=== PATIENT | female | born 1945 | race African-American/Black ===

== ENCOUNTER 2016-11-06 21:32 | Inpatient (IN) | payer BC, MEDICARE ==
[~2016-11-06] VITALS: Ht 167.6 cm; Wt 64.0 kg
[~2016-11-06 21:32] MED LIST: BUDE10.2 IH; DOXA4TAB2 PO; EZET10TA18 PO; LEVO75TA5 PO; PROVENTIL HFA6.7 GM IH; [UNRECOGNIZED DRUG - OTHER]
[2016-11-06] MEDS ORDERED: ASPIRIN CHEWABLE 81 MG TABLET. PO ONE (21:45)
[2016-11-06 22:37] LABS: BASO # 0.1 x10^3/uL (0.0-0.2); BASO % 1 % (0-3); EOS % 1 % (0-3); HEMATOCRIT 41.3 % (36.0-47.0); HEMOGLOBIN 13.3 g/dL (12.0-15.5); LYMPH # 1.9 x10^3/uL (1.0-4.8); LYMPH % 27 % (24-48); MEAN CORPUSCULAR HEMOGLOBIN 29 pg (25-35); MEAN CORPUSCULAR HGB CONC 32 g/dL (31-37); MEAN CORPUSCULAR VOLUME 89 fL (79-100); MONO % 6 % (0-9); NEUT % 65 % (31-73); PLATELET COUNT 197 x10^3/uL (140-400); RED BLOOD COUNT 4.62 x10^6/uL (3.50-5.40); RED CELL DISTRIBUTION WIDTH 16.7 % (11.5-14.5); WHITE BLOOD COUNT 7.2 x10^3/uL (4.0-11.0)
[2016-11-06 22:44] LABS: ANION GAP 8 (6-14); BLOOD UREA NITROGEN 11 mg/dL (7-20); CALCIUM 8.4 mg/dL (8.5-10.1); CARBON DIOXIDE 31 mmol/L (21-32); CHLORIDE 103 mmol/L (98-107); CREATININE 0.8 mg/dL (0.6-1.0); GFR 85.8; GLUCOSE 111 mg/dL (70-99); POTASSIUM 3.9 mmol/L (3.5-5.1); SODIUM 142 mmol/L (136-145)
[2016-11-06 22:50] LABS: ALBUMIN 3.4 g/dL (3.4-5.0); ALK PHOS 102 U/L (46-116); ALT (SGPT) 34 U/L (14-59); AST (SGOT) 59 U/L (15-37); DIRECT BILIRUBIN < 0.1 mg/dL (0.0-0.2); TOTAL BILIRUBIN 0.5 mg/dL (0.2-1.0); TOTAL PROTEIN 7.2 g/dL (6.4-8.2)
[2016-11-06] MEDS ORDERED: MORPHINE SULFATE 2 MG/ML DISP.SYRIN. IV PRN (23:15)
[2016-11-06] MEDS ORDERED: ONDANSETRON PF 4 MG/2 ML VIAL. IV PRN (23:15)
[2016-11-06] MEDS ORDERED: FUROSEMIDE 40 MG/4 ML VIAL. IVP ONE (23:15)
[2016-11-06] MEDS ORDERED: PIRF801T PO (23:27)
[2016-11-06] MEDS ORDERED: HYDR25TA9 PO (23:27)
--- NOTE | 2016-11-06 23:27 | PHYS DOC ---
Past Medical History Past Medical History: High Cholesterol, Hypertension, Other Additional Past Medical Histor: pulmonary fibrosis, o2 dependent Past Surgical History: No Surgical History Alcohol Use: None Drug Use: None Adult General Chief Complaint Chief Complaint: CHEST PAIN HPI HPI 71-year-old female presenting to the emergency department today with chest pain. She describes it as a burning sensation that is nonradiating moderate intermittent and without alleviating factors. She also reports increased leg swelling and worsening shortness of breath with exertion. She has a history of pulmonary fibrosis and is at baseline on 4 L nasal cannula. Review of systems is negative for fevers chills cough abdominal pain nausea vomiting or diaphoresis. All other review of systems is negative unless otherwise noted in history of present illness. ED course: 71-year-old female presenting to the emergency department today with chest pain with shortness of breath. Patient was tachycardic upon arrival and mildly tachypneic and mildly hypoxic. On examination the patient has mild crackles in the bases. 2+ edema in the legs. Patient clinically appears to be volume overloaded and suggestive of congestive heart failure. Chest x-ray obtained which shows pulmonary edema and chronic left radio opacification possibly secondary to fibrosis however underlying pneumonia cannot be excluded by this physician. Otherwise blood tests show elevated proBNP with mildly elevated troponin just above the reference range of normal. The patient received aspirin in the emergency department along with Lasix and then was admitted to our cardiovascular care unit with pulmonary and cardiology consultation. Review of Systems Review of Systems SEE ABOVE. Current Medications Current Medications Current Medications Medications (Trade) Dose Ordered Sig/Traci Start Time Stop Time Status Last Admin Dose Admin Aspirin (Children'S Aspirin) 324 mg 1X ONCE 11/06/16 21:45 11/06/16 21:46 DC 11/06/16 22:04 324 MG Furosemide (Lasix) 40 mg 1X ONCE 11/06/16 23:15 11/06/16 23:16 DC Info (Do NOT chart on this entry -- for MONITORING) 1 each PRN DAILY PRN 11/06/16 23:30 11/08/16 23:29 Iohexol (Omnipaque 300 Mg/ml) 75 ml 1X ONCE 11/06/16 23:30 11/06/16 23:31 Morphine Sulfate 2 mg PRN Q2HR PRN 11/06/16 23:15 11/07/16 23:14 Ondansetron HCl (Zofran) 4 mg PRN Q8HRS PRN 11/06/16 23:15 11/07/16 23:14 Allergies Allergies Allergies Coded Allergies Type Severity Reaction Last Updated Verified Penicillins Allergy Unknown Rash 02/19/14 Yes codeine Allergy Unknown 02/19/14 Yes Physical Exam Physical Exam SEE ABOVE Constitutional: Well developed, well nourished, no acute distress, non-toxic appearance. HENT: Normocephalic, atraumatic, bilateral external ears normal, oropharynx moist, no oral exudates, nose normal. Eyes: PERRLA, EOMI, conjunctiva normal, no discharge. [] Neck: Normal range of motion, no tenderness, supple, no stridor. [] Cardiovascular:Heart rate regular rhythm, no murmur [] Lungs & Thorax: SEE ABOVE Abdomen: Bowel sounds normal, soft, no tenderness, no masses, no pulsatile masses. [] Skin: Warm, dry, no erythema, no rash. [] Back: No tenderness, no CVA tenderness. [] Extremities: No tenderness, no cyanosis, no clubbing, ROM intact, Neurologic: Alert and oriented X 3, normal motor function, normal sensory function, no focal deficits noted. [] Psychologic: Affect normal, judgement normal, mood normal. [] Current Patient Data Vital Signs Vital Signs Date Time Temp Pulse Resp B/P (MAP) Pulse Ox O2 Delivery O2 Flow Rate FiO2 11/06/16 21:48 98.2 106 24 173/79 (110) 87 Nasal Cannula 5.0 98.2 Lab Values Laboratory Tests Test 11/06/16 22:00 White Blood Count 7.2 x10^3/uL (4.0-11.0) Red Blood Count 4.62 x10^6/uL (3.50-5.40) Hemoglobin 13.3 g/dL (12.0-15.5) Hematocrit 41.3 % (36.0-47.0) Mean Corpuscular Volume 89 fL (79-100) Mean Corpuscular Hemoglobin 29 pg (25-35) Mean Corpuscular Hemoglobin Concent 32 g/dL (31-37) Red Cell Distribution Width 16.7 % (11.5-14.5) H Platelet Count 197 x10^3/uL (140-400) Neutrophils (%) (Auto) 65 % (31-73) Lymphocytes (%) (Auto) 27 % (24-48) Monocytes (%) (Auto) 6 % (0-9) Eosinophils (%) (Auto) 1 % (0-3) Basophils (%) (Auto) 1 % (0-3) Neutrophils # (Auto) 4.7 x10^3uL (1.8-7.7) Lymphocytes # (Auto) 1.9 x10^3/uL (1.0-4.8) Monocytes # (Auto) 0.4 x10^3/uL (0.0-1.1) Eosinophils # (Auto) 0.1 x10^3/uL (0.0-0.7) Basophils # (Auto) 0.1 x10^3/uL (0.0-0.2) D-Dimer (Shelia) 2.25 ug/mlFEU (0.00-0.50) H Sodium Level 142 mmol/L (136-145) Potassium Level 3.9 mmol/L (3.5-5.1) Chloride Level 103 mmol/L (98-107) Carbon Dioxide Level 31 mmol/L (21-32) Anion Gap 8 (6-14) Blood Urea Nitrogen 11 mg/dL (7-20) Creatinine 0.8 mg/dL (0.6-1.0) Estimated GFR (Cockcroft-Gault) 85.8 Glucose Level 111 mg/dL (70-99) H Calcium Level 8.4 mg/dL (8.5-10.1) L Total Bilirubin 0.5 mg/dL (0.2-1.0) Direct Bilirubin < 0.1 mg/dL (0.0-0.2) Aspartate Amino Transferase (AST) 59 U/L (15-37) H Alanine Aminotransferase (ALT) 34 U/L (14-59) Alkaline Phosphatase 102 U/L (46-116) Troponin I Quantitative 0.072 ng/mL (0.000-0.055) US-Fhq-V-Type Natriuretic Peptide 60116 pg/mL (0-124) H Total Protein 7.2 g/dL (6.4-8.2) Albumin 3.4 g/dL (3.4-5.0) Lipase 95 U/L (73-393) Laboratory Tests 11/06/16 22:00 Laboratory Tests 11/06/16 22:00 EKG EKG [] Radiology/Procedures Radiology/Procedures [] Course & Med Decision Making Course & Med Decision Making Pertinent Labs and Imaging studies reviewed. (See chart for details) [] Dragon Disclaimer Dragon Disclaimer This electronic medical record was generated, in whole or in part, using a voice recognition dictation system. Departure Departure Impression: Primary Impression: Elevated troponin Additional Impressions: CHF (congestive heart failure) Pulmonary edema Pulmonary fibrosis Pedal edema Disposition: ADMITTED INPATIENT Admitting Physician: Joseluis Jorgensen Condition: STABLE Referrals: BOYD BRITO MD (PCP) Problem Qualifiers LASHON CISNEROS MD Nov 06, 2016 23:27
[2016-11-06] MEDS ORDERED: CONTRAST GIVEN MC PRN (23:30)
[2016-11-06] MEDS ORDERED: IOHEXOL 300 MG/ML 75 ML VIAL IV ONE (23:30)
[2016-11-07] VITALS (7 sets, daily range): BP systolic 101–144; BP diastolic 56–77
--- NOTE | 2016-11-07 00:42 | RAD ---
PQRS Compliance Statement: One or more of the following individualized dose reduction techniques were utilized for this examination: 1. Automated exposure control 2. Adjustment of the mA and/or kV according to patient size 3. Use of iterative reconstruction technique CT CHEST WITH CONTRAST, PULMONARY ANGIOGRAM History: extreme shortness of breath, elevated d-dimmer Comparison: CT chest with contrast April 27, 2014. Technique: Helical CT of the chest was performed after the administration of 75 cc Omnipaque 300 intravenous contrast according to protocol. Axial and coronal reconstructions were obtained. 3-D MIP images were constructed to better evaluate the pulmonary arteries. Findings: Pulmonary arteries are adequately opacified. There is no evidence of pulmonary embolism. Atherosclerotic aortic arch. No obvious dissection. There is anasarca. Mediastinal adenopathy is worse. Bilateral hilar adenopathy. Calcified right hilar and subcarinal lymph nodes. Moderate pericardial effusion. There is cardiomegaly. Small bilateral pleural effusions. Paraseptal emphysema. Pulmonary fibrosis has increased. There is interlobular septal thickening in the upper lobes, there may be superimposed interstitial edema. Central airways are patent. Visualized upper abdomen unremarkable. No acute compression fracture in the thoracic spine. IMPRESSION: 1. There is no CT evidence of pulmonary embolus. 2. Small bilateral pleural effusions. 3. Interval worsening of pulmonary fibrosis. 4. Upper lobe interlobular septal thickening, there may be superimposed interstitial edema. 5. Mediastinal adenopathy has increased. 6. Moderate pericardial effusion. 7. Anasarca. Electronically signed by: Socrates Barnes MD (11/07/2016 12:39 AM) [id number]
--- NOTE | 2016-11-07 01:16 | ACF ---
Admission Forms Criteria CHEST PAIN Clinical Indications for Admission to Inpatient Care (Place 'X' for any and all applicable criteria): Admission is indicated for chest pain and ANY ONE of the following(1)(2)(3)(4)(5 ): [ ]I. Angina with acute coronary syndrome (Also use Myocardial Infarction or Angina guideline) [ ]II. Hemodynamic instability [ ]III. Angina needing acute intervention as indicated by ALL of the following( 11)(12): [ ]a) Unstable angina is present as indicated by angina that is ANY ONE of the following: [ ]i) New onset [ ]ii) Nocturnal [ ]iii) Prolonged at rest [ ]iv) Progressive [ ]b) Angina warrants acute intervention as indicated by ANY ONE of the following: [ ]i) Recurrent angina (e.g, not responding as previously to treatment) [ ]ii) Angina at rest or with low-level activities despite initial medical therapy [ ]iii) New or presumably new ST-segment depression on ECG [ ]iv) Signs or symptoms of heart failure (eg, dyspnea, pulmonary edema) [ ]v) New or worsening mitral regurgitation [ ]vi) Hemodynamic instability [ ]vii) Dangerous arrhythmia (eg, sustained ventricular tachycardia) [ ]viii) History of percutaneous coronary intervention within 6 months [ ]ix) History of coronary artery bypass graft surgery [ ]x) WAYLON risk score of 2 or greater[A] [ ]xi) History of Diabetes(14) [ ]xii) High-risk cardiac ischemia findings on noninvasive testing (e.g, echocardiogram, treadmill testing, nuclear scan) [ ]xiii) Chronic renal insufficiency (ie, estimated GFR less than 60 mL/min/1.732m) [ ]xiv) Left ventricular ejection fraction less than 40% [ ]IV. Evidence of IL (eg, cardiac biomarkers positive, ST-segment elevation on ECG) also use Myocardial Infarction Criteria Form. [ ]V. Pulmonary edema [ ]. Respiratory distress [ ]VII. Chest pain indicative of serious diagnosis other than coronary artery disease (eg, aortic dissection) [X]VIII. Contraindications and/or Inappropriate clinical situations for Observational Care in patients with Chest Pain, when ANY ONE of the following is required: [ ]a) Patient with risk factor for pulmonary embolism, acute coronary syndrome and myocardial infarction (18) [ ]b) Patient with Pulmonary embolism require an average LOS of 4.3 days, therefore emergency department observation management is inappropriate 18,23 [ ]c) Painful condition/s in the elderly, have the highest rate of recidivism after emergency department observation management (10.8%) 20,21,22 [X]d) Elevated cardiac biomarker requires intensive and exhaustive care (19) [ ]IX. General contraindications and/or Inappropriate clinical situations for Observational Care in patients with Chest Pain, when ANY ONE of the following is required: [ ]a) Prediction of prolongation of LOS based on ANY ONE of the following may be considered as a contraindication for observational care 2, 3, 4, 5, 6, 7, 8, 9, 10, 11 [ ]i) Age > 65 yrs. [ ]ii) Patient arriving by ambulance [ ]iii) Patient with high acuity [ ]iv) Patient requiring vital sign monitoring [ ]v) Patient on IV medication [ ]b) Systolic blood pressures 180mmHg 3,12 [ ]c) Patient with altered mental status including delirium and other alteration of consciousness, (3) [ ]d) Patient whose discharge disposition will be to a [facility] home or rehabilitation home should not be managed in Emergency Department Observation Unit. CMS rule requires 3 days hospital stay before such placement. 3,13 [ ]e) Patient with failure to thrive due to broad array of etiologies 3,16,17 [ ]f) Inability to ambulate 3,14 Extended stay beyond goal length of stay may be needed for (1)(28): [ ]a) Specific condition diagnosed after evaluation (eg, pulmonary embolism, aortic dissection) [ ]b) Unstable angina [ ]c) Continued suspicion of acute coronary syndrome with inability to complete needed cardiac evaluation (eg, patient clinically unable to undergo stress testing) [ ]d) Myocardial infarction (Contents from ANGINA and CHEST PAIN clinical indications for admission to inpatient care have been integrated in this form) The original [employer] content created by [employer] has been revised. The portions of the content which have been revised are identified through the use of italic text or in bold, and [facility] [employer] has neither reviewed nor approved the modified material. All other unmodified content is copyright [employer]. Please see references footnoted in the original [facility] [employer] edition 2016 Admission Criteria Met?: Yes AWILDA ELAINE Nov 07, 2016 01:16
[2016-11-07] MEDS ORDERED: PIRF267C PO (01:34)
[2016-11-07 05:10] LABS: BASO # 0.1 x10^3/uL (0.0-0.2); BASO % 1 % (0-3); EOS % 1 % (0-3); HEMATOCRIT 38.7 % (36.0-47.0); HEMOGLOBIN 12.6 g/dL (12.0-15.5); LYMPH # 1.1 x10^3/uL (1.0-4.8); LYMPH % 15 % (24-48); MEAN CORPUSCULAR HEMOGLOBIN 29 pg (25-35); MEAN CORPUSCULAR HGB CONC 33 g/dL (31-37); MEAN CORPUSCULAR VOLUME 89 fL (79-100); MONO % 6 % (0-9); NEUT % 77 % (31-73); PLATELET COUNT 177 x10^3/uL (140-400); RED BLOOD COUNT 4.37 x10^6/uL (3.50-5.40); RED CELL DISTRIBUTION WIDTH 16.9 % (11.5-14.5); WHITE BLOOD COUNT 7.5 x10^3/uL (4.0-11.0)
[2016-11-07 05:25] LABS: CALCIUM 8.5 mg/dL (8.5-10.1); CREATININE 0.8 mg/dL (0.6-1.0); GFR 85.8
[2016-11-07 05:34] LABS: POTASSIUM 2.8 mmol/L (3.5-5.1)
[2016-11-07] MEDS ORDERED: POTASSIUM CHLORIDE 20 MEQ TABLET.ER. PO ONE ×2 (06:00→11:00)
--- NOTE | 2016-11-07 07:02 | EKG ---
[facility] [address] [place] [address] Test Date: 2016-11-06 Test Time: 21:46:11 Pat Name: RYLEE PONCE Department: Room: Gender: F Feeder Operator Automatic: : 1945 Requested By: LASHON CISNEROS Order Number: [id number] Reading MD: Measurements Intervals [place] Rate: 110 P: [place]: QRS: -107 QRSD: 98 T: 8 QT: 374 QTc: 512 Interpretive Statements SINUS TACHYCARDIA VENTRICULAR PREMATURE COMPLEX(ES) ABNORMAL RIGHT SUPERIOR AXIS DEVIATION S1,S2,S3 PATTERN LEFT ANTERIOR FASCICULAR BLOCK QRS(T) CONTOUR ABNORMALITY CONSISTENT WITH ANTEROSEPTAL INFARCT AGE UNDETERMINED RI6.01 Unconfirmed report No previous ECG available for comparison
--- NOTE | 2016-11-07 08:49 | RAD ---
INDICATION: chest pain COMPARISON: 06/14/2011 FINDINGS: Single view of chest obtained. Cardiac silhouette is prominent in size. Diffusely disorganized pulmonary markings with interstitial opacities bilaterally most confluent at left lung base. Degenerative changes shoulders IMPRESSION: Disorganized pulmonary markings bilaterally with some more confluent components including at the left lung base. Overall this appears increased when compared to 2011. Could be from progression of chronic lung disease with pulmonary fibrosis but given that this is increased from prior superimposed edema or interstitial infiltrate is possible
--- NOTE | 2016-11-07 09:23 | PDOC2 ---
MAI TURNER PROGRAM REVIEW DIRECTOR 11/07/16 0923: CARDIAC CONSULT DATE OF CONSULT Date of Consult DATE: 11/07/16 TIME: 09:14 REASON FOR CONSULT Reason for Consult: CHF REFERRING PHYSICIAN Referring Physician: Leti SOURCE Source: Chart review, Patient HISTORY OF PRESENT ILLNESS HISTORY OF PRESENT ILLNESS This is a pleasant 71 yo female admitted for complains of increasing SOA and chest burning. Reports that in the last few days she has been increasingly getting SOA. Her activity tolerance has decreased. She typically use 4-6 L of O2 at home for her pulmonary fibrosis but she has to increase lately just to tolerate going to the bathroom. She also started having chest burning midchest which was better after zantac but recurred again. This is nonradiating and no routine GERD meds. Denies any palpitations, nausea or vomiting. Denies any recent stress test. Her appetite has been poor. She has lost about 30 pounds in the last 8 months. also she has complained of some leg swelling but currently is much better. Denies any CAD, VTE, falls or any recent injury, fever or chills. She does reports that she has been producing more sputum yellow. Reports that her pulmonary fibrosis may have been caused by chronic exposure to plastic fumes. PAST MEDICAL HISTORY Cardiovascular: HTN, Hyperlipidemia Pulmonary: Other (Pulmonary fibrosis) CENTRAL NERVOUS SYSTEM: Other (No pertinent history) GI: GERD Heme/Onc: No pertinent hx Hepatobiliary: No pertinent hx Psych: No pertinent hx Musculoskeletal: Osteoarthritis Rheumatologic: No pertinent hx Infectious disease: No pertinent hx ENT: No pertinent hx Renal/: No pertinent hx Endocrine: Hypothyroidism Dermatology: No pertinent hx PAST SURGICAL HISTORY Past Surgical History: No pertinent history FAMILY HISTORY Family History: Heart Disease (father) SOCIAL HISTORY Smoke: No ALCOHOL: none Drugs: None Lives: with Family CURRENT MEDICATIONS CURRENT MEDICATIONS Current Medications Medications (Trade) Dose Ordered Sig/Traci Route PRN Reason Start Time Stop Time Status Last Admin Dose Admin Aspirin (Children'S Aspirin) 324 mg 1X ONCE PO 11/06/16 21:45 11/06/16 21:46 DC 11/06/16 22:04 Furosemide (Lasix) 40 mg 1X ONCE IVP 11/06/16 23:15 11/06/16 23:16 DC 11/06/16 23:32 Potassium Chloride (Klor-Con) 40 meq 1X ONCE PO 11/07/16 06:00 11/07/16 06:01 DC 11/07/16 06:06 ALLERGIES ALLERGIES: Coded Allergies: Penicillins (Verified Allergy, Intermediate, Rash, 11/07/16) swelling codeine (Verified Adverse Reaction, Mild, 11/07/16) "too sleepy" ROS Review of System 14 point ROS evaluated with pertinent positives noted per HPI PHYSICAL EXAM General: Alert, Oriented X3, Cooperative, No acute distress HEENT: Atraumatic, Mucous membr. moist/pink Lungs: Other (basilar crackles) Heart: Regular rate (SR), Normal S1, Normal S2, Other (split S2; 3/6 systolic murmur to LLS border; JVD) Abdomen: Soft, No tenderness Extremities: No cyanosis, Other (trace LE edema) Skin: No breakdown, No significant lesion Neuro: Normal speech, Sensation intact Psych/Mental Status: Mental status NL, Mood NL MUSCULOSKELETAL: Osteoarthritic changes both hands VITALS VITALS Vital Signs Date Time Temp Pulse Resp B/P (MAP) Pulse Ox O2 Delivery O2 Flow Rate FiO2 11/07/16 07:00 Nasal Cannula 6.0 11/07/16 06:49 98.4 85 18 105/59 (74) 92 98.4 LABS Lab: Laboratory Tests Test 11/06/16 22:00 11/07/16 04:00 11/07/16 04:05 White Blood Count 7.2 x10^3/uL (4.0-11.0) 7.5 x10^3/uL (4.0-11.0) Red Blood Count 4.62 x10^6/uL (3.50-5.40) 4.37 x10^6/uL (3.50-5.40) Hemoglobin 13.3 g/dL (12.0-15.5) 12.6 g/dL (12.0-15.5) Hematocrit 41.3 % (36.0-47.0) 38.7 % (36.0-47.0) Mean Corpuscular Volume 89 fL (79-100) 89 fL (79-100) Mean Corpuscular Hemoglobin 29 pg (25-35) 29 pg (25-35) Mean Corpuscular Hemoglobin Concent 32 g/dL (31-37) 33 g/dL (31-37) Red Cell Distribution Width 16.7 % (11.5-14.5) 16.9 % (11.5-14.5) Platelet Count 197 x10^3/uL (140-400) 177 x10^3/uL (140-400) Neutrophils (%) (Auto) 65 % (31-73) 77 % (31-73) Lymphocytes (%) (Auto) 27 % (24-48) 15 % (24-48) Monocytes (%) (Auto) 6 % (0-9) 6 % (0-9) Eosinophils (%) (Auto) 1 % (0-3) 1 % (0-3) Basophils (%) (Auto) 1 % (0-3) 1 % (0-3) Neutrophils # (Auto) 4.7 x10^3uL (1.8-7.7) 5.8 x10^3uL (1.8-7.7) Lymphocytes # (Auto) 1.9 x10^3/uL (1.0-4.8) 1.1 x10^3/uL (1.0-4.8) Monocytes # (Auto) 0.4 x10^3/uL (0.0-1.1) 0.5 x10^3/uL (0.0-1.1) Eosinophils # (Auto) 0.1 x10^3/uL (0.0-0.7) 0.1 x10^3/uL (0.0-0.7) Basophils # (Auto) 0.1 x10^3/uL (0.0-0.2) 0.1 x10^3/uL (0.0-0.2) D-Dimer (Shelia) 2.25 ug/mlFEU (0.00-0.50) Sodium Level 142 mmol/L (136-145) 146 mmol/L (136-145) Potassium Level 3.9 mmol/L (3.5-5.1) 2.8 mmol/L (3.5-5.1) Chloride Level 103 mmol/L (98-107) 104 mmol/L (98-107) Carbon Dioxide Level 31 mmol/L (21-32) 34 mmol/L (21-32) Anion Gap 8 (6-14) 8 (6-14) Blood Urea Nitrogen 11 mg/dL (7-20) 10 mg/dL (7-20) Creatinine 0.8 mg/dL (0.6-1.0) 0.8 mg/dL (0.6-1.0) Estimated GFR (Cockcroft-Gault) 85.8 85.8 Glucose Level 111 mg/dL (70-99) 83 mg/dL (70-99) Calcium Level 8.4 mg/dL (8.5-10.1) 8.5 mg/dL (8.5-10.1) Total Bilirubin 0.5 mg/dL (0.2-1.0) Direct Bilirubin < 0.1 mg/dL (0.0-0.2) Aspartate Amino Transf (AST/SGOT) 59 U/L (15-37) Alanine Aminotransferase (ALT/SGPT) 34 U/L (14-59) Alkaline Phosphatase 102 U/L (46-116) Troponin I Quantitative 0.072 ng/mL (0.000-0.055) 0.107 ng/mL (0.000-0.055) LX-Tdg-C-Type Natriuretic Peptide 37086 pg/mL (0-124) Total Protein 7.2 g/dL (6.4-8.2) Albumin 3.4 g/dL (3.4-5.0) Lipase 95 U/L (73-393) IMAGES IMAGES CTA Chest IMPRESSION: 1. There is no CT evidence of pulmonary embolus. 2. Small bilateral pleural effusions. 3. Interval worsening of pulmonary fibrosis. 4. Upper lobe interlobular septal thickening, there may be superimposed interstitial edema. 5. Mediastinal adenopathy has increased. 6. Moderate pericardial effusion. 7. Anasarca. DATE: 11/07/163 ECHOCARDIOGRAM ECHOCARDIOGRAM <Conclusion> The left ventricle is of a normal size. The left ventricular wall is mildly thickened with increased brightness. An early infiltrative proces can not be ruled out. The left ventricular systolic function is normal with an ejection fraction of 60 %. There is a grade 1 diastolic dysfunction. There is a trace pericardial effusion. The mitral valves are not thickened. Excursion is normal.There Josseline no mitral stenosis or regurgitation. The aortic valve is tricuspid with no aortic stenosis or regurgitation. The left atrium is of a normal size. The right ventricle is of a normal size with normal systolic function. Right atrium is normal. There is a trace tricuspid regurgitation. Estimated right ventricular systolic pressure is 35 mmHg. The pulmonic valve is normal. The inferior vena cava is o a f normal size with a decrease in collapse during ventricular systole. DATE: 05/13/14 1053 ASSESSMENT/PLAN ASSESSMENT/PLAN 1. Acute on chronic respiratory failure with underlying pulmonary fibrosis: per pulmonary 2. Acute CHF with possible diastolic dysfunction/RVH: mainly induced by pulmonary issues 3. Chest pain: mainly burning likely GERD but with her increasing SOA, will need to rule out contributing ischemia. 4. HTN: low end 5. HLP 6. Hypothyroidism 7. Moderate pericardial effusion: per CTA. Recommendations 1. TTE with bubble study, replace Mg and K. TSH, lipids. 2. Lasix x1 today. Caution with significant preload reduction. Strict I & O 3. Possible MPI tomorrow pending pulmonary status and TTE result. 4. Hold antiHTN for now. 5. ECASA and statin Problems: ONEL MIDDLETON MD 11/07/16 1601: CARDIAC CONSULT ALLERGIES ALLERGIES: Coded Allergies: Penicillins (Verified Allergy, Intermediate, Rash, 11/07/16) swelling codeine (Verified Adverse Reaction, Mild, 11/07/16) "too sleepy" ASSESSMENT/PLAN ASSESSMENT/PLAN Patient seen and examined. Agree with RECOVERY ADVOCATE's assessment and plan. Continue gentle diuresis for acute on chronic diastolic heart failure. Chest pain atypical and most probably GI etiology. Troponin level slightly elevated most will be secondary to demand ischemia. Check 2-D echo to assess LV function and rule out wall motion abnormalities. Continue treatment of pulmonary fibrosis per pulmonary team. We will consider ischemic evaluation the formal stress test once respiratory status improves. Thank you for the consultation. Problems: MAI TURNER APRN Nov 07, 2016 09:23 ONEL MIDDLETON MD Nov 07, 2016 16:01
[2016-11-07 09:35] LABS: CHOLESTEROL/HDL RATIO 3.9; MAGNESIUM 1.7 mg/dL (1.8-2.4)
--- NOTE | 2016-11-07 10:06 | EKG ---
[facility] [address] [place] [address] Test Date: 2016-11-07 Test Time: 09:50:41 Pat Name: RYLEE PONCE Department: Room: 250 1 Gender: F Food Processing Plant Manager: BENJAIMN : 1945 Requested By: MAI TURNER Order Number: [id number] Reading MD: Measurements Intervals [place] Rate: 99 P: 36 [place]: 142 QRS: -115 QRSD: 96 T: -34 QT: 364 QTc: 473 Interpretive Statements SINUS RHYTHM VENTRICULAR PREMATURE COMPLEX(ES) LEFT ATRIAL ABNORMALITY ABNORMAL RIGHT SUPERIOR AXIS DEVIATION S1,S2,S3 PATTERN LEFT ANTERIOR FASCICULAR BLOCK QRS(T) CONTOUR ABNORMALITY CONSISTENT WITH ANTEROSEPTAL INFARCT AGE UNDETERMINED T ABNORMALITY IN ANTERIOR LEADS ABNORMAL ECG RI6.01 No previous ECG available for comparison
[2016-11-07] MEDS ORDERED: MAGNESIUM SULFATE 2GM 50 ML IV ONE (11:00)
[2016-11-07] MEDS ORDERED: FUROSEMIDE 40 MG/4 ML VIAL. IVP ONE ×2 (11:15→16:15)
[2016-11-07] MEDS ORDERED: hydrALAZINE 20 MG/ML VIAL. IVP PRN (14:00)
[2016-11-07] MEDS: LEVOTHYROXINE 75 MCG TABLET PO SCH (14:00)
[2016-11-07] MEDS ORDERED: ACETAMINOPHEN 325 MG TABLET. PO PRN (14:00)
[2016-11-07] MEDS ORDERED: ONDANSETRON PF 4 MG/2 ML VIAL. IV PRN (14:00)
[2016-11-07] MEDS ORDERED: DOCUSATE SODIUM 100 MG CAPSULE. PO PRN (14:00)
[2016-11-07] MEDS ORDERED: hydroCHLOROthiazide 25 MG TABLET PO SCH (14:00)
--- NOTE | 2016-11-07 14:04 | PDOC1 ---
History and Physical Date of Admission Date of Admission 11/07/16 Identification/Chief Complaint Chief Complaint chest burning pain Problems: Source Source: Chart review, Patient History of Present Illness History of Present Illness HPI 71-year-old female presenting to the emergency department today with chest pain x1 day Pt has chronic GERD, not taking anti acid meds daily. She feels substernal burning chest pain, no radiation, no N/V, sob, cough, fever, chills. She has pulmonary fibrosis, chronically on Home o2 5-7L. CTA showed pulmanory fibrosis and moderate pericardial effusion. Past Medical History Cardiovascular: HTN, Hyperlipidemia Pulmonary: Other (Pulmonary fibrosis) CENTRAL NERVOUS SYSTEM: Other (No pertinent history) GI: GERD Heme/Onc: No pertinent hx Hepatobiliary: No pertinent hx Psych: No pertinent hx Rheumatologic: No pertinent hx Infectious disease: No pertinent hx ENT: No pertinent hx Renal/: No pertinent hx Endocrine: Hypothyroidism Dermatology: No pertinent hx Past Surgical History Past Surgical History: No pertinent history Family History Family History: Heart Disease (father) Social History Smoke: No ALCOHOL: none Drugs: None Current Problem List Problem List Problems Medical Problems: (1) CHF (congestive heart failure) Status: Acute (2) Pedal edema Status: Acute (3) Pulmonary edema Status: Acute (4) Pulmonary fibrosis Status: Acute Current Medications Current Medications Current Medications Medications (Trade) Dose Ordered Sig/Traci Start Time Stop Time Status Last Admin Dose Admin Aspirin (Children'S Aspirin) 324 mg 1X ONCE 11/06/16 21:45 11/06/16 21:46 DC 11/06/16 22:04 324 MG Aspirin (Ecotrin) 81 mg [id number] 11/08/16 08:00 Atorvastatin Calcium (Lipitor) 20 mg QHS 11/07/16 21:00 Furosemide (Lasix) 40 mg 1X ONCE 11/07/16 11:15 11/07/16 11:16 DC Info (Do NOT chart on this entry -- for MONITORING) 1 each PRN DAILY PRN 11/06/16 23:30 11/08/16 23:29 Iohexol (Omnipaque 300 Mg/ml) 75 ml 1X ONCE 11/06/16 23:30 11/06/16 23:31 DC Magnesium Sulfate/ Dextrose 50 ml @ 25 mls/hr 1X ONCE 11/07/16 11:00 11/07/16 12:59 DC 11/07/16 10:56 25 MLS/HR Morphine Sulfate 2 mg PRN Q2HR PRN 11/06/16 23:15 11/07/16 23:14 Ondansetron HCl (Zofran) 4 mg PRN Q8HRS PRN 11/06/16 23:15 11/07/16 23:14 Potassium Chloride (Klor-Con) 20 meq DAILYWBKFT 11/08/16 08:00 Allergies Allergies Allergies Coded Allergies Type Severity Reaction Last Updated Verified Penicillins Allergy Unknown Rash 02/19/14 Yes codeine Allergy Unknown 02/19/14 Yes ROS Review of System CONSTITUTIONAL: No fever or chills EYES: No recent changes SKIN: No rash or itching CARDIOVASCULAR: No chest pain, syncope, palpitations, or edema RESPIRATORY: No SOB or cough GASTROINTESTINAL: No nausea, vomiting or abdominal pain NEUROLOGICAL: No headaches or weakness ENDOCRINE: No cold or heat intolerance GENITOURINARY: No urgency or frequency of urination MUSCULOSKELETAL: No back pain or joint pain LYMPHATICS: No enlarged lymph nodes PSYCHIATRIC: No anxiety or depression Physical Exam Physical Exam GEN.: No apparent distress. Alert and oriented. HEENT: Head is normocephalic, atraumatic NECK: Supple. LUNGS: bl dry mild crackles HEART: RRR, S1, S2 present. Peripheral pulses intact ABDOMEN: Soft, nontender. Positive bowel sounds. EXTREMITIES: Without any cyanosis. NEUROLOGIC: Normal speech, normal tone PSYCHIATRIC: Normal affect, normal mood. SKIN: No ulcerations Vitals Vitals Vital Signs Date Time Temp Pulse Resp B/P (MAP) Pulse Ox O2 Delivery O2 Flow Rate FiO2 11/07/16 11:00 99.5 93 35 126/70 (88) 94 Nasal Cannula 6.0 99.5 Labs Labs Laboratory Tests Test 11/06/16 22:00 11/07/16 04:00 11/07/16 04:05 11/07/16 11:20 White Blood Count 7.2 x10^3/uL (4.0-11.0) 7.5 x10^3/uL (4.0-11.0) Red Blood Count 4.62 x10^6/uL (3.50-5.40) 4.37 x10^6/uL (3.50-5.40) Hemoglobin 13.3 g/dL (12.0-15.5) 12.6 g/dL (12.0-15.5) Hematocrit 41.3 % (36.0-47.0) 38.7 % (36.0-47.0) Mean Corpuscular Volume 89 fL (79-100) 89 fL (79-100) Mean Corpuscular Hemoglobin 29 pg (25-35) 29 pg (25-35) Mean Corpuscular Hemoglobin Concent 32 g/dL (31-37) 33 g/dL (31-37) Red Cell Distribution Width 16.7 % (11.5-14.5) 16.9 % (11.5-14.5) Platelet Count 197 x10^3/uL (140-400) 177 x10^3/uL (140-400) Neutrophils (%) (Auto) 65 % (31-73) 77 % (31-73) Lymphocytes (%) (Auto) 27 % (24-48) 15 % (24-48) Monocytes (%) (Auto) 6 % (0-9) 6 % (0-9) Eosinophils (%) (Auto) 1 % (0-3) 1 % (0-3) Basophils (%) (Auto) 1 % (0-3) 1 % (0-3) Neutrophils # (Auto) 4.7 x10^3uL (1.8-7.7) 5.8 x10^3uL (1.8-7.7) Lymphocytes # (Auto) 1.9 x10^3/uL (1.0-4.8) 1.1 x10^3/uL (1.0-4.8) Monocytes # (Auto) 0.4 x10^3/uL (0.0-1.1) 0.5 x10^3/uL (0.0-1.1) Eosinophils # (Auto) 0.1 x10^3/uL (0.0-0.7) 0.1 x10^3/uL (0.0-0.7) Basophils # (Auto) 0.1 x10^3/uL (0.0-0.2) 0.1 x10^3/uL (0.0-0.2) D-Dimer (Shelia) 2.25 ug/mlFEU (0.00-0.50) Sodium Level 142 mmol/L (136-145) 146 mmol/L (136-145) Potassium Level 3.9 mmol/L (3.5-5.1) 2.8 mmol/L (3.5-5.1) Chloride Level 103 mmol/L (98-107) 104 mmol/L (98-107) Carbon Dioxide Level 31 mmol/L (21-32) 34 mmol/L (21-32) Anion Gap 8 (6-14) 8 (6-14) Blood Urea Nitrogen 11 mg/dL (7-20) 10 mg/dL (7-20) Creatinine 0.8 mg/dL (0.6-1.0) 0.8 mg/dL (0.6-1.0) Estimated GFR (Cockcroft-Gault) 85.8 85.8 Glucose Level 111 mg/dL (70-99) 83 mg/dL (70-99) Calcium Level 8.4 mg/dL (8.5-10.1) 8.5 mg/dL (8.5-10.1) Total Bilirubin 0.5 mg/dL (0.2-1.0) Direct Bilirubin < 0.1 mg/dL (0.0-0.2) Aspartate Amino Transf (AST/SGOT) 59 U/L (15-37) Alanine Aminotransferase (ALT/SGPT) 34 U/L (14-59) Alkaline Phosphatase 102 U/L (46-116) Troponin I Quantitative 0.072 ng/mL (0.000-0.055) 0.107 ng/mL (0.000-0.055) 0.070 ng/mL (0.000-0.055) OH-Zov-R-Type Natriuretic Peptide 98004 pg/mL (0-124) Total Protein 7.2 g/dL (6.4-8.2) Albumin 3.4 g/dL (3.4-5.0) Lipase 95 U/L (73-393) Magnesium Level 1.7 mg/dL (1.8-2.4) Triglycerides Level 83 mg/dL (0-150) Cholesterol Level 183 mg/dL (0-200) LDL Cholesterol, Calculated 119 mg/dL (0-100) VLDL Cholesterol, Calculated 17 mg/dL (0-40) Non-HDL Cholesterol Calculated 136 mg/dL (0-129) HDL Cholesterol 47 mg/dL (40-60) Cholesterol/HDL Ratio 3.9 Thyroid Stimulating Hormone (TSH) 4.410 uIU/mL (0.358-3.74) Laboratory Tests Test 11/06/16 22:00 11/07/16 04:00 11/07/16 04:05 11/07/16 11:20 White Blood Count 7.2 x10^3/uL (4.0-11.0) 7.5 x10^3/uL (4.0-11.0) Red Blood Count 4.62 x10^6/uL (3.50-5.40) 4.37 x10^6/uL (3.50-5.40) Hemoglobin 13.3 g/dL (12.0-15.5) 12.6 g/dL (12.0-15.5) Hematocrit 41.3 % (36.0-47.0) 38.7 % (36.0-47.0) Mean Corpuscular Volume 89 fL (79-100) 89 fL (79-100) Mean Corpuscular Hemoglobin 29 pg (25-35) 29 pg (25-35) Mean Corpuscular Hemoglobin Concent 32 g/dL (31-37) 33 g/dL (31-37) Red Cell Distribution Width 16.7 % (11.5-14.5) 16.9 % (11.5-14.5) Platelet Count 197 x10^3/uL (140-400) 177 x10^3/uL (140-400) Neutrophils (%) (Auto) 65 % (31-73) 77 % (31-73) Lymphocytes (%) (Auto) 27 % (24-48) 15 % (24-48) Monocytes (%) (Auto) 6 % (0-9) 6 % (0-9) Eosinophils (%) (Auto) 1 % (0-3) 1 % (0-3) Basophils (%) (Auto) 1 % (0-3) 1 % (0-3) Neutrophils # (Auto) 4.7 x10^3uL (1.8-7.7) 5.8 x10^3uL (1.8-7.7) Lymphocytes # (Auto) 1.9 x10^3/uL (1.0-4.8) 1.1 x10^3/uL (1.0-4.8) Monocytes # (Auto) 0.4 x10^3/uL (0.0-1.1) 0.5 x10^3/uL (0.0-1.1) Eosinophils # (Auto) 0.1 x10^3/uL (0.0-0.7) 0.1 x10^3/uL (0.0-0.7) Basophils # (Auto) 0.1 x10^3/uL (0.0-0.2) 0.1 x10^3/uL (0.0-0.2) D-Dimer (Shelia) 2.25 ug/mlFEU (0.00-0.50) Sodium Level 142 mmol/L (136-145) 146 mmol/L (136-145) Potassium Level 3.9 mmol/L (3.5-5.1) 2.8 mmol/L (3.5-5.1) Chloride Level 103 mmol/L (98-107) 104 mmol/L (98-107) Carbon Dioxide Level 31 mmol/L (21-32) 34 mmol/L (21-32) Anion Gap 8 (6-14) 8 (6-14) Blood Urea Nitrogen 11 mg/dL (7-20) 10 mg/dL (7-20) Creatinine 0.8 mg/dL (0.6-1.0) 0.8 mg/dL (0.6-1.0) Estimated GFR (Cockcroft-Gault) 85.8 85.8 Glucose Level 111 mg/dL (70-99) 83 mg/dL (70-99) Calcium Level 8.4 mg/dL (8.5-10.1) 8.5 mg/dL (8.5-10.1) Total Bilirubin 0.5 mg/dL (0.2-1.0) Direct Bilirubin < 0.1 mg/dL (0.0-0.2) Aspartate Amino Transf (AST/SGOT) 59 U/L (15-37) Alanine Aminotransferase (ALT/SGPT) 34 U/L (14-59) Alkaline Phosphatase 102 U/L (46-116) Troponin I Quantitative 0.072 ng/mL (0.000-0.055) 0.107 ng/mL (0.000-0.055) 0.070 ng/mL (0.000-0.055) CF-Tlt-T-Type Natriuretic Peptide 63866 pg/mL (0-124) Total Protein 7.2 g/dL (6.4-8.2) Albumin 3.4 g/dL (3.4-5.0) Lipase 95 U/L (73-393) Magnesium Level 1.7 mg/dL (1.8-2.4) Triglycerides Level 83 mg/dL (0-150) Cholesterol Level 183 mg/dL (0-200) LDL Cholesterol, Calculated 119 mg/dL (0-100) VLDL Cholesterol, Calculated 17 mg/dL (0-40) Non-HDL Cholesterol Calculated 136 mg/dL (0-129) HDL Cholesterol 47 mg/dL (40-60) Cholesterol/HDL Ratio 3.9 Thyroid Stimulating Hormone (TSH) 4.410 uIU/mL (0.358-3.74) VTE Prophylaxis Ordered VTE Prophylaxis Devices: Yes VTE Pharmacological Prophylaxi: Yes Assessment/Plan Assessment/Plan chest pain, 2/2 GERD likely chronic hypoxic resp failure with pulmonary fibrosis htn hld moderate pericardial effusion hypokalemia hypomagnesemia plan: fu with card, pulm, gi consult add protonix TTE pending cont home meds got lasix, hold hctz dvt ppx JOHN REN MD Nov 07, 2016 14:04
[2016-11-07] MEDS ORDERED: ALBUTEROL SULFATE 2.5 MG/3 ML NEBU. NEB PRN (14:15)
[2016-11-07] MEDS: ENOXAPARIN 40 MG/0.4 ML SYRINGE. SQ SCH (14:46)
--- NOTE | 2016-11-07 15:00 | PDOC2 ---
GI CONSULT Reason For Consult: GERD HPI: HPI: 71 y/o female w/ pulmonary fibrosis admitted w/ burning chest pain, also increasing SOA for awhile. Tried ASA and Zantac at home w/ some relief, but burning recurred. Troponin, BNP, and D-dimer elevated elevated, CTA w/o PE as below. Cardiology has seen, plans for echocardiogram, possible stress test. Seems has a h/o GERD w/ rare symptoms (burning chest pain, "knot" in her stomach ) which occur after eating dairy. Takes Tums or Zantac PRN with improvement of symptoms. Years ago had an episode of chest pain and fingertip tingling, given Maalox and Prilosec x 1 month (or so) by her PCP w/ improvement of symptoms. Did not continue PPI because she felt better; additionally, she recalls PPIs being expensive. Decreased appetite in 03/2016 associated w/ 30-40 pound weight loss. No abd pain. No diarrhea or constipation. No dysphagia. No n/ v. No hematochezia or melena. No NSAID use. No previous EGD or colonoscopy. PMH: PMH: idiopathic pulmonary fibrosis on O2, HTN, HLD, GERD, hypothyroidism, bronchoscopy FH: Family History: Other (Crohn's) Social History: Smoke: Quit ALCOHOL: none Drugs: None ROS: GEN: Denies fevers, chills, sweats HEENT: Denies blurred vision, sore throat CV: +chest pain RESP: +shortness of air GI: Per HPI : Denies hematuria, dysuria ENDO: +weight loss NEURO: Denies confusion, dizziness MSK: Denies weakness, joint pain/swelling SKIN: Denies jaundice, pruritus Vitals: Vitals: Vital Signs Date Time Temp Pulse Resp B/P (MAP) Pulse Ox O2 Delivery O2 Flow Rate FiO2 11/07/16 11:00 99.5 93 35 126/70 (88) 94 Nasal Cannula 6.0 99.5 Labs: Labs: Laboratory Tests Test 11/06/16 22:00 11/07/16 04:00 11/07/16 04:05 11/07/16 11:20 White Blood Count 7.2 x10^3/uL (4.0-11.0) 7.5 x10^3/uL (4.0-11.0) Red Blood Count 4.62 x10^6/uL (3.50-5.40) 4.37 x10^6/uL (3.50-5.40) Hemoglobin 13.3 g/dL (12.0-15.5) 12.6 g/dL (12.0-15.5) Hematocrit 41.3 % (36.0-47.0) 38.7 % (36.0-47.0) Mean Corpuscular Volume 89 fL (79-100) 89 fL (79-100) Mean Corpuscular Hemoglobin 29 pg (25-35) 29 pg (25-35) Mean Corpuscular Hemoglobin Concent 32 g/dL (31-37) 33 g/dL (31-37) Red Cell Distribution Width 16.7 % (11.5-14.5) 16.9 % (11.5-14.5) Platelet Count 197 x10^3/uL (140-400) 177 x10^3/uL (140-400) Neutrophils (%) (Auto) 65 % (31-73) 77 % (31-73) Lymphocytes (%) (Auto) 27 % (24-48) 15 % (24-48) Monocytes (%) (Auto) 6 % (0-9) 6 % (0-9) Eosinophils (%) (Auto) 1 % (0-3) 1 % (0-3) Basophils (%) (Auto) 1 % (0-3) 1 % (0-3) Neutrophils # (Auto) 4.7 x10^3uL (1.8-7.7) 5.8 x10^3uL (1.8-7.7) Lymphocytes # (Auto) 1.9 x10^3/uL (1.0-4.8) 1.1 x10^3/uL (1.0-4.8) Monocytes # (Auto) 0.4 x10^3/uL (0.0-1.1) 0.5 x10^3/uL (0.0-1.1) Eosinophils # (Auto) 0.1 x10^3/uL (0.0-0.7) 0.1 x10^3/uL (0.0-0.7) Basophils # (Auto) 0.1 x10^3/uL (0.0-0.2) 0.1 x10^3/uL (0.0-0.2) D-Dimer (Shelia) 2.25 ug/mlFEU (0.00-0.50) Sodium Level 142 mmol/L (136-145) 146 mmol/L (136-145) Potassium Level 3.9 mmol/L (3.5-5.1) 2.8 mmol/L (3.5-5.1) Chloride Level 103 mmol/L (98-107) 104 mmol/L (98-107) Carbon Dioxide Level 31 mmol/L (21-32) 34 mmol/L (21-32) Anion Gap 8 (6-14) 8 (6-14) Blood Urea Nitrogen 11 mg/dL (7-20) 10 mg/dL (7-20) Creatinine 0.8 mg/dL (0.6-1.0) 0.8 mg/dL (0.6-1.0) Estimated GFR (Cockcroft-Gault) 85.8 85.8 Glucose Level 111 mg/dL (70-99) 83 mg/dL (70-99) Calcium Level 8.4 mg/dL (8.5-10.1) 8.5 mg/dL (8.5-10.1) Total Bilirubin 0.5 mg/dL (0.2-1.0) Direct Bilirubin < 0.1 mg/dL (0.0-0.2) Aspartate Amino Transf (AST/SGOT) 59 U/L (15-37) Alanine Aminotransferase (ALT/SGPT) 34 U/L (14-59) Alkaline Phosphatase 102 U/L (46-116) Troponin I Quantitative 0.072 ng/mL (0.000-0.055) 0.107 ng/mL (0.000-0.055) 0.070 ng/mL (0.000-0.055) LU-Yuk-X-Type Natriuretic Peptide 80660 pg/mL (0-124) Total Protein 7.2 g/dL (6.4-8.2) Albumin 3.4 g/dL (3.4-5.0) Lipase 95 U/L (73-393) Magnesium Level 1.7 mg/dL (1.8-2.4) Triglycerides Level 83 mg/dL (0-150) Cholesterol Level 183 mg/dL (0-200) LDL Cholesterol, Calculated 119 mg/dL (0-100) VLDL Cholesterol, Calculated 17 mg/dL (0-40) Non-HDL Cholesterol Calculated 136 mg/dL (0-129) HDL Cholesterol 47 mg/dL (40-60) Cholesterol/HDL Ratio 3.9 Thyroid Stimulating Hormone (TSH) 4.410 uIU/mL (0.358-3.74) Allergies: Coded Allergies: Penicillins (Verified Allergy, Intermediate, Rash, 11/07/16) swelling codeine (Verified Adverse Reaction, Mild, 11/07/16) "too sleepy" Medications: Current Medications Medications (Trade) Dose Ordered Sig/Traci Route PRN Reason Start Time Stop Time Status Last Admin Dose Admin Aspirin (Children'S Aspirin) 324 mg 1X ONCE PO 11/06/16 21:45 11/06/16 21:46 DC 11/06/16 22:04 Furosemide (Lasix) 40 mg 1X ONCE IVP 11/06/16 23:15 11/06/16 23:16 DC 11/06/16 23:32 Potassium Chloride (Klor-Con) 40 meq 1X ONCE PO 11/07/16 06:00 11/07/16 06:01 DC 11/07/16 06:06 Potassium Chloride (Klor-Con) 40 meq 1X ONCE PO 11/07/16 11:00 11/07/16 11:01 DC 11/07/16 10:55 Magnesium Sulfate/ Dextrose 50 ml @ 25 mls/hr 1X ONCE IV 11/07/16 11:00 11/07/16 12:59 DC 11/07/16 10:56 Imaging: Imaging: CXR IMPRESSION: Disorganized pulmonary markings bilaterally with some more confluent components including at the left lung base. Overall this appears increased when compared to 2012. Could be from progression of chronic lung disease with pulmonary fibrosis but given that this is increased from prior superimposed edema or interstitial infiltrate is possible. Chest CTA IMPRESSION: 1. There is no CT evidence of pulmonary embolus. 2. Small bilateral pleural effusions. 3. Interval worsening of pulmonary fibrosis. 4. Upper lobe interlobular septal thickening, there may be superimposed interstitial edema. 5. Mediastinal adenopathy has increased. 6. Moderate pericardial effusion. 7. Anasarca. PE: GEN: NAD, thin HEENT: Atraumatic, PERRL LUNGS: decreased, nasal cannula HEART: RRR +murm ABD: NABS, S/ND/NT EXTREMITY: No edema SKIN: No rashes, no jaundice NEURO/PSYCH: A & O 3 A/P: A/P: Resp failure, CHF, elevated troponin Burning chest pain H/o GERD -occasional chest burning or "stomach knot" after eating dairy -PPI improved symptoms years ago, stopped due to cost and symptom improvement -now uses Tums and H2 jason Decreased appetite, weight loss -since 03/2016, 30-40 pounds Pulmonary fibrosis CRC screen -no previous colonoscopy -- Continue workup per cardiology. Will add PPI QD w/ consideration for EGD later on. Consider outpt screening colonoscopy as well. JIGAR MUNGUIA Nov 07, 2016 15:00
--- NOTE | 2016-11-07 15:36 | PDOC2 ---
CONSULT Date of Consult Date of Consult DATE: 11/07/16 TIME: 15:25 Reason for Consult Reason for Consult: PULMONARY FIBROSIS Referring Physician Referring Physician: DR REN Identification/Chief Complaint Chief Complaint INCREASE SOA AND CHEST BURNING Problems: Source Source: Chart review, Patient History of Present Illness Reason for Visit: PT KNOWN TO ME SAW ME IN OFFICE LAST WEEK, FOLLOW UP ON PULMONARY FIBROSIS PT SLOWLY DETERIORATING, PRESENTS WITH CHEST BURNING, INCREASE SOA NO PRODUCTIVE COUGH SOME LOWER EXT EDEMA NO SYNCOPE CT OF CHEST REVIEWED NO PE PT SEE IN CONSULT BY CARDIOLOGY I SPOKE WITH DR MIDDLETON NO F/C/N/V Past Medical History Cardiovascular: HTN, Hyperlipidemia Pulmonary: Other (Pulmonary fibrosis) CENTRAL NERVOUS SYSTEM: Other (No pertinent history) GI: GERD Heme/Onc: No pertinent hx Hepatobiliary: No pertinent hx Psych: No pertinent hx Musculoskeletal: Osteoarthritis Rheumatologic: No pertinent hx Infectious disease: No pertinent hx ENT: No pertinent hx Renal/: No pertinent hx Endocrine: Hypothyroidism Dermatology: No pertinent hx Past Surgical History Past Surgical History: No pertinent history Family History Family History: Heart Disease (father) Social History Quit ALCOHOL: none Drugs: None Lives: with Family Current Problem List Problem List Problems Medical Problems: (1) CHF (congestive heart failure) Status: Acute (2) Pedal edema Status: Acute (3) Pulmonary edema Status: Acute (4) Pulmonary fibrosis Status: Acute Current Medications Current Medications Current Medications Aspirin (Children'S Aspirin) 324 mg 1X ONCE PO Last administered on 11/06/16 22:04; Start 11/06/16 at 21:45; Stop 11/06/16 at 21:46; Status DC Furosemide (Lasix) 40 mg 1X ONCE IVP Last administered on 11/06/16t 23:32; Start 11/06/16 at 23:15; Stop 11/06/16 at 23:16; Status DC Ondansetron HCl (Zofran) 4 mg PRN Q8HRS PRN IV NAUSEA/VOMITING; Start 11/06/16 at 23:15; Stop 11/07/16 at 23:14 Morphine Sulfate 2 mg PRN Q2HR PRN IV PAIN; Start 11/06/16 at 23:15; Stop 11/07 at 23:14 Iohexol (Omnipaque 300 Mg/ml) 75 ml 1X ONCE IV ; Start 11/06/16 at 23:30; Stop 11/06/16 at 23:31; Status DC Info (Do NOT chart on this entry -- for MONITORING) 1 each PRN DAILY PRN MC SEE COMMENTS; Start 11/06/16 at 23:30; Stop 11/08/16 at 23:29 Potassium Chloride (Klor-Con) 40 meq 1X ONCE PO Last administered on 06:06; Start 11/07/16 at 06:00; Stop 11/07/16 at 06:01; Status DC Potassium Chloride (Klor-Con) 40 meq 1X ONCE PO Last administered on 10:55; Start 11/07/16 at 11:00; Stop 11/07/16 at 11:01; Status DC Magnesium Sulfate/ Dextrose 50 ml @ 25 mls/hr 1X ONCE IV Last administered on 11/07/16 10:56; Start 11/07/16 at 11:00; Stop 11/07/16 at 12:59; Status DC Furosemide (Lasix) 40 mg 1X ONCE IVP ; Start 11/07/16 at 11:15; Stop 11/07/16 at 11:16; Status DC Potassium Chloride (Klor-Con) 20 meq DAILYWBKFT PO ; Start 11/08/16 at 08:00 Aspirin (Ecotrin) 81 mg DAILYWBKFT PO ; Start 11/08/16 at 08:00 Atorvastatin Calcium (Lipitor) 20 mg QHS PO ; Start 11/07/16 at 21:00 Doxazosin Mesylate (Cardura) 4 mg DAILY PO ; Start 11/07/16 at 14:00 EZETIMIBE (Zetia) 10 mg HS PO ; Start 11/07/16 at 21:00 Hydrochlorothiazide (Hydrodiuril) 25 mg DAILY PO ; Start 11/07/16 at 14:00; Stop 11/07/16 at 14:04; Status DC Levothyroxine Sodium (Synthroid) 75 mcg DAILY07 PO ; Start 11/07/16 at 14:00 Albuterol Sulfate (Ventolin Neb Soln) 2.5 mg PRN DAILY PRN NEB SOA; Start 11/07 at 14:15 Acetaminophen (Tylenol) 650 mg PRN Q6HRS PRN PO FEVER; Start 11/07/16 at 14:00 Ondansetron HCl (Zofran) 4 mg PRN Q6HRS PRN IV NAUSEA/VOMITING; Start 11/07/16 at 14:00 Hydralazine HCl (Apresoline) 10 mg PRN Q4HRS PRN IVP ELEVATED BP, SEE COMMENTS ; Start 11/07/16 at 14:00 Docusate Sodium (Colace) 100 mg PRN DAILY PRN PO CONSTIPATION; Start 11/07/16 at 14:00 Pantoprazole Sodium (Protonix) 40 mg DAILYAC PO ; Start 11/07/16 at 14:00 Enoxaparin Sodium (Lovenox 40mg Syringe) 40 mg Q24H SQ Last administered on t 14:46; Start 11/07/16 at 15:00 Active Scripts Active Reported Esbriet (Pirfenidone) 267 Mg Capsule 267 Mg PO TIDWMEALS Hydrochlorothiazide Tablet (Hydrochlorothiazide) 25 Mg Tablet 1 Tab PO DAILY Esbriet (Pirfenidone) 801 Mg Tablet 801 Mg PO Symbicort 160-4.5 Mcg Inhaler (Budesonide/Formoterol Fumarate) 10.2 Gm Hfa.aer.ad 2 Puff IH Proventil Hfa Inhaler (Albuterol Sulfate) 6.7 Gm Hfa.aer.ad 2 Puff IH PRN Levothyroxine Sodium 75 Mcg Tablet 1 Tab PO DAILY Cardura (Doxazosin Mesylate) 4 Mg Tablet 1 Tab PO DAILY Zetia (Ezetimibe) 10 Mg Tablet 10 Mg PO HS Allergies Allergies: Coded Allergies: Penicillins (Verified Allergy, Intermediate, Rash, 11/07/16) swelling codeine (Verified Adverse Reaction, Mild, 11/07/16) "too sleepy" ROS Review of System PER HPI OTHERWISE NEGATIVE Physical Exam Physical Exam NO APPARENT DISTRESS General: Alert, No acute distress HEENT: PERRLA, EOMI Lungs: Other (CRACKLES NO CHANGE FROM PREVIOUS EXAM) Heart: Regular rate, Normal S1, Normal S2 Abdomen: Normal bowel sounds, Soft, No tenderness Extremities: No cyanosis, Other (SOME EDEMA) Skin: No rashes, No breakdown, No significant lesion Neuro: Normal gait, Normal speech, Normal tone, Sensation intact Psych/Mental Status: Mental status NL Vitals VITALS Vital Signs Date Time Temp Pulse Resp B/P (MAP) Pulse Ox O2 Delivery O2 Flow Rate FiO2 11/07/16 11:00 99.5 93 35 126/70 (88) 94 Nasal Cannula 6.0 99.5 Labs Labs Laboratory Tests Test 11/06/16 22:00 11/07/16 04:00 11/07/16 04:05 11/07/16 11:20 White Blood Count 7.2 x10^3/uL (4.0-11.0) 7.5 x10^3/uL (4.0-11.0) Red Blood Count 4.62 x10^6/uL (3.50-5.40) 4.37 x10^6/uL (3.50-5.40) Hemoglobin 13.3 g/dL (12.0-15.5) 12.6 g/dL (12.0-15.5) Hematocrit 41.3 % (36.0-47.0) 38.7 % (36.0-47.0) Mean Corpuscular Volume 89 fL (79-100) 89 fL (79-100) Mean Corpuscular Hemoglobin 29 pg (25-35) 29 pg (25-35) Mean Corpuscular Hemoglobin Concent 32 g/dL (31-37) 33 g/dL (31-37) Red Cell Distribution Width 16.7 % (11.5-14.5) 16.9 % (11.5-14.5) Platelet Count 197 x10^3/uL (140-400) 177 x10^3/uL (140-400) Neutrophils (%) (Auto) 65 % (31-73) 77 % (31-73) Lymphocytes (%) (Auto) 27 % (24-48) 15 % (24-48) Monocytes (%) (Auto) 6 % (0-9) 6 % (0-9) Eosinophils (%) (Auto) 1 % (0-3) 1 % (0-3) Basophils (%) (Auto) 1 % (0-3) 1 % (0-3) Neutrophils # (Auto) 4.7 x10^3uL (1.8-7.7) 5.8 x10^3uL (1.8-7.7) Lymphocytes # (Auto) 1.9 x10^3/uL (1.0-4.8) 1.1 x10^3/uL (1.0-4.8) Monocytes # (Auto) 0.4 x10^3/uL (0.0-1.1) 0.5 x10^3/uL (0.0-1.1) Eosinophils # (Auto) 0.1 x10^3/uL (0.0-0.7) 0.1 x10^3/uL (0.0-0.7) Basophils # (Auto) 0.1 x10^3/uL (0.0-0.2) 0.1 x10^3/uL (0.0-0.2) D-Dimer (Shelia) 2.25 ug/mlFEU (0.00-0.50) Sodium Level 142 mmol/L (136-145) 146 mmol/L (136-145) Potassium Level 3.9 mmol/L (3.5-5.1) 2.8 mmol/L (3.5-5.1) Chloride Level 103 mmol/L (98-107) 104 mmol/L (98-107) Carbon Dioxide Level 31 mmol/L (21-32) 34 mmol/L (21-32) Anion Gap 8 (6-14) 8 (6-14) Blood Urea Nitrogen 11 mg/dL (7-20) 10 mg/dL (7-20) Creatinine 0.8 mg/dL (0.6-1.0) 0.8 mg/dL (0.6-1.0) Estimated GFR (Cockcroft-Gault) 85.8 85.8 Glucose Level 111 mg/dL (70-99) 83 mg/dL (70-99) Calcium Level 8.4 mg/dL (8.5-10.1) 8.5 mg/dL (8.5-10.1) Total Bilirubin 0.5 mg/dL (0.2-1.0) Direct Bilirubin < 0.1 mg/dL (0.0-0.2) Aspartate Amino Transf (AST/SGOT) 59 U/L (15-37) Alanine Aminotransferase (ALT/SGPT) 34 U/L (14-59) Alkaline Phosphatase 102 U/L (46-116) Troponin I Quantitative 0.072 ng/mL (0.000-0.055) 0.107 ng/mL (0.000-0.055) 0.070 ng/mL (0.000-0.055) RW-Osx-B-Type Natriuretic Peptide 33834 pg/mL (0-124) Total Protein 7.2 g/dL (6.4-8.2) Albumin 3.4 g/dL (3.4-5.0) Lipase 95 U/L (73-393) Magnesium Level 1.7 mg/dL (1.8-2.4) Triglycerides Level 83 mg/dL (0-150) Cholesterol Level 183 mg/dL (0-200) LDL Cholesterol, Calculated 119 mg/dL (0-100) VLDL Cholesterol, Calculated 17 mg/dL (0-40) Non-HDL Cholesterol Calculated 136 mg/dL (0-129) HDL Cholesterol 47 mg/dL (40-60) Cholesterol/HDL Ratio 3.9 Thyroid Stimulating Hormone (TSH) 4.410 uIU/mL (0.358-3.74) Laboratory Tests Test 11/06/16 22:00 11/07/16 04:00 11/07/16 04:05 11/07/16 11:20 White Blood Count 7.2 x10^3/uL (4.0-11.0) 7.5 x10^3/uL (4.0-11.0) Red Blood Count 4.62 x10^6/uL (3.50-5.40) 4.37 x10^6/uL (3.50-5.40) Hemoglobin 13.3 g/dL (12.0-15.5) 12.6 g/dL (12.0-15.5) Hematocrit 41.3 % (36.0-47.0) 38.7 % (36.0-47.0) Mean Corpuscular Volume 89 fL (79-100) 89 fL (79-100) Mean Corpuscular Hemoglobin 29 pg (25-35) 29 pg (25-35) Mean Corpuscular Hemoglobin Concent 32 g/dL (31-37) 33 g/dL (31-37) Red Cell Distribution Width 16.7 % (11.5-14.5) 16.9 % (11.5-14.5) Platelet Count 197 x10^3/uL (140-400) 177 x10^3/uL (140-400) Neutrophils (%) (Auto) 65 % (31-73) 77 % (31-73) Lymphocytes (%) (Auto) 27 % (24-48) 15 % (24-48) Monocytes (%) (Auto) 6 % (0-9) 6 % (0-9) Eosinophils (%) (Auto) 1 % (0-3) 1 % (0-3) Basophils (%) (Auto) 1 % (0-3) 1 % (0-3) Neutrophils # (Auto) 4.7 x10^3uL (1.8-7.7) 5.8 x10^3uL (1.8-7.7) Lymphocytes # (Auto) 1.9 x10^3/uL (1.0-4.8) 1.1 x10^3/uL (1.0-4.8) Monocytes # (Auto) 0.4 x10^3/uL (0.0-1.1) 0.5 x10^3/uL (0.0-1.1) Eosinophils # (Auto) 0.1 x10^3/uL (0.0-0.7) 0.1 x10^3/uL (0.0-0.7) Basophils # (Auto) 0.1 x10^3/uL (0.0-0.2) 0.1 x10^3/uL (0.0-0.2) D-Dimer (Shelia) 2.25 ug/mlFEU (0.00-0.50) Sodium Level 142 mmol/L (136-145) 146 mmol/L (136-145) Potassium Level 3.9 mmol/L (3.5-5.1) 2.8 mmol/L (3.5-5.1) Chloride Level 103 mmol/L (98-107) 104 mmol/L (98-107) Carbon Dioxide Level 31 mmol/L (21-32) 34 mmol/L (21-32) Anion Gap 8 (6-14) 8 (6-14) Blood Urea Nitrogen 11 mg/dL (7-20) 10 mg/dL (7-20) Creatinine 0.8 mg/dL (0.6-1.0) 0.8 mg/dL (0.6-1.0) Estimated GFR (Cockcroft-Gault) 85.8 85.8 Glucose Level 111 mg/dL (70-99) 83 mg/dL (70-99) Calcium Level 8.4 mg/dL (8.5-10.1) 8.5 mg/dL (8.5-10.1) Total Bilirubin 0.5 mg/dL (0.2-1.0) Direct Bilirubin < 0.1 mg/dL (0.0-0.2) Aspartate Amino Transf (AST/SGOT) 59 U/L (15-37) Alanine Aminotransferase (ALT/SGPT) 34 U/L (14-59) Alkaline Phosphatase 102 U/L (46-116) Troponin I Quantitative 0.072 ng/mL (0.000-0.055) 0.107 ng/mL (0.000-0.055) 0.070 ng/mL (0.000-0.055) XG-Fsa-X-Type Natriuretic Peptide 06143 pg/mL (0-124) Total Protein 7.2 g/dL (6.4-8.2) Albumin 3.4 g/dL (3.4-5.0) Lipase 95 U/L (73-393) Magnesium Level 1.7 mg/dL (1.8-2.4) Triglycerides Level 83 mg/dL (0-150) Cholesterol Level 183 mg/dL (0-200) LDL Cholesterol, Calculated 119 mg/dL (0-100) VLDL Cholesterol, Calculated 17 mg/dL (0-40) Non-HDL Cholesterol Calculated 136 mg/dL (0-129) HDL Cholesterol 47 mg/dL (40-60) Cholesterol/HDL Ratio 3.9 Thyroid Stimulating Hormone (TSH) 4.410 uIU/mL (0.358-3.74) Images Images IMPRESSION: 1. There is no CT evidence of pulmonary embolus. 2. Small bilateral pleural effusions. 3. Interval worsening of pulmonary fibrosis. 4. Upper lobe interlobular septal thickening, there may be superimposed interstitial edema. 5. Mediastinal adenopathy has increased. 6. Moderate pericardial effusion. 7. Anasarca. Assessment/Plan Assessment/Plan A/C RESP FAILURE PULMONARY FIBROSIS APPEARS TO BE ADVANCING ON CT CHEST AND CLINICALLY CHEST BURNING PER CARD ANASARCA SUSPECT SEC TO HYPOTHYROID HYPOTHYROID WT LOSS MILD SEC PULM HTN PERICARDIAL EFFUSION HYPOK PLAN RESTART HOME ESBRIET 02 FOLLOW CARD INPUT REPLACE K PCP TO ADDRESS THYROID REPLACEMENT JEAN HINTON MD Nov 07, 2016 15:36
[2016-11-07] MEDS: PANTOPRAZOLE 40 MG TABLET.DR. PO SCH (16:21)
[2016-11-07] MEDS: DOXAZOSIN MESYLATE 4 MG TABLET. PO SCH (16:21)
[2016-11-07] MEDS: ESBRIET PO SCH (18:09)
[2016-11-07] MEDS ORDERED: ATORVASTATIN CALCIUM 20 MG TABLET PO SCH (21:00)
[2016-11-07] MEDS ORDERED: EZETIMIBE 10 MG TABLET. PO SCH (21:00)
[2016-11-08 03:33] VITALS: BP 119/67
[2016-11-08] MEDS: PANTOPRAZOLE 40 MG TABLET.DR. PO SCH (06:34)
[2016-11-08] MEDS: LEVOTHYROXINE 75 MCG TABLET PO SCH (06:34)
[2016-11-08 07:00] VITALS: BP 106/63
[2016-11-08] MEDS ORDERED: ASPIRIN ENTERIC COATED 81 MG TABLET.DR. PO SCH (08:00)
[2016-11-08] MEDS: ESBRIET PO SCH ×3 (08:00→17:00)
[2016-11-08] MEDS ORDERED: POTASSIUM CHLORIDE 20 MEQ TABLET.ER. PO SCH (08:00)
[2016-11-08 08:31] LABS: BASO # 0.1 x10^3/uL (0.0-0.2); BASO % 1 % (0-3); EOS % 3 % (0-3); HEMATOCRIT 38.2 % (36.0-47.0); HEMOGLOBIN 12.4 g/dL (12.0-15.5); LYMPH # 1.3 x10^3/uL (1.0-4.8); LYMPH % 19 % (24-48); MEAN CORPUSCULAR HEMOGLOBIN 29 pg (25-35); MEAN CORPUSCULAR HGB CONC 33 g/dL (31-37); MEAN CORPUSCULAR VOLUME 89 fL (79-100); MONO % 6 % (0-9); NEUT % 71 % (31-73); PLATELET COUNT 172 x10^3/uL (140-400); RED BLOOD COUNT 4.32 x10^6/uL (3.50-5.40); WHITE BLOOD COUNT 6.7 x10^3/uL (4.0-11.0)
[2016-11-08 08:45] LABS: CALCIUM 8.4 mg/dL (8.5-10.1); CREATININE 0.9 mg/dL (0.6-1.0); GFR 74.9
[2016-11-08] MEDS ORDERED: REGADENOSON 0.4 MG/5 ML DISP.SYRIN. IV ONE (09:30)
--- NOTE | 2016-11-08 10:59 | PDOC ---
PULMONARY PROGRESS NOTES Vitals Vital Signs Date Time Temp Pulse Resp B/P (MAP) Pulse Ox O2 Delivery O2 Flow Rate FiO2 11/08/16 08:00 Nasal Cannula 6.0 11/08/16 07:00 98.9 85 16 106/63 (77) 95 98.9 Labs Laboratory Tests Test 11/06/16 22:00 11/07/16 04:00 11/07/16 04:05 11/07/16 11:20 White Blood Count 7.2 x10^3/uL (4.0-11.0) 7.5 x10^3/uL (4.0-11.0) Red Blood Count 4.62 x10^6/uL (3.50-5.40) 4.37 x10^6/uL (3.50-5.40) Hemoglobin 13.3 g/dL (12.0-15.5) 12.6 g/dL (12.0-15.5) Hematocrit 41.3 % (36.0-47.0) 38.7 % (36.0-47.0) Mean Corpuscular Volume 89 fL (79-100) 89 fL (79-100) Mean Corpuscular Hemoglobin 29 pg (25-35) 29 pg (25-35) Mean Corpuscular Hemoglobin Concent 32 g/dL (31-37) 33 g/dL (31-37) Red Cell Distribution Width 16.7 % (11.5-14.5) 16.9 % (11.5-14.5) Platelet Count 197 x10^3/uL (140-400) 177 x10^3/uL (140-400) Neutrophils (%) (Auto) 65 % (31-73) 77 % (31-73) Lymphocytes (%) (Auto) 27 % (24-48) 15 % (24-48) Monocytes (%) (Auto) 6 % (0-9) 6 % (0-9) Eosinophils (%) (Auto) 1 % (0-3) 1 % (0-3) Basophils (%) (Auto) 1 % (0-3) 1 % (0-3) Neutrophils # (Auto) 4.7 x10^3uL (1.8-7.7) 5.8 x10^3uL (1.8-7.7) Lymphocytes # (Auto) 1.9 x10^3/uL (1.0-4.8) 1.1 x10^3/uL (1.0-4.8) Monocytes # (Auto) 0.4 x10^3/uL (0.0-1.1) 0.5 x10^3/uL (0.0-1.1) Eosinophils # (Auto) 0.1 x10^3/uL (0.0-0.7) 0.1 x10^3/uL (0.0-0.7) Basophils # (Auto) 0.1 x10^3/uL (0.0-0.2) 0.1 x10^3/uL (0.0-0.2) D-Dimer (Shelia) 2.25 ug/mlFEU (0.00-0.50) Sodium Level 142 mmol/L (136-145) 146 mmol/L (136-145) Potassium Level 3.9 mmol/L (3.5-5.1) 2.8 mmol/L (3.5-5.1) Chloride Level 103 mmol/L (98-107) 104 mmol/L (98-107) Carbon Dioxide Level 31 mmol/L (21-32) 34 mmol/L (21-32) Anion Gap 8 (6-14) 8 (6-14) Blood Urea Nitrogen 11 mg/dL (7-20) 10 mg/dL (7-20) Creatinine 0.8 mg/dL (0.6-1.0) 0.8 mg/dL (0.6-1.0) Estimated GFR (Cockcroft-Gault) 85.8 85.8 Glucose Level 111 mg/dL (70-99) 83 mg/dL (70-99) Calcium Level 8.4 mg/dL (8.5-10.1) 8.5 mg/dL (8.5-10.1) Total Bilirubin 0.5 mg/dL (0.2-1.0) Direct Bilirubin < 0.1 mg/dL (0.0-0.2) Aspartate Amino Transf (AST/SGOT) 59 U/L (15-37) Alanine Aminotransferase (ALT/SGPT) 34 U/L (14-59) Alkaline Phosphatase 102 U/L (46-116) Troponin I Quantitative 0.072 ng/mL (0.000-0.055) 0.107 ng/mL (0.000-0.055) 0.070 ng/mL (0.000-0.055) LX-Xdw-H-Type Natriuretic Peptide 81379 pg/mL (0-124) Total Protein 7.2 g/dL (6.4-8.2) Albumin 3.4 g/dL (3.4-5.0) Lipase 95 U/L (73-393) Magnesium Level 1.7 mg/dL (1.8-2.4) Triglycerides Level 83 mg/dL (0-150) Cholesterol Level 183 mg/dL (0-200) LDL Cholesterol, Calculated 119 mg/dL (0-100) VLDL Cholesterol, Calculated 17 mg/dL (0-40) Non-HDL Cholesterol Calculated 136 mg/dL (0-129) HDL Cholesterol 47 mg/dL (40-60) Cholesterol/HDL Ratio 3.9 Thyroid Stimulating Hormone (TSH) 4.410 uIU/mL (0.358-3.74) Test 11/08/16 07:15 White Blood Count 6.7 x10^3/uL (4.0-11.0) Red Blood Count 4.32 x10^6/uL (3.50-5.40) Hemoglobin 12.4 g/dL (12.0-15.5) Hematocrit 38.2 % (36.0-47.0) Mean Corpuscular Volume 89 fL (79-100) Mean Corpuscular Hemoglobin 29 pg (25-35) Mean Corpuscular Hemoglobin Concent 33 g/dL (31-37) Red Cell Distribution Width 17.0 % (11.5-14.5) Platelet Count 172 x10^3/uL (140-400) Neutrophils (%) (Auto) 71 % (31-73) Lymphocytes (%) (Auto) 19 % (24-48) Monocytes (%) (Auto) 6 % (0-9) Eosinophils (%) (Auto) 3 % (0-3) Basophils (%) (Auto) 1 % (0-3) Neutrophils # (Auto) 4.7 x10^3uL (1.8-7.7) Lymphocytes # (Auto) 1.3 x10^3/uL (1.0-4.8) Monocytes # (Auto) 0.4 x10^3/uL (0.0-1.1) Eosinophils # (Auto) 0.2 x10^3/uL (0.0-0.7) Basophils # (Auto) 0.1 x10^3/uL (0.0-0.2) Sodium Level 144 mmol/L (136-145) Potassium Level 3.0 mmol/L (3.5-5.1) Chloride Level 104 mmol/L (98-107) Carbon Dioxide Level 32 mmol/L (21-32) Anion Gap 8 (6-14) Blood Urea Nitrogen 9 mg/dL (7-20) Creatinine 0.9 mg/dL (0.6-1.0) Estimated GFR (Cockcroft-Gault) 74.9 Glucose Level 79 mg/dL (70-99) Calcium Level 8.4 mg/dL (8.5-10.1) Magnesium Level 2.0 mg/dL (1.8-2.4) Free Thyroxine 1.18 ng/dL (0.76-1.46) Laboratory Tests Test 11/07/16 11:20 11/08/16 07:15 Troponin I Quantitative 0.070 ng/mL (0.000-0.055) White Blood Count 6.7 x10^3/uL (4.0-11.0) Red Blood Count 4.32 x10^6/uL (3.50-5.40) Hemoglobin 12.4 g/dL (12.0-15.5) Hematocrit 38.2 % (36.0-47.0) Mean Corpuscular Volume 89 fL (79-100) Mean Corpuscular Hemoglobin 29 pg (25-35) Mean Corpuscular Hemoglobin Concent 33 g/dL (31-37) Red Cell Distribution Width 17.0 % (11.5-14.5) Platelet Count 172 x10^3/uL (140-400) Neutrophils (%) (Auto) 71 % (31-73) Lymphocytes (%) (Auto) 19 % (24-48) Monocytes (%) (Auto) 6 % (0-9) Eosinophils (%) (Auto) 3 % (0-3) Basophils (%) (Auto) 1 % (0-3) Neutrophils # (Auto) 4.7 x10^3uL (1.8-7.7) Lymphocytes # (Auto) 1.3 x10^3/uL (1.0-4.8) Monocytes # (Auto) 0.4 x10^3/uL (0.0-1.1) Eosinophils # (Auto) 0.2 x10^3/uL (0.0-0.7) Basophils # (Auto) 0.1 x10^3/uL (0.0-0.2) Sodium Level 144 mmol/L (136-145) Potassium Level 3.0 mmol/L (3.5-5.1) Chloride Level 104 mmol/L (98-107) Carbon Dioxide Level 32 mmol/L (21-32) Anion Gap 8 (6-14) Blood Urea Nitrogen 9 mg/dL (7-20) Creatinine 0.9 mg/dL (0.6-1.0) Estimated GFR (Cockcroft-Gault) 74.9 Glucose Level 79 mg/dL (70-99) Calcium Level 8.4 mg/dL (8.5-10.1) Magnesium Level 2.0 mg/dL (1.8-2.4) Free Thyroxine 1.18 ng/dL (0.76-1.46) Medications Active Scripts Medications Dose Route/Sig Max Daily Dose Days Date Category Esbriet (Pirfenidone) 267 Mg Capsule 267 Mg PO TIDWMEALS 11/07/16 Reported Hydrochlorothiazide Tablet (Hydrochlorothiazide) 25 Mg Tablet 1 Tab PO DAILY 11/06/16 Reported Esbriet (Pirfenidone) 801 Mg Tablet 801 Mg PO 11/06/16 Reported Symbicort 160-4.5 Mcg Inhaler (Budesonide/Formoterol Fumarate) 10.2 Gm Hfa.aer.ad 2 Puff IH 02/19/14 Reported Proventil Hfa Inhaler (Albuterol Sulfate) 6.7 Gm Hfa.aer.ad 2 Puff IH PRN 02/19/14 Reported Levothyroxine Sodium 75 Mcg Tablet 1 Tab PO DAILY 02/19/14 Reported Cardura (Doxazosin Mesylate) 4 Mg Tablet 1 Tab PO DAILY 02/19/14 Reported Zetia (Ezetimibe) 10 Mg Tablet 10 Mg PO HS 02/19/14 Reported Impression . A/C RESP FAILURE PULMONARY FIBROSIS APPEARS TO BE ADVANCING ON CT CHEST AND CLINICALLY CHEST BURNING PER CARD ANASARCA SUSPECT SEC TO HYPOTHYROID HYPOTHYROID WT LOSS MILD SEC PULM HTN PERICARDIAL EFFUSION HYPOK Plan . HOME OK BY ME IF CARD WORK IS NEGATIVE FOLLOW UP IN DEC IN OFFICE RESTART HOME ADELEBRIET 02 JEAN HINTON MD Nov 08, 2016 10:59
[2016-11-08 11:00] VITALS: BP 115/68
[2016-11-08] MEDS ORDERED: POTASSIUM CHLORIDE 20 MEQ TABLET.ER. PO ONE (11:45)
--- NOTE | 2016-11-08 12:07 | PDOC ---
CARDIO Progress Notes Date and Time Date of Service 11/08/2016 Time of Evaluation 1150 Subjective Subjective: No Chest Pain, No shortness of breath, No Palpitations, No Dizziness Vitals Vitals Vital Signs Date Time Temp Pulse Resp B/P (MAP) Pulse Ox O2 Delivery O2 Flow Rate FiO2 11/08/16 08:00 Nasal Cannula 6.0 11/08/16 07:00 98.9 85 16 106/63 (77) 95 98.9 Weight Weight [ ] Input and Output Intake and Output Intake and Output 11/08/16 07:00 Intake Total 980 ml Output Total 1750 ml Balance -770 ml Intake Oral 980 ml Output Urine Total 1750 ml Laboratory Labs Laboratory Tests Test 11/08/16 07:15 White Blood Count 6.7 x10^3/uL (4.0-11.0) Red Blood Count 4.32 x10^6/uL (3.50-5.40) Hemoglobin 12.4 g/dL (12.0-15.5) Hematocrit 38.2 % (36.0-47.0) Mean Corpuscular Volume 89 fL (79-100) Mean Corpuscular Hemoglobin 29 pg (25-35) Mean Corpuscular Hemoglobin Concent 33 g/dL (31-37) Red Cell Distribution Width 17.0 % (11.5-14.5) Platelet Count 172 x10^3/uL (140-400) Neutrophils (%) (Auto) 71 % (31-73) Lymphocytes (%) (Auto) 19 % (24-48) Monocytes (%) (Auto) 6 % (0-9) Eosinophils (%) (Auto) 3 % (0-3) Basophils (%) (Auto) 1 % (0-3) Neutrophils # (Auto) 4.7 x10^3uL (1.8-7.7) Lymphocytes # (Auto) 1.3 x10^3/uL (1.0-4.8) Monocytes # (Auto) 0.4 x10^3/uL (0.0-1.1) Eosinophils # (Auto) 0.2 x10^3/uL (0.0-0.7) Basophils # (Auto) 0.1 x10^3/uL (0.0-0.2) Sodium Level 144 mmol/L (136-145) Potassium Level 3.0 mmol/L (3.5-5.1) Chloride Level 104 mmol/L (98-107) Carbon Dioxide Level 32 mmol/L (21-32) Anion Gap 8 (6-14) Blood Urea Nitrogen 9 mg/dL (7-20) Creatinine 0.9 mg/dL (0.6-1.0) Estimated GFR (Cockcroft-Gault) 74.9 Glucose Level 79 mg/dL (70-99) Calcium Level 8.4 mg/dL (8.5-10.1) Magnesium Level 2.0 mg/dL (1.8-2.4) Free Thyroxine 1.18 ng/dL (0.76-1.46) Physical Exam HEENT: Neck Supple W Full Motion Chest: Symmetric LUNGS: Clear to Auscultation Heart: S1S2 (SplitS2), RRR (SR no significant ectopies) Abdomen: Soft N/T Extremities: No Edema, No Calf Tenderness Neurology: alert, oriented, follow commands Assessment Assessment 1. Acute on chronic respiratory failure with underlying pulmonary fibrosis 2. Acute CHF with possible diastolic dysfunction/RVH: currently compensated 3. Atypical chest pain: troponin peaked at 0.1, likely demand mediated 4. HTN: controlled at low end 5. HLP 6. Hypothyroidism: TSH subtherapeutic 7. Pericardial effusion: small per TTE 8. Small PFO: no further imaging nor intervention warranted. Recommendations 1. Replace K. 2. Maintain po hydration and avoid significant preload reduction. 3. Ok with lower dose cardura. No HCTZ at this time. 4. ECASA and statin 5. Follow pulmonary recommendations 6. Discussed significantly with pt in regards to CHF symptoms and emphasized BP control and daily weight and to call office per parameters discussed. 7.If mpi unremarkable then F/U in office in 4 wks MAI T[employer]NER [employer] Nov 08, 2016 12:07
[2016-11-08] MEDS: DOXAZOSIN MESYLATE 4 MG TABLET. PO SCH (12:15)
[2016-11-08] MEDS ORDERED: ATOR20TA58 PO (13:38)
[2016-11-08] MEDS ORDERED: PANT40TA5 PO (13:38)
[2016-11-08] MEDS ORDERED: ASPI-612 PO (13:38)
--- NOTE | 2016-11-08 13:40 | PDOC3 ---
Discharge Summary [facility] Date of Admission: Nov 06, 2016 Discharge Date: Nov 08, 2016 Admitting Diagnosis chest pain, 2/2 GERD likely chronic hypoxic resp failure with pulmonary fibrosis htn hld moderate pericardial effusion hypokalemia hypomagnesemia elevated troponin 2/2 demanding ischemia? Problems: Final Diagnosis CONSULTS pulm gi card Brief Hospital Course 71-year-old female presenting to the emergency department today with chest pain x1 day Pt has chronic GERD, not taking anti acid meds daily. She feels substernal burning chest pain, no radiation, no N/V, sob, cough, fever, chills. She has pulmonary fibrosis, chronically on Home o2 5-7L. CTA showed pulmanory fibrosis and moderate pericardial effusion. MPI pending. pt is on her baseline o2 requirement which is 6L now. chest burning pain is better with protonix, GI consulted. dc home if MPI neg. cont protonix daily. dc time 35min GEN.: No apparent distress. Alert and oriented. HEENT: Head is normocephalic, atraumatic NECK: Supple. LUNGS: bl dry mild crackles HEART: RRR, S1, S2 present. Peripheral pulses intact ABDOMEN: Soft, nontender. Positive bowel sounds. EXTREMITIES: Without any cyanosis. NEUROLOGIC: Normal speech, normal tone PSYCHIATRIC: Normal affect, normal mood. SKIN: No ulcerations Patient History: Problems: Disposition home CONDITION AT DISCHARGE: Improved Diet cardiac Scheduled Albuterol Sulfate (Proventil Hfa Inhaler), 2 PUFF IH PRN, (Reported) Aspirin (Aspirin Ec), 81 MG PO DAILYWBKFT Atorvastatin Calcium (Atorvastatin Calcium), 20 MG PO QHS Doxazosin Mesylate (Cardura), 1 TAB PO DAILY, (Reported) Ezetimibe (Zetia), 10 MG PO HS, (Reported) Hydrochlorothiazide (Hydrochlorothiazide Tablet ), 1 TAB PO DAILY, (Reported) Levothyroxine Sodium (Levothyroxine Sodium), 1 TAB PO DAILY, (Reported) Pantoprazole Sodium (Pantoprazole Sodium), 40 MG PO DAILYAC Miscellaneous Medications Budesonide/Formoterol Fumarate (Symbicort 160-4.5 Mcg Inhaler), 2 PUFF IH, ( Reported) Pirfenidone (Esbriet), 801 MG PO, (Reported) Discontinued Medications Pirfenidone (Esbriet), 267 MG PO TIDWMEALS, (Reported) Follow Up card and pulm in 2 weeks JOHN REN MD Nov 08, 2016 13:40
--- NOTE | 2016-11-08 14:06 | PDOC ---
Subjective: Subjective: Denies chest pain. Objective: Objective: Possible DC pending stress test results. Vital Signs: Vital Signs Date Time Temp Pulse Resp B/P (MAP) Pulse Ox O2 Delivery O2 Flow Rate FiO2 11/08/16 12:15 85 106/63 11/08/16 11:00 98.5 16 94 Nasal Cannula 6.0 98.5 Labs: Laboratory Tests Test 11/08/16 07:15 White Blood Count 6.7 x10^3/uL Red Blood Count 4.32 x10^6/uL Hemoglobin 12.4 g/dL Hematocrit 38.2 % Mean Corpuscular Volume 89 fL Mean Corpuscular Hemoglobin 29 pg Mean Corpuscular Hemoglobin Concent 33 g/dL Red Cell Distribution Width 17.0 % Platelet Count 172 x10^3/uL Neutrophils (%) (Auto) 71 % Lymphocytes (%) (Auto) 19 % Monocytes (%) (Auto) 6 % Eosinophils (%) (Auto) 3 % Basophils (%) (Auto) 1 % Neutrophils # (Auto) 4.7 x10^3uL Lymphocytes # (Auto) 1.3 x10^3/uL Monocytes # (Auto) 0.4 x10^3/uL Eosinophils # (Auto) 0.2 x10^3/uL Basophils # (Auto) 0.1 x10^3/uL Sodium Level 144 mmol/L Potassium Level 3.0 mmol/L Chloride Level 104 mmol/L Carbon Dioxide Level 32 mmol/L Anion Gap 8 Blood Urea Nitrogen 9 mg/dL Creatinine 0.9 mg/dL Estimated GFR (Cockcroft-Gault) 74.9 Glucose Level 79 mg/dL Calcium Level 8.4 mg/dL Magnesium Level 2.0 mg/dL Free Thyroxine 1.18 ng/dL PE: GEN: NAD LUNGS: decreased HEART: RRR ABD: S/ND/NT NEURO/PSYCH: A & O 3 A/P: Resp failure, pulmonary fibrosis, CHF, elevated troponin Burning chest pain, GERD -restarted PPI yesterday Decreased appetite, weight loss -since 03/2016, 30-40 pounds -- DC per primary/cardiology. Left Rx for pantoprazole - also discussed use of OTC omeprazole if she prefers ( could take 2 QD). Use Tums PRN. Consider outpt EGD/colonoscopy when/if resp status more stable. JIGAR MUNGUIA Nov 08, 2016 14:06
[2016-11-08 15:00] VITALS: BP 102/59
[2016-11-08] MEDS: ENOXAPARIN 40 MG/0.4 ML SYRINGE. SQ SCH (15:00)
--- NOTE | 2016-11-08 15:02 | RAD ---
APPROVED REPORT Test Type: Pharmacological Stress Nurse/Tech: neema dinero Test Indications: short of air Cardiac History: CHF, HTN, SEE EHR Medications: SEE EHR Medical History: REMOTE SMOKING, PULMONARY FIBROSIS, SEE EHR Resting ECG: SR WITH PAC'S Resting Heart Rate: 98 bpm Resting Blood Pressure: 135/83mmHg Pretest Chest Pain: No chest pain Nurse/Tech Notes LUNG SOUNDS COARSE, RIGHT > LEFT. PT IS ON 6L NC AND STATES PULMONARY FIBROSIS, AND IS ON HOME OXYGEN 24 HRS A DAY. PT STATES ANKLES WERE SWOLLEN BUT ON ASSESSMENT NO EDEMA NOTED. Consent: The procedure was explained to the patient in lay terms. Informed consent was witnessed. Omar eout was entered into [employer]. History and Stress Test performed by [facility]. Details Pharmacologic stress testing was performed using 0.4mg per 5ml of regadenoson given intravenously ove r 7-10 seconds. Stress Symptoms SOA, HEADACHE, STOMACH ACHE POST EXERCISE Reason for Termination: Infusion complete Max HR: 109 bpm Max Blood Pressure: 143/75mmHg Chest Pain: No. Arrhythmia: No. ST Change: No. INTERPRETATION Stress EKG Conclusion: Baseline EKG showed sinus rhythm. No ischemic changes at peak stress. No arr hythmias. Imaging Protocol IMAGE PROTOCOL: Rest Tc-99m/stress Tc-99m 1 day Rest: Stress: Viability: Radiopharm.Tc99m [id number] Sestamibi Dose11.2mCi 34.6mCi Duration 15min. 10min. Img Date 11/08/2016 11/08/2016 Inj-Img Opkj86hre. 60min. Rest Admin Site:IV - Right AntecubitalAdministrator:RT Avtar (R)(N) Stress Admin Site: IV - Right AntecubitalAdministrator: ANIVAL Novak STRESS DATA End Diast. Vol.33.0mlAv. Heart Kpng539.0bpm End Syst. Vol.8.0mlCO Index BSA0.0L/min Myocardial Mass72.0gEject. Rcatakhn60.0% Stress Rates Pk. Fill Rate3.76EDV/secLVtime Pk. Fill 160.01msec Pk. Empty Rate5.07ESV/secLVtime Pk. Eject90.77msec 1/3 Pk. Fill1.51EDV/sec Stress Scores Regional WT1.00Summed WT27.00 Regional WM0.00Summed WM6.00 Study quality was good. Left Ventricular size was Normal at Rest and Stress. Lung uptake was Normal. Left Ventricular ejection fraction is 76%. The rest and stress images show normal perfusion, normal contraction and thickening. LV Perf. Quant 17 Seg. SSS0.00 17 Seg. SRS1.00 17 Seg. SDS0.00 Stress Defect Extent (% LAD)0.00Rest Defect Extent (% LAD)0.00Rev. Defect Extent (% LAD)0.00 Stress Defect Extent (% LCX) 0.00Rest Defect Extent (% LCX)0.00Rev. Defect Extent (% LCX)0.00 Stress Defect Extent (% RCA)0.00Rest Defect Extent (% RCA)0.00Rev. Defect Extent (% RCA)0.00 Stress Defect Extent (% ANNITA)0.00Rest Defect Extent (% ANNITA)0.00Rev. Defect Extent (% ANNITA)0.00 Conclusion 1. Regadenoson cardioisotope stress test did not show any evidence of ischemia or infarct. 2. Normal left ventricular systolic function with ejection fraction calculated at 76%. 3. Low risk for cardiac events.
--- NOTE | 2016-11-09 10:07 | CARD ---
APPROVED REPORT EXAM: Two-dimensional and M-mode echocardiogram with Doppler and color Doppler. Other Information Quality : GoodHR: 90bpm Rhythm : PVC's INDICATION Congestive Heart Failure Echo Enhancing Agent Indication: Rule Out Septal Defect Agent/Amount Used: Agitated Saline 10mL 2D DIMENSIONS RVDd4.5 (2.9-3.5cm)Left Atrium(2D)2.6 (1.6-4.0cm) IVSd0.8 (0.7-1.1cm)Aortic Root(2D)3.5 (2.0-3.7cm) LVDd3.9 (3.9-5.9cm)LVOT Diameter2.0 (1.8-2.4cm) PWd1.0 (0.7-1.1cm)LVDs2.5 (2.5-4.0cm) FS (%) 35.0 %SV40.9 ml LVEF(%)65.0 (>50%) Aortic Valve AoV Peak Naeem.92.1cm/sAoV VTI14.9cm AO Peak GR.3.4mmHgLVOT VTI 12.17cm AO Mean GR.2mmHg Mitral Valve MV E Feynharx94.8cm/sMV DECEL VQUU069pd MV A Rbpqqzmx54.0cm/sE/A Ratio0.8 MV A [id number] TDI Lateral E' P. V5.34cm/sMedial E' P. V4.70cm/s E/Lateral E'10.3E/Medial E'11.7 Tricuspid Valve TR P. Jznpwawg153ln/sRAP TSOVAWYA1zsCi TR Peak Gr.51mmHg Pulmonary Vein S1 Jgwomnzp93.5cm/sS2 Nimkmajr11.89cm/s D2 Cnhbrqgp57.9cm/sPVa bktlkelc44scwu LEFT VENTRICLE The left ventricle is normal size. There is normal left ventricular wall thickness. Left ventricle sy stolic function is normal. The Ejection Fraction is >55%. There is a flattened septum consistent with right ventricle volume and pressure overload. Transmitral Doppler flow pattern is abnormal. RIGHT VENTRICLE The right ventricle is severely dilated. There is normal right ventricular wall thickness. Right Vent ricular septal motion is consistent with volume and pressure overload. ATRIA The left atrium size is normal. The right atrium is mildly dilated. The interatrial septum is intact with no evidence for an atrial septal defect or patent foramen ovale as noted on 2-D or Doppler imagi ng. No clear evidence of right to left shunt by agitated saline contrast. AORTIC VALVE The aortic valve is normal in structure and function. Doppler and Color Flow revealed no significant aortic regurgitation. There is no significant aortic valvular stenosis. MITRAL VALVE The mitral valve is normal in structure and function. There is no mitral valve stenosis. Doppler and Color Flow revealed no mitral valve regurgitation noted. TRICUSPID VALVE The tricuspid valve is normal in structure. Doppler and Color Flow revealed mild tricuspid regurgitat ion. The PA pressure was estimated at 59 mmHg. There is no tricuspid valve stenosis. PULMONIC VALVE The pulmonary valve is normal in structure and function. Doppler and Color Flow revealed trace to mil d pulmonic valvular regurgitation. There is no pulmonic valvular stenosis. GREAT VESSELS The aortic root is normal in size. There is mild pulmonary artery dilatation. Normal pulmonary venous flow (Doppler). The IVC is dilated and collapses >50% with inspiration. PERICARDIAL EFFUSION There is a small pericardial effusion. Critical Notification Physician Notified Critical Value: No <Conclusion> Left ventricle systolic function is normal. The Ejection Fraction is >55%. There is a flattened septum consistent with right ventricle volume and pressure overload. The right ventricle is severely dilated. Right Ventricular septal motion is consistent with volume and pressure overload. The interatrial septum is intact with no evidence for an atrial septal defect or patent foramen ovale as noted on 2-D or Doppler imaging. No clear evidence of right to left shunt by agitated saline cont rast. Doppler and Color Flow revealed mild tricuspid regurgitation. The PA pressure was estimated at 59 mmH g. There is mild pulmonary artery dilatation. The IVC is dilated and collapses >50% with inspiration. There is a small pericardial effusion.
== END 2016-11-08 17:29 | disposition home or self-care (01) | DRG 291 ==
LOC: ER 21:32 → 2 SOUTH 23:01
PROVIDERS: ADMIT Internal Medicine; ATTEND Internal Medicine
DX: I50.33 Acute on chronic diastolic (congestive) heart failure (principal); J96.21 Acute and chronic respiratory failure with hypoxia; R64 Cachexia; I31.3 Pericardial effusion (noninflammatory); I24.8 Other forms of acute ischemic heart disease; Q21.1 Atrial septal defect; K21.9 Gastro-esophageal reflux disease without esophagitis; E83.42 Hypomagnesemia; E87.6 Hypokalemia; I11.0 Hypertensive heart disease with heart failure; E78.5 Hyperlipidemia, unspecified; Z88.5 Allergy status to narcotic agent; J84.112 Idiopathic pulmonary fibrosis; M19.90 Unspecified osteoarthritis, unspecified site; E78.00 Pure hypercholesterolemia, unspecified; E03.9 Hypothyroidism, unspecified; I27.2 Other secondary pulmonary hypertension; J44.9 Chronic obstructive pulmonary disease, unspecified; Z82.49 Family history of ischemic heart disease and other diseases of the circulatory system; Z99.81 Dependence on supplemental oxygen; Z83.79 Family history of other diseases of the digestive system; Z88.0 Allergy status to penicillin; Z79.899 Other long term (current) drug therapy; Z79.1 Long term (current) use of non-steroidal anti-inflammatories (NSAID); Z79.82 Long term (current) use of aspirin; Z68.22 Body mass index [BMI] 22.0-22.9, adult
CPT/HCPCS: 99285; C8929; 36415; 71010; 71275; 78452; 80048; 80061; 80076; 83690; 83735; 83880; 84439; 84443; 84484; 85027; 85379; 93005; 93017; 94250; 94760; 96374; 96375; 96376; A9500; J1650; J1940; J2785; J7060

== ENCOUNTER 2016-11-21 13:14 | Emergency (ER) | payer MEDICARE ==
[~2016-11-21] VITALS: Ht 167.6 cm; Wt 66.2 kg
[~2016-11-21 13:14] MED LIST changes: +ASPI-612 PO; +ATOR20TA58 PO; +HYDR25TA9 PO; +PANT40TA5 PO; +PIRF267C PO; +PIRF801T PO
[2016-11-21 15:22] LABS: BILIRUBIN,URINE SMALL (NEG); GLUCOSE,URINE NEGATIVE (NEG); NITRITE,URINE NEGATIVE (NEG); PH,URINE 5.5; PROTEIN,URINE 100 mg/dL (NEG-TRACE)
--- NOTE | 2016-11-21 15:33 | PHYS DOC ---
Past Medical History Past Medical History: High Cholesterol, Hypertension, Other Additional Past Medical Histor: pulmonary fibrosis, o2 dependent Past Surgical History: No Surgical History Alcohol Use: None Drug Use: None Adult General Chief Complaint Chief Complaint: LOWER EXTREMITY SWELLING HPI HPI Patient is a 71 year old female presenting to the emergency department for evaluation of bilateral lower extremity edema. She says this has been increasing for the past 2-3 weeks after she stopped her diuretic. She was in the hospital and she had low blood pressure the time so they stopped her diuretic and halfed her pressure medication. Patient says that she feels short of breath all the time and it is not particularly worse in anyway. On her baseline 6 L satting at 94%. She denies any pain fevers chills nausea vomiting or other systemic symptoms. Review of Systems Review of Systems Constitutional: Denies fever or chills [] Eyes: Denies change in visual acuity, redness, or eye pain [] HENT: Denies nasal congestion or sore throat [] Respiratory: Denies cough. + shortness of breath [] Cardiovascular: No additional information not addressed in HPI [] GI: Denies abdominal pain, nausea, vomiting, bloody stools or diarrhea [] : Denies dysuria or hematuria [] Musculoskeletal: Denies back pain or joint pain [] Integument: Denies rash or skin lesions [] Neurologic: Denies headache, focal weakness or sensory changes [] Allergies Allergies Allergies Coded Allergies Type Severity Reaction Last Updated Verified Penicillins Allergy Intermediate Rash 11/07/16 Yes codeine Adverse Reaction Mild 11/07/16 Yes Physical Exam Physical Exam Constitutional: Well developed, well nourished, no acute distress, non-toxic appearance. [] HENT: Normocephalic, atraumatic, bilateral external ears normal, oropharynx moist, no oral exudates, nose normal. [] Eyes: PERRLA, EOMI, conjunctiva normal, no discharge. [] Neck: Normal range of motion, no tenderness, supple, no stridor. [] Cardiovascular:Heart rate regular rhythm, no murmur [] Lungs & Thorax: Bilateral breath sounds diminished with crackles at bases. Abdomen: Bowel sounds normal, soft, no tenderness, no masses, no pulsatile masses. [] Skin: Warm, dry, no erythema, no rash. [] Back: No tenderness, no CVA tenderness. [] Extremities: No tenderness, no cyanosis, no clubbing, ROM intact, 2+ PT edema BL. [] Neurologic: Alert and oriented X 3, normal motor function, normal sensory function, no focal deficits noted. [] Current Patient Data Vital Signs Vital Signs Date Time Temp Pulse Resp B/P (MAP) Pulse Ox O2 Delivery O2 Flow Rate FiO2 11/21/16 14:45 98.1 98 24 140/80 (100) 93 Nasal Cannula 6.0 98.1 Lab Values Laboratory Tests Test 11/21/16 15:00 11/21/16 15:28 Urine Collection Type Unknown Urine Color Peace Urine Clarity Hazy Urine pH 5.5 Urine Specific [place] >=1.030 Urine Protein 100 mg/dL (NEG-TRACE) Urine Glucose (UA) Negative mg/dL (NEG) Urine Ketones (Stick) Trace mg/dL (NEG) Urine Blood Trace (NEG) Urine Nitrite Negative (NEG) Urine Bilirubin Small (NEG) Urine Urobilinogen Dipstick 1.0 mg/dL (0.2 mg/dL) Urine Leukocyte Esterase Trace (NEG) Urine RBC 0 /HPF (0-2) Urine WBC 1-4 /HPF (0-4) Urine Squamous Epithelial Cells Mod /LPF Urine Bacteria Few /HPF (0-FEW) Urine Mucus Marked /LPF White Blood Count 7.5 x10^3/uL (4.0-11.0) Red Blood Count 4.81 x10^6/uL (3.50-5.40) Hemoglobin 14.1 g/dL (12.0-15.5) Hematocrit 42.9 % (36.0-47.0) Mean Corpuscular Volume 89 fL (79-100) Mean Corpuscular Hemoglobin 29 pg (25-35) Mean Corpuscular Hemoglobin Concent 33 g/dL (31-37) Red Cell Distribution Width 16.6 % (11.5-14.5) H Platelet Count 211 x10^3/uL (140-400) Neutrophils (%) (Auto) 74 % (31-73) H Lymphocytes (%) (Auto) 20 % (24-48) L Monocytes (%) (Auto) 5 % (0-9) Eosinophils (%) (Auto) 0 % (0-3) Basophils (%) (Auto) 1 % (0-3) Neutrophils # (Auto) 5.6 x10^3uL (1.8-7.7) Lymphocytes # (Auto) 1.5 x10^3/uL (1.0-4.8) Monocytes # (Auto) 0.3 x10^3/uL (0.0-1.1) Eosinophils # (Auto) 0.0 x10^3/uL (0.0-0.7) Basophils # (Auto) 0.1 x10^3/uL (0.0-0.2) Sodium Level 144 mmol/L (136-145) Potassium Level 3.4 mmol/L (3.5-5.1) L Chloride Level 105 mmol/L (98-107) Carbon Dioxide Level 28 mmol/L (21-32) Anion Gap 11 (6-14) Blood Urea Nitrogen 11 mg/dL (7-20) Creatinine 0.9 mg/dL (0.6-1.0) Estimated GFR (Cockcroft-Gault) 74.9 BUN/Creatinine Ratio 12 (6-20) Glucose Level 90 mg/dL (70-99) Calcium Level 8.9 mg/dL (8.5-10.1) Magnesium Level 1.8 mg/dL (1.8-2.4) Total Bilirubin 0.4 mg/dL (0.2-1.0) Aspartate Amino Transferase (AST) 34 U/L (15-37) Alanine Aminotransferase (ALT) 28 U/L (14-59) Alkaline Phosphatase 102 U/L (46-116) GJ-Zpg-M-Type Natriuretic Peptide 45272 pg/mL (0-124) H Total Protein 6.8 g/dL (6.4-8.2) Albumin 3.4 g/dL (3.4-5.0) Albumin/Globulin Ratio 1.0 (1.0-1.7) Thyroid Stimulating Hormone (TSH) 8.371 uIU/mL (0.358-3.74) H Laboratory Tests 11/21/16 15:28 Laboratory Tests 11/21/16 15:28 EKG EKG [] Radiology/Procedures Radiology/Procedures Portable chest, 11/21/2016: History: Shortness of breath, foot swelling, congestive heart failure Comparison is made to a study from 11/06/2016. The heart is enlarged. There is calcific plaquing of the aorta. There are extensive bilateral interstitial opacities which are unchanged. The underlying pulmonary vascularity is poorly defined. No definite pleural fluid is seen on this AP view. The bony structures are demineralized. IMPRESSION: Extensive bilateral interstitial opacities compatible with chronic interstitial lung disease with probable ongoing or recurrent superimposed interstitial edema. The findings are unchanged since 11/06/2016. DICTATED and SIGNED BY: MOR LOUIS MD DATE: 11/21/16 1610 Course & Med Decision Making Course & Med Decision Making Patient with peripheral edema possibly from venous insufficiency however congestive heart failure is also a consideration. Her BNP was 11,000 last time she was here 2 weeks ago and now is 15,000. I told patient that she should be admitted to the hospital to get cardiac consultation. During that she has a cardiology appointment in 2 days at 1 PM and she does not want to stay in the hospital and she does not feel that bad. The edema is the only reason she came to the emergency department and she does not feel more short of breath and usual. Patient was told that she should start back on her diuretic as this may help her peripheral edema. Patient will be discharged in stable condition and told to come back to the ER with worsening pain charts of breath or other general concerns. Patient and family aware and agreeable with plan and verbalized understanding of the need for today cardio urgent follow-up and will return with any worsening concerns. Dragon Disclaimer Dragon Disclaimer This electronic medical record was generated, in whole or in part, using a voice recognition dictation system. Departure Departure Impression: Primary Impression: Edema Additional Impression: Elevated brain natriuretic peptide (BNP) level Disposition: 01 HOME, SELF-CARE Condition: STABLE Referrals: BOYD BRITO MD (PCP) Patient Instructions: Peripheral Edema, Pulmonary Edema Additional Instructions: RESTART YOUR HCTZ 25MG. KEEP YOUR CARDIOLOGY F/U IN 2 DAYS AND COME BACK TO THE ED WITH ANY NEW OR WORSENING PAIN, SOA, OR OTHER GENERAL CONCERNS. THANK YOU! Problem Qualifiers JAYASHREE EMANUEL DO Nov 21, 2016 15:33
[2016-11-21 15:34] LABS: BACTERIA,URINE FEW /HPF (0-FEW); RBC,URINE 0 /HPF (0-2); SQUAMOUS EPITHELIAL CELL,UR MOD /LPF
[2016-11-21 15:36] LABS: BASO # 0.1 x10^3/uL (0.0-0.2); BASO % 1 % (0-3); EOS % 0 % (0-3); HEMATOCRIT 42.9 % (36.0-47.0); HEMOGLOBIN 14.1 g/dL (12.0-15.5); LYMPH # 1.5 x10^3/uL (1.0-4.8); LYMPH % 20 % (24-48); MEAN CORPUSCULAR HEMOGLOBIN 29 pg (25-35); MEAN CORPUSCULAR HGB CONC 33 g/dL (31-37); MEAN CORPUSCULAR VOLUME 89 fL (79-100); MONO % 5 % (0-9); NEUT % 74 % (31-73); PLATELET COUNT 211 x10^3/uL (140-400); RED BLOOD COUNT 4.81 x10^6/uL (3.50-5.40); RED CELL DISTRIBUTION WIDTH 16.6 % (11.5-14.5); WHITE BLOOD COUNT 7.5 x10^3/uL (4.0-11.0)
[2016-11-21 15:53] LABS: CALCIUM 8.9 mg/dL (8.5-10.1); CREATININE 0.9 mg/dL (0.6-1.0); GFR 74.9; POTASSIUM 3.4 mmol/L (3.5-5.1)
[2016-11-21 15:59] LABS: ALBUMIN 3.4 g/dL (3.4-5.0); MAGNESIUM 1.8 mg/dL (1.8-2.4); TOTAL BILIRUBIN 0.4 mg/dL (0.2-1.0); TOTAL PROTEIN 6.8 g/dL (6.4-8.2)
--- NOTE | 2016-11-21 16:16 | RAD ---
Portable chest, 11/21/2016: History: Shortness of breath, foot swelling, congestive heart failure Comparison is made to a study from 11/06/2016. The heart is enlarged. There is calcific plaquing of the aorta. There are extensive bilateral interstitial opacities which are unchanged. The underlying pulmonary vascularity is poorly defined. No definite pleural fluid is seen on this AP view. The bony structures are demineralized. IMPRESSION: Extensive bilateral interstitial opacities compatible with chronic interstitial lung disease with probable ongoing or recurrent superimposed interstitial edema. The findings are unchanged since 11/06/2016.
[2016-11-21 17:00] VITALS: BP 135/85
== END 2016-11-21 17:00 | disposition home or self-care (01) ==
LOC: ER 13:14
DX: R60.0 Localized edema (principal); R79.89 Other specified abnormal findings of blood chemistry; E78.00 Pure hypercholesterolemia, unspecified; I10 Essential (primary) hypertension; Z88.0 Allergy status to penicillin; Z88.5 Allergy status to narcotic agent; Z99.81 Dependence on supplemental oxygen
CPT/HCPCS: 36415; 71010; 80053; 81001; 83735; 83880; 84443; 85027; 87086; 99285-25

== ENCOUNTER → 2016-12-12 | Outpatient (CLI) | payer MEDICARE ==
[2016-11-21 17:00] VITALS: BP 135/85
--- NOTE | 2016-12-12 13:15 | RAD ---
APPROVED REPORT Patient Location : OUT-PATIENT Indications Lower Extremity Edema : Bilateral Deep System Deep Venous Thrombosis present : No Findings Collier scale images of the bilateral saphenofemoral junctions didn't reveal any evidence of thrombus. L imited imaging of the greater and lesser saphenous vein bilaterally do not reveal any evidence of thr ombus. Spectral waveforms and color Doppler did not reveal any evidence of reflux bilaterally in the greater and lesser saphenous veins. Critical Notification Critical Value: No <Conclusion> Negative for reflux in the bilateral greater and lesser saphenous veins.
--- NOTE | 2016-12-12 13:24 | RAD ---
APPROVED REPORT Bilateral Lower Extremity Venous Study for DVT Patient Location: OUT-PATIENT Indications Lower Extremity Edema: Bilateral Vein Imaging (Right) CFV (R): Compressible SFJ (R): Compressible FEM (R): Compressible POP (R): Compressible DFV (R): Compressible PTV (R): Spontaneous Peroneals (R): Spontaneous Vein Imaging (Left) CFV (L): Compressible SFJ (L): Compressible FEM (L): Compressible POP (L): Compressible DFV (L): Compressible PTV (L): Spontaneous Peroneals (L): Spontaneous Doppler Evaluation (Right) CFV (R): Pulsatile POP (R):Pulsatile Doppler Evaluation (Left) CFV (L):Pulsatile POP (L):Pulsatile Findings Bilateral deep venous evaluation with grayscale images demonstrates compressible vessels to the popli teal segment from the common femoral vein. The below-knee veins are not well visualized. Nonetheless, there is spontaneous flow below the knee and no evidence of obstruction to flow. Spectral waveforms and color Doppler bilaterally did not reveal any evidence of structural flow. Critical Notification Critical Value: No <Conclusion> Negative for DVT and the bilateral deep venous systems of the lower extremities.
== END | disposition home or self-care (01) ==
LOC: US 15:09
PROVIDERS: ATTEND Nurse Practitioner
DX: R60.0 Localized edema (principal)
CPT/HCPCS: 93970

== ENCOUNTER 2017-01-22 17:26 | Inpatient (IN) | payer MEDICARE ==
[~2017-01-22] VITALS: Ht 198.1 cm; Wt 65.0 kg
[2017-01-22 18:41] LABS: BASO # 0.1 x10^3/uL (0.0-0.2); BASO % 1 % (0-3); EOS % 1 % (0-3); HEMATOCRIT 42.7 % (36.0-47.0); HEMOGLOBIN 13.9 g/dL (12.0-15.5); LYMPH # 1.8 x10^3/uL (1.0-4.8); LYMPH % 23 % (24-48); MEAN CORPUSCULAR HEMOGLOBIN 29 pg (25-35); MEAN CORPUSCULAR HGB CONC 33 g/dL (31-37); MEAN CORPUSCULAR VOLUME 88 fL (79-100); MONO % 6 % (0-9); NEUT % 69 % (31-73); PLATELET COUNT 238 x10^3/uL (140-400); RED BLOOD COUNT 4.84 x10^6/uL (3.50-5.40); RED CELL DISTRIBUTION WIDTH 15.9 % (11.5-14.5); WHITE BLOOD COUNT 7.6 x10^3/uL (4.0-11.0)
[2017-01-22 19:00] LABS: CALCIUM 8.8 mg/dL (8.5-10.1); CREATININE 1.1 mg/dL (0.6-1.0); GFR 59.4; POTASSIUM 3.2 mmol/L (3.5-5.1)
[2017-01-22 19:06] LABS: ALBUMIN 3.3 g/dL (3.4-5.0); TOTAL BILIRUBIN 0.6 mg/dL (0.2-1.0); TOTAL PROTEIN 6.5 g/dL (6.4-8.2)
[2017-01-22] MEDS ORDERED: IV NORMAL SALINE 1000ML BAG 1,000 ML IV ONE (19:45)
[2017-01-22] MEDS ORDERED: FUROSEMIDE 40 MG/4 ML VIAL. IVP ONE (19:45)
--- NOTE | 2017-01-22 19:49 | PDOC1 ---
History and Physical Date of Admission Date of Admission 01/22/17 Identification/Chief Complaint Chief Complaint bl leg edema Problems: Source Source: Chart review, Patient History of Present Illness History of Present Illness 71yo F, with h/o pulmanory fibrosis on home o2 6l usually, comes for bl leg edema. Pt is taking lasix 40mg daily, watching salt in diet, no severe weight gain flucuating within 3 lbs daily, felt bl leg edema gets worse for days, feels tightness. Denies chest pain, sob, cough ,fever, chills, palpitation. Pt comes to ER, however, was found new onset rapid Afib. HR at 140s. Past Medical History Cardiovascular: HTN, Hyperlipidemia Pulmonary: Other CENTRAL NERVOUS SYSTEM: Other GI: GERD Heme/Onc: No pertinent hx Hepatobiliary: No pertinent hx Psych: No pertinent hx Rheumatologic: No pertinent hx Infectious disease: No pertinent hx Renal/: No pertinent hx Endocrine: Hypothyroidism Past Surgical History Past Surgical History: No pertinent history Family History Family History: Heart Disease Social History Smoke: No ALCOHOL: none Drugs: None Current Medications Current Medications Current Medications Medications (Trade) Dose Ordered Sig/Traci Start Time Stop Time Status Last Admin Dose Admin Diltiazem HCl 125 mg/Dextrose 125 ml @ 0 mls/hr CONT PRN 01/22/17 18:30 01/22/17 18:59 5 MLS/HR Allergies Allergies Allergies Coded Allergies Type Severity Reaction Last Updated Verified Penicillins Allergy Intermediate Rash 11/07/16 Yes codeine Adverse Reaction Mild 11/07/16 Yes ROS Review of System CONSTITUTIONAL: No fever or chills EYES: No recent changes SKIN: No rash or itching CARDIOVASCULAR: No chest pain, syncope, palpitations, or edema RESPIRATORY: No SOB or cough GASTROINTESTINAL: No nausea, vomiting or abdominal pain NEUROLOGICAL: No headaches or weakness ENDOCRINE: No cold or heat intolerance GENITOURINARY: No urgency or frequency of urination MUSCULOSKELETAL: No back pain or joint pain LYMPHATICS: No enlarged lymph nodes PSYCHIATRIC: No anxiety or depression Physical Exam Physical Exam GEN.: No apparent distress. Alert and oriented. HEENT: Head is normocephalic, atraumatic NECK: Supple. LUNGS: Clear to auscultation. HEART: rapid irregular, Peripheral pulses intact ABDOMEN: Soft, nontender. Positive bowel sounds. EXTREMITIES: Without any cyanosis. bl leg 3 + edema NEUROLOGIC: Normal speech, normal tone PSYCHIATRIC: Normal affect, normal mood. SKIN: No ulcerations Vitals Vitals Vital Signs Date Time Temp Pulse Resp B/P (MAP) Pulse Ox O2 Delivery O2 Flow Rate FiO2 01/22/17 17:34 99.0 115 26 135/85 (102) 94 Room Air 6.0 99.0 Labs Labs Laboratory Tests Test 01/22/17 18:30 White Blood Count 7.6 x10^3/uL (4.0-11.0) Red Blood Count 4.84 x10^6/uL (3.50-5.40) Hemoglobin 13.9 g/dL (12.0-15.5) Hematocrit 42.7 % (36.0-47.0) Mean Corpuscular Volume 88 fL (79-100) Mean Corpuscular Hemoglobin 29 pg (25-35) Mean Corpuscular Hemoglobin Concent 33 g/dL (31-37) Red Cell Distribution Width 15.9 % (11.5-14.5) Platelet Count 238 x10^3/uL (140-400) Neutrophils (%) (Auto) 69 % (31-73) Lymphocytes (%) (Auto) 23 % (24-48) Monocytes (%) (Auto) 6 % (0-9) Eosinophils (%) (Auto) 1 % (0-3) Basophils (%) (Auto) 1 % (0-3) Neutrophils # (Auto) 5.2 x10^3uL (1.8-7.7) Lymphocytes # (Auto) 1.8 x10^3/uL (1.0-4.8) Monocytes # (Auto) 0.5 x10^3/uL (0.0-1.1) Eosinophils # (Auto) 0.0 x10^3/uL (0.0-0.7) Basophils # (Auto) 0.1 x10^3/uL (0.0-0.2) Sodium Level 140 mmol/L (136-145) Potassium Level 3.2 mmol/L (3.5-5.1) Chloride Level 101 mmol/L (98-107) Carbon Dioxide Level 31 mmol/L (21-32) Anion Gap 8 (6-14) Blood Urea Nitrogen 18 mg/dL (7-20) Creatinine 1.1 mg/dL (0.6-1.0) Estimated GFR (Cockcroft-Gault) 59.4 BUN/Creatinine Ratio 16 (6-20) Glucose Level 112 mg/dL (70-99) Calcium Level 8.8 mg/dL (8.5-10.1) Total Bilirubin 0.6 mg/dL (0.2-1.0) Aspartate Amino Transf (AST/SGOT) 21 U/L (15-37) Alanine Aminotransferase (ALT/SGPT) 19 U/L (14-59) Alkaline Phosphatase 113 U/L (46-116) Troponin I Quantitative 0.075 ng/mL (0.000-0.055) FE-Tdg-W-Type Natriuretic Peptide 96133 pg/mL (0-124) Total Protein 6.5 g/dL (6.4-8.2) Albumin 3.3 g/dL (3.4-5.0) Albumin/Globulin Ratio 1.0 (1.0-1.7) Laboratory Tests Test 01/22/17 18:30 White Blood Count 7.6 x10^3/uL (4.0-11.0) Red Blood Count 4.84 x10^6/uL (3.50-5.40) Hemoglobin 13.9 g/dL (12.0-15.5) Hematocrit 42.7 % (36.0-47.0) Mean Corpuscular Volume 88 fL (79-100) Mean Corpuscular Hemoglobin 29 pg (25-35) Mean Corpuscular Hemoglobin Concent 33 g/dL (31-37) Red Cell Distribution Width 15.9 % (11.5-14.5) Platelet Count 238 x10^3/uL (140-400) Neutrophils (%) (Auto) 69 % (31-73) Lymphocytes (%) (Auto) 23 % (24-48) Monocytes (%) (Auto) 6 % (0-9) Eosinophils (%) (Auto) 1 % (0-3) Basophils (%) (Auto) 1 % (0-3) Neutrophils # (Auto) 5.2 x10^3uL (1.8-7.7) Lymphocytes # (Auto) 1.8 x10^3/uL (1.0-4.8) Monocytes # (Auto) 0.5 x10^3/uL (0.0-1.1) Eosinophils # (Auto) 0.0 x10^3/uL (0.0-0.7) Basophils # (Auto) 0.1 x10^3/uL (0.0-0.2) Sodium Level 140 mmol/L (136-145) Potassium Level 3.2 mmol/L (3.5-5.1) Chloride Level 101 mmol/L (98-107) Carbon Dioxide Level 31 mmol/L (21-32) Anion Gap 8 (6-14) Blood Urea Nitrogen 18 mg/dL (7-20) Creatinine 1.1 mg/dL (0.6-1.0) Estimated GFR (Cockcroft-Gault) 59.4 BUN/Creatinine Ratio 16 (6-20) Glucose Level 112 mg/dL (70-99) Calcium Level 8.8 mg/dL (8.5-10.1) Total Bilirubin 0.6 mg/dL (0.2-1.0) Aspartate Amino Transf (AST/SGOT) 21 U/L (15-37) Alanine Aminotransferase (ALT/SGPT) 19 U/L (14-59) Alkaline Phosphatase 113 U/L (46-116) Troponin I Quantitative 0.075 ng/mL (0.000-0.055) KA-Ivb-R-Type Natriuretic Peptide 87202 pg/mL (0-124) Total Protein 6.5 g/dL (6.4-8.2) Albumin 3.3 g/dL (3.4-5.0) Albumin/Globulin Ratio 1.0 (1.0-1.7) VTE Prophylaxis Ordered VTE Prophylaxis Devices: Yes VTE Pharmacological Prophylaxi: Yes Assessment/Plan Assessment/Plan new onset rapid afib with RVR bl leg edema with right heart failure exacerbation chronic hypoxic resp failure with pulmonary fibrosis, home o2 6L htn hld H/O moderate pericardial effusion HYPOKALEMIA mild malnutrition CKD 3 PLAN: card consult on cardiazem drip since ER lasix x1, cont 40mg iv daily weight daily in and output echo done 10/2016 check TSh cont home meds, need verify need AC, start tmr if ok with card, lovenox for now NC 6l replete K admit 2 nights JOHN REN MD Jan 22, 2017 19:49
[2017-01-22] MEDS ORDERED: traMADol 50 MG TABLET PO PRN (20:00)
[2017-01-22] MEDS ORDERED: POTASSIUM CHLORIDE 20 MEQ TABLET.ER. PO ONE (20:00)
[2017-01-22] MEDS ORDERED: hydrALAZINE 20 MG/ML VIAL. IVP PRN (20:00)
[2017-01-22] MEDS ORDERED: ONDANSETRON PF 4 MG/2 ML VIAL. IV PRN ×2 (20:00→21:15)
[2017-01-22] MEDS ORDERED: ACETAMINOPHEN 325 MG TABLET. PO PRN (20:00)
[2017-01-22] MEDS ORDERED: DOCUSATE SODIUM 100 MG CAPSULE. PO PRN (20:00)
[2017-01-22] MEDS ORDERED: MORPHINE SULFATE 4 MG/ML DISP.SYRIN. IV PRN (20:00)
[2017-01-22] MEDS ORDERED: HEPARIN 25,000UTS/500ML PREMIX 500 ML IV PRN (20:45)
[2017-01-22] MEDS ORDERED: HEPARIN for IV BOLUS 10,000 UNIT/10 ML VIAL. IV ONE (20:45)
[2017-01-22] MEDS ORDERED: HEPARIN for IV BOLUS 10,000 UNIT/10 ML VIAL. IV PRN ×2 (20:45)
--- NOTE | 2017-01-22 20:58 | PHYS DOC ---
Past Medical History Past Medical History: High Cholesterol, Hypertension, Other Additional Past Medical Histor: pulmonary fibrosis, o2 dependent Past Surgical History: No Surgical History Alcohol Use: None Drug Use: None Adult General Chief Complaint Chief Complaint: LOWER EXTREMITY SWELLING HPI HPI Patient is a 71 year old female with history of pulmonary fibrosis, chronic congestive heart failure presents with increased peripheral edema and 3 pound weight gain. Symptoms been progressive over the past several days. Patient denies chest pain, increased shortness of breath, palpitations. Patient denies dizziness or lightheadedness. At triage, the patient is noted to be tachycardic in A. fib with RVR. Patient is unaware that she is in this rhythm. Blood pressure is stable. Patient is not currently on anticoagulation therapy. 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 [] Review of Systems Review of Systems Review of systems as per history of present illness. All other review symptoms are negative. Current Medications Current Medications Current Medications Medications (Trade) Dose Ordered Sig/Traci Start Time Stop Time Status Last Admin Dose Admin Acetaminophen (Tylenol) 650 mg PRN Q6HRS PRN 01/22/17 20:00 Aspirin (Ecotrin) 81 mg [id number] 01/23/17 08:00 Atorvastatin Calcium (Lipitor) 20 mg QHS 01/22/17 21:00 Digoxin (Lanoxin) 250 mcg 1X ONCE 01/22/17 21:00 01/22/17 21:01 DC Diltiazem HCl 125 mg/Dextrose 125 ml @ 0 mls/hr CONT PRN 01/22/17 18:30 01/22/17 18:59 5 MLS/HR Docusate Sodium (Colace) 100 mg PRN DAILY PRN 01/22/17 20:00 Doxazosin Mesylate (Cardura) 4 mg DAILY 01/23/17 09:00 Enoxaparin Sodium (Lovenox 60mg Syringe) 60 mg Q12HR 01/22/17 21:00 EZETIMIBE (Zetia) 10 mg HS 01/22/17 21:00 Furosemide (Lasix) 40 mg DAILY 01/23/17 09:00 Heparin Sodium (Porcine) (Heparin Sodium) 1,000 unit PRN Q6HRS PRN 01/22/17 20:45 Heparin Sodium/ Dextrose 500 ml @ 0 mls/hr CONT PRN 01/22/17 20:45 Hydralazine HCl (Apresoline) 10 mg PRN Q4HRS PRN 01/22/17 20:00 Levothyroxine Sodium (Synthroid) 75 mcg DAILY 01/23/17 09:00 Morphine Sulfate 2 mg PRN Q2HR PRN 01/22/17 20:00 Ondansetron HCl (Zofran) 4 mg PRN Q6HRS PRN 01/22/17 20:00 Pantoprazole Sodium (Protonix) 40 mg DAILYAC 01/23/17 07:30 Potassium Chloride (Klor-Con) 40 meq 1X ONCE 01/22/17 20:00 01/22/17 20:01 DC Sodium Chloride 1,000 ml @ 75 mls/hr 1X ONCE 01/22/17 19:45 01/23/17 09:04 01/22/17 19:49 75 MLS/HR Tramadol HCl (Ultram) 50 mg PRN Q6HRS PRN 01/22/17 20:00 Warfarin Sodium (Coumadin Per Pharmacy) 1 each PRN DAILY PRN 01/22/17 20:45 UNV Allergies Allergies Allergies Coded Allergies Type Severity Reaction Last Updated Verified Penicillins Allergy Intermediate Rash 11/07/16 Yes codeine Adverse Reaction Mild 11/07/16 Yes Physical Exam Physical Exam Constitutional: Well developed, well nourished, no acute distress, non-toxic appearance. [] HENT: Normocephalic, atraumatic, bilateral external ears normal, oropharynx moist, no oral exudates, nose normal. [] Eyes: PERRLA, EOMI, conjunctiva normal, no discharge. [] Neck: Normal range of motion, no tenderness, supple, no stridor. [] Cardiovascular: Tachycardic, regular rhythm, 3+ bipedal edema extending to above the knees.[] Lungs & Thorax: Respirations nonlabored, coarse breath sounds bilaterally.[] Abdomen: Bowel sounds normal, soft, no tenderness. [] Skin: Warm, dry, no erythema, no rash. [] Back: No tenderness, no CVA tenderness. [] Extremities: No tenderness, no cyanosis, no clubbing, ROM intact, no edema. [] Neurologic: Alert and oriented X 3, normal motor function, normal sensory function, no focal deficits noted. [] Psychologic: Affect normal, judgement normal, mood normal. [] Current Patient Data Vital Signs Vital Signs Date Time Temp Pulse Resp B/P (MAP) Pulse Ox O2 Delivery O2 Flow Rate FiO2 01/22/17 20:09 142 34 109/80 (90) 99 Nasal Cannula 7.0 01/22/17 17:34 99.0 99.0 Lab Values Laboratory Tests Test 01/22/17 18:30 White Blood Count 7.6 x10^3/uL (4.0-11.0) Red Blood Count 4.84 x10^6/uL (3.50-5.40) Hemoglobin 13.9 g/dL (12.0-15.5) Hematocrit 42.7 % (36.0-47.0) Mean Corpuscular Volume 88 fL (79-100) Mean Corpuscular Hemoglobin 29 pg (25-35) Mean Corpuscular Hemoglobin Concent 33 g/dL (31-37) Red Cell Distribution Width 15.9 % (11.5-14.5) H Platelet Count 238 x10^3/uL (140-400) Neutrophils (%) (Auto) 69 % (31-73) Lymphocytes (%) (Auto) 23 % (24-48) L Monocytes (%) (Auto) 6 % (0-9) Eosinophils (%) (Auto) 1 % (0-3) Basophils (%) (Auto) 1 % (0-3) Neutrophils # (Auto) 5.2 x10^3uL (1.8-7.7) Lymphocytes # (Auto) 1.8 x10^3/uL (1.0-4.8) Monocytes # (Auto) 0.5 x10^3/uL (0.0-1.1) Eosinophils # (Auto) 0.0 x10^3/uL (0.0-0.7) Basophils # (Auto) 0.1 x10^3/uL (0.0-0.2) Sodium Level 140 mmol/L (136-145) Potassium Level 3.2 mmol/L (3.5-5.1) L Chloride Level 101 mmol/L (98-107) Carbon Dioxide Level 31 mmol/L (21-32) Anion Gap 8 (6-14) Blood Urea Nitrogen 18 mg/dL (7-20) Creatinine 1.1 mg/dL (0.6-1.0) H Estimated GFR (Cockcroft-Gault) 59.4 BUN/Creatinine Ratio 16 (6-20) Glucose Level 112 mg/dL (70-99) H Calcium Level 8.8 mg/dL (8.5-10.1) Magnesium Level 1.7 mg/dL (1.8-2.4) L Total Bilirubin 0.6 mg/dL (0.2-1.0) Aspartate Amino Transferase (AST) 21 U/L (15-37) Alanine Aminotransferase (ALT) 19 U/L (14-59) Alkaline Phosphatase 113 U/L (46-116) Troponin I Quantitative 0.075 ng/mL (0.000-0.055) NA-Stp-H-Type Natriuretic Peptide 19643 pg/mL (0-124) H Total Protein 6.5 g/dL (6.4-8.2) Albumin 3.3 g/dL (3.4-5.0) L Albumin/Globulin Ratio 1.0 (1.0-1.7) Thyroid Stimulating Hormone (TSH) 11.914 uIU/mL (0.358-3.74) H Laboratory Tests 01/22/17 18:30 Laboratory Tests 01/22/17 18:30 EKG EKG [EKG: A. fib with RVR, rate 142, QTC 503] Radiology/Procedures Radiology/Procedures [Chest x-ray: Pulmonary fibrosis with superimposed pulmonary edema] Course & Med Decision Making Course & Med Decision Making Pertinent Labs and Imaging studies reviewed. (See chart for details) [In with new onset A. fib RVR, congestive heart failure. Nations started on Cardizem and heparin drips, rate is pearly controlled remains in 140s. Systolic blood pressures soft in the 90s. Case reviewed in detail with Dr. Rodriguez caption writer for cardiology. Recommendations are for single dose of digoxin, continued Cardizem and CVC admission. Dr. Welsh in admission for orders. ] Dragon Disclaimer Dragon Disclaimer This electronic medical record was generated, in whole or in part, using a voice recognition dictation system. Departure Departure Impression: Primary Impression: Rapid atrial fibrillation Additional Impressions: Elevated troponin Acute congestive heart failure Disposition: ADMITTED INPATIENT Admitting Physician: Wilver Welsh Condition: GUARDED Referrals: BOYD BRITO MD (PCP) Problem Qualifiers NIECYTJ CUADRA Jan 22, 2017 20:58
[2017-01-22] MEDS ORDERED: DIGOXIN IV 500 MCG/2 ML AMPUL. IV ONE (21:00)
[2017-01-22] MEDS: ATORVASTATIN CALCIUM 20 MG TABLET PO SCH (21:00)
[2017-01-22] MEDS: EZETIMIBE 10 MG TABLET. PO SCH (22:34)
[2017-01-22 23:45] VITALS: BP 102/69
[2017-01-23] VITALS (8 sets, daily range): BP systolic 87–145; BP diastolic 63–73
[2017-01-23] MEDS ORDERED: ANTI-COAG MONITOR BY PHARMACY. MC PRN (01:45)
[2017-01-23] MEDS ORDERED: INFLUENZA VAX SCREEN BY RX. MC ONE (03:30)
[2017-01-23] MEDS ORDERED: FURO-68 PO (03:40)
[2017-01-23] MEDS ORDERED: POTA20TA82 PO (03:40)
[2017-01-23] MEDS ORDERED: HYDR25TA9 PO (03:40)
[2017-01-23] MEDS ORDERED: DOXA2TAB2 PO (03:40)
[2017-01-23 04:33] LABS: BASO # 0.1 x10^3/uL (0.0-0.2); BASO % 1 % (0-3); EOS % 0 % (0-3); HEMOGLOBIN 13.7 g/dL (12.0-15.5); LYMPH # 1.8 x10^3/uL (1.0-4.8); LYMPH % 24 % (24-48); MEAN CORPUSCULAR HEMOGLOBIN 29 pg (25-35); MEAN CORPUSCULAR HGB CONC 33 g/dL (31-37); MEAN CORPUSCULAR VOLUME 87 fL (79-100); MONO % 7 % (0-9); NEUT % 68 % (31-73); PLATELET COUNT 233 x10^3/uL (140-400); RED BLOOD COUNT 4.72 x10^6/uL (3.50-5.40); RED CELL DISTRIBUTION WIDTH 16.4 % (11.5-14.5); WHITE BLOOD COUNT 7.3 x10^3/uL (4.0-11.0)
[2017-01-23 04:39] LABS: INR 1.3 (0.8-1.1)
[2017-01-23 04:44] LABS: CALCIUM 8.9 mg/dL (8.5-10.1); GFR 66.3
--- NOTE | 2017-01-23 06:56 | EKG ---
[facility] [address] [place] [address] Test Date: 2017-01-22 Test Time: 17:54:49 Pat Name: RYLEE PONCE Department: Room: 109 1 Gender: F Risk Advisor: : [id number] Requested By: TJ PEMBERTON Order Number: [id number] Reading MD: Irvin Mercedes Measurements Intervals [place] Rate: 142 P: LA: QRS: 170 QRSD: 102 T: 50 QT: 322 QTc: 503 Interpretive Statements ATRIAL FIBRILLATION ABNORMAL RIGHT AXIS DEVIATION INCOMPLETE RIGHT BUNDLE BRANCH BLOCK RIGHT VENTRICULAR HYPERTROPHY QRS(T) CONTOUR ABNORMALITY CONSIDER ANTEROSEPTAL MYOCARDIAL DAMAGE Electronically Signed On 02-14-2017 15:58:47 CDT by Irvin Mercedes
[2017-01-23] MEDS: PANTOPRAZOLE 40 MG TABLET.DR. PO SCH (08:58)
[2017-01-23] MEDS: ASPIRIN ENTERIC COATED 81 MG TABLET.DR. PO SCH (08:58)
[2017-01-23] MEDS ORDERED: LEVOTHYROXINE 75 MCG TABLET PO SCH (09:00)
[2017-01-23] MEDS ORDERED: DOXAZOSIN MESYLATE 4 MG TABLET. PO SCH (09:00)
[2017-01-23] MEDS ORDERED: FLU VACC QS2017-18 (36MOS+)/PF 0.5 ML SYRINGE. VAX IM ONE (09:00)
[2017-01-23] MEDS: ESBRIET PO SCH ×3 (09:00→17:40)
[2017-01-23] MEDS ORDERED: FUROSEMIDE 40 MG/4 ML VIAL. IVP SCH (09:00)
--- NOTE | 2017-01-23 09:08 | RAD ---
Chest x-ray Indication: Shortness of breath. History of pulmonary fibrosis, hypertension, oxygen dependent. Technique: Portable AP upright chest x-ray Comparison: Previous study from 11/21/2016 Findings: Heart is mildly enlarged in size. Stable bilateral reticulonodular opacities are noted. No focal consolidation. No pneumothorax or pleural effusion. Degenerative changes seen within bilateral AC and glenohumeral joints. Impression: Diffuse bilateral reticular opacities compatible with chronic interstitial lung disease. Superimposed viral or atypical infection not ruled out.
[2017-01-23] MEDS ORDERED: DEXTROSE 50% 25 GM / 50ML DISP.SYRIN. IV PRN (09:15)
[2017-01-23] MEDS ORDERED: FUROSEMIDE 40 MG TABLET. PO SCH (10:00)
[2017-01-23] MEDS ORDERED: hydroCHLOROthiazide 25 MG TABLET PO SCH (10:00)
[2017-01-23 10:10] LABS: FREE T4 1.24 ng/dL (0.76-1.46)
--- NOTE | 2017-01-23 11:07 | PDOC ---
PROGRESS NOTES Chief Complaint Chief Complaint new onset rapid afib with RVR bl leg edema with right heart failure exacerbation chronic hypoxic resp failure with pulmonary fibrosis, home o2 6L htn hld H/O moderate pericardial effusion HYPOKALEMIA mild malnutrition CKD 3 Low TSH, hx hypothyoridism\ PULM fibrosis on 6 LNC 13/11 - Known to Emma Jackson History of Present Illness History of Present Illness Seen in ICU Legs better per her and family at bedside NO SOA or CP NEw atrial fib now NSR but at 10mcg cardizem Cardioverted to NSR overnight - new to pt ON synthroid for many yrs now, but TSH high side SOme trop leak .0.07 and 0.06 - hence on heparin gtt by cards yesterday Stable pulmo garcia - pt of Dr. perry for pulm fibrosis Plan: Heparinn gtt per cards Ok to take own home pulmo med tID - we dont carry that Inc synthroid to 100mcg, Rpt TSH 6 weeks time Add pT.OT - sono is neg for DVT HEr leg swelling is mor jered the thighs Elevated legs OK to t.o ICU when off cardizem gtt - STILL on 10 mcgs Likely echo Dw whole family plan of care along with HEAD SCREEN WORKER at bedside Vitals Vitals Vital Signs Date Time Temp Pulse Resp B/P (MAP) Pulse Ox O2 Delivery O2 Flow Rate FiO2 01/23/17 08:58 78 100/70 01/23/17 08:00 Nasal Cannula 6.0 01/23/17 07:00 98.1 14 99 98.1 Physical Exam General: Alert, Oriented X3, Cooperative, No acute distress Heart: Regular rate, Normal S1, Normal S2, No murmurs Lungs: Clear Abdomen: Normal bowel sounds, No tenderness, No hepatosplenomegaly Extremities: No clubbing, No cyanosis, Other (edema plus 1-2 on thighs) Skin: No rashes, No breakdown, No significant lesion Labs LABS Laboratory Tests Test 01/22/17 18:30 01/23/17 03:28 01/23/17 09:35 White Blood Count 7.6 x10^3/uL (4.0-11.0) 7.3 x10^3/uL (4.0-11.0) Red Blood Count 4.84 x10^6/uL (3.50-5.40) 4.72 x10^6/uL (3.50-5.40) Hemoglobin 13.9 g/dL (12.0-15.5) 13.7 g/dL (12.0-15.5) Hematocrit 42.7 % (36.0-47.0) 41.0 % (36.0-47.0) Mean Corpuscular Volume 88 fL (79-100) 87 fL (79-100) Mean Corpuscular Hemoglobin 29 pg (25-35) 29 pg (25-35) Mean Corpuscular Hemoglobin Concent 33 g/dL (31-37) 33 g/dL (31-37) Red Cell Distribution Width 15.9 % (11.5-14.5) 16.4 % (11.5-14.5) Platelet Count 238 x10^3/uL (140-400) 233 x10^3/uL (140-400) Neutrophils (%) (Auto) 69 % (31-73) 68 % (31-73) Lymphocytes (%) (Auto) 23 % (24-48) 24 % (24-48) Monocytes (%) (Auto) 6 % (0-9) 7 % (0-9) Eosinophils (%) (Auto) 1 % (0-3) 0 % (0-3) Basophils (%) (Auto) 1 % (0-3) 1 % (0-3) Neutrophils # (Auto) 5.2 x10^3uL (1.8-7.7) 5.0 x10^3uL (1.8-7.7) Lymphocytes # (Auto) 1.8 x10^3/uL (1.0-4.8) 1.8 x10^3/uL (1.0-4.8) Monocytes # (Auto) 0.5 x10^3/uL (0.0-1.1) 0.5 x10^3/uL (0.0-1.1) Eosinophils # (Auto) 0.0 x10^3/uL (0.0-0.7) 0.0 x10^3/uL (0.0-0.7) Basophils # (Auto) 0.1 x10^3/uL (0.0-0.2) 0.1 x10^3/uL (0.0-0.2) Sodium Level 140 mmol/L (136-145) 142 mmol/L (136-145) Potassium Level 3.2 mmol/L (3.5-5.1) 4.0 mmol/L (3.5-5.1) Chloride Level 101 mmol/L (98-107) 103 mmol/L (98-107) Carbon Dioxide Level 31 mmol/L (21-32) 31 mmol/L (21-32) Anion Gap 8 (6-14) 8 (6-14) Blood Urea Nitrogen 18 mg/dL (7-20) 17 mg/dL (7-20) Creatinine 1.1 mg/dL (0.6-1.0) 1.0 mg/dL (0.6-1.0) Estimated GFR (Cockcroft-Gault) 59.4 66.3 BUN/Creatinine Ratio 16 (6-20) Glucose Level 112 mg/dL (70-99) 102 mg/dL (70-99) Calcium Level 8.8 mg/dL (8.5-10.1) 8.9 mg/dL (8.5-10.1) Magnesium Level 1.7 mg/dL (1.8-2.4) Total Bilirubin 0.6 mg/dL (0.2-1.0) Aspartate Amino Transf (AST/SGOT) 21 U/L (15-37) Alanine Aminotransferase (ALT/SGPT) 19 U/L (14-59) Alkaline Phosphatase 113 U/L (46-116) Troponin I Quantitative 0.075 ng/mL (0.000-0.055) 0.068 ng/mL (0.000-0.055) 0.059 ng/mL (0.000-0.055) KP-Ahx-Q-Type Natriuretic Peptide 03995 pg/mL (0-124) Total Protein 6.5 g/dL (6.4-8.2) Albumin 3.3 g/dL (3.4-5.0) Albumin/Globulin Ratio 1.0 (1.0-1.7) Thyroid Stimulating Hormone (TSH) 11.914 uIU/mL (0.358-3.74) Prothrombin Time 15.0 SEC (11.7-14.0) Prothromb Time International Ratio 1.3 (0.8-1.1) Free Thyroxine 1.24 ng/dL (0.76-1.46) Free Triiodothyronine (T3) pg/mL 1.55 pg/mL (2.18-3.98) Review of Systems Review of Systems leg swelling SOA sometimes at10 free (short distances) Assessment and Plan Assessmemt and Plan Problems Medical Problems: (1) Acute congestive heart failure Status: Acute Problems: Comment Review of Relevant I have reviewed the following items neha (where applicable) has been applied. Labs Laboratory Tests Test 01/22/17 18:30 01/23/17 03:28 01/23/17 09:35 White Blood Count 7.6 x10^3/uL (4.0-11.0) 7.3 x10^3/uL (4.0-11.0) Red Blood Count 4.84 x10^6/uL (3.50-5.40) 4.72 x10^6/uL (3.50-5.40) Hemoglobin 13.9 g/dL (12.0-15.5) 13.7 g/dL (12.0-15.5) Hematocrit 42.7 % (36.0-47.0) 41.0 % (36.0-47.0) Mean Corpuscular Volume 88 fL (79-100) 87 fL (79-100) Mean Corpuscular Hemoglobin 29 pg (25-35) 29 pg (25-35) Mean Corpuscular Hemoglobin Concent 33 g/dL (31-37) 33 g/dL (31-37) Red Cell Distribution Width 15.9 % (11.5-14.5) 16.4 % (11.5-14.5) Platelet Count 238 x10^3/uL (140-400) 233 x10^3/uL (140-400) Neutrophils (%) (Auto) 69 % (31-73) 68 % (31-73) Lymphocytes (%) (Auto) 23 % (24-48) 24 % (24-48) Monocytes (%) (Auto) 6 % (0-9) 7 % (0-9) Eosinophils (%) (Auto) 1 % (0-3) 0 % (0-3) Basophils (%) (Auto) 1 % (0-3) 1 % (0-3) Neutrophils # (Auto) 5.2 x10^3uL (1.8-7.7) 5.0 x10^3uL (1.8-7.7) Lymphocytes # (Auto) 1.8 x10^3/uL (1.0-4.8) 1.8 x10^3/uL (1.0-4.8) Monocytes # (Auto) 0.5 x10^3/uL (0.0-1.1) 0.5 x10^3/uL (0.0-1.1) Eosinophils # (Auto) 0.0 x10^3/uL (0.0-0.7) 0.0 x10^3/uL (0.0-0.7) Basophils # (Auto) 0.1 x10^3/uL (0.0-0.2) 0.1 x10^3/uL (0.0-0.2) Sodium Level 140 mmol/L (136-145) 142 mmol/L (136-145) Potassium Level 3.2 mmol/L (3.5-5.1) 4.0 mmol/L (3.5-5.1) Chloride Level 101 mmol/L (98-107) 103 mmol/L (98-107) Carbon Dioxide Level 31 mmol/L (21-32) 31 mmol/L (21-32) Anion Gap 8 (6-14) 8 (6-14) Blood Urea Nitrogen 18 mg/dL (7-20) 17 mg/dL (7-20) Creatinine 1.1 mg/dL (0.6-1.0) 1.0 mg/dL (0.6-1.0) Estimated GFR (Cockcroft-Gault) 59.4 66.3 BUN/Creatinine Ratio 16 (6-20) Glucose Level 112 mg/dL (70-99) 102 mg/dL (70-99) Calcium Level 8.8 mg/dL (8.5-10.1) 8.9 mg/dL (8.5-10.1) Magnesium Level 1.7 mg/dL (1.8-2.4) Total Bilirubin 0.6 mg/dL (0.2-1.0) Aspartate Amino Transf (AST/SGOT) 21 U/L (15-37) Alanine Aminotransferase (ALT/SGPT) 19 U/L (14-59) Alkaline Phosphatase 113 U/L (46-116) Troponin I Quantitative 0.075 ng/mL (0.000-0.055) 0.068 ng/mL (0.000-0.055) 0.059 ng/mL (0.000-0.055) RU-Yvx-K-Type Natriuretic Peptide 67677 pg/mL (0-124) Total Protein 6.5 g/dL (6.4-8.2) Albumin 3.3 g/dL (3.4-5.0) Albumin/Globulin Ratio 1.0 (1.0-1.7) Thyroid Stimulating Hormone (TSH) 11.914 uIU/mL (0.358-3.74) Prothrombin Time 15.0 SEC (11.7-14.0) Prothromb Time International Ratio 1.3 (0.8-1.1) Free Thyroxine 1.24 ng/dL (0.76-1.46) Free Triiodothyronine (T3) pg/mL 1.55 pg/mL (2.18-3.98) Laboratory Tests Test 01/22/17 18:30 01/23/17 03:28 01/23/17 09:35 White Blood Count 7.6 x10^3/uL (4.0-11.0) 7.3 x10^3/uL (4.0-11.0) Red Blood Count 4.84 x10^6/uL (3.50-5.40) 4.72 x10^6/uL (3.50-5.40) Hemoglobin 13.9 g/dL (12.0-15.5) 13.7 g/dL (12.0-15.5) Hematocrit 42.7 % (36.0-47.0) 41.0 % (36.0-47.0) Mean Corpuscular Volume 88 fL (79-100) 87 fL (79-100) Mean Corpuscular Hemoglobin 29 pg (25-35) 29 pg (25-35) Mean Corpuscular Hemoglobin Concent 33 g/dL (31-37) 33 g/dL (31-37) Red Cell Distribution Width 15.9 % (11.5-14.5) 16.4 % (11.5-14.5) Platelet Count 238 x10^3/uL (140-400) 233 x10^3/uL (140-400) Neutrophils (%) (Auto) 69 % (31-73) 68 % (31-73) Lymphocytes (%) (Auto) 23 % (24-48) 24 % (24-48) Monocytes (%) (Auto) 6 % (0-9) 7 % (0-9) Eosinophils (%) (Auto) 1 % (0-3) 0 % (0-3) Basophils (%) (Auto) 1 % (0-3) 1 % (0-3) Neutrophils # (Auto) 5.2 x10^3uL (1.8-7.7) 5.0 x10^3uL (1.8-7.7) Lymphocytes # (Auto) 1.8 x10^3/uL (1.0-4.8) 1.8 x10^3/uL (1.0-4.8) Monocytes # (Auto) 0.5 x10^3/uL (0.0-1.1) 0.5 x10^3/uL (0.0-1.1) Eosinophils # (Auto) 0.0 x10^3/uL (0.0-0.7) 0.0 x10^3/uL (0.0-0.7) Basophils # (Auto) 0.1 x10^3/uL (0.0-0.2) 0.1 x10^3/uL (0.0-0.2) Sodium Level 140 mmol/L (136-145) 142 mmol/L (136-145) Potassium Level 3.2 mmol/L (3.5-5.1) 4.0 mmol/L (3.5-5.1) Chloride Level 101 mmol/L (98-107) 103 mmol/L (98-107) Carbon Dioxide Level 31 mmol/L (21-32) 31 mmol/L (21-32) Anion Gap 8 (6-14) 8 (6-14) Blood Urea Nitrogen 18 mg/dL (7-20) 17 mg/dL (7-20) Creatinine 1.1 mg/dL (0.6-1.0) 1.0 mg/dL (0.6-1.0) Estimated GFR (Cockcroft-Gault) 59.4 66.3 BUN/Creatinine Ratio 16 (6-20) Glucose Level 112 mg/dL (70-99) 102 mg/dL (70-99) Calcium Level 8.8 mg/dL (8.5-10.1) 8.9 mg/dL (8.5-10.1) Magnesium Level 1.7 mg/dL (1.8-2.4) Total Bilirubin 0.6 mg/dL (0.2-1.0) Aspartate Amino Transf (AST/SGOT) 21 U/L (15-37) Alanine Aminotransferase (ALT/SGPT) 19 U/L (14-59) Alkaline Phosphatase 113 U/L (46-116) Troponin I Quantitative 0.075 ng/mL (0.000-0.055) 0.068 ng/mL (0.000-0.055) 0.059 ng/mL (0.000-0.055) JM-Cbb-O-Type Natriuretic Peptide 13975 pg/mL (0-124) Total Protein 6.5 g/dL (6.4-8.2) Albumin 3.3 g/dL (3.4-5.0) Albumin/Globulin Ratio 1.0 (1.0-1.7) Thyroid Stimulating Hormone (TSH) 11.914 uIU/mL (0.358-3.74) Prothrombin Time 15.0 SEC (11.7-14.0) Prothromb Time International Ratio 1.3 (0.8-1.1) Free Thyroxine 1.24 ng/dL (0.76-1.46) Free Triiodothyronine (T3) pg/mL 1.55 pg/mL (2.18-3.98) Medications Current Medications Diltiazem HCl 125 mg/Dextrose 125 ml @ 0 mls/hr CONT PRN IV SEE I/O RECORD Last administered on 01/23/17 04:23; Start 01/22/17 at 18:30 Aspirin (Ecotrin) 81 mg DAILYWBKFT PO Last administered on 01/23/17 08:58; Start 01/23/17 at 08:00 Atorvastatin Calcium (Lipitor) 20 mg QHS PO ; Start 01/22/17 at 21:00 Doxazosin Mesylate (Cardura) 4 mg DAILY PO ; Start 01/23/17 at 09:00; Stop 01/23 at 09:15; Status DC EZETIMIBE (Zetia) 10 mg HS PO Last administered on 01/22/17 22:34; Start 01/22 at 21:00 Levothyroxine Sodium (Synthroid) 75 mcg DAILY PO Last administered on 08:58; Start 01/23/17 at 09:00; Stop 01/23/17 at 09:12; Status DC Pantoprazole Sodium (Protonix) 40 mg DAILYAC PO Last administered on 01/23/17 08:58; Start 01/23/17 at 07:30 Furosemide (Lasix) 40 mg 1X ONCE IVP Last administered on 01/22/17 19:56; Start 01/22/17 at 19:45; Stop 01/22/17 at 19:53; Status DC Sodium Chloride 1,000 ml @ 75 mls/hr 1X ONCE IV Last administered on 19:49; Start 01/22/17 at 19:45; Stop 01/23/17 at 09:04; Status DC Furosemide (Lasix) 40 mg DAILY IVP Last administered on 01/23/17 08:58; Start 01/23/17 at 09:00 Acetaminophen (Tylenol) 650 mg PRN Q6HRS PRN PO FEVER; Start 01/22/17 at 20:00 Ondansetron HCl (Zofran) 4 mg PRN Q6HRS PRN IV NAUSEA/VOMITING; Start 01/22/17 at 20:00 Morphine Sulfate 2 mg PRN Q2HR PRN IV PAIN; Start 01/22/17 at 20:00 Tramadol HCl (Ultram) 50 mg PRN Q6HRS PRN PO PAIN; Start 01/22/17 at 20:00 Hydralazine HCl (Apresoline) 10 mg PRN Q4HRS PRN IVP ELEVATED BP, SEE COMMENTS ; Start 01/22/17 at 20:00 Docusate Sodium (Colace) 100 mg PRN DAILY PRN PO CONSTIPATION; Start 01/22/17 at 20:00 Potassium Chloride (Klor-Con) 40 meq 1X ONCE PO Last administered on 22:01; Start 01/22/17 at 20:00; Stop 01/22/17 at 20:01; Status DC Enoxaparin Sodium (Lovenox 60mg Syringe) 60 mg Q12HR SQ ; Start 01/22/17 at 21: 00; Status Cancel Heparin Sodium (Porcine) (Heparin Sodium) 5,250 unit 1X ONCE IV Last administered on 01/22/17 22:45; Start 01/22/17 at 20:45; Stop 01/22/17 at 20:46 ; Status DC Heparin Sodium/ Dextrose 500 ml @ 0 mls/hr CONT PRN IV SEE I/O RECORD; Start 01/22/17 at 20:45 Heparin Sodium (Porcine) (Heparin Sodium) 1,950 unit PRN Q6HRS PRN IV FOR UFH LEVEL LESS THAN 0.2; Start 01/22/17 at 20:45 Heparin Sodium (Porcine) (Heparin Sodium) 1,000 unit PRN Q6HRS PRN IV FOR UFH LEVEL 0.2 - 0.29; Start 01/22/17 at 20:45 Warfarin Sodium (Coumadin Per Pharmacy) 1 each PRN DAILY PRN MC PER PROTOCOL; Start 01/22/17 at 20:45 Digoxin (Lanoxin) 250 mcg 1X ONCE IV ; Start 01/22/17 at 21:00; Stop 01/22/17 at 21:01; Status DC Ondansetron HCl (Zofran) 4 mg PRN Q8HRS PRN IV NAUSEA/VOMITING; Start 01/22/17 at 21:15; Stop 01/22/17 at 21:15; Status DC Non-Formulary Medication 3 ea TIDWMEALS PO Last administered on 01/23/17 09:00 ; Start 01/23/17 at 08:00 Info (Anti-Coagulation Monitoring By Pharmacy) 1 each PRN DAILY PRN MC SEE COMMENTS; Start 01/23/17 at 01:45 Info (Do NOT chart on this placeholder) 1 each 1X ONCE MC ; Start 01/23/17 at 03:30; Stop 01/23/17 at 03:31; Status UNV Influenza Virus Vaccine Quadrival (Fluarix Quad 1267-1466 Syringe) 0.5 ml ONCE ONCE VAX IM ; Start 01/23/17 at 09:00; Stop 01/23/17 at 09:01; Status DC Insulin Aspart (NovoLOG) 0-9 UNITS TIDWMEALS SQ ; Start 01/23/17 at 12:00 Dextrose (Dextrose 50%-Water Syringe) 12.5 gm PRN Q15MIN PRN IV SEE COMMENTS; Start 01/23/17 at 09:15 Furosemide (Lasix) 40 mg DAILY PO ; Start 01/23/17 at 10:00; Status Cancel Hydrochlorothiazide (Hydrodiuril) 25 mg DAILY PO ; Start 01/23/17 at 10:00 Doxazosin Mesylate (Cardura) 2 mg DAILY PO ; Start 01/24/17 at 09:00 Potassium Chloride (Klor-Con) 20 meq DAILYWBKFT PO ; Start 01/23/17 at 10:00 Levothyroxine Sodium (Synthroid) 100 mcg DAILY07 PO ; Start 01/24/17 at 07:00 Active Scripts Active Aspirin Ec (Aspirin) 81 Mg Tablet.dr 81 Mg PO DAILYWBKFT 30 Days Reported Doxazosin Mesylate 2 Mg Tablet 1 Tab PO DAILY Hydrochlorothiazide Tablet (Hydrochlorothiazide) 25 Mg Tablet 1 Tab PO DAILY Lasix (Furosemide) 40 Mg Tablet 1 Tab PO DAILY Potassium Chloride 20 Meq Tablet.er 20 Meq PO DAILY Esbriet (Pirfenidone) 801 Mg Tablet 801 Mg PO Levothyroxine Sodium 75 Mcg Tablet 1 Tab PO DAILY Zetia (Ezetimibe) 10 Mg Tablet 10 Mg PO HS Vitals/I & O Vital Sign - Last 24 Hours 01/22/17 01/22/17 01/22/17 01/22/17 17:34 18:38 18:44 18:54 Temp 99.0 99.0 Pulse 115 138 142 140 Resp 26 33 42 28 B/P (MAP) 135/85 (102) 101/73 (82) 115/56 (75) 114/70 (85) Pulse Ox 94 99 100 99 O2 Delivery Room Air Nasal Cannula Nasal Cannula Nasal Cannula O2 Flow Rate 6.0 7.0 7.0 7.0 01/22/17 01/22/17 01/22/17 01/22/17 19:09 19:24 19:36 19:54 Pulse 140 140 140 140 Resp 32 34 34 31 B/P (MAP) 104/69 (81) 104/70 (81) 96/64 (75) 100/69 (79) Pulse Ox 97 99 100 100 O2 Delivery Nasal Cannula Nasal Cannula Nasal Cannula Nasal Cannula O2 Flow Rate 7.0 7.0 7.0 7.0 10/2/17 10/2/17 10/2/17 10/2/17 20:09 20:30 20:45 21:00 Pulse 142 142 142 86 Resp 34 35 30 B/P (MAP) 109/80 (90) 119/80 (93) 109/71 (84) 90/56 Pulse Ox 99 97 96 O2 Delivery Nasal Cannula Nasal Cannula Nasal Cannula O2 Flow Rate 7.0 7.0 7.0 01/22/17 01/22/17 01/22/17 01/22/17 21:00 21:15 21:30 21:45 Pulse 144 128 144 78 Resp 35 34 32 32 B/P (MAP) 105/70 (82) 96/63 (74) 90/67 (75) 102/60 (74) Pulse Ox 98 99 97 98 O2 Delivery Nasal Cannula Nasal Cannula Nasal Cannula Nasal Cannula O2 Flow Rate 7.0 7.0 7.0 7.0 01/22/17 01/22/17 01/22/17 01/22/17 22:00 22:15 22:30 22:45 Pulse 86 86 84 84 Resp 32 32 34 34 B/P (MAP) 93/59 (70) 88/54 (65) 90/53 (65) 96/59 (71) Pulse Ox 95 94 94 95 O2 Delivery Nasal Cannula Nasal Cannula Nasal Cannula Nasal Cannula O2 Flow Rate 7.0 7.0 7.0 7.0 01/22/17 01/22/17 01/22/17 01/23/17 23:00 23:15 23:45 00:00 Temp 98.2 98.2 Pulse 84 86 82 84 Resp 34 36 16 18 B/P (MAP) 92/57 (69) 95/58 (70) 102/69 (80) 99/65 (76) Pulse Ox 95 95 98 96 O2 Delivery Nasal Cannula Nasal Cannula Nasal Cannula Nasal Cannula O2 Flow Rate 7.0 7.0 6.0 6.0 01/23/17 01/23/17 01/23/17 01/23/17 00:15 01:00 02:46 03:00 Temp 98.5 98.5 Pulse 82 82 80 Resp 15 18 16 B/P (MAP) 91/64 (73) 87/64 (72) 102/65 (77) Pulse Ox 98 97 98 O2 Delivery Nasal Cannula Nasal Cannula Nasal Cannula Nasal Cannula O2 Flow Rate 6.0 6.0 6.0 6.0 01/23/17 01/23/17 01/23/17 07:00 08:00 08:58 Temp 98.1 98.1 Pulse 75 78 Resp 14 B/P (MAP) 102/70 (81) 100/70 Pulse Ox 99 O2 Delivery Nasal Cannula Nasal Cannula O2 Flow Rate 6.0 6.0 Intake and Output 01/23/17 01/23/17 01/24/17 15:00 23:00 07:00 Output Total 150 ml Balance -150 ml WILTON FINK MD Jan 23, 2017 11:07
[2017-01-23] MEDS: INSULIN ASPART 300 UNITS/3 ML INSULN.PEN SQ SCH ×2 (12:00→17:00)
--- NOTE | 2017-01-23 12:19 | PDOC2 ---
MAI TURNER [employer] 01/23/17 1218: CARDIAC CONSULT DATE OF CONSULT Date of Consult DATE: 01/23/17 TIME: 11:47 REASON FOR CONSULT Reason for Consult: AFIB RVR REFERRING PHYSICIAN Referring Physician: Dexter SOURCE Source: Chart review, Patient HISTORY OF PRESENT ILLNESS HISTORY OF PRESENT ILLNESS This is a pleasant 71 yo female admitted for complains of increasing leg swelling and wt gain. Reports that her leg has been increasingly getting swollen and noted that she has gained about 3 lbs in the last 2 days. She has been taking her diuretic regularly but upon admission she was noted with AFIB RVR. Verbalized no CP, palpitations and SOA is no different from her baseline given that she has pulmonary fibrosis and on chronic O2. Denies any dizziness, passing out. Verbalized that even though her HR was fast she does not feel this . Presently she feels better. PAST MEDICAL HISTORY Past Medical History Cardiovascular: HTN, Hyperlipidemia Pulmonary: Other (Pulmonary fibrosis) CENTRAL NERVOUS SYSTEM: Other (No pertinent history) GI: GERD Heme/Onc: No pertinent hx Hepatobiliary: No pertinent hx Psych: No pertinent hx Musculoskeletal: Osteoarthritis Rheumatologic: No pertinent hx Infectious disease: No pertinent hx ENT: No pertinent hx Renal/: No pertinent hx Endocrine: Hypothyroidism Dermatology: No pertinent hx PAST SURGICAL HISTORY Past Surgical History: No pertinent history FAMILY HISTORY Family History Heart Disease (father) SOCIAL HISTORY Social History Smoke: No ALCOHOL: none Drugs: None Lives: with Family CURRENT MEDICATIONS CURRENT MEDICATIONS Current Medications Medications (Trade) Dose Ordered Sig/Traci Route PRN Reason Start Time Stop Time Status Last Admin Dose Admin Diltiazem HCl 125 mg/Dextrose 125 ml @ 0 mls/hr CONT PRN IV SEE I/O RECORD 01/22/17 18:30 01/23/17 04:23 Aspirin (Ecotrin) 81 mg DAILYWBKFT PO 01/23/17 08:00 01/23/17 08:58 EZETIMIBE (Zetia) 10 mg HS PO 01/22/17 21:00 01/22/17 22:34 Levothyroxine Sodium (Synthroid) 75 mcg DAILY PO 01/23/17 09:00 01/23/17 09:12 DC 01/23/17 08:58 Pantoprazole Sodium (Protonix) 40 mg DAILYAC PO 01/23/17 07:30 01/23/17 08:58 Furosemide (Lasix) 40 mg 1X ONCE IVP 01/22/17 19:45 01/22/17 19:53 DC 01/22/17 19:56 Sodium Chloride 1,000 ml @ 75 mls/hr 1X ONCE IV 01/22/17 19:45 01/23/17 09:04 DC 01/22/17 19:49 Furosemide (Lasix) 40 mg DAILY IVP 01/23/17 09:00 01/23/17 08:58 Potassium Chloride (Klor-Con) 40 meq 1X ONCE PO 01/22/17 20:00 01/22/17 20:01 DC 01/22/17 22:01 Heparin Sodium (Porcine) (Heparin Sodium) 5,250 unit 1X ONCE IV 01/22/17 20:45 01/22/17 20:46 DC 01/22/17 22:45 Non-Formulary Medication 3 ea TIDWMEALS PO 01/23/17 08:00 01/23/17 09:00 ALLERGIES ALLERGIES: Coded Allergies: Penicillins (Verified Allergy, Intermediate, Rash, 11/07/16) swelling codeine (Verified Adverse Reaction, Mild, 11/07/16) "too sleepy" ROS Review of System 14 point ROS evaluated with pertinent positives noted per HPI PHYSICAL EXAM General: Alert, Oriented X3, Cooperative, No acute distress HEENT: Atraumatic, Mucous membr. moist/pink Lungs: Other (diminished bases) Heart: Regular rate, Normal S1, Normal S2, Other (3/6 systolic murmur to LLS border) Extremities: No cyanosis, Other (2+ bilateral LE pitting edema) Skin: No breakdown, No significant lesion Neuro: Normal speech, Sensation intact Psych/Mental Status: Mental status NL, Mood NL MUSCULOSKELETAL: Osteoarthritic changes both hands VITALS VITALS Vital Signs Date Time Temp Pulse Resp B/P (MAP) Pulse Ox O2 Delivery O2 Flow Rate FiO2 01/23/17 08:58 78 100/70 01/23/17 08:00 Nasal Cannula 6.0 01/23/17 07:00 98.1 14 99 98.1 LABS Lab: Laboratory Tests Test 01/22/17 18:30 01/23/17 03:28 01/23/17 09:35 White Blood Count 7.6 x10^3/uL (4.0-11.0) 7.3 x10^3/uL (4.0-11.0) Red Blood Count 4.84 x10^6/uL (3.50-5.40) 4.72 x10^6/uL (3.50-5.40) Hemoglobin 13.9 g/dL (12.0-15.5) 13.7 g/dL (12.0-15.5) Hematocrit 42.7 % (36.0-47.0) 41.0 % (36.0-47.0) Mean Corpuscular Volume 88 fL (79-100) 87 fL (79-100) Mean Corpuscular Hemoglobin 29 pg (25-35) 29 pg (25-35) Mean Corpuscular Hemoglobin Concent 33 g/dL (31-37) 33 g/dL (31-37) Red Cell Distribution Width 15.9 % (11.5-14.5) 16.4 % (11.5-14.5) Platelet Count 238 x10^3/uL (140-400) 233 x10^3/uL (140-400) Neutrophils (%) (Auto) 69 % (31-73) 68 % (31-73) Lymphocytes (%) (Auto) 23 % (24-48) 24 % (24-48) Monocytes (%) (Auto) 6 % (0-9) 7 % (0-9) Eosinophils (%) (Auto) 1 % (0-3) 0 % (0-3) Basophils (%) (Auto) 1 % (0-3) 1 % (0-3) Neutrophils # (Auto) 5.2 x10^3uL (1.8-7.7) 5.0 x10^3uL (1.8-7.7) Lymphocytes # (Auto) 1.8 x10^3/uL (1.0-4.8) 1.8 x10^3/uL (1.0-4.8) Monocytes # (Auto) 0.5 x10^3/uL (0.0-1.1) 0.5 x10^3/uL (0.0-1.1) Eosinophils # (Auto) 0.0 x10^3/uL (0.0-0.7) 0.0 x10^3/uL (0.0-0.7) Basophils # (Auto) 0.1 x10^3/uL (0.0-0.2) 0.1 x10^3/uL (0.0-0.2) Sodium Level 140 mmol/L (136-145) 142 mmol/L (136-145) Potassium Level 3.2 mmol/L (3.5-5.1) 4.0 mmol/L (3.5-5.1) Chloride Level 101 mmol/L (98-107) 103 mmol/L (98-107) Carbon Dioxide Level 31 mmol/L (21-32) 31 mmol/L (21-32) Anion Gap 8 (6-14) 8 (6-14) Blood Urea Nitrogen 18 mg/dL (7-20) 17 mg/dL (7-20) Creatinine 1.1 mg/dL (0.6-1.0) 1.0 mg/dL (0.6-1.0) Estimated GFR (Cockcroft-Gault) 59.4 66.3 BUN/Creatinine Ratio 16 (6-20) Glucose Level 112 mg/dL (70-99) 102 mg/dL (70-99) Calcium Level 8.8 mg/dL (8.5-10.1) 8.9 mg/dL (8.5-10.1) Magnesium Level 1.7 mg/dL (1.8-2.4) Total Bilirubin 0.6 mg/dL (0.2-1.0) Aspartate Amino Transf (AST/SGOT) 21 U/L (15-37) Alanine Aminotransferase (ALT/SGPT) 19 U/L (14-59) Alkaline Phosphatase 113 U/L (46-116) Troponin I Quantitative 0.075 ng/mL (0.000-0.055) 0.068 ng/mL (0.000-0.055) 0.059 ng/mL (0.000-0.055) HU-Xks-D-Type Natriuretic Peptide 22127 pg/mL (0-124) Total Protein 6.5 g/dL (6.4-8.2) Albumin 3.3 g/dL (3.4-5.0) Albumin/Globulin Ratio 1.0 (1.0-1.7) Thyroid Stimulating Hormone (TSH) 11.914 uIU/mL (0.358-3.74) Prothrombin Time 15.0 SEC (11.7-14.0) Prothromb Time International Ratio 1.3 (0.8-1.1) Free Thyroxine 1.24 ng/dL (0.76-1.46) Free Triiodothyronine (T3) pg/mL 1.55 pg/mL (2.18-3.98) ECHOCARDIOGRAM ECHOCARDIOGRAM <Conclusion> Left ventricle systolic function is normal. The Ejection Fraction is >55%. There is a flattened septum consistent with right ventricle volume and pressure overload. The right ventricle is severely dilated. Right Ventricular septal motion is consistent with volume and pressure overload. The interatrial septum is intact with no evidence for an atrial septal defect or patent foramen ovale as noted on 2-D or Doppler imaging. No clear evidence of right to left shunt by agitated saline contrast. Doppler and Color Flow revealed mild tricuspid regurgitation. The PA pressure was estimated at 59 mmHg. There is mild pulmonary artery dilatation. The IVC is dilated and collapses >50% with inspiration. There is a small pericardial effusion. DATE: 11/09/16 1006 STRESS TEST STRESS TEST Conclusion 1. Regadenoson cardioisotope stress test did not show any evidence of ischemia or infarct. 2. Normal left ventricular systolic function with ejection fraction calculated at 76%. 3. Low risk for cardiac events. DATE: 11/08/16 1501 ASSESSMENT/PLAN ASSESSMENT/PLAN 1. Acute on chronic diastolic CHF: Multifactorial as noted below. Peaked trop at 0.06, demand mediated. 2. Paroxysmal Tachyarrhythmias: Possible AFIB RVR episodes vs MAT. With pulmonary and thyroid issue contributing. 3. Pulmonary fibrosis/severe pulmonary HTN with chronic O2 use 4. Hypothyroidism: on replacement but TSH 11. Likely inadequate dosing. Verbalized compliance. Per PCP 5. HTN 6. HLP Recommendations 1. Pt is now on SR. Will convert cardizem drip to PO, Continue with ASA. 2. Replace Mg if remains low. 3. Arrange for outpt event monitor to ascertain any AFIB events and burden 4. DC HCTZ and continue with lasix and change to PO tomorrow. 5. Continue with secondary prevention. Problems: ONEL MIDDLETON MD 01/23/17 1741: CARDIAC CONSULT ALLERGIES ALLERGIES: Coded Allergies: Penicillins (Verified Allergy, Intermediate, Rash, 11/07/16) swelling codeine (Verified Adverse Reaction, Mild, 11/07/16) "too sleepy" ASSESSMENT/PLAN ASSESSMENT/PLAN Patient seen and examined. Agree with PHARMACY TECH CUSTOMER SERVICE's assessment and plan. Acute on chronic diastolic heart failure better compensated. EKG on admission showed sinus tachycardia with frequent PACs. Telemetry did not show any definite evidence for atrial fibrillation. Hold any manager long term care anticoagulation at this time. Plan for outpatient event monitor to rule out any significant arrhythmias. Continue management of pulmonary hypertension/pulmonary fibrosis per pulmonary team. Thank you for your consultation. Problems: MAI TURNER APRN Jan 23, 2017 12:18 ONEL MIDDLETON MD Jan 23, 2017 17:41
[2017-01-23] MEDS: POTASSIUM CHLORIDE 20 MEQ TABLET.ER. PO SCH (12:36)
[2017-01-23] MEDS: FUROSEMIDE 40 MG TABLET. PO SCH (12:44)
[2017-01-23] MEDS ORDERED: APIXABAN 5 MG TABLET. PO SCH (13:00)
[2017-01-23] MEDS: EZETIMIBE 10 MG TABLET. PO SCH (20:53)
[2017-01-23] MEDS: ATORVASTATIN CALCIUM 20 MG TABLET PO SCH (20:53)
[2017-01-24 06:06] LABS: HEMATOCRIT 42.1 % (36.0-47.0); HEMOGLOBIN 13.8 g/dL (12.0-15.5); RED BLOOD COUNT 4.82 x10^6/uL (3.50-5.40); RED CELL DISTRIBUTION WIDTH 16.8 % (11.5-14.5); WHITE BLOOD COUNT 7.2 x10^3/uL (4.0-11.0)
[2017-01-24 06:23] LABS: INR 1.2 (0.8-1.1); PROTHROMBIN TIME PATIENT 14.9 SEC (11.7-14.0)
[2017-01-24 08:00] VITALS: BP 124/79
[2017-01-24] MEDS: INSULIN ASPART 300 UNITS/3 ML INSULN.PEN SQ SCH ×3 (08:00→17:00)
[2017-01-24] MEDS ORDERED: DOXAZOSIN MESYLATE 1 MG TABLET. PO SCH (09:00)
[2017-01-24] MEDS: PANTOPRAZOLE 40 MG TABLET.DR. PO SCH (09:18)
[2017-01-24] MEDS: POTASSIUM CHLORIDE 20 MEQ TABLET.ER. PO SCH (09:18)
[2017-01-24] MEDS: LEVOTHYROXINE 100 MCG TABLET PO SCH (09:18)
[2017-01-24] MEDS: ASPIRIN ENTERIC COATED 81 MG TABLET.DR. PO SCH (09:18)
[2017-01-24] MEDS: FUROSEMIDE 40 MG TABLET. PO SCH (09:18)
[2017-01-24] MEDS: ESBRIET PO SCH ×3 (09:19→17:34)
--- NOTE | 2017-01-24 09:41 | PDOC ---
PROGRESS NOTES Chief Complaint Chief Complaint new onset rapid afib with RVR bl leg edema with right heart failure exacerbation chronic hypoxic resp failure with pulmonary fibrosis, home o2 6L htn hld H/O moderate pericardial effusion HYPOKALEMIA, corrected mild malnutrition CKD 3 Low TSH, hx hypothyoridism\ PULM fibrosis on 6 LNC 13/11 - Known to Emma Jackson History of Present Illness History of Present Illness Seen in ICU NO inc in SOA NO CP, [facility] says CPM - no new tests/or med adjustments Lc [facility], some weight loss, some LN on last imaging - reviewed prior CT films with him today Will do CT chest today Worked with PT yesterday, recommended SNU She might be hesitant to do this - PT to re eval today Legs SIGNIF better! - reason she came PLAN: CT chest today COnt PT/OT Ok to t.o ICU on non monitored bed Lc [facility] and ICU team Vitals Vitals Vital Signs Date Time Temp Pulse Resp B/P (MAP) Pulse Ox O2 Delivery O2 Flow Rate FiO2 01/24/17 09:18 96 124/79 01/23/17 20:00 Nasal Cannula 6.0 01/23/17 19:00 97.5 24 100 97.5 Physical Exam General: Alert, Oriented X3, Cooperative, No acute distress Heart: Regular rate, Normal S1, Normal S2, Other (3/6 systolic murmur to LLS border) Lungs: Clear Abdomen: Normal bowel sounds, No tenderness, No hepatosplenomegaly Extremities: No cyanosis, Other (2+ bilateral LE pitting edema) Skin: No breakdown, No significant lesion Labs LABS Laboratory Tests Test 01/23/17 12:34 01/23/17 17:39 01/24/17 05:03 01/24/17 05:30 Glucose (Fingerstick) 115 mg/dL (70-99) 74 mg/dL (70-99) Prothrombin Time 14.9 SEC (11.7-14.0) Prothromb Time International Ratio 1.2 (0.8-1.1) White Blood Count 7.2 x10^3/uL (4.0-11.0) Red Blood Count 4.82 x10^6/uL (3.50-5.40) Hemoglobin 13.8 g/dL (12.0-15.5) Hematocrit 42.1 % (36.0-47.0) Mean Corpuscular Volume 87 fL (79-100) Mean Corpuscular Hemoglobin 29 pg (25-35) Mean Corpuscular Hemoglobin Concent 33 g/dL (31-37) Red Cell Distribution Width 16.8 % (11.5-14.5) Platelet Count 210 x10^3/uL (140-400) Review of Systems Review of Systems Weight loss, no inc in SOA or CP Assessment and Plan Assessmemt and Plan Problems Medical Problems: (1) Acute congestive heart failure Status: Acute Problems: Comment Review of Relevant I have reviewed the following items neha (where applicable) has been applied. Labs Laboratory Tests Test 01/22/17 18:30 01/23/17 03:28 01/23/17 09:35 01/23/17 12:34 White Blood Count 7.6 x10^3/uL (4.0-11.0) 7.3 x10^3/uL (4.0-11.0) Red Blood Count 4.84 x10^6/uL (3.50-5.40) 4.72 x10^6/uL (3.50-5.40) Hemoglobin 13.9 g/dL (12.0-15.5) 13.7 g/dL (12.0-15.5) Hematocrit 42.7 % (36.0-47.0) 41.0 % (36.0-47.0) Mean Corpuscular Volume 88 fL (79-100) 87 fL (79-100) Mean Corpuscular Hemoglobin 29 pg (25-35) 29 pg (25-35) Mean Corpuscular Hemoglobin Concent 33 g/dL (31-37) 33 g/dL (31-37) Red Cell Distribution Width 15.9 % (11.5-14.5) 16.4 % (11.5-14.5) Platelet Count 238 x10^3/uL (140-400) 233 x10^3/uL (140-400) Neutrophils (%) (Auto) 69 % (31-73) 68 % (31-73) Lymphocytes (%) (Auto) 23 % (24-48) 24 % (24-48) Monocytes (%) (Auto) 6 % (0-9) 7 % (0-9) Eosinophils (%) (Auto) 1 % (0-3) 0 % (0-3) Basophils (%) (Auto) 1 % (0-3) 1 % (0-3) Neutrophils # (Auto) 5.2 x10^3uL (1.8-7.7) 5.0 x10^3uL (1.8-7.7) Lymphocytes # (Auto) 1.8 x10^3/uL (1.0-4.8) 1.8 x10^3/uL (1.0-4.8) Monocytes # (Auto) 0.5 x10^3/uL (0.0-1.1) 0.5 x10^3/uL (0.0-1.1) Eosinophils # (Auto) 0.0 x10^3/uL (0.0-0.7) 0.0 x10^3/uL (0.0-0.7) Basophils # (Auto) 0.1 x10^3/uL (0.0-0.2) 0.1 x10^3/uL (0.0-0.2) Sodium Level 140 mmol/L (136-145) 142 mmol/L (136-145) Potassium Level 3.2 mmol/L (3.5-5.1) 4.0 mmol/L (3.5-5.1) Chloride Level 101 mmol/L (98-107) 103 mmol/L (98-107) Carbon Dioxide Level 31 mmol/L (21-32) 31 mmol/L (21-32) Anion Gap 8 (6-14) 8 (6-14) Blood Urea Nitrogen 18 mg/dL (7-20) 17 mg/dL (7-20) Creatinine 1.1 mg/dL (0.6-1.0) 1.0 mg/dL (0.6-1.0) Estimated GFR (Cockcroft-Gault) 59.4 66.3 BUN/Creatinine Ratio 16 (6-20) Glucose Level 112 mg/dL (70-99) 102 mg/dL (70-99) Calcium Level 8.8 mg/dL (8.5-10.1) 8.9 mg/dL (8.5-10.1) Magnesium Level 1.7 mg/dL (1.8-2.4) 1.7 mg/dL (1.8-2.4) Total Bilirubin 0.6 mg/dL (0.2-1.0) Aspartate Amino Transf (AST/SGOT) 21 U/L (15-37) Alanine Aminotransferase (ALT/SGPT) 19 U/L (14-59) Alkaline Phosphatase 113 U/L (46-116) Troponin I Quantitative 0.075 ng/mL (0.000-0.055) 0.068 ng/mL (0.000-0.055) 0.059 ng/mL (0.000-0.055) MG-Avz-X-Type Natriuretic Peptide 47791 pg/mL (0-124) Total Protein 6.5 g/dL (6.4-8.2) Albumin 3.3 g/dL (3.4-5.0) Albumin/Globulin Ratio 1.0 (1.0-1.7) Thyroid Stimulating Hormone (TSH) 11.914 uIU/mL (0.358-3.74) Prothrombin Time 15.0 SEC (11.7-14.0) Prothromb Time International Ratio 1.3 (0.8-1.1) Free Thyroxine 1.24 ng/dL (0.76-1.46) Free Triiodothyronine (T3) pg/mL 1.55 pg/mL (2.18-3.98) Glucose (Fingerstick) 115 mg/dL (70-99) Test 01/23/17 17:39 01/24/17 05:03 01/24/17 05:30 Glucose (Fingerstick) 74 mg/dL (70-99) Prothrombin Time 14.9 SEC (11.7-14.0) Prothromb Time International Ratio 1.2 (0.8-1.1) White Blood Count 7.2 x10^3/uL (4.0-11.0) Red Blood Count 4.82 x10^6/uL (3.50-5.40) Hemoglobin 13.8 g/dL (12.0-15.5) Hematocrit 42.1 % (36.0-47.0) Mean Corpuscular Volume 87 fL (79-100) Mean Corpuscular Hemoglobin 29 pg (25-35) Mean Corpuscular Hemoglobin Concent 33 g/dL (31-37) Red Cell Distribution Width 16.8 % (11.5-14.5) Platelet Count 210 x10^3/uL (140-400) Laboratory Tests Test 01/23/17 12:34 01/23/17 17:39 01/24/17 05:03 01/24/17 05:30 Glucose (Fingerstick) 115 mg/dL (70-99) 74 mg/dL (70-99) Prothrombin Time 14.9 SEC (11.7-14.0) Prothromb Time International Ratio 1.2 (0.8-1.1) White Blood Count 7.2 x10^3/uL (4.0-11.0) Red Blood Count 4.82 x10^6/uL (3.50-5.40) Hemoglobin 13.8 g/dL (12.0-15.5) Hematocrit 42.1 % (36.0-47.0) Mean Corpuscular Volume 87 fL (79-100) Mean Corpuscular Hemoglobin 29 pg (25-35) Mean Corpuscular Hemoglobin Concent 33 g/dL (31-37) Red Cell Distribution Width 16.8 % (11.5-14.5) Platelet Count 210 x10^3/uL (140-400) Medications Current Medications Diltiazem HCl 125 mg/Dextrose 125 ml @ 0 mls/hr CONT PRN IV SEE I/O RECORD Last administered on 01/23/17 04:23; Start 01/22/17 at 18:30; Stop 01/23/17 at 12:15; Status DC Aspirin (Ecotrin) 81 mg DAILYWBKFT PO Last administered on 01/24/17 09:18; Start 01/23/17 at 08:00 Atorvastatin Calcium (Lipitor) 20 mg QHS PO ; Start 01/22/17 at 21:00 Doxazosin Mesylate (Cardura) 4 mg DAILY PO ; Start 01/23/17 at 09:00; Stop 01/23 at 09:15; Status DC EZETIMIBE (Zetia) 10 mg HS PO Last administered on 01/23/17 20:53; Start 01/22 at 21:00 Levothyroxine Sodium (Synthroid) 75 mcg DAILY PO Last administered on 08:58; Start 01/23/17 at 09:00; Stop 01/23/17 at 09:12; Status DC Pantoprazole Sodium (Protonix) 40 mg DAILYAC PO Last administered on 01/24/17 09:18; Start 01/23/17 at 07:30 Furosemide (Lasix) 40 mg 1X ONCE IVP Last administered on 01/22/17 19:56; Start 01/22/17 at 19:45; Stop 01/22/17 at 19:53; Status DC Sodium Chloride 1,000 ml @ 75 mls/hr 1X ONCE IV Last administered on 19:49; Start 01/22/17 at 19:45; Stop 01/23/17 at 09:04; Status DC Furosemide (Lasix) 40 mg DAILY IVP Last administered on 01/23/17 08:58; Start 01/23/17 at 09:00; Stop 01/23/17 at 12:15; Status DC Acetaminophen (Tylenol) 650 mg PRN Q6HRS PRN PO FEVER; Start 01/22/17 at 20:00 Ondansetron HCl (Zofran) 4 mg PRN Q6HRS PRN IV NAUSEA/VOMITING; Start 01/22/17 at 20:00 Morphine Sulfate 2 mg PRN Q2HR PRN IV PAIN; Start 01/22/17 at 20:00 Tramadol HCl (Ultram) 50 mg PRN Q6HRS PRN PO PAIN; Start 01/22/17 at 20:00 Hydralazine HCl (Apresoline) 10 mg PRN Q4HRS PRN IVP ELEVATED BP, SEE COMMENTS ; Start 01/22/17 at 20:00 Docusate Sodium (Colace) 100 mg PRN DAILY PRN PO CONSTIPATION; Start 01/22/17 at 20:00 Potassium Chloride (Klor-Con) 40 meq 1X ONCE PO Last administered on 22:01; Start 01/22/17 at 20:00; Stop 01/22/17 at 20:01; Status DC Enoxaparin Sodium (Lovenox 60mg Syringe) 60 mg Q12HR SQ ; Start 01/22/17 at 21: 00; Status Cancel Heparin Sodium (Porcine) (Heparin Sodium) 5,250 unit 1X ONCE IV Last administered on 01/22/17 22:45; Start 01/22/17 at 20:45; Stop 01/22/17 at 20:46 ; Status DC Heparin Sodium/ Dextrose 500 ml @ 0 mls/hr CONT PRN IV SEE I/O RECORD; Start 01/22/17 at 20:45; Stop 01/23/17 at 12:15; Status DC Heparin Sodium (Porcine) (Heparin Sodium) 1,950 unit PRN Q6HRS PRN IV FOR UFH LEVEL LESS THAN 0.2; Start 01/22/17 at 20:45; Stop 01/23/17 at 12:18; Status DC Heparin Sodium (Porcine) (Heparin Sodium) 1,000 unit PRN Q6HRS PRN IV FOR UFH LEVEL 0.2 - 0.29; Start 01/22/17 at 20:45; Stop 01/23/17 at 12:18; Status DC Warfarin Sodium (Coumadin Per Pharmacy) 1 each PRN DAILY PRN MC PER PROTOCOL; Start 01/22/17 at 20:45; Stop 01/23/17 at 12:15; Status DC Digoxin (Lanoxin) 250 mcg 1X ONCE IV ; Start 01/22/17 at 21:00; Stop 01/22/17 at 21:01; Status DC Ondansetron HCl (Zofran) 4 mg PRN Q8HRS PRN IV NAUSEA/VOMITING; Start 01/22/17 at 21:15; Stop 01/22/17 at 21:15; Status DC Non-Formulary Medication 3 ea TIDWMEALS PO Last administered on 01/24/17 09:19 ; Start 01/23/17 at 08:00 Info (Anti-Coagulation Monitoring By Pharmacy) 1 each PRN DAILY PRN MC SEE COMMENTS; Start 01/23/17 at 01:45; Stop 01/24/17 at 08:17; Status DC Info (Do NOT chart on this placeholder) 1 each 1X ONCE MC ; Start 01/23/17 at 03:30; Stop 01/23/17 at 03:31; Status UNV Influenza Virus Vaccine Quadrival (Fluarix Quad [id number] Syringe) 0.5 ml ONCE ONCE VAX IM Last administered on 01/24/17 09:20; Start 01/23/17 at 09:00; Stop 01/23/17 at 09:01; Status DC Insulin Aspart (NovoLOG) 0-9 UNITS TIDWMEALS SQ ; Start 01/23/17 at 12:00 Dextrose (Dextrose 50%-Water Syringe) 12.5 gm PRN Q15MIN PRN IV SEE COMMENTS; Start 01/23/17 at 09:15 Furosemide (Lasix) 40 mg DAILY PO ; Start 01/23/17 at 10:00; Status Cancel Hydrochlorothiazide (Hydrodiuril) 25 mg DAILY PO ; Start 01/23/17 at 10:00; Stop 01/23/17 at 12:15; Status DC Doxazosin Mesylate (Cardura) 2 mg DAILY PO ; Start 01/24/17 at 09:00; Stop 01/24 at 09:00; Status DC Potassium Chloride (Klor-Con) 20 meq DAILYWBKFT PO Last administered on 09:18; Start 01/23/17 at 10:00 Levothyroxine Sodium (Synthroid) 100 mcg DAILY07 PO Last administered on 09:18; Start 01/24/17 at 07:00 Apixaban (Eliquis) 5 mg BID PO Last administered on 01/23/17 12:43; Start 01/23/17 at 13:00; Stop 01/23/17 at 15:12; Status DC Diltiazem HCl (Cardizem 24hr ) 120 mg DAILY PO Last administered on 09:18; Start 01/23/17 at 13:00 Furosemide (Lasix) 40 mg DAILY PO Last administered on 01/24/17 09:18; Start 01/23/17 at 13:00 Active Scripts Active Aspirin Ec (Aspirin) 81 Mg Tablet. 81 Mg PO DAILYWBKFT 30 Days Reported Doxazosin Mesylate 2 Mg Tablet 1 Tab PO DAILY Hydrochlorothiazide Tablet (Hydrochlorothiazide) 25 Mg Tablet 1 Tab PO DAILY Lasix (Furosemide) 40 Mg Tablet 1 Tab PO DAILY Potassium Chloride 20 Meq Tablet.er 20 Meq PO DAILY Esbriet (Pirfenidone) 801 Mg Tablet 801 Mg PO Levothyroxine Sodium 75 Mcg Tablet 1 Tab PO DAILY Zetia (Ezetimibe) 10 Mg Tablet 10 Mg PO HS Vitals/I & O Vital Sign - Last 24 Hours 01/23/17 01/23/17 01/23/17 01/23/17 11:00 12:40 15:00 19:00 Temp 98.6 98.4 97.7 98.6 98.4 97.7 Pulse 76 83 79 64 Resp 16 16 24 B/P (MAP) 108/72 (84) 108/72 98/63 (75) 145/64 (91) Pulse Ox 99 98 99 O2 Delivery Nasal Cannula Nasal Cannula Room Air O2 Flow Rate 6.0 6.0 01/23/17 01/23/17 01/24/17 19:00 20:00 09:18 Temp 97.5 97.5 Pulse 94 96 Resp 24 B/P (MAP) 115/73 (87) 124/79 Pulse Ox 100 O2 Delivery Nasal Cannula Nasal Cannula O2 Flow Rate 6.0 6.0 WILTON FINK MD Jan 24, 2017 09:41
--- NOTE | 2017-01-24 09:44 | PDOC ---
Provider Note Provider Note dictated NATALIE CASSIDY MD Jan 24, 2017 09:44
[2017-01-24] MEDS: ATORVASTATIN CALCIUM 20 MG TABLET PO SCH (09:45)
--- NOTE | 2017-01-24 10:07 | CONS ---
DATE OF CONSULTATION: ATTENDING PHYSICIAN: Dr. Welsh. REASON FOR CONSULTATION: Dyspnea, pulmonary fibrosis, hypoxic respiratory failure. HISTORY OF PRESENT ILLNESS: The patient is a pleasant 71-year-old female who has a history of pulmonary fibrosis compatible with idiopathic type. She follows my partner, Dr. Carter in the office and currently on Esbriet for the last 2 years. The patient's last CT chest was done in October of this year, which was also reviewed by me. There was no evidence of pulmonary embolism. However, there was some worsening of the pulmonary fibrotic process. There was also mediastinal adenopathy which has increased. There was a moderate pericardial effusion. The patient also had an echocardiogram at that time and a small pericardial effusion reported. She was hospitalized because of increase in dyspnea and increase in lower extremity edema and was found to be in new onset atrial fibrillation with heart rate in the 140s. The patient is currently breathing better, heart rate is better controlled. Her chest x-ray done 2 days ago was reviewed by me and shows bilateral interstitial infiltrates along with cardiomegaly. Consultation requested for further evaluation and management. The patient has lost about 40 pounds in the last 1 year. She says her appetite is poor as well. However, since she has been in the hospital, she is eating well. She used to smoke for 18 years, she quit in 1994. She remains on oxygen at 6 liters. No history of deep vein thrombosis or pulmonary embolism. PAST MEDICAL HISTORY: Significant for hypertension and hyperlipidemia. History of pulmonary fibrosis, idiopathic type, on Esbriet for the last 2 years. History of hypothyroidism. PAST SURGICAL HISTORY: No recent surgeries. FAMILY HISTORY: Heart disease. SOCIAL HISTORY: Quit tobacco in 1994, smoked for 18 years. REVIEW OF SYSTEMS: A 14-point system obtained. Pertinent positives discussed in history of present illness, otherwise noncontributory. All systems that were negative were reviewed as well. MEDICATIONS: All reviewed as listed in the MRAD. PHYSICAL EXAMINATION: GENERAL: She is awake. VITAL SIGNS: While on 6 liters of oxygen, her saturations are 98%. Afebrile. Blood pressure is stable. Irregular rhythm. HEENT: Sclerae nonicteric. NECK: Supple. LUNGS: Crackles at the bases. CARDIOVASCULAR: Irregular rhythm. ABDOMEN: Soft, nontender. EXTREMITIES: With bilateral pitting edema. LABORATORY DATA: Reviewed. White cell count 7.2, hemoglobin 13.8, platelets are 210. BUN is 17, creatinine 1.0. INR is 1.2. IMPRESSION: 1. Chronic hypoxic respiratory failure requiring 6 liters of oxygen with progression of fibrotic process on the last CT chest, along with increase in the mediastinal adenopathy. She also has weight loss of about 40 pounds. The weight loss can be attributed to Esbriet/pirfenidone. However, due to the increase in mediastinal adenopathy, malignancy would also be a concern and would need a repeat CT chest. 2. Recent dyspnea secondary to atrial fibrillation with rapid ventricular response. 3. Lower extremity edema secondary to combination of right and left heart failure. 4. History of moderate pericardial effusion based on previous CT chest, but mild effusions seen on the echo. We would recommend repeating an echo. 5. Possible underlying chronic obstructive pulmonary disease. RECOMMENDATIONS: 1. We will obtain CT chest with contrast to better assess for any persistent mediastinal adenopathy. If it is present, she may benefit from outpatient EUS 2. Continue present supplemental oxygen. 3. Follow cardiology recommendation regarding control of atrial fibrillation. 4. Obtain echocardiogram. 5. P.r.n. bronchodilators. 6. Continue Esbriet. 7. Discussed with the patient's and will follow along with you. Discussed with Dr. Fischer. NATALIE CASSIDY MD DR: CHASE/bird JOB#: [id number] / [id number]
[2017-01-24] MEDS ORDERED: IOHEXOL 300 MG/ML 75 ML VIAL IV ONE (10:15)
[2017-01-24 12:00] VITALS: BP 135/85
--- NOTE | 2017-01-24 12:48 | PDOC ---
MAI TURNER SPECIAL TESTER 01/24/17 1248: CARDIO Progress Notes Date and Time Date of Service 01/24/2017 Time of Evaluation 1220 Subjective Subjective: No Chest Pain, No Palpitations, No Dizziness, Other (SOA better today) Vitals Vitals Vital Signs Date Time Temp Pulse Resp B/P (MAP) Pulse Ox O2 Delivery O2 Flow Rate FiO2 01/24/17 09:18 96 124/79 01/24/17 08:00 Nasal Cannula 6.0 01/24/17 08:00 98.3 24 97 98.3 Weight Weight [ ] Laboratory Labs Laboratory Tests Test 01/23/17 17:39 01/24/17 05:03 01/24/17 05:30 01/24/17 12:15 Glucose (Fingerstick) 74 mg/dL (70-99) 81 mg/dL (70-99) Prothrombin Time 14.9 SEC (11.7-14.0) Prothromb Time International Ratio 1.2 (0.8-1.1) White Blood Count 7.2 x10^3/uL (4.0-11.0) Red Blood Count 4.82 x10^6/uL (3.50-5.40) Hemoglobin 13.8 g/dL (12.0-15.5) Hematocrit 42.1 % (36.0-47.0) Mean Corpuscular Volume 87 fL (79-100) Mean Corpuscular Hemoglobin 29 pg (25-35) Mean Corpuscular Hemoglobin Concent 33 g/dL (31-37) Red Cell Distribution Width 16.8 % (11.5-14.5) Platelet Count 210 x10^3/uL (140-400) Physical Exam HEENT: Neck Supple W Full Motion Chest: Symmetric LUNGS: Other (basilar crackles) Heart: S1S2, RRR (SR) Abdomen: Soft N/T Extremities: No Calf Tenderness, Other (2+ bilateral LE pitting edema) Neurology: alert, oriented, follow commands Assessment Assessment 1. Acute on chronic diastolic CHF: Multifactorial as noted below. Peaked trop at 0.06, demand mediated. 2. Paroxysmal Tachyarrhythmias: burst of brief SVT x1 today otherwise sinus tach at 100s. 3. Pulmonary fibrosis/severe pulmonary HTN with chronic O2 use 4. Hypothyroidism: TSH at 11. replacement per PCP. 5. HTN: controlled 6. HLP Recommendations 1. Increase cardizem. DC cardura. Continue with ASA. 2. BMP, Mg 3. Arrange for outpt event monitor to ascertain form of arrhythmias. 4. Continue with lasix, NO HCTZ. 5. Continue with secondary prevention. 6. CTA pending per pulmonary. ONEL MIDDLETON MD 01/25/17 1125: CARDIO Progress Notes Assessment Assessment Patient seen and examined 01/24/17. Agree with TOLL TICKET CLERK's assessment and plan. Acute on chronic diastolic heart failure better compensated. Maintaining sinus rhythm. Continue Cardizem. Plan for event monitor as an outpatient. MAI TURNER APRN Jan 24, 2017 12:48 ONEL MIDDLETON MD Jan 25, 2017 11:25
[2017-01-24 12:49] LABS: CALCIUM 8.6 mg/dL (8.5-10.1); CREATININE 0.9 mg/dL (0.6-1.0); GFR 74.9; MAGNESIUM 1.8 mg/dL (1.8-2.4); POTASSIUM 3.5 mmol/L (3.5-5.1)
[2017-01-24 16:00] VITALS: BP 131/79
--- NOTE | 2017-01-24 16:06 | RAD ---
CT chest Indication: Mediastinal adenopathy evaluation Technique: CT chest with 75 mL of Omnipaque 300 with multiplanar reformats. Comparison: Previous study from 11/07/2016 Findings: Diffuse anasarca. Heart is moderately enlarged in size with dilation of the right ventricle and atrium. Mild pericardial effusion. No discrete axillary lymph nodes noted. Relatively stable pericardial lymph node measuring 2.5 x 1.7 cm, previously 2.7 x 2.0 cm. Another pericardial lymph node measures 2.6 x 1.2 cm, previously 3.4 x 1.5 cm. Pretracheal lymph node measures 2.2 x 1.5 cm, previously 2.2 x 2.6 cm. Right hilar lymph node measures 2.3 x 2.1 cm, previously 2.8 x 2.3 cm. Calcified subcarinal lymph nodes noted. Interval increase in size of bilateral pleural effusions. Smooth interlobular septal thickening noted with subpleural fibrosis. Honeycombing is seen within left lower lobe. Calcified granuloma in the right lower lobe. Visualized sections through the liver and spleen are within normal limits. Visualized Pancreas within normal limits. Adrenal glands are not well visualized. No suspicious bony lesions. Impression: 1. Interval decrease in the size of mediastinal lymph nodes. 2. Stable moderate cardiac megaly with dilation of the right atrium and right ventricles. 3. Stable pulmonary fibrosis. Interval increase in the size of bilateral pleural effusions. 4. Anasarca. PQRS Compliance Statement: One or more of the following individualized dose reduction techniques were utilized for this examination: 1. Automated exposure control 2. Adjustment of the mA and/or kV according to patient size 3. Use of iterative reconstruction technique
[2017-01-24 19:55] VITALS: BP 107/68
[2017-01-24] MEDS: EZETIMIBE 10 MG TABLET. PO SCH (20:50)
[2017-01-25 03:30] VITALS: BP 106/65
[2017-01-25] MEDS: LEVOTHYROXINE 100 MCG TABLET PO SCH (06:15)
[2017-01-25 06:50] LABS: INR 1.2 (0.8-1.1); PROTHROMBIN TIME PATIENT 14.1 SEC (11.7-14.0)
[2017-01-25 07:00] VITALS: BP 131/81
[2017-01-25] MEDS: PANTOPRAZOLE 40 MG TABLET.DR. PO SCH (07:57)
[2017-01-25] MEDS: INSULIN ASPART 300 UNITS/3 ML INSULN.PEN SQ SCH ×3 (08:00→17:00)
[2017-01-25] MEDS: ASPIRIN ENTERIC COATED 81 MG TABLET.DR. PO SCH (09:22)
[2017-01-25] MEDS: FUROSEMIDE 40 MG TABLET. PO SCH (09:22)
[2017-01-25] MEDS: POTASSIUM CHLORIDE 20 MEQ TABLET.ER. PO SCH (09:22)
[2017-01-25] MEDS: ESBRIET PO SCH ×3 (09:23→17:52)
[2017-01-25] MEDS ORDERED: DILT180C2 PO (11:19)
[2017-01-25] MEDS ORDERED: LEVO100T PO (11:19)
--- NOTE | 2017-01-25 11:22 | PDOC3 ---
Discharge Summary Visit Information Date of Admission: Jan 22, 2017 Date of Discharge: Jan 25, 2017 Admitting Diagnosis Comment: new onset rapid afib with RVR bl leg edema with right heart failure exacerbation chronic hypoxic resp failure with pulmonary fibrosis, home o2 6L htn hld H/O moderate pericardial effusion HYPOKALEMIA, corrected mild malnutrition CKD 3 Low TSH, hx hypothyoridism\ PULM fibrosis on 6 LNC 13/11 - Known to Emma Jackson Final Diagnosis Problems Medical Problems: (1) Acute congestive heart failure Status: Acute Brief Hospital Course Allergies Allergies Coded Allergies Type Severity Reaction Last Updated Verified Penicillins Allergy Intermediate Rash 11/07/16 Yes codeine Adverse Reaction Mild 11/07/16 Yes Vital Signs Vital Signs Date Time Temp Pulse Resp B/P (MAP) Pulse Ox O2 Delivery O2 Flow Rate FiO2 01/25/17 09:22 100 131/81 01/25/17 08:00 Nasal Cannula 7.0 01/25/17 07:00 98.2 22 99 98.2 Lab Results Laboratory Tests Test 01/23/17 12:34 01/23/17 17:39 01/24/17 05:03 01/24/17 05:30 Glucose (Fingerstick) 115 mg/dL (70-99) 74 mg/dL (70-99) Prothrombin Time 14.9 SEC (11.7-14.0) Prothromb Time International Ratio 1.2 (0.8-1.1) White Blood Count 7.2 x10^3/uL (4.0-11.0) Red Blood Count 4.82 x10^6/uL (3.50-5.40) Hemoglobin 13.8 g/dL (12.0-15.5) Hematocrit 42.1 % (36.0-47.0) Mean Corpuscular Volume 87 fL (79-100) Mean Corpuscular Hemoglobin 29 pg (25-35) Mean Corpuscular Hemoglobin Concent 33 g/dL (31-37) Red Cell Distribution Width 16.8 % (11.5-14.5) Platelet Count 210 x10^3/uL (140-400) Sodium Level 141 mmol/L (136-145) Potassium Level 3.5 mmol/L (3.5-5.1) Chloride Level 103 mmol/L (98-107) Carbon Dioxide Level 26 mmol/L (21-32) Anion Gap 12 (6-14) Blood Urea Nitrogen 17 mg/dL (7-20) Creatinine 0.9 mg/dL (0.6-1.0) Estimated GFR (Cockcroft-Gault) 74.9 Glucose Level 78 mg/dL (70-99) Calcium Level 8.6 mg/dL (8.5-10.1) Magnesium Level 1.8 mg/dL (1.8-2.4) Test 01/24/17 12:15 01/24/17 13:10 01/24/17 17:39 01/25/17 05:25 Glucose (Fingerstick) 81 mg/dL (70-99) 82 mg/dL (70-99) Nasal Screen MRSA (PCR) Negative (Negative) Prothrombin Time 14.1 SEC (11.7-14.0) Prothromb Time International Ratio 1.2 (0.8-1.1) Laboratory Tests Test 01/24/17 12:15 01/24/17 13:10 01/24/17 17:39 01/25/17 05:25 Glucose (Fingerstick) 81 mg/dL (70-99) 82 mg/dL (70-99) Nasal Screen MRSA (PCR) Negative (Negative) Prothrombin Time 14.1 SEC (11.7-14.0) Prothromb Time International Ratio 1.2 (0.8-1.1) Brief Hospital Course Ms. Whitley is a 71 old AA female with hx pulm fibrosis on 6 LNC 13/11 known to Emma Jackson admitted for atrial fb RVR new to her, CO managed with cards. Stopped her hCTZ and started her on cardizem 180 ER, NEeded cardizem gtt in ICU overnight, Also consulted pulmo, interval CT shows stable pulm fibrosis with dec in size in prev LN seen in last CT Pt doing well, HH upon dc ALso on TSH check, TSH not at goal, on synthroid 75 mcg for yrs, needed to up to 100mcg. To recheck levels in 6-8 weeks time Seen and examined COunselled on all med changes and rpt TSH \ RX in chart dc 40 mins Discharge Information Condition at Discharge: Improved, Stable Disposition/Orders: D/C to Home w/ HH Scheduled Aspirin (Aspirin Ec), 81 MG PO DAILYWBKFT Doxazosin Mesylate (Doxazosin Mesylate), 1 TAB PO DAILY, (Reported) Ezetimibe (Zetia), 10 MG PO HS, (Reported) Furosemide (Lasix), 1 TAB PO DAILY, (Reported) Hydrochlorothiazide (Hydrochlorothiazide Tablet ), 1 TAB PO DAILY, (Reported) Levothyroxine Sodium (Levothyroxine Sodium), 1 TAB PO DAILY, (Reported) Potassium Chloride (Potassium Chloride), 20 MEQ PO DAILY, (Reported) Miscellaneous Medications Pirfenidone (Esbriet), 801 MG PO, (Reported) WILTON FINK MD Jan 25, 2017 11:22
[2017-01-25 11:27] VITALS: BP 112/68
--- NOTE | 2017-01-25 13:13 | PDOC ---
PULMONARY PROGRESS NOTES Subjective feels better Vitals Vital Signs Date Time Temp Pulse Resp B/P (MAP) Pulse Ox O2 Delivery O2 Flow Rate FiO2 01/25/17 11:27 98.2 93 23 112/68 (83) 95 Nasal Cannula 7.0 98.2 General: Alert, No acute distress Lungs: Other (crackles bases) Cardiovascular: S1 Abdomen: Soft Neuro Exam: Alert Extremities: Other (1+edema) Skin: Warm Labs Laboratory Tests Test 01/23/17 17:39 01/24/17 05:03 01/24/17 05:30 01/24/17 12:15 Glucose (Fingerstick) 74 mg/dL (70-99) 81 mg/dL (70-99) Prothrombin Time 14.9 SEC (11.7-14.0) Prothromb Time International Ratio 1.2 (0.8-1.1) White Blood Count 7.2 x10^3/uL (4.0-11.0) Red Blood Count 4.82 x10^6/uL (3.50-5.40) Hemoglobin 13.8 g/dL (12.0-15.5) Hematocrit 42.1 % (36.0-47.0) Mean Corpuscular Volume 87 fL (79-100) Mean Corpuscular Hemoglobin 29 pg (25-35) Mean Corpuscular Hemoglobin Concent 33 g/dL (31-37) Red Cell Distribution Width 16.8 % (11.5-14.5) Platelet Count 210 x10^3/uL (140-400) Sodium Level 141 mmol/L (136-145) Potassium Level 3.5 mmol/L (3.5-5.1) Chloride Level 103 mmol/L (98-107) Carbon Dioxide Level 26 mmol/L (21-32) Anion Gap 12 (6-14) Blood Urea Nitrogen 17 mg/dL (7-20) Creatinine 0.9 mg/dL (0.6-1.0) Estimated GFR (Cockcroft-Gault) 74.9 Glucose Level 78 mg/dL (70-99) Calcium Level 8.6 mg/dL (8.5-10.1) Magnesium Level 1.8 mg/dL (1.8-2.4) Test 01/24/17 13:10 01/24/17 17:39 01/25/17 05:25 Nasal Screen MRSA (PCR) Negative (Negative) Glucose (Fingerstick) 82 mg/dL (70-99) Prothrombin Time 14.1 SEC (11.7-14.0) Prothromb Time International Ratio 1.2 (0.8-1.1) Laboratory Tests Test 01/24/17 17:39 01/25/17 05:25 Glucose (Fingerstick) 82 mg/dL (70-99) Prothrombin Time 14.1 SEC (11.7-14.0) Prothromb Time International Ratio 1.2 (0.8-1.1) Medications Active Scripts Medications Dose Route/Sig Max Daily Dose Days Date Category Doxazosin Mesylate 2 Mg Tablet 1 Tab PO DAILY 01/23/17 Reported Hydrochlorothiazide Tablet (Hydrochlorothiazide) 25 Mg Tablet 1 Tab PO DAILY 01/23/17 Reported Lasix (Furosemide) 40 Mg Tablet 1 Tab PO DAILY 01/23/17 Reported Potassium Chloride 20 Meq Tablet.er 20 Meq PO DAILY 01/23/17 Reported Aspirin Ec (Aspirin) 81 Mg Tablet.dr 81 Mg PO DAILYWBKFT 30 11/08/16 Rx Esbriet (Pirfenidone) 801 Mg Tablet 801 Mg PO 11/06/16 Reported Levothyroxine Sodium 75 Mcg Tablet 1 Tab PO DAILY 02/19/14 Reported Zetia (Ezetimibe) 10 Mg Tablet 10 Mg PO HS 02/19/14 Reported Impression . 1. Chronic hypoxic respiratory failure requiring 6 liters of oxygen with progression of fibrotic process on the last CT chest, along with increase in the mediastinal adenopathy on previous ct chest. She also has weight loss of about 40 pounds. The weight loss can be attributed to Esbriet/pirfenidone. 2. Recent dyspnea secondary to atrial fibrillation with rapid ventricular response. 3. Lower extremity edema secondary to combination of right and left heart failure. 4. History of moderate pericardial effusion based on previous CT chest, but mild effusions seen on the echo. We would recommend repeating an echo. 5. Possible underlying chronic obstructive pulmonary disease. Plan . 1. CT chest with contrast reviewed. Overall reduction in mediastinal adenopathy. unchanged fibrosis, increase basal effusions 2. Continue present supplemental oxygen. 3. Follow cardiology recommendation regarding control of atrial fibrillation. 4. Obtain echocardiogram. 5. P.r.n. bronchodilators. 6. Continue Esbriet. 7. Discussed with the patient's and will follow along with you. 8. diuresis NATALIE CASSIDY MD Jan 25, 2017 13:13
[2017-01-25] MEDS ORDERED: FUROSEMIDE 40 MG/4 ML VIAL. IVP ONE (13:15)
[2017-01-25 15:25] VITALS: BP 134/66
[2017-01-25 19:00] VITALS: BP 121/68
[2017-01-25] MEDS: EZETIMIBE 10 MG TABLET. PO SCH (20:10)
[2017-01-25] MEDS: ATORVASTATIN CALCIUM 20 MG TABLET PO SCH (20:14)
[2017-01-25 23:00] VITALS: BP 116/67
[2017-01-26 03:00] VITALS: BP 123/78
[2017-01-26 05:58] LABS: INR 1.1 (0.8-1.1); PROTHROMBIN TIME PATIENT 13.4 SEC (11.7-14.0)
[2017-01-26] MEDS: LEVOTHYROXINE 100 MCG TABLET PO SCH (06:17)
[2017-01-26 07:00] VITALS: BP 130/73
[2017-01-26] MEDS: PANTOPRAZOLE 40 MG TABLET.DR. PO SCH (07:56)
[2017-01-26] MEDS: INSULIN ASPART 300 UNITS/3 ML INSULN.PEN SQ SCH (08:00)
[2017-01-26] MEDS: FUROSEMIDE 40 MG TABLET. PO SCH (09:39)
[2017-01-26] MEDS: ASPIRIN ENTERIC COATED 81 MG TABLET.DR. PO SCH (09:39)
[2017-01-26] MEDS: ESBRIET PO SCH (09:39)
[2017-01-26] MEDS: POTASSIUM CHLORIDE 20 MEQ TABLET.ER. PO SCH (09:39)
[2017-01-26 11:00] VITALS: BP 129/75
--- NOTE | 2017-01-26 11:23 | PDOC ---
PULMONARY PROGRESS NOTES Subjective feels better Vitals Vital Signs Date Time Temp Pulse Resp B/P (MAP) Pulse Ox O2 Delivery O2 Flow Rate FiO2 01/26/17 09:40 102 130/73 01/26/17 07:00 98.1 16 100 Nasal Cannula 6.0 98.1 General: Alert, No acute distress Lungs: Other (crackles bases) Cardiovascular: S1 Abdomen: Soft Neuro Exam: Alert Extremities: Other (1+edema) Skin: Warm Labs Laboratory Tests Test 01/24/17 12:15 01/24/17 13:10 01/24/17 17:39 01/25/17 05:25 Glucose (Fingerstick) 81 mg/dL (70-99) 82 mg/dL (70-99) Nasal Screen MRSA (PCR) Negative (Negative) Prothrombin Time 14.1 SEC (11.7-14.0) Prothromb Time International Ratio 1.2 (0.8-1.1) Test 01/26/17 05:00 Prothrombin Time 13.4 SEC (11.7-14.0) Prothromb Time International Ratio 1.1 (0.8-1.1) Laboratory Tests Test 01/26/17 05:00 Prothrombin Time 13.4 SEC (11.7-14.0) Prothromb Time International Ratio 1.1 (0.8-1.1) Medications Active Scripts Medications Dose Route/Sig Max Daily Dose Days Date Category Doxazosin Mesylate 2 Mg Tablet 1 Tab PO DAILY 01/23/17 Reported Hydrochlorothiazide Tablet (Hydrochlorothiazide) 25 Mg Tablet 1 Tab PO DAILY 01/23/17 Reported Lasix (Furosemide) 40 Mg Tablet 1 Tab PO DAILY 01/23/17 Reported Potassium Chloride 20 Meq Tablet.er 20 Meq PO DAILY 01/23/17 Reported Aspirin Ec (Aspirin) 81 Mg Tablet.dr 81 Mg PO DAILYWBKFT 30 11/08/16 Rx Esbriet (Pirfenidone) 801 Mg Tablet 801 Mg PO 11/06/16 Reported Levothyroxine Sodium 75 Mcg Tablet 1 Tab PO DAILY 02/19/14 Reported Zetia (Ezetimibe) 10 Mg Tablet 10 Mg PO HS 02/19/14 Reported Impression . 1. Chronic hypoxic respiratory failure requiring 6 liters of oxygen with progression of fibrotic process on the last CT chest, along with increase in the mediastinal adenopathy on previous ct chest. She also has weight loss of about 40 pounds. The weight loss can be attributed to Esbriet/pirfenidone. 2. Recent dyspnea secondary to atrial fibrillation with rapid ventricular response. 3. Lower extremity edema secondary to combination of right and left heart failure. 4. History of moderate pericardial effusion based on previous CT chest, but mild effusions seen on the echo. 5. Possible underlying chronic obstructive pulmonary disease. Plan . 1. CT chest with contrast reviewed. Overall reduction in mediastinal adenopathy. unchanged fibrosis, increase basal effusions 2. Continue present supplemental oxygen. 3. Follow cardiology recommendation regarding control of atrial fibrillation. 4. echocardiogram from october 2016 reviewed 5. P.r.n. bronchodilators. 6. Continue Esbriet. 7. Discussed with the patient's and will follow along with you. 8. diuresis 9. f/u in office with NATALIE Newman MD Jan 26, 2017 11:23
[2017-01-26] MEDS ORDERED: DOCU100C28 PO (11:40)
[2017-01-26] MEDS ORDERED: ACET325T9 PO (11:41)
[2017-01-26] MEDS ORDERED: PANT40TA3 PO (11:43)
[2017-01-26] MEDS ORDERED: TRAM50TA PO (11:46)
--- NOTE | 2017-01-26 12:02 | PDOC ---
Provider Note Provider Note Pt seen and examined DId not dc yesterday , pulmo wanted 1 more night NO acute events overnight NOw cleared from pulmo MAR re done - stop HCTZ as cards started 180 ER qdaily Also not been getting her doxazosin here, was converted but not taking here. BP good. Would advise to stop DOXAZOSIN Dw pharmacy - doxazosin was stopped on Jan 24 Dw RN Ashli May summ done WILTON FINK MD Jan 26, 2017 12:02
== END 2017-01-26 12:20 | disposition home health service (06) | DRG 291 ==
LOC: ER 17:26 → 1 WEST ICU 22:20 → 2 SOUTH 01-24 22:20
PROVIDERS: ADMIT Internal Medicine; ATTEND Internal Medicine
DX: I13.0 Hypertensive heart and chronic kidney disease with heart failure and stage 1 through stage 4 chronic kidney disease, or unspecified chronic kidney disease (principal); I50.33 Acute on chronic diastolic (congestive) heart failure; J96.11 Chronic respiratory failure with hypoxia; J84.10 Pulmonary fibrosis, unspecified; E44.1 Mild protein-calorie malnutrition; I47.1 Supraventricular tachycardia; Z68.1 Body mass index [BMI] 19.9 or less, adult; I48.0 Paroxysmal atrial fibrillation; N18.3 Chronic kidney disease, stage 3 (moderate); E03.9 Hypothyroidism, unspecified; E78.00 Pure hypercholesterolemia, unspecified; E78.5 Hyperlipidemia, unspecified; E87.6 Hypokalemia; K21.9 Gastro-esophageal reflux disease without esophagitis; I48.91 Unspecified atrial fibrillation; M19.90 Unspecified osteoarthritis, unspecified site; Z79.01 Long term (current) use of anticoagulants; Z82.49 Family history of ischemic heart disease and other diseases of the circulatory system; Z99.81 Dependence on supplemental oxygen; Z87.891 Personal history of nicotine dependence; Z88.1 Allergy status to other antibiotic agents; Z88.6 Allergy status to analgesic agent
CPT/HCPCS: 36415; 71010; 71260; 80048; 80053; 82962; 83735; 83880; 84439; 84443; 84481; 84484; 85025; 85027; 85610; 87641; 90686; 93005; 96361; 96374; 96375; J1644; J1815; J1940; J3490; J7030; Q9967; 97116; 97530; 97535; 99285-25

== ENCOUNTER 2017-01-27 13:47 | Inpatient (IN) | payer MEDICARE ==
[~2017-01-27] VITALS: Ht 167.6 cm; Wt 68.7 kg
[~2017-01-27 13:47] MED LIST changes: +ACET325T9 PO; +DILT180C2 PO; +DOCU100C28 PO; +DOXA2TAB2 PO; +FURO-68 PO; +LEVO100T PO; +PANT40TA3 PO; +POTA20TA82 PO; +TRAM50TA PO
--- NOTE | 2017-01-27 14:13 | RAD ---
Portable chest, 01/27/2017: History: Shortness of breath Comparison is made to a study from 01/22/2017. The heart is mildly enlarged. There is calcific plaquing of the aorta. There are extensive interstitial opacities in both lungs which are unchanged. The findings suggest fibrosis, although a component of ongoing interstitial edema cannot be excluded. No superimposed acute infiltrate is seen. Pleural fluid noted on the recent CT study is not radiographically visible. There is no evidence of pneumothorax. IMPRESSION: Unchanged extensive bilateral interstitial opacities compatible with fibrosis.
[2017-01-27] MEDS ORDERED: ACETAMINOPHEN 325 MG TABLET. PO ONE (15:30)
[2017-01-27] MEDS ORDERED: ACETAMINOPHEN 325 MG TABLET. PO PRN ×2 (16:00→17:30)
[2017-01-27] MEDS ORDERED: traMADol 50 MG TABLET PO PRN (16:00)
[2017-01-27] MEDS ORDERED: hydrALAZINE 20 MG/ML VIAL. IVP PRN (16:00)
[2017-01-27] MEDS ORDERED: DOCUSATE SODIUM 100 MG CAPSULE. PO PRN ×2 (16:00→17:30)
[2017-01-27] MEDS ORDERED: MORPHINE SULFATE 2 MG/ML DISP.SYRIN. IV PRN (16:00)
[2017-01-27] MEDS ORDERED: ONDANSETRON PF 4 MG/2 ML VIAL. IV PRN (16:00)
--- NOTE | 2017-01-27 16:09 | PHYS DOC ---
Past Medical History Past Medical History: CHF, High Cholesterol, Hypertension, Other Additional Past Medical Histor: pulmonary fibrosis, o2 dependent Past Surgical History: No Surgical History Alcohol Use: None Drug Use: None Adult General Chief Complaint Chief Complaint: SHORTNESS OF BREATH HPI HPI Patient is a 71 year old female brought to the ED from home by ambulance with the complaint of back pain and shortness of air. Patient has a history of severe pulmonary fibrosis, she wears oxygen 6-6-1/2 L at home via concentrator. She has congestive heart failure from her pulmonary fibrosis and has chronic edema. Patient was just hospitalized for new onset atrial fibrillation and was released yesterday. Patient states "they just released me and now I'm back already". Today, the patient developed some back pain. She had been using her incentive spirometer that she doesn't believe that's what caused it. With the back pain, she felt that she was short of air. She felt like she wasn't getting any oxygen from her concentrator. She states she did not try checking her oxygenation with her finger pulse oximeter because her fingers were cold and it usually doesn't pickling grader very well. She called EMS. Patient denies fever or chills. She does complain of extremity swelling, "they say I have congestive heart failure". She has been taking her diuretic as prescribed. PCP Dr. Boyd Brito Miller First Dr. Carter Review of Systems Review of Systems Constitutional: Denies fever or chills [] HENT: Denies nasal congestion or sore throat [] Respiratory: As in history of present illness Cardiovascular: Denies chest pain, admits to ankle swelling bilaterally GI: Denies abdominal pain, nausea, vomiting, bloody stools or diarrhea [] : Denies dysuria or hematuria [] Musculoskeletal: Denies back pain or joint pain [] Integument: Denies rash or skin lesions [] Neurologic: Denies headache Current Medications Current Medications Current Medications Medications (Trade) Dose Ordered Sig/Traci Start Time Stop Time Status Last Admin Dose Admin Acetaminophen (Tylenol) 650 mg 1X ONCE 01/27/17 15:30 01/27/17 15:31 DC Allergies Allergies Allergies Coded Allergies Type Severity Reaction Last Updated Verified Penicillins Allergy Intermediate Rash 11/07/16 Yes codeine Adverse Reaction Mild 11/07/16 Yes Physical Exam Physical Exam Constitutional: Alert, not dyspneic, mentating normally, cachectic appearing, warm and dry HENT: Normocephalic, atraumatic, bilateral external ears normal, nose normal. [ ] Eyes: conjunctiva normal, no discharge. [] Neck: Normal range of motion, no stridor. [] Cardiovascular:Heart rate regular rhythm, no murmur [] Lungs & Thorax: Moderately decreased breath sounds throughout bilaterally with wheezy rhonchi present throughout Abdomen: Bowel sounds normal, soft, no tenderness, no masses, no pulsatile masses. [] Skin: Warm, dry, no erythema, no rash. [] Extremities: No tenderness, no cyanosis, no clubbing, ROM intact, 1+ pitting edema bilateral ankles Neurologic: Alert and oriented X 3, normal motor function, no focal deficits noted. [] Current Patient Data Vital Signs Vital Signs Date Time Temp Pulse Resp B/P (MAP) Pulse Ox O2 Delivery O2 Flow Rate FiO2 01/27/17 13:50 97.3 100 22 128/85 (99) 99 Nasal Cannula 6.0 97.3 EKG EKG 12 Lead EKG read by me. Sinus rhythm. Heart rate 96. There are no acute ST or T wave changes indicative of ischemia or infarction. No STEMI. 1414[] Radiology/Procedures Radiology/Procedures One view portable chest x-ray read by the radiologist. Unchanged extensive bilateral interstitial opacities compatible with fibrosis.[] Course & Med Decision Making Course & Med Decision Making Pertinent Labs and Imaging studies reviewed. (See chart for details) 71-year-old female with a history of pulmonary fibrosis and right-sided heart failure presents with back pain that seems musculoskeletal and dyspnea this morning at home. Chest x-ray unchanged, EKG shows sinus rhythm today, although she did recently have new onset atrial fibrillation. I discussed with the patient and her family. She is afraid to go home. She is afraid that she will have another spell of dyspnea and end up right back here. At her request, I discussed her case with Dr. Carter, who knows her well. He came to the ED to talk to her and her family. He recommends admitting the patient to the hospital for IV steroids and palliative care consultation. I discussed the case with Dr. Welsh , [facility]. She will admit the patient. I wrote bridge orders. [] Dragon Disclaimer Dragon Disclaimer This electronic medical record was generated, in whole or in part, using a voice recognition dictation system. Departure Departure Impression: Primary Impression: Dyspnea Additional Impressions: Pulmonary fibrosis Right heart failure Disposition: 09 ADMITTED INPATIENT Admitting Physician: Wilver Welsh Condition: STABLE Referrals: BOYD BRITO MD (PCP) Problem Qualifiers ISIDORO MARIE MD Jan 27, 2017 16:09
[2017-01-27 16:45] VITALS: BP 107/70
--- NOTE | 2017-01-27 17:23 | PDOC1 ---
History and Physical Date of Admission Date of Admission 01/27/17 Identification/Chief Complaint Chief Complaint sob Problems: Source Source: Chart review, Patient History of Present Illness History of Present Illness HPI Patient is a 71 year old female brought to the ED from home by ambulance with the complaint of back pain and shortness of air. pt was just dced 2 days ago for rapid afib. she has a long h/o interstitial lung dz, with right heart failure, on home o2 6.5L all the time. pT Comes today for sob, sat ok on 6L, no chest pain , + chronic cough with some clear sputum. also c/o bl flank back pain, no fever, chills, chest pain, N/V. PCP Dr. Chepe Diez Past Medical History Cardiovascular: HTN, Hyperlipidemia Pulmonary: Other CENTRAL NERVOUS SYSTEM: Other GI: GERD Heme/Onc: No pertinent hx Hepatobiliary: No pertinent hx Psych: No pertinent hx Rheumatologic: No pertinent hx Infectious disease: No pertinent hx Renal/: No pertinent hx Endocrine: Hypothyroidism Past Surgical History Past Surgical History: No pertinent history Family History Family History: Heart Disease Social History Smoke: No ALCOHOL: none Drugs: None Current Problem List Problem List Problems Medical Problems: (1) Right heart failure Status: Acute Current Medications Current Medications Current Medications Medications (Trade) Dose Ordered Sig/Traci Start Time Stop Time Status Last Admin Dose Admin Acetaminophen (Tylenol) 650 mg PRN Q6HRS PRN 01/27/17 16:00 Docusate Sodium (Colace) 100 mg PRN DAILY PRN 01/27/17 16:00 Hydralazine HCl (Apresoline) 10 mg PRN Q4HRS PRN 01/27/17 16:00 Morphine Sulfate 2 mg PRN Q2HR PRN 01/27/17 16:00 Ondansetron HCl (Zofran) 4 mg PRN Q6HRS PRN 01/27/17 16:00 Tramadol HCl (Ultram) 50 mg PRN Q6HRS PRN 01/27/17 16:00 Allergies Allergies Allergies Coded Allergies Type Severity Reaction Last Updated Verified Penicillins Allergy Intermediate Rash 11/07/16 Yes codeine Adverse Reaction Mild 11/07/16 Yes ROS Review of System CONSTITUTIONAL: No fever or chills EYES: No recent changes SKIN: No rash or itching CARDIOVASCULAR: No chest pain, syncope, palpitations, or edema RESPIRATORY: No SOB or cough GASTROINTESTINAL: No nausea, vomiting or abdominal pain NEUROLOGICAL: No headaches or weakness ENDOCRINE: No cold or heat intolerance GENITOURINARY: No urgency or frequency of urination MUSCULOSKELETAL: No back pain or joint pain LYMPHATICS: No enlarged lymph nodes PSYCHIATRIC: No anxiety or depression Physical Exam Physical Exam GEN.: No apparent distress. Alert and oriented. HEENT: Head is normocephalic, atraumatic NECK: Supple. LUNGS: bl mild dry crackles HEART: RRR, S1, S2 present. Peripheral pulses intact ABDOMEN: Soft, nontender. Positive bowel sounds. EXTREMITIES: Without any cyanosis. bl leg 2 + edema NEUROLOGIC: Normal speech, normal tone PSYCHIATRIC: Normal affect, normal mood. SKIN: No ulcerations Vitals Vitals Vital Signs Date Time Temp Pulse Resp B/P (MAP) Pulse Ox O2 Delivery O2 Flow Rate FiO2 01/27/17 16:45 97.7 100 22 107/70 (82) 94 Nasal Cannula 6.5 97.7 VTE Prophylaxis Ordered VTE Prophylaxis Devices: Yes VTE Pharmacological Prophylaxi: Yes Assessment/Plan Assessment/Plan dyspnea with chronic hypoxic resp failure with pulmonary fibrosis, home o2 6L recent new onset rapid afib with RVR bl leg edema with right heart failure exacerbation htn hld H/O moderate pericardial effusion HYPOKALEMIA, corrected mild malnutrition CKD 3 Low TSH, hx hypothyoridism PULM fibrosis on 6 LNC 13/11 - Known to Emma Jackson back pain, likely 2/2 positional lying in bed plan: pulm consulted, would like to start steroid duoneb, cont home meds PAT consult for hospice dvt ppx PTOT lidocaine patch for back pain JOHN REN MD Jan 27, 2017 17:23
[2017-01-27] MEDS ORDERED: traMADol 50 MG TABLET PO SCH (17:30)
[2017-01-27] MEDS ORDERED: ALBUTEROL SULFATE 2.5 MG/3 ML NEBU. NEB PRN (17:45)
--- NOTE | 2017-01-27 17:58 | PDOC ---
PULMONARY PROGRESS NOTES Vitals Vital Signs Date Time Temp Pulse Resp B/P (MAP) Pulse Ox O2 Delivery O2 Flow Rate FiO2 01/27/17 16:45 97.7 100 22 107/70 (82) 94 Nasal Cannula 6.5 97.7 ROS: No Nausea, No Chest Pain, No Abdominal Pain General: Alert Lungs: Crackles Cardiovascular: S1, S2 Abdomen: Soft, Non-tender Extremities: Other (EDEMA) Medications Active Scripts Medications Dose Route/Sig Max Daily Dose Days Date Category Tramadol Hcl 50 Mg Tablet 1 Tab PO PRN Q6HRS 01/26/17 Reported Protonix (Pantoprazole Sodium) 40 Mg Tablet.dr 1 Tab PO DAILY 01/26/17 Reported Tylenol (Acetaminophen) 325 Mg Tablet 2 Tab PO PRN Q6HRS PRN 01/26/17 Reported Docusate Sodium 100 Mg Capsule 1 Cap PO DAILY PRN 01/26/17 Reported Synthroid (Levothyroxine Sodium) 100 Mcg Tablet 1 Tab PO DAILY 01/25/17 Rx Cardizem Cd (Diltiazem Hcl) 180 Mg Cap.er.24h 1 Cap PO DAILY 01/25/17 Rx Doxazosin Mesylate 2 Mg Tablet 1 Tab PO DAILY 01/23/17 Reported Lasix (Furosemide) 40 Mg Tablet 1 Tab PO DAILY 01/23/17 Reported Potassium Chloride 20 Meq Tablet.er 20 Meq PO DAILY 01/23/17 Reported Aspirin Ec (Aspirin) 81 Mg Tablet.dr 81 Mg PO DAILYWBKFT 30 11/08/16 Rx Esbriet (Pirfenidone) 801 Mg Tablet 801 Mg PO 11/06/16 Reported Zetia (Ezetimibe) 10 Mg Tablet 10 Mg PO HS 02/19/14 Reported Impression . NOTE DICTATED SEE ODERS A/C RESP FAILURE ACUTE COR PULMONALE JEAN HINTON MD Jan 27, 2017 17:58
[2017-01-27] MEDS ORDERED: ALPRAZolam 0.25 MG TABLET PO ONE (18:00)
[2017-01-27] MEDS ORDERED: ALPRAZolam 0.5 MG TABLET PO PRN (18:00)
[2017-01-27] MEDS ORDERED: FUROSEMIDE 40 MG/4 ML VIAL. IVP ONE (18:15)
[2017-01-27] MEDS: ENOXAPARIN 40 MG/0.4 ML SYRINGE. SQ SCH (18:48)
[2017-01-27 18:54] LABS: ALBUMIN 3.2 g/dL (3.4-5.0); GFR 66.3; POTASSIUM 4.6 mmol/L (3.5-5.1); TOTAL BILIRUBIN 0.8 mg/dL (0.2-1.0); TOTAL PROTEIN 6.4 g/dL (6.4-8.2)
[2017-01-27 19:59] VITALS: BP 122/73
[2017-01-27] MEDS: IPRATRPIUM/ALBUTEROL 0.5/2.5MG 3 ML NEBU. NEB SCH (20:21)
[2017-01-27] MEDS: ESBRIET 267 MG PO SCH (21:13)
[2017-01-27] MEDS: methylPREDNISolone SOD SUCC PF 125 MG/2 ML VIAL. IV SCH (21:16)
[2017-01-27] MEDS: EZETIMIBE 10 MG TABLET. PO SCH (21:20)
[2017-01-27 23:59] VITALS: BP 112/75
[2017-01-28 03:49] VITALS: BP 110/62
[2017-01-28 05:45] LABS: BASO % 0 % (0-3); EOS % 0 % (0-3); HEMATOCRIT 44.2 % (36.0-47.0); HEMOGLOBIN 14.6 g/dL (12.0-15.5); LYMPH % 25 % (24-48); MEAN CORPUSCULAR HEMOGLOBIN 29 pg (25-35); MEAN CORPUSCULAR HGB CONC 33 g/dL (31-37); MEAN CORPUSCULAR VOLUME 88 fL (79-100); MONO % 2 % (0-9); NEUT % 72 % (31-73); PLATELET COUNT 208 x10^3/uL (140-400); RED CELL DISTRIBUTION WIDTH 16.3 % (11.5-14.5)
[2017-01-28 06:35] LABS: CREATININE 0.9 mg/dL (0.6-1.0); GFR 74.9; POTASSIUM 4.3 mmol/L (3.5-5.1)
[2017-01-28] MEDS: LEVOTHYROXINE 100 MCG TABLET PO SCH (06:40)
[2017-01-28 07:00] VITALS: BP 127/79
[2017-01-28] MEDS: IPRATRPIUM/ALBUTEROL 0.5/2.5MG 3 ML NEBU. NEB SCH ×4 (07:21→19:57)
--- NOTE | 2017-01-28 07:33 | CONS ---
DATE OF CONSULTATION: 01/27/2017 ATTENDING PHYSICIAN: Saad Welsh MD. REASON FOR CONSULTATION: The patient seen in pulmonary consultation at the request of Dr. Welsh for increasing shortness of air and respiratory failure. HISTORY OF PRESENT ILLNESS: The patient is a 71-year-old female well known to me from previous hospitalization in outpatient department. She has a diagnosis of pulmonary fibrosis, is on Esbriet and has been on medication now for 5 years. She is slowly progressing. She presented by EMS for increasing shortness of breath and lower back pain. She has a cough productive of white sputum. No fever or chills. She is normally on oxygen supplementation at home, 6-1/2 liters. She was having difficulty maintaining saturation above 90% at home. She came in to the Emergency Room. I saw her in the Emergency Department. The x-ray was reviewed, difficult to interpret. It does not appear much changed. The patient reports increasing lower extremity edema, increasing dyspnea with exertion. She had a previous echocardiogram revealing pulmonary artery pressure of 59. PAST MEDICAL HISTORY: 1. Chronic respiratory failure, secondary to IPF. 2. Hypertension. 3. Hyperlipidemia. 4. Secondary pulmonary hypertension, pulmonary artery pressure is documented at 59 mmHg. 5. Gastroesophageal reflux. 6. Hypothyroid. 7. Anxiety. 8. Clinical depression. PAST SURGICAL HISTORY: No recent major surgeries. ALLERGIES: PENICILLIN AND CODEINE. HOME MEDICATION: List was reviewed. CURRENT MEDICATION: List was reviewed. REVIEW OF SYSTEMS: As indicated above. Otherwise 10-point system was reviewed and negative. PHYSICAL EXAMINATION: VITAL SIGNS: Stable. O2 saturation was greater than 92%, currently on 6-1/2 liters. HEENT: Eyes: The sclerae were nonicteric. NECK: Jugular venous distention was not elevated. No lymphadenopathy. CHEST: Full expansion. LUNGS: Crackles in the bases with mild expiratory wheeze. CARDIOVASCULAR: Regular rate and rhythm with S1 and S2, no S3. ABDOMEN: Soft. EXTREMITIES: 1+ edema. NEUROLOGIC: The patient was awake, alert, following commands. A detailed neuro exam was not performed. Chest x-ray as indicated above. LABORATORY DATA: Reviewed. IMPRESSION: 1. Acute on chronic hypoxemic respiratory failure. 2. Acute exacerbation of IPF/interstitial lung disease. 3. Acute cor pulmonale. 4. Anxiety/depression. 5. Chronic atrial fibrillation. 6. Significant weight loss secondary to all the above. PLAN: 1. We will initiate IV steroids. 2. Diurese. 3. No need for antibiotics. 4. I spoke with the patient. She is currently a full code. We will address advanced directives during this admission. 5. We will also consult Palliative Care Service on Sunday for possibility of discharging with hospice. I do appreciate the privilege in sharing in the patient's care. JEAN HINTON MD DR: PHILLY/bird JOB#: [id number] / [id number]
[2017-01-28] MEDS: methylPREDNISolone SOD SUCC PF 125 MG/2 ML VIAL. IV SCH ×2 (08:05→20:40)
[2017-01-28] MEDS: FUROSEMIDE 40 MG/4 ML VIAL. IVP SCH (08:05)
[2017-01-28] MEDS: POTASSIUM CHLORIDE 20 MEQ TABLET.ER. PO SCH (08:05)
[2017-01-28] MEDS: ASPIRIN ENTERIC COATED 81 MG TABLET.DR. PO SCH (08:06)
[2017-01-28] MEDS: LIDOCAINE (700MG/PATCH) PATCH. TD SCH (08:06)
[2017-01-28] MEDS: ESBRIET 267 MG PO SCH ×3 (08:07→17:47)
[2017-01-28] MEDS: DOXAZOSIN MESYLATE 1 MG TABLET. PO SCH (09:00)
[2017-01-28] MEDS ORDERED: FUROSEMIDE 40 MG TABLET. PO SCH (09:00)
[2017-01-28] MEDS: PANTOPRAZOLE 40 MG TABLET.DR. PO SCH (09:49)
[2017-01-28 11:00] VITALS: BP 119/73
--- NOTE | 2017-01-28 12:16 | EKG ---
[facility] [address] [place] [address] Test Date: 2017-01-27 Test Time: 14:14:17 Pat Name: RYLEE PONCE Department: Room: Gender: F [employer]ician: : [id number] Requested By: ISIDORO MARIE Order Number: [id number] Reading MD: Measurements Intervals Powell Rate: 96 P: 37 VT: 148 QRS: -137 QRSD: 106 T: -18 QT: 404 QTc: 518 Interpretive Statements SINUS RHYTHM ABNORMAL RIGHT SUPERIOR AXIS DEVIATION R-S TRANSITION ZONE IN V LEADS DISPLACED TO THE LEFT INCOMPLETE RIGHT BUNDLE BRANCH BLOCK RIGHT VENTRICULAR HYPERTROPHY PROLONGED QT ABNORMAL ECG RI6.01 No previous ECG available for comparison
--- NOTE | 2017-01-28 14:38 | PDOC ---
PULMONARY PROGRESS NOTES Subjective PT FEELS BETTER XANAX HAS HELPED Vitals Vital Signs Date Time Temp Pulse Resp B/P (MAP) Pulse Ox O2 Delivery O2 Flow Rate FiO2 01/28/17 11:23 92 High Flow Nasal Cannula 8.0 01/28/17 11:00 97.5 104 16 119/73 (88) 97.5 ROS: No Nausea, No Chest Pain, No Abdominal Pain General: Alert Lungs: Crackles Cardiovascular: S1, S2 Abdomen: Soft, Non-tender Neuro Exam: Alert Extremities: Other (EDEMA) Skin: Warm Labs Laboratory Tests Test 01/27/17 18:25 01/28/17 05:20 Sodium Level 140 mmol/L (136-145) 138 mmol/L (136-145) Potassium Level 4.6 mmol/L (3.5-5.1) 4.3 mmol/L (3.5-5.1) Chloride Level 103 mmol/L (98-107) 103 mmol/L (98-107) Carbon Dioxide Level 30 mmol/L (21-32) 24 mmol/L (21-32) Anion Gap 7 (6-14) 11 (6-14) Blood Urea Nitrogen 20 mg/dL (7-20) 21 mg/dL (7-20) Creatinine 1.0 mg/dL (0.6-1.0) 0.9 mg/dL (0.6-1.0) Estimated GFR (Cockcroft-Gault) 66.3 74.9 BUN/Creatinine Ratio 20 (6-20) Glucose Level 148 mg/dL (70-99) 134 mg/dL (70-99) Calcium Level 9.0 mg/dL (8.5-10.1) 9.0 mg/dL (8.5-10.1) Total Bilirubin 0.8 mg/dL (0.2-1.0) Aspartate Amino Transf (AST/SGOT) 21 U/L (15-37) Alanine Aminotransferase (ALT/SGPT) 15 U/L (14-59) Alkaline Phosphatase 122 U/L (46-116) Total Protein 6.4 g/dL (6.4-8.2) Albumin 3.2 g/dL (3.4-5.0) Albumin/Globulin Ratio 1.0 (1.0-1.7) White Blood Count 4.0 x10^3/uL (4.0-11.0) Red Blood Count 5.00 x10^6/uL (3.50-5.40) Hemoglobin 14.6 g/dL (12.0-15.5) Hematocrit 44.2 % (36.0-47.0) Mean Corpuscular Volume 88 fL (79-100) Mean Corpuscular Hemoglobin 29 pg (25-35) Mean Corpuscular Hemoglobin Concent 33 g/dL (31-37) Red Cell Distribution Width 16.3 % (11.5-14.5) Platelet Count 208 x10^3/uL (140-400) Neutrophils (%) (Auto) 72 % (31-73) Lymphocytes (%) (Auto) 25 % (24-48) Monocytes (%) (Auto) 2 % (0-9) Eosinophils (%) (Auto) 0 % (0-3) Basophils (%) (Auto) 0 % (0-3) Neutrophils # (Auto) 2.9 x10^3uL (1.8-7.7) Lymphocytes # (Auto) 1.0 x10^3/uL (1.0-4.8) Monocytes # (Auto) 0.1 x10^3/uL (0.0-1.1) Eosinophils # (Auto) 0.0 x10^3/uL (0.0-0.7) Basophils # (Auto) 0.0 x10^3/uL (0.0-0.2) Laboratory Tests Test 01/27/17 18:25 01/28/17 05:20 Sodium Level 140 mmol/L (136-145) 138 mmol/L (136-145) Potassium Level 4.6 mmol/L (3.5-5.1) 4.3 mmol/L (3.5-5.1) Chloride Level 103 mmol/L (98-107) 103 mmol/L (98-107) Carbon Dioxide Level 30 mmol/L (21-32) 24 mmol/L (21-32) Anion Gap 7 (6-14) 11 (6-14) Blood Urea Nitrogen 20 mg/dL (7-20) 21 mg/dL (7-20) Creatinine 1.0 mg/dL (0.6-1.0) 0.9 mg/dL (0.6-1.0) Estimated GFR (Cockcroft-Gault) 66.3 74.9 BUN/Creatinine Ratio 20 (6-20) Glucose Level 148 mg/dL (70-99) 134 mg/dL (70-99) Calcium Level 9.0 mg/dL (8.5-10.1) 9.0 mg/dL (8.5-10.1) Total Bilirubin 0.8 mg/dL (0.2-1.0) Aspartate Amino Transf (AST/SGOT) 21 U/L (15-37) Alanine Aminotransferase (ALT/SGPT) 15 U/L (14-59) Alkaline Phosphatase 122 U/L (46-116) Total Protein 6.4 g/dL (6.4-8.2) Albumin 3.2 g/dL (3.4-5.0) Albumin/Globulin Ratio 1.0 (1.0-1.7) White Blood Count 4.0 x10^3/uL (4.0-11.0) Red Blood Count 5.00 x10^6/uL (3.50-5.40) Hemoglobin 14.6 g/dL (12.0-15.5) Hematocrit 44.2 % (36.0-47.0) Mean Corpuscular Volume 88 fL (79-100) Mean Corpuscular Hemoglobin 29 pg (25-35) Mean Corpuscular Hemoglobin Concent 33 g/dL (31-37) Red Cell Distribution Width 16.3 % (11.5-14.5) Platelet Count 208 x10^3/uL (140-400) Neutrophils (%) (Auto) 72 % (31-73) Lymphocytes (%) (Auto) 25 % (24-48) Monocytes (%) (Auto) 2 % (0-9) Eosinophils (%) (Auto) 0 % (0-3) Basophils (%) (Auto) 0 % (0-3) Neutrophils # (Auto) 2.9 x10^3uL (1.8-7.7) Lymphocytes # (Auto) 1.0 x10^3/uL (1.0-4.8) Monocytes # (Auto) 0.1 x10^3/uL (0.0-1.1) Eosinophils # (Auto) 0.0 x10^3/uL (0.0-0.7) Basophils # (Auto) 0.0 x10^3/uL (0.0-0.2) Medications Active Scripts Medications Dose Route/Sig Max Daily Dose Days Date Category Tramadol Hcl 50 Mg Tablet 1 Tab PO PRN Q6HRS 01/26/17 Reported Protonix (Pantoprazole Sodium) 40 Mg Tablet.dr 1 Tab PO DAILY 01/26/17 Reported Tylenol (Acetaminophen) 325 Mg Tablet 2 Tab PO PRN Q6HRS PRN 01/26/17 Reported Docusate Sodium 100 Mg Capsule 1 Cap PO DAILY PRN 01/26/17 Reported Synthroid (Levothyroxine Sodium) 100 Mcg Tablet 1 Tab PO DAILY 01/25/17 Rx Cardizem Cd (Diltiazem Hcl) 180 Mg Cap.er.24h 1 Cap PO DAILY 01/25/17 Rx Doxazosin Mesylate 2 Mg Tablet 1 Tab PO DAILY 01/23/17 Reported Lasix (Furosemide) 40 Mg Tablet 1 Tab PO DAILY 01/23/17 Reported Potassium Chloride 20 Meq Tablet.er 20 Meq PO DAILY 01/23/17 Reported Aspirin Ec (Aspirin) 81 Mg Tablet.dr 81 Mg PO DAILYWBKFT 30 11/08/16 Rx Esbriet (Pirfenidone) 801 Mg Tablet 801 Mg PO 11/06/16 Reported Zetia (Ezetimibe) 10 Mg Tablet 10 Mg PO HS 02/19/14 Reported Impression . 1. Acute on chronic hypoxemic respiratory failure. 2. Acute exacerbation of IPF/interstitial lung disease. 3. Acute cor pulmonale. 4. Anxiety/depression. 5. Chronic atrial fibrillation. 6. Significant weight loss secondary to all the above. Plan . SCHEDULE XANAX CONTINUE IF LAYLA SPOKE WITH FAMILY 1. We will initiate IV steroids. 2. Diurese. 3. No need for antibiotics. 4. I spoke with the patient. She is currently a full code. We will address advanced directives during this admission. 5. We will also consult Palliative Care Service on Sunday for possibility of discharging with hospice. JEAN HINTON MD Jan 28, 2017 14:38
[2017-01-28 15:00] VITALS: BP 132/83
--- NOTE | 2017-01-28 15:20 | PDOC ---
PROGRESS NOTES Chief Complaint Chief Complaint acute on chronic hypoxic resp failure with pulmonary fibrosis, home o2 6L recent new onset rapid afib with RVR bl leg edema with right heart failure exacerbation htn hld H/O moderate pericardial effusion HYPOKALEMIA, corrected mild malnutrition CKD 3 Low TSH, hx hypothyoridism PULM fibrosis on 6 LNC 13/11 - Known to Emma Jackson back pain, likely 2/2 positional lying in bed plan: pulm consulted, solumedrol bid duoneb, cont home meds lasix 40mg iv daily PAT consult for hospice tmr dvt ppx PTOT NC 8L now lidocaine patch for back pain History of Present Illness History of Present Illness ROS: NO fever, chills, chest pain sob overnight, need NC 8l NOW Vitals Vitals Vital Signs Date Time Temp Pulse Resp B/P (MAP) Pulse Ox O2 Delivery O2 Flow Rate FiO2 01/28/17 11:23 92 High Flow Nasal Cannula 8.0 01/28/17 11:00 97.5 104 16 119/73 (88) 97.5 Physical Exam General: Alert, Oriented X3, Cooperative Heart: Regular rate, Normal S1, Normal S2 Lungs: Crackles Abdomen: Normal bowel sounds, Soft Extremities: No clubbing, No cyanosis, Other (BL LEG 2+ EDEMA) Skin: No rashes Labs LABS Laboratory Tests Test 01/27/17 18:25 01/28/17 05:20 Sodium Level 140 mmol/L (136-145) 138 mmol/L (136-145) Potassium Level 4.6 mmol/L (3.5-5.1) 4.3 mmol/L (3.5-5.1) Chloride Level 103 mmol/L (98-107) 103 mmol/L (98-107) Carbon Dioxide Level 30 mmol/L (21-32) 24 mmol/L (21-32) Anion Gap 7 (6-14) 11 (6-14) Blood Urea Nitrogen 20 mg/dL (7-20) 21 mg/dL (7-20) Creatinine 1.0 mg/dL (0.6-1.0) 0.9 mg/dL (0.6-1.0) Estimated GFR (Cockcroft-Gault) 66.3 74.9 BUN/Creatinine Ratio 20 (6-20) Glucose Level 148 mg/dL (70-99) 134 mg/dL (70-99) Calcium Level 9.0 mg/dL (8.5-10.1) 9.0 mg/dL (8.5-10.1) Total Bilirubin 0.8 mg/dL (0.2-1.0) Aspartate Amino Transf (AST/SGOT) 21 U/L (15-37) Alanine Aminotransferase (ALT/SGPT) 15 U/L (14-59) Alkaline Phosphatase 122 U/L (46-116) Total Protein 6.4 g/dL (6.4-8.2) Albumin 3.2 g/dL (3.4-5.0) Albumin/Globulin Ratio 1.0 (1.0-1.7) White Blood Count 4.0 x10^3/uL (4.0-11.0) Red Blood Count 5.00 x10^6/uL (3.50-5.40) Hemoglobin 14.6 g/dL (12.0-15.5) Hematocrit 44.2 % (36.0-47.0) Mean Corpuscular Volume 88 fL (79-100) Mean Corpuscular Hemoglobin 29 pg (25-35) Mean Corpuscular Hemoglobin Concent 33 g/dL (31-37) Red Cell Distribution Width 16.3 % (11.5-14.5) Platelet Count 208 x10^3/uL (140-400) Neutrophils (%) (Auto) 72 % (31-73) Lymphocytes (%) (Auto) 25 % (24-48) Monocytes (%) (Auto) 2 % (0-9) Eosinophils (%) (Auto) 0 % (0-3) Basophils (%) (Auto) 0 % (0-3) Neutrophils # (Auto) 2.9 x10^3uL (1.8-7.7) Lymphocytes # (Auto) 1.0 x10^3/uL (1.0-4.8) Monocytes # (Auto) 0.1 x10^3/uL (0.0-1.1) Eosinophils # (Auto) 0.0 x10^3/uL (0.0-0.7) Basophils # (Auto) 0.0 x10^3/uL (0.0-0.2) Assessment and Plan Assessmemt and Plan Problems Medical Problems: (1) Right heart failure Status: Acute Problems: Comment Review of Relevant I have reviewed the following items neha (where applicable) has been applied. Labs Laboratory Tests Test 01/27/17 18:25 01/28/17 05:20 Sodium Level 140 mmol/L (136-145) 138 mmol/L (136-145) Potassium Level 4.6 mmol/L (3.5-5.1) 4.3 mmol/L (3.5-5.1) Chloride Level 103 mmol/L (98-107) 103 mmol/L (98-107) Carbon Dioxide Level 30 mmol/L (21-32) 24 mmol/L (21-32) Anion Gap 7 (6-14) 11 (6-14) Blood Urea Nitrogen 20 mg/dL (7-20) 21 mg/dL (7-20) Creatinine 1.0 mg/dL (0.6-1.0) 0.9 mg/dL (0.6-1.0) Estimated GFR (Cockcroft-Gault) 66.3 74.9 BUN/Creatinine Ratio 20 (6-20) Glucose Level 148 mg/dL (70-99) 134 mg/dL (70-99) Calcium Level 9.0 mg/dL (8.5-10.1) 9.0 mg/dL (8.5-10.1) Total Bilirubin 0.8 mg/dL (0.2-1.0) Aspartate Amino Transf (AST/SGOT) 21 U/L (15-37) Alanine Aminotransferase (ALT/SGPT) 15 U/L (14-59) Alkaline Phosphatase 122 U/L (46-116) Total Protein 6.4 g/dL (6.4-8.2) Albumin 3.2 g/dL (3.4-5.0) Albumin/Globulin Ratio 1.0 (1.0-1.7) White Blood Count 4.0 x10^3/uL (4.0-11.0) Red Blood Count 5.00 x10^6/uL (3.50-5.40) Hemoglobin 14.6 g/dL (12.0-15.5) Hematocrit 44.2 % (36.0-47.0) Mean Corpuscular Volume 88 fL (79-100) Mean Corpuscular Hemoglobin 29 pg (25-35) Mean Corpuscular Hemoglobin Concent 33 g/dL (31-37) Red Cell Distribution Width 16.3 % (11.5-14.5) Platelet Count 208 x10^3/uL (140-400) Neutrophils (%) (Auto) 72 % (31-73) Lymphocytes (%) (Auto) 25 % (24-48) Monocytes (%) (Auto) 2 % (0-9) Eosinophils (%) (Auto) 0 % (0-3) Basophils (%) (Auto) 0 % (0-3) Neutrophils # (Auto) 2.9 x10^3uL (1.8-7.7) Lymphocytes # (Auto) 1.0 x10^3/uL (1.0-4.8) Monocytes # (Auto) 0.1 x10^3/uL (0.0-1.1) Eosinophils # (Auto) 0.0 x10^3/uL (0.0-0.7) Basophils # (Auto) 0.0 x10^3/uL (0.0-0.2) Laboratory Tests Test 01/27/17 18:25 01/28/17 05:20 Sodium Level 140 mmol/L (136-145) 138 mmol/L (136-145) Potassium Level 4.6 mmol/L (3.5-5.1) 4.3 mmol/L (3.5-5.1) Chloride Level 103 mmol/L (98-107) 103 mmol/L (98-107) Carbon Dioxide Level 30 mmol/L (21-32) 24 mmol/L (21-32) Anion Gap 7 (6-14) 11 (6-14) Blood Urea Nitrogen 20 mg/dL (7-20) 21 mg/dL (7-20) Creatinine 1.0 mg/dL (0.6-1.0) 0.9 mg/dL (0.6-1.0) Estimated GFR (Cockcroft-Gault) 66.3 74.9 BUN/Creatinine Ratio 20 (6-20) Glucose Level 148 mg/dL (70-99) 134 mg/dL (70-99) Calcium Level 9.0 mg/dL (8.5-10.1) 9.0 mg/dL (8.5-10.1) Total Bilirubin 0.8 mg/dL (0.2-1.0) Aspartate Amino Transf (AST/SGOT) 21 U/L (15-37) Alanine Aminotransferase (ALT/SGPT) 15 U/L (14-59) Alkaline Phosphatase 122 U/L (46-116) Total Protein 6.4 g/dL (6.4-8.2) Albumin 3.2 g/dL (3.4-5.0) Albumin/Globulin Ratio 1.0 (1.0-1.7) White Blood Count 4.0 x10^3/uL (4.0-11.0) Red Blood Count 5.00 x10^6/uL (3.50-5.40) Hemoglobin 14.6 g/dL (12.0-15.5) Hematocrit 44.2 % (36.0-47.0) Mean Corpuscular Volume 88 fL (79-100) Mean Corpuscular Hemoglobin 29 pg (25-35) Mean Corpuscular Hemoglobin Concent 33 g/dL (31-37) Red Cell Distribution Width 16.3 % (11.5-14.5) Platelet Count 208 x10^3/uL (140-400) Neutrophils (%) (Auto) 72 % (31-73) Lymphocytes (%) (Auto) 25 % (24-48) Monocytes (%) (Auto) 2 % (0-9) Eosinophils (%) (Auto) 0 % (0-3) Basophils (%) (Auto) 0 % (0-3) Neutrophils # (Auto) 2.9 x10^3uL (1.8-7.7) Lymphocytes # (Auto) 1.0 x10^3/uL (1.0-4.8) Monocytes # (Auto) 0.1 x10^3/uL (0.0-1.1) Eosinophils # (Auto) 0.0 x10^3/uL (0.0-0.7) Basophils # (Auto) 0.0 x10^3/uL (0.0-0.2) Medications Current Medications Acetaminophen (Tylenol) 650 mg 1X ONCE PO ; Start 01/27/17 at 15:30; Stop 01/27 at 15:31; Status DC Acetaminophen (Tylenol) 650 mg PRN Q6HRS PRN PO FEVER Last administered on 01/28t 12:58; Start 01/27/17 at 16:00 Ondansetron HCl (Zofran) 4 mg PRN Q6HRS PRN IV NAUSEA/VOMITING; Start 01/27/17 at 16:00 Morphine Sulfate 2 mg PRN Q2HR PRN IV PAIN; Start 01/27/17 at 16:00 Tramadol HCl (Ultram) 50 mg PRN Q6HRS PRN PO PAIN; Start 01/27/17 at 16:00 Hydralazine HCl (Apresoline) 10 mg PRN Q4HRS PRN IVP ELEVATED BP, SEE COMMENTS ; Start 01/27/17 at 16:00 Docusate Sodium (Colace) 100 mg PRN DAILY PRN PO CONSTIPATION; Start 01/27/17 at 16:00 Acetaminophen (Tylenol) 650 mg PRN Q6HRS PRN PO FEVER; Start 01/27/17 at 17:30 ; Stop 01/27/17 at 17:30; Status DC Aspirin (Ecotrin) 81 mg DAILYWBKFT PO Last administered on 01/28/17 08:06; Start 01/28/17 at 08:00 Diltiazem HCl (Cardizem 24hr Cd) 180 mg DAILY PO Last administered on 08:06; Start 01/28/17 at 09:00 Docusate Sodium (Colace) 100 mg DAILY PRN PO CONSTIPATION; Start 01/27/17 at 17 :30; Stop 01/27/17 at 17:30; Status DC EZETIMIBE (Zetia) 10 mg HS PO Last administered on 01/27/17 21:20; Start 01/27 at 21:00 Furosemide (Lasix) 40 mg DAILY PO ; Start 01/28/17 at 09:00; Stop 01/28/17 at 09 :00; Status DC Levothyroxine Sodium (Synthroid) 100 mcg DAILY07 PO Last administered on 06:40; Start 01/28/17 at 07:00 Pantoprazole Sodium (Protonix) 40 mg DAILYAC PO Last administered on 01/28/17 09:49; Start 01/28/17 at 07:30 Tramadol HCl (Ultram) 50 mg PRN Q6HRS PO ; Start 01/27/17 at 17:30; Stop at 17:30; Status DC Doxazosin Mesylate (Cardura) 2 mg DAILY PO ; Start 01/28/17 at 09:00 Potassium Chloride (Klor-Con) 20 meq DAILYWBKFT PO Last administered on 08:05; Start 01/28/17 at 08:00 Lidocaine (Lidoderm) 1 patch DAILY TD Last administered on 01/28/17 08:06; Start 01/28/17 at 09:00 Enoxaparin Sodium (Lovenox 40mg Syringe) 40 mg Q24H SQ Last administered on 18:48; Start 01/27/17 at 18:00 Albuterol/ Ipratropium (Duoneb) 3 ml RTQID NEB Last administered on 01/28/17 11:23; Start 01/27/17 at 20:00 Albuterol Sulfate (Ventolin Neb Soln) 2.5 mg PRN Q4HRS PRN NEB SHORTNESS OF BREATH; Start 01/27/17 at 17:45 Methylprednisolone Sodium Succinate (SOLU-Medrol 125MG VIAL) 125 mg Q12HR IV Last administered on 01/28/17 08:05; Start 01/27/17 at 21:00 Alprazolam (Xanax) 0.25 mg 1X ONCE PO Last administered on 01/27/17 18:48; Start 01/27/17 at 18:00; Stop 01/27/17 at 18:01; Status DC Alprazolam (Xanax) 0.5 mg PRN Q8HRS PRN PO ANXIETY / AGITATION Last administered on 01/28/17 15:13; Start 01/27/17 at 18:00 Furosemide (Lasix) 40 mg 1X ONCE IVP Last administered on 01/27/17 18:45; Start 01/27/17 at 18:15; Stop 01/27/17 at 18:16; Status DC Furosemide (Lasix) 40 mg DAILY IVP Last administered on 01/28/17 08:05; Start 01/28/17 at 09:00 Non-Formulary Medication 3 ea TIDWMEALS PO Last administered on 01/28/17 12:14 ; Start 01/27/17 at 19:00 Active Scripts Active Synthroid (Levothyroxine Sodium) 100 Mcg Tablet 1 Tab PO DAILY Cardizem Cd (Diltiazem Hcl) 180 Mg Cap.er.24h 1 Cap PO DAILY Aspirin Ec (Aspirin) 81 Mg Tablet.dr 81 Mg PO DAILYWBKFT 30 Days Reported Tramadol Hcl 50 Mg Tablet 1 Tab PO PRN Q6HRS Protonix (Pantoprazole Sodium) 40 Mg Tablet.dr 1 Tab PO DAILY Tylenol (Acetaminophen) 325 Mg Tablet 2 Tab PO PRN Q6HRS PRN Docusate Sodium 100 Mg Capsule 1 Cap PO DAILY PRN Doxazosin Mesylate 2 Mg Tablet 1 Tab PO DAILY Lasix (Furosemide) 40 Mg Tablet 1 Tab PO DAILY Potassium Chloride 20 Meq Tablet.er 20 Meq PO DAILY Esbriet (Pirfenidone) 801 Mg Tablet 801 Mg PO Zetia (Ezetimibe) 10 Mg Tablet 10 Mg PO HS Vitals/I & O Vital Sign - Last 24 Hours 01/27/17 01/27/17 01/27/17 01/27/17 15:26 15:56 16:22 16:45 Temp 97.7 97.7 Pulse 94 96 100 Resp 22 B/P (MAP) 128/83 (98) 132/84 (100) 127/79 (95) 107/70 (82) Pulse Ox 92 94 96 94 O2 Delivery Nasal Cannula Nasal Cannula Nasal Cannula Nasal Cannula O2 Flow Rate 6.0 6.0 6.0 6.5 01/27/17 01/27/17 01/27/17 01/27/17 16:45 17:33 19:59 20:00 Temp 97.7 97.5 97.7 97.5 Pulse 100 97 Resp 22 22 B/P (MAP) 107/70 (82) 122/73 (89) Pulse Ox 94 90 O2 Delivery Nasal Cannula Nasal Cannula Nasal Cannula Nasal Cannula O2 Flow Rate 6.5 6.5 8.0 8.0 01/27/17 01/27/17 01/28/17 01/28/17 20:21 23:59 03:49 07:00 Temp 97.9 97.7 97.5 97.9 97.7 97.5 Pulse 96 91 95 Resp 20 20 16 B/P (MAP) 112/75 (87) 110/62 (78) 127/79 (95) Pulse Ox 87 90 95 90 O2 Delivery Nasal Cannula Nasal Cannula Nasal Cannula Nasal Cannula O2 Flow Rate 8.0 8.0 8.0 8.0 1001/28/17 01/28/17 01/28/17 07:21 08:00 08:06 09:00 Pulse 95 95 B/P (MAP) 127/79 127/79 O2 Delivery Nasal Cannula Nasal Cannula O2 Flow Rate 8.0 8.0 01/28/17 01/28/17 11:00 11:23 Temp 97.5 97.5 Pulse 104 Resp 16 B/P (MAP) 119/73 (88) Pulse Ox 93 92 O2 Delivery Nasal Cannula High Flow Nasal Cannula O2 Flow Rate 8.0 8.0 JOHN REN MD Jan 28, 2017 15:20
[2017-01-28] MEDS: ENOXAPARIN 40 MG/0.4 ML SYRINGE. SQ SCH (17:47)
[2017-01-28 19:00] VITALS: BP 124/83
[2017-01-28] MEDS: ALPRAZolam 0.5 MG TABLET PO SCH (20:40)
[2017-01-28] MEDS: EZETIMIBE 10 MG TABLET. PO SCH (20:40)
[2017-01-28 23:11] VITALS: BP 128/85
[2017-01-29 03:27] VITALS: BP 118/74
[2017-01-29 07:00] VITALS: BP 118/75
[2017-01-29] MEDS: IPRATRPIUM/ALBUTEROL 0.5/2.5MG 3 ML NEBU. NEB SCH ×3 (07:27→15:20)
[2017-01-29] MEDS: PANTOPRAZOLE 40 MG TABLET.DR. PO SCH (08:08)
[2017-01-29] MEDS: ALPRAZolam 0.5 MG TABLET PO SCH (08:08)
[2017-01-29] MEDS: LIDOCAINE (700MG/PATCH) PATCH. TD SCH (08:08)
[2017-01-29] MEDS: POTASSIUM CHLORIDE 20 MEQ TABLET.ER. PO SCH (08:09)
[2017-01-29] MEDS: LEVOTHYROXINE 100 MCG TABLET PO SCH (08:09)
[2017-01-29] MEDS: FUROSEMIDE 40 MG/4 ML VIAL. IVP SCH (08:09)
[2017-01-29] MEDS: ASPIRIN ENTERIC COATED 81 MG TABLET.DR. PO SCH (08:09)
[2017-01-29] MEDS: methylPREDNISolone SOD SUCC PF 125 MG/2 ML VIAL. IV SCH (08:10)
[2017-01-29] MEDS: ESBRIET 267 MG PO SCH ×3 (08:10→17:00)
[2017-01-29] MEDS: DOXAZOSIN MESYLATE 1 MG TABLET. PO SCH (08:11)
[2017-01-29] MEDS ORDERED: DIGOXIN IV 500 MCG/2 ML AMPUL. IV ONE (10:00)
--- NOTE | 2017-01-29 10:00 | PDOC ---
PROGRESS NOTES Chief Complaint Chief Complaint acute on chronic hypoxic resp failure with pulmonary fibrosis, home o2 6L recent new onset rapid afib with RVR, acute diastolic CHF leg edema with right heart failure exacerbation, acute diastolic CHF htn hld H/O moderate pericardial effusion mild malnutrition, was POA CKD 3 hypothyoridism weakness, and debility, History of Present Illness History of Present Illness palliative care discussed, pt would like home health, try PT and OT and 6 min walk. Physiatry consult, may need roller walker with seat she is FULL code, discussed, and she is willing to do advance directive pulm consulted, solumedrol bid duoneb, cont home meds lasix 40mg iv daily dvt ppx PTOT NC 8L now lidocaine patch for back pain ROS: NO fever, chills, chest pain sob overnight, need NC 8l NOW Vitals Vitals Vital Signs Date Time Temp Pulse Resp B/P (MAP) Pulse Ox O2 Delivery O2 Flow Rate FiO2 01/29/17 08:08 95 118/75 01/29/17 07:32 99 High Flow Nasal Cannula 8.0 01/29/17 07:00 97.5 18 97.5 Physical Exam General: Alert, Oriented X3, Cooperative, mild distress Heart: Regular rate, Normal S1, Normal S2 Lungs: Crackles Abdomen: Normal bowel sounds, Soft Extremities: No clubbing, No cyanosis, Other (BL LEG 2+ EDEMA) Skin: No rashes Review of Systems Review of Systems dyspnea, cough slept better Assessment and Plan Assessmemt and Plan Problems Medical Problems: (1) Right heart failure Status: Acute Problems: Comment Review of Relevant I have reviewed the following items neha (where applicable) has been applied. Labs Laboratory Tests Test 01/27/17 18:25 01/28/17 05:20 Sodium Level 140 mmol/L (136-145) 138 mmol/L (136-145) Potassium Level 4.6 mmol/L (3.5-5.1) 4.3 mmol/L (3.5-5.1) Chloride Level 103 mmol/L (98-107) 103 mmol/L (98-107) Carbon Dioxide Level 30 mmol/L (21-32) 24 mmol/L (21-32) Anion Gap 7 (6-14) 11 (6-14) Blood Urea Nitrogen 20 mg/dL (7-20) 21 mg/dL (7-20) Creatinine 1.0 mg/dL (0.6-1.0) 0.9 mg/dL (0.6-1.0) Estimated GFR (Cockcroft-Gault) 66.3 74.9 BUN/Creatinine Ratio 20 (6-20) Glucose Level 148 mg/dL (70-99) 134 mg/dL (70-99) Calcium Level 9.0 mg/dL (8.5-10.1) 9.0 mg/dL (8.5-10.1) Total Bilirubin 0.8 mg/dL (0.2-1.0) Aspartate Amino Transf (AST/SGOT) 21 U/L (15-37) Alanine Aminotransferase (ALT/SGPT) 15 U/L (14-59) Alkaline Phosphatase 122 U/L (46-116) Total Protein 6.4 g/dL (6.4-8.2) Albumin 3.2 g/dL (3.4-5.0) Albumin/Globulin Ratio 1.0 (1.0-1.7) White Blood Count 4.0 x10^3/uL (4.0-11.0) Red Blood Count 5.00 x10^6/uL (3.50-5.40) Hemoglobin 14.6 g/dL (12.0-15.5) Hematocrit 44.2 % (36.0-47.0) Mean Corpuscular Volume 88 fL (79-100) Mean Corpuscular Hemoglobin 29 pg (25-35) Mean Corpuscular Hemoglobin Concent 33 g/dL (31-37) Red Cell Distribution Width 16.3 % (11.5-14.5) Platelet Count 208 x10^3/uL (140-400) Neutrophils (%) (Auto) 72 % (31-73) Lymphocytes (%) (Auto) 25 % (24-48) Monocytes (%) (Auto) 2 % (0-9) Eosinophils (%) (Auto) 0 % (0-3) Basophils (%) (Auto) 0 % (0-3) Neutrophils # (Auto) 2.9 x10^3uL (1.8-7.7) Lymphocytes # (Auto) 1.0 x10^3/uL (1.0-4.8) Monocytes # (Auto) 0.1 x10^3/uL (0.0-1.1) Eosinophils # (Auto) 0.0 x10^3/uL (0.0-0.7) Basophils # (Auto) 0.0 x10^3/uL (0.0-0.2) Medications Current Medications Acetaminophen (Tylenol) 650 mg 1X ONCE PO ; Start 01/27/17 at 15:30; Stop 01/27 at 15:31; Status DC Acetaminophen (Tylenol) 650 mg PRN Q6HRS PRN PO FEVER Last administered on 01/28 12:58; Start 01/27/17 at 16:00 Ondansetron HCl (Zofran) 4 mg PRN Q6HRS PRN IV NAUSEA/VOMITING; Start 01/27/17 at 16:00 Morphine Sulfate 2 mg PRN Q2HR PRN IV PAIN; Start 01/27/17 at 16:00 Tramadol HCl (Ultram) 50 mg PRN Q6HRS PRN PO PAIN; Start 01/27/17 at 16:00 Hydralazine HCl (Apresoline) 10 mg PRN Q4HRS PRN IVP ELEVATED BP, SEE COMMENTS ; Start 01/27/17 at 16:00 Docusate Sodium (Colace) 100 mg PRN DAILY PRN PO CONSTIPATION; Start 01/27/17 at 16:00 Acetaminophen (Tylenol) 650 mg PRN Q6HRS PRN PO FEVER; Start 01/27/17 at 17:30 ; Stop 01/27/17 at 17:30; Status DC Aspirin (Ecotrin) 81 mg DAILYWBKFT PO Last administered on 01/29/17 08:09; Start 01/28/17 at 08:00 Diltiazem HCl (Cardizem 24hr Cd) 180 mg DAILY PO Last administered on 08:08; Start 01/28/17 at 09:00 Docusate Sodium (Colace) 100 mg DAILY PRN PO CONSTIPATION; Start 01/27/17 at 17 :30; Stop 01/27/17 at 17:30; Status DC EZETIMIBE (Zetia) 10 mg HS PO Last administered on 01/28/17 20:40; Start 01/27 at 21:00 Furosemide (Lasix) 40 mg DAILY PO ; Start 01/28/17 at 09:00; Stop 01/28/17 at 09 :00; Status DC Levothyroxine Sodium (Synthroid) 100 mcg DAILY07 PO Last administered on 08:09; Start 01/28/17 at 07:00 Pantoprazole Sodium (Protonix) 40 mg DAILYAC PO Last administered on 01/29/17 08:08; Start 01/28/17 at 07:30 Tramadol HCl (Ultram) 50 mg PRN Q6HRS PO ; Start 01/27/17 at 17:30; Stop at 17:30; Status DC Doxazosin Mesylate (Cardura) 2 mg DAILY PO ; Start 01/28/17 at 09:00 Potassium Chloride (Klor-Con) 20 meq DAILYWBKFT PO Last administered on 08:09; Start 01/28/17 at 08:00 Lidocaine (Lidoderm) 1 patch DAILY TD Last administered on 01/29/17 08:08; Start 01/28/17 at 09:00 Enoxaparin Sodium (Lovenox 40mg Syringe) 40 mg Q24H SQ Last administered on 17:47; Start 01/27/17 at 18:00 Albuterol/ Ipratropium (Duoneb) 3 ml RTQID NEB Last administered on 01/29/17 07:27; Start 01/27/17 at 20:00 Albuterol Sulfate (Ventolin Neb Soln) 2.5 mg PRN Q4HRS PRN NEB SHORTNESS OF BREATH; Start 01/27/17 at 17:45 Methylprednisolone Sodium Succinate (SOLU-Medrol 125MG VIAL) 125 mg Q12HR IV Last administered on 01/29/17 08:10; Start 01/27/17 at 21:00 Alprazolam (Xanax) 0.25 mg 1X ONCE PO Last administered on 01/27/17 18:48; Start 01/27/17 at 18:00; Stop 01/27/17 at 18:01; Status DC Alprazolam (Xanax) 0.5 mg PRN Q8HRS PRN PO ANXIETY / AGITATION Last administered on 01/28/17 15:13; Start 01/27/17 at 18:00 Furosemide (Lasix) 40 mg 1X ONCE IVP Last administered on 01/27/17 18:45; Start 01/27/17 at 18:15; Stop 01/27/17 at 18:16; Status DC Furosemide (Lasix) 40 mg DAILY IVP Last administered on 01/29/17 08:09; Start 01/28/17 at 09:00 Non-Formulary Medication 3 ea TIDWMEALS PO Last administered on 01/29/17 08:10 ; Start 01/27/17 at 19:00 Alprazolam (Xanax) 0.5 mg Q12HR PO Last administered on 01/29/17 08:08; Start 01/28/17 at 21:00 Active Scripts Active Synthroid (Levothyroxine Sodium) 100 Mcg Tablet 1 Tab PO DAILY Cardizem Cd (Diltiazem Hcl) 180 Mg Cap.er.24h 1 Cap PO DAILY Aspirin Ec (Aspirin) 81 Mg Tablet.dr 81 Mg PO DAILYWBKFT 30 Days Reported Tramadol Hcl 50 Mg Tablet 1 Tab PO PRN Q6HRS Protonix (Pantoprazole Sodium) 40 Mg Tablet.dr 1 Tab PO DAILY Tylenol (Acetaminophen) 325 Mg Tablet 2 Tab PO PRN Q6HRS PRN Docusate Sodium 100 Mg Capsule 1 Cap PO DAILY PRN Doxazosin Mesylate 2 Mg Tablet 1 Tab PO DAILY Lasix (Furosemide) 40 Mg Tablet 1 Tab PO DAILY Potassium Chloride 20 Meq Tablet.er 20 Meq PO DAILY Esbriet (Pirfenidone) 801 Mg Tablet 801 Mg PO Zetia (Ezetimibe) 10 Mg Tablet 10 Mg PO HS Vitals/I & O Vital Sign - Last 24 Hours 01/28/17 01/28/17 01/28/17 01/28/17 11:00 11:23 15:00 15:46 Temp 97.5 97.7 97.5 97.7 Pulse 104 103 Resp 16 16 B/P (MAP) 119/73 (88) 132/83 (99) Pulse Ox 93 92 97 91 O2 Delivery Nasal Cannula High Flow Nasal Cannula Nasal Cannula High Flow Nasal Cannula O2 Flow Rate 8.0 8.0 8.0 8.0 01/28/17 01/28/17 01/28/17 01/28/17 19:00 19:58 20:10 23:11 Temp 96.8 97.9 96.8 97.9 Pulse 107 102 Resp 16 19 B/P (MAP) 124/83 (97) 128/85 (99) Pulse Ox 90 94 91 O2 Delivery Nasal Cannula High Flow Nasal Cannula Nasal Cannula Nasal Cannula O2 Flow Rate 8.0 8.0 7.0 7.0 01/29/17 01/29/17 01/29/17 01/29/17 03:27 07:00 07:32 08:08 Temp 97.7 97.5 97.7 97.5 Pulse 102 95 95 Resp 19 18 B/P (MAP) 118/74 (89) 118/75 (89) 118/75 Pulse Ox 92 100 99 O2 Delivery Nasal Cannula Nasal Cannula High Flow Nasal Cannula O2 Flow Rate 7.0 7.0 8.0 CLAUS SEPULVEDA MD Jan 29, 2017 10:00
[2017-01-29] MEDS ORDERED: METOPROLOL TARTRATE 5 MG/5 ML VIAL. IVP ONE (10:15)
[2017-01-29 11:00] VITALS: BP 105/67
--- NOTE | 2017-01-29 11:21 | PDOC2 ---
PALLIATIVE CARE Palliative Care Note Palliative Care Consult requested by Blaise to address goals of care. Diagnosis: A/C hypoxic frespiratory failure; pulmonary fibrosis/interstitial lung disease; acute cor pulmonale; anxiety/depression, atrial fibrillation; weight loss Patient alert. Fabricio at bedside. No other family for family meeting. Patient and state medical diagnosis has been fully explained and do not need for further discussion/explanation. Patient states her goal is "complete healing." "I will be a walking miracle." "Want everything to stay as normal as possible. "Not interested in Hospice/ Palliative Care" Discussed Code Statues: patient wishes to remain full code. Would not want to remain in a vegetative state. supportive of that decision Discussed Advanced Directive. Patient would like to complete AD document. Patient would like HH when discharged. Wants PT/OT. Has oxygen at home. Not interested in any DME Spoke with Damon DELGADO who will assist with AD Full Code. RADHA SILVER Jan 29, 2017 11:21
[2017-01-29] MEDS ORDERED: ALPR0.5T6 PO (12:48)
[2017-01-29] MEDS ORDERED: PRED-220 PO (12:48)
[2017-01-29] MEDS ORDERED: IPRA3AMP NEB (12:48)
--- NOTE | 2017-01-29 12:54 | PDOC2 ---
[address] HOUSEKEEPER AND LAUNDRY ASSISTANT 01/29/17 1254: CARDIAC CONSULT DATE OF CONSULT Date of Consult DATE: 01/29/17 TIME: 12:47 REASON FOR CONSULT Reason for Consult: atrial fib REFERRING PHYSICIAN Referring Physician: Dr. Sneha Schwartz SOURCE Source: Chart review, Patient HISTORY OF PRESENT ILLNESS HISTORY OF PRESENT ILLNESS 71 year old female evaluated last week for atrial fib with RVR and converted with diltiazem. History also included pulmonary fibrosis/ interstitial lung disease and she has been readmitted due to dyspnea and back pain. Noted to be tachycardic on telemetry earlier today with rates reported in the 150s. Those rhythm strips are no longer available for review. Patient without palpitations or chest pain but with dyspnea. EKG = sinus rhythm. Reason for Visit: tachycardia PAST MEDICAL HISTORY Cardiovascular: AFIB, Hyperlipidemia Pulmonary: Other (pulmonary fibrosis) CENTRAL NERVOUS SYSTEM: Other (denies) GI: GERD Heme/Onc: No pertinent hx Hepatobiliary: No pertinent hx Psych: No pertinent hx Musculoskeletal: Osteoarthritis Rheumatologic: No pertinent hx Infectious disease: No pertinent hx ENT: No pertinent hx Renal/: No pertinent hx Endocrine: No pertinent hx Dermatology: No pertinent hx PAST SURGICAL HISTORY Past Surgical History: No pertinent history FAMILY HISTORY Family History: Heart Disease (father) SOCIAL HISTORY Smoke: No ALCOHOL: none Drugs: None Lives: with Family CURRENT MEDICATIONS CURRENT MEDICATIONS Current Medications Medications (Trade) Dose Ordered Sig/Traci Route PRN Reason Start Time Stop Time Status Last Admin Dose Admin Alprazolam (Xanax) 0.5 mg Q12HR PO 01/28/17 21:00 01/29/17 08:08 Digoxin (Lanoxin) 250 mcg 1X ONCE IV 01/29/17 10:00 01/29/17 10:01 DC 01/29/17 10:08 Metoprolol Tartrate (Lopressor) 5 mg 1X ONCE IVP 01/29/17 10:15 01/29/17 10:16 DC 01/29/17 10:08 ALLERGIES ALLERGIES: Coded Allergies: Penicillins (Verified Allergy, Intermediate, Rash, 11/07/16) swelling codeine (Verified Adverse Reaction, Mild, 11/07/16) "too sleepy" ROS General: No: Chills, Night Sweats, Fatigue, Malaise, Appetite, Other PSYCHOLOGICAL ROS: No: Anxiety, Behavioral Disorder, Concentration difficultie , Decreased libido, Depression, Disorientation, Hallucinations, Hostility, Irritablity, Memory difficulties, Mood Swings, Obsessive thoughts, Physical abuse, Sexual abuse, Sleep disturbances, Suicidal ideation, Other Eyes: No Blurry vision, No Decreased vision, No Double vision, No Dry eyes, No Excessive tearing, No Eye Pain, No Itchy Eyes, No Loss of vision, No Photophobia , No Scotomata, No Uses contacts, No Uses glasses, No Other HEENT: No: Heacaches, Visual Changes, Hearing change, Nasal congestion, Nasal discharge, Oral lesions, Sinus pain, Sore Throat, Epistaxis, Sneezing, Snoring, Tinnitus, Vertigo, Vocal changes, Other ALLERGY AND IMMUNOLOGY: No: Hives, Insect Bite Sensitivity, Itchy/Watery Eyes, Nasal Congestion, Post Nasal Drip, Seasonal Allergies, Other Hematological and Lymphatic: No: Bleeding Problems, Blood Clots, Blood Transfusions, Brusing, Night Sweats, Pallor, Swollen Lymph Nodes, Other ENDOCRINE: No: Breast Changes, Galactorrhea, Hair Pattern Changes, Hot Flashes , Malaise/lethargy, Mood Swings, Palpitations, Polydipsia/polyuria, Skin Changes , Temperature Intolerance, Unexpected Weight Changes, Other Respiratory: YES: Orthopnea, Shortness of breath, SOB with excertion Cardiovascular: yes Orthopnea, No Chest Pain, No Palpitations, No Paroxysmal Noc. Dyspnea, No Edema, No Lt Headedness, No Other Gastrointestinal: No Nausea, No Vomiting, No Abdominal Pain, No Diarrhea, No Constipation, No Melena, No Hematochezia, No Other Genitourinary: No Dysuria, No Frequency, No Incontinence, No Hematuria, No Retention, No Discharge, No Urgency, No Pain, No Flank Pain, No Other Musculoskeletal: No Gait Disturbance, No Joint Pain, No Joint Stiffness, No Joint Swelling, No Muscle Pain, No Muscular Weakness, No Pain In:, No Swelling In:, No Other Neurological: No Behavorial Changes, No Bowel/Bladder ControlChng, No Confusion , No Dizziness, No Gait Disturbance, No Headaches, No Impaired Coord/balance, No Memory Loss, No Numbness/Tingling, No Seizures, No Speech Problems, No Tremors, No Visual Changes, No Weakness, No Other Skin: No Dry Skin, No Eczema, No Hair Changes, No Lumps, No Mole Changes, No Mottling, No Nail Changes, No Pruritus, No Rash, No Skin Lesion Changes, No Other, No Acne PHYSICAL EXAM General: Alert, Oriented X3, Cooperative HEENT: Atraumatic, PERRLA Lungs: Other (coarse throughout) Heart: Normal S1, Normal S2, No murmurs, Other (tele: ST) Abdomen: Normal bowel sounds, Soft Extremities: No edema, Normal pulses Skin: No rashes Neuro: Normal speech Psych/Mental Status: Mental status NL, Mood NL MUSCULOSKELETAL: Osteoarthritic changes both hands VITALS VITALS Vital Signs Date Time Temp Pulse Resp B/P (MAP) Pulse Ox O2 Delivery O2 Flow Rate FiO2 01/29/17 11:40 94 High Flow Nasal Cannula 8.0 01/29/17 11:00 97.9 60 18 105/67 (80) 97.9 IMAGES IMAGES CXR: Comparison is made to a study from 01/22/2017. The heart is mildly enlarged. There is calcific plaquing of the aorta. There are extensive interstitial opacities in both lungs which are unchanged. The findings suggest fibrosis, although a component of ongoing interstitial edema cannot be excluded. No superimposed acute infiltrate is seen. Pleural fluid noted on the recent CT study is not radiographically visible. There is no evidence of pneumothorax. IMPRESSION: Unchanged extensive bilateral interstitial opacities compatible with fibrosis. EKG EKG ST; no acute changes ECHOCARDIOGRAM ECHOCARDIOGRAM 10/29/2016: TTE: Left ventricle systolic function is normal. The Ejection Fraction is >55%. There is a flattened septum consistent with right ventricle volume and pressure overload. The right ventricle is severely dilated. Right Ventricular septal motion is consistent with volume and pressure overload. The interatrial septum is intact with no evidence for an atrial septal defect or patent foramen ovale as noted on 2-D or Doppler imaging. No clear evidence of right to left shunt by agitated saline contrast. Doppler and Color Flow revealed mild tricuspid regurgitation. The PA pressure was estimated at 59 mmHg. There is mild pulmonary artery dilatation. The IVC is dilated and collapses >50% with inspiration. There is a small pericardial effusion. STRESS TEST STRESS TEST 11/08/2016: MPI: Conclusion 1. Regadenoson cardioisotope stress test did not show any evidence of ischemia or infarct. 2. Normal left ventricular systolic function with ejection fraction calculated at 76%. 3. Low risk for cardiac events. ASSESSMENT/PLAN ASSESSMENT/PLAN 1. tachycardia no documented evidence of atrial fib likely multifactorial in etiology, i.e medications (steroids, albuterol), pulmonary disease, pain, thyroid disease continue diltiazem consider treating underlying causes prior to addition of digoxin 2. pulmonary disease with O2 management per PULM 3. thyroid disease on replacement therapy TSH ~ 12 on 01/22/2017 4. HTN control with meds 5. HLD continue medications Problems: AUGIE MILTON MD 01/29/17 1828: CARDIAC CONSULT ALLERGIES ALLERGIES: Coded Allergies: Penicillins (Verified Allergy, Intermediate, Rash, 11/07/16) swelling codeine (Verified Adverse Reaction, Mild, 11/07/16) "too sleepy" ASSESSMENT/PLAN ASSESSMENT/PLAN Patient discussed with our nurse practitioner, discharged before being seen. Tachyarrhythmias. Agree with treatment with Cardizem. Continue treatment of underlying conditions which are the etiology of her tachyarrhythmias. Pulmonary fibrosis. Continuing present treatments. On oxygen. Followed by the pulmonary service. Thyroid disease on replacement treatments. Hypertension controlled with medications. Continue medications for hyperlipidemia. Thank you for allowing us to participate in the care of your patient. Problems: SAUL FREIRE APRN Jan 29, 2017 12:54 AUGIE MILTON MD Jan 29, 2017 18:28
[2017-01-29 15:00] VITALS: BP 120/78
--- NOTE | 2017-01-29 17:30 | PDOC ---
PULMONARY PROGRESS NOTES Subjective PT FEELS BETTER Vitals Vital Signs Date Time Temp Pulse Resp B/P (MAP) Pulse Ox O2 Delivery O2 Flow Rate FiO2 01/29/17 15:22 High Flow Nasal Cannula 8.0 01/29/17 15:00 97 18 120/78 (92) 92 01/29/17 11:00 97.9 97.9 ROS: No Nausea, No Chest Pain, No Abdominal Pain General: Alert Lungs: Crackles Cardiovascular: S1, S2 Abdomen: Soft, Non-tender Neuro Exam: Alert Extremities: Other (EDEMA) Skin: Warm Labs Laboratory Tests Test 01/27/17 18:25 01/28/17 05:20 Sodium Level 140 mmol/L (136-145) 138 mmol/L (136-145) Potassium Level 4.6 mmol/L (3.5-5.1) 4.3 mmol/L (3.5-5.1) Chloride Level 103 mmol/L (98-107) 103 mmol/L (98-107) Carbon Dioxide Level 30 mmol/L (21-32) 24 mmol/L (21-32) Anion Gap 7 (6-14) 11 (6-14) Blood Urea Nitrogen 20 mg/dL (7-20) 21 mg/dL (7-20) Creatinine 1.0 mg/dL (0.6-1.0) 0.9 mg/dL (0.6-1.0) Estimated GFR (Cockcroft-Gault) 66.3 74.9 BUN/Creatinine Ratio 20 (6-20) Glucose Level 148 mg/dL (70-99) 134 mg/dL (70-99) Calcium Level 9.0 mg/dL (8.5-10.1) 9.0 mg/dL (8.5-10.1) Total Bilirubin 0.8 mg/dL (0.2-1.0) Aspartate Amino Transf (AST/SGOT) 21 U/L (15-37) Alanine Aminotransferase (ALT/SGPT) 15 U/L (14-59) Alkaline Phosphatase 122 U/L (46-116) Total Protein 6.4 g/dL (6.4-8.2) Albumin 3.2 g/dL (3.4-5.0) Albumin/Globulin Ratio 1.0 (1.0-1.7) White Blood Count 4.0 x10^3/uL (4.0-11.0) Red Blood Count 5.00 x10^6/uL (3.50-5.40) Hemoglobin 14.6 g/dL (12.0-15.5) Hematocrit 44.2 % (36.0-47.0) Mean Corpuscular Volume 88 fL (79-100) Mean Corpuscular Hemoglobin 29 pg (25-35) Mean Corpuscular Hemoglobin Concent 33 g/dL (31-37) Red Cell Distribution Width 16.3 % (11.5-14.5) Platelet Count 208 x10^3/uL (140-400) Neutrophils (%) (Auto) 72 % (31-73) Lymphocytes (%) (Auto) 25 % (24-48) Monocytes (%) (Auto) 2 % (0-9) Eosinophils (%) (Auto) 0 % (0-3) Basophils (%) (Auto) 0 % (0-3) Neutrophils # (Auto) 2.9 x10^3uL (1.8-7.7) Lymphocytes # (Auto) 1.0 x10^3/uL (1.0-4.8) Monocytes # (Auto) 0.1 x10^3/uL (0.0-1.1) Eosinophils # (Auto) 0.0 x10^3/uL (0.0-0.7) Basophils # (Auto) 0.0 x10^3/uL (0.0-0.2) Medications Active Scripts Medications Dose Route/Sig Max Daily Dose Days Date Category Tramadol Hcl 50 Mg Tablet 1 Tab PO PRN Q6HRS 01/26/17 Reported Protonix (Pantoprazole Sodium) 40 Mg Tablet.dr 1 Tab PO DAILY 01/26/17 Reported Tylenol (Acetaminophen) 325 Mg Tablet 2 Tab PO PRN Q6HRS PRN 01/26/17 Reported Docusate Sodium 100 Mg Capsule 1 Cap PO DAILY PRN 01/26/17 Reported Synthroid (Levothyroxine Sodium) 100 Mcg Tablet 1 Tab PO DAILY 01/25/17 Rx Cardizem Cd (Diltiazem Hcl) 180 Mg Cap.er.24h 1 Cap PO DAILY 01/25/17 Rx Doxazosin Mesylate 2 Mg Tablet 1 Tab PO DAILY 01/23/17 Reported Lasix (Furosemide) 40 Mg Tablet 1 Tab PO DAILY 01/23/17 Reported Potassium Chloride 20 Meq Tablet.er 20 Meq PO DAILY 01/23/17 Reported Aspirin Ec (Aspirin) 81 Mg Tablet. 81 Mg PO DAILYWBKFT 30 11/08/16 Rx Esbriet (Pirfenidone) 801 Mg Tablet 801 Mg PO 11/06/16 Reported Zetia (Ezetimibe) 10 Mg Tablet 10 Mg PO HS 02/19/14 Reported Impression . 1. Acute on chronic hypoxemic respiratory failure. 2. Acute exacerbation of IPF/interstitial lung disease. 3. Acute cor pulmonale. 4. Anxiety/depression. 5. Chronic atrial fibrillation. 6. Significant weight loss secondary to all the above. Plan . XANAX RX WRITTEN .5 BID RX FOR NEB AND ALBUTEROL D/W WITH PAT FROM PALLIATIVE CARE CONTINUE IF LASIX PO SPOKE WITH FAMILY FOLLOW UP IN OFFICE JEAN HINTON MD Jan 29, 2017 17:30
[2017-01-30] MEDS ORDERED: DIGOXIN 125 MCG TABLET. PO SCH (09:00)
--- NOTE | 2017-02-12 01:29 | PDOC3 ---
Discharge Summary Visit Information Date of Admission: Jan 27, 2017 Date of Discharge: Jan 29, 2017 Admitting Diagnosis: shortness of breath Final Diagnosis acute on chronic hypoxic resp failure with pulmonary fibrosis, home o2 6L recent new onset rapid afib with RVR, acute diastolic CHF leg edema with right heart failure exacerbation, acute diastolic CHF htn hld H/O moderate pericardial effusion mild malnutrition, was POA CKD 3 hypothyoridism weakness, and debility, c Problems Medical Problems: (1) Right heart failure Status: Acute Brief Hospital Course Allergies Allergies Coded Allergies Type Severity Reaction Last Updated Verified Penicillins Allergy Intermediate Rash 11/07/16 Yes codeine Adverse Reaction Mild 11/07/16 Yes Brief Hospital Course Ms. Whitley is a 72 old admit with acute dyspnea, CHF better with diuresis, tx palliative care discussed, pt would like home health, try PT and OT and 6 min walk. Physiatry consulted, ordered roller walker with seat she is FULL code, discussed, and she is willing to do advance directiv pulm consulted, steroids taper duoneb, cont home meds dvt ppx PTOT Discharge Information Condition at Discharge: Improved Follow Up: Weeks Disposition/Orders: D/C to Home w/ HH Scheduled Aspirin (Aspirin Ec), 81 MG PO DAILYWBKFT Diltiazem Hcl (Cardizem Cd), 1 CAP PO DAILY Doxazosin Mesylate (Doxazosin Mesylate), 1 TAB PO DAILY, (Reported) Ezetimibe (Zetia), 10 MG PO HS, (Reported) Furosemide (Lasix), 1 TAB PO DAILY, (Reported) Ipratropium/Albuterol Sulfate (Duoneb 0.5-3(2.5) Mg/3 Ml), 3 ML NEB BID Levothyroxine Sodium (Synthroid), 1 TAB PO DAILY Pantoprazole Sodium (Protonix), 1 TAB PO DAILY, (Reported) Potassium Chloride (Potassium Chloride), 20 MEQ PO DAILY, (Reported) Prednisone (Prednisone), 10 MG PO UD Tramadol Hcl (Tramadol Hcl), 1 TAB PO PRN Q6HRS, (Reported) Scheduled PRN Acetaminophen (Tylenol), 2 TAB PO PRN Q6HRS PRN for FEVER, (Reported) Alprazolam (Alprazolam), 0.5 MG PO PRN Q8HRS PRN for ANXIETY / AGITATION Docusate Sodium (Docusate Sodium), 1 CAP PO DAILY PRN for CONSTIPATION, ( Reported) Miscellaneous Medications Pirfenidone (Esbriet), 801 MG PO, (Reported) Patient Instructions Patient Instructions close f.u high risk of readmit CLAUS SEPULVEDA MD Feb 12, 2017 01:29
== END 2017-01-29 17:31 | disposition home health service (06) | DRG 189 ==
LOC: ER 13:47 → 4 NORTH 15:55
PROVIDERS: ADMIT Internal Medicine; ATTEND Internal Medicine
DX: J96.21 Acute and chronic respiratory failure with hypoxia (principal); I50.31 Acute diastolic (congestive) heart failure; R40.3 Persistent vegetative state; I31.3 Pericardial effusion (noninflammatory); J84.10 Pulmonary fibrosis, unspecified; E44.1 Mild protein-calorie malnutrition; I27.81 Cor pulmonale (chronic); I13.0 Hypertensive heart and chronic kidney disease with heart failure and stage 1 through stage 4 chronic kidney disease, or unspecified chronic kidney disease; Z99.81 Dependence on supplemental oxygen; I48.2 Chronic atrial fibrillation; E87.6 Hypokalemia; F32.9 Major depressive disorder, single episode, unspecified; I07.1 Rheumatic tricuspid insufficiency; F41.9 Anxiety disorder, unspecified; E78.5 Hyperlipidemia, unspecified; N18.3 Chronic kidney disease, stage 3 (moderate); M19.90 Unspecified osteoarthritis, unspecified site; M54.5 Low back pain; R05 Cough; K21.9 Gastro-esophageal reflux disease without esophagitis; E03.9 Hypothyroidism, unspecified; E78.00 Pure hypercholesterolemia, unspecified; Z88.6 Allergy status to analgesic agent; Z88.0 Allergy status to penicillin; Z82.49 Family history of ischemic heart disease and other diseases of the circulatory system; Z68.24 Body mass index [BMI] 24.0-24.9, adult; Z51.5 Encounter for palliative care
CPT/HCPCS: 36415; 71010; 80048; 80053; 85025; 93005; 94250; 94640; 94760; J1160; J1650; J1940; J2930; J3490; J7620; 99285-25

== ENCOUNTER 2017-02-01 13:24 | Inpatient (IN) | payer MEDICARE ==
[2017-02-01] VITALS (8 sets, daily range): BP systolic 83–116; BP diastolic 62–72
[~2017-02-01] VITALS: Ht 167.6 cm; Wt 68.5 kg
[~2017-02-01 13:24] MED LIST changes: +ALPR0.5T6 PO; +IPRA3AMP NEB; +PRED-220 PO
[2017-02-01] MEDS ORDERED: ALBUTEROL SULFATE 2.5 MG/3 ML NEBU. CONT NEB ONE (13:30)
[2017-02-01] MEDS ORDERED: IPRATROPIUM BROMIDE 0.5 MG/2.5 ML NEBU. NEB ONE (13:30)
[2017-02-01] MEDS ORDERED: dilTIAZem IV PUSH 25 MG/5 ML VIAL IVP ONE (13:45)
[2017-02-01 13:50] LABS: BASO % 0 % (0-3); EOS % 0 % (0-3); HEMOGLOBIN 15.4 g/dL (12.0-15.5); LYMPH # 2.6 x10^3/uL (1.0-4.8); LYMPH % 20 % (24-48); MEAN CORPUSCULAR HEMOGLOBIN 29 pg (25-35); MEAN CORPUSCULAR HGB CONC 32 g/dL (31-37); MEAN CORPUSCULAR VOLUME 89 fL (79-100); MONO % 6 % (0-9); NEUT % 75 % (31-73); PLATELET COUNT 257 x10^3/uL (140-400); RED BLOOD COUNT 5.37 x10^6/uL (3.50-5.40); RED CELL DISTRIBUTION WIDTH 16.6 % (11.5-14.5)
[2017-02-01 13:56] LABS: INR 1.2 (0.8-1.1); PROTHROMBIN TIME PATIENT 14.6 SEC (11.7-14.0)
--- NOTE | 2017-02-01 14:01 | PHYS DOC ---
Past Medical History Past Medical History: CHF, High Cholesterol, Hypertension, Other Additional Past Medical Histor: pulmonary fibrosis, o2 dependent Past Surgical History: No Surgical History Alcohol Use: None Drug Use: None Adult General Chief Complaint Chief Complaint: DYSPNEA/RESPIRATOY DISTRESS HPI HPI Patient is a 71 year old AA female who presents with acute respiratory distress with respiratory failure. Patient was treated for congestive heart failure and interstitial fibrosis with Cho tachyarrhythmia released from the hospital with the past 2 weeks. She has gradually become short of breath over the past few days with rapid progression past few hours. EMS was contacted and upon their arrival, patient is in respiratory distress with a respiratory rate of mid 40s and heart heart rate in the 150s, and O2 saturation in the low 80s on 7 L by nasal cannula. Patient is unable to speak shortness of breath. Patient was placed on CPAP and transferred to the emergency department. No IV was established medications administered prior to ED arrival. Review of Systems Review of Systems Review symptoms as prescribed. Limited review symptoms as prescribed. Current Medications Current Medications Current Medications Medications (Trade) Dose Ordered Sig/Traci Start Time Stop Time Status Last Admin Dose Admin Albuterol Sulfate (Ventolin Neb Soln) 10 mg 1X ONCE 02/01/17 13:30 02/01/17 13:35 DC 02/01/17 14:01 5 MG Diltiazem HCl (Cardizem) 10 mg 1X ONCE 02/01/17 13:45 02/01/17 13:46 DC 02/01/17 14:00 10 MG Diltiazem HCl 125 mg/Dextrose 125 ml @ 0 mls/hr CONT PRN 02/01/17 13:45 02/01/17 14:04 5 MLS/HR Furosemide (Lasix) 40 mg 1X ONCE 02/01/17 15:00 02/01/17 15:01 DC 02/01/17 15:05 40 MG Ipratropium Girard (Atrovent) 0.5 mg 1X ONCE 02/01/17 13:30 02/01/17 13:35 DC 02/01/17 13:30 0.5 MG Allergies Allergies Allergies Coded Allergies Type Severity Reaction Last Updated Verified Penicillins Allergy Intermediate Rash 11/07/16 Yes codeine Adverse Reaction Mild 11/07/16 Yes Physical Exam Physical Exam Constitutional: Well developed, respiratory distress with respiratory failure, Tripoding on CPAP. [] HENT: Normocephalic, atraumatic, bilateral external ears normal, oropharynx moist, no oral exudates, nose normal. [] Eyes: PERRL. [] Neck: Normal range of motion. [] Cardiovascular: Tachycardic, 1+ pedal edema.[] Lungs & Thorax: Anxious, pursed lip breathing, sitting upright hypoxic position while on BiPAP. Respirations labored, tripoding, diminished breath sounds bilaterally with coarse rales throughout lung rodriguez,[] Abdomen: Bowel sounds normal. [] Skin: Warm, dry. [] Back: No tenderness. [] Extremities: No tenderness. Negative Homans signs.[] Neurologic: Alert and oriented X 3, normal motor function, normal sensory function, no focal deficits noted. [] Psychologic: Affect, anxious. [] Current Patient Data Vital Signs Vital Signs Date Time Temp Pulse Resp B/P (MAP) Pulse Ox O2 Delivery O2 Flow Rate FiO2 02/01/17 14:25 116 92/77 (82) 02/01/17 13:55 93 BiPAP/CPAP 02/01/17 13:24 98.0 30 98.0 Lab Values Laboratory Tests Test 02/01/17 13:29 02/01/17 13:37 O2 Saturation 94 % (92-99) Arterial Blood pH 7.46 (7.35-7.45) H Arterial Blood pCO2 at Patient Temp 33 mmHg (35-46) L Arterial Blood pO2 at Patient Temp 74 mmHg (65-108) Arterial Blood HCO3 23 mmol/L (21-28) Arterial Blood Base Excess 0 mmol/L (-3-3) FiO2 50 White Blood Count 13.0 x10^3/uL (4.0-11.0) H Red Blood Count 5.37 x10^6/uL (3.50-5.40) Hemoglobin 15.4 g/dL (12.0-15.5) Hematocrit 48.0 % (36.0-47.0) H Mean Corpuscular Volume 89 fL (79-100) Mean Corpuscular Hemoglobin 29 pg (25-35) Mean Corpuscular Hemoglobin Concent 32 g/dL (31-37) Red Cell Distribution Width 16.6 % (11.5-14.5) H Platelet Count 257 x10^3/uL (140-400) Neutrophils (%) (Auto) 75 % (31-73) H Lymphocytes (%) (Auto) 20 % (24-48) L Monocytes (%) (Auto) 6 % (0-9) Eosinophils (%) (Auto) 0 % (0-3) Basophils (%) (Auto) 0 % (0-3) Neutrophils # (Auto) 9.7 x10^3uL (1.8-7.7) H Lymphocytes # (Auto) 2.6 x10^3/uL (1.0-4.8) Monocytes # (Auto) 0.7 x10^3/uL (0.0-1.1) Eosinophils # (Auto) 0.0 x10^3/uL (0.0-0.7) Basophils # (Auto) 0.0 x10^3/uL (0.0-0.2) Prothrombin Time 14.6 SEC (11.7-14.0) H Prothrombin Time INR 1.2 (0.8-1.1) H Sodium Level 140 mmol/L (136-145) Potassium Level 5.9 mmol/L (3.5-5.1) H Chloride Level 101 mmol/L (98-107) Carbon Dioxide Level 28 mmol/L (21-32) Anion Gap 11 (6-14) Blood Urea Nitrogen 29 mg/dL (7-20) H Creatinine 1.0 mg/dL (0.6-1.0) Estimated GFR (Cockcroft-Gault) 66.3 BUN/Creatinine Ratio 29 (6-20) H Glucose Level 117 mg/dL (70-99) H Calcium Level 9.7 mg/dL (8.5-10.1) Total Bilirubin 1.3 mg/dL (0.2-1.0) H Aspartate Amino Transferase (AST) 48 U/L (15-37) H Alanine Aminotransferase (ALT) 59 U/L (14-59) Alkaline Phosphatase 115 U/L (46-116) Troponin I Quantitative 0.096 ng/mL (0.000-0.055) NT-Mgf-Z-Type Natriuretic Peptide > 69064 pg/mL (0-124) H Total Protein 6.9 g/dL (6.4-8.2) Albumin 3.8 g/dL (3.4-5.0) Albumin/Globulin Ratio 1.2 (1.0-1.7) Laboratory Tests 02/01/17 13:37 Laboratory Tests 02/01/17 13:37 EKG EKG [EKG: A flutter, rate 146. ] Radiology/Procedures Radiology/Procedures [Chest XR: Chronic interstitial lung disease with possible superimposed infection and cardiomegaly on preliminary ED read. ] Course & Med Decision Making Course & Med Decision Making Pertinent Labs and Imaging studies reviewed. (See chart for details) [Patient transition from CPAP to BiPAP, nebs, steroids given with aggressive pulmonary toilet. Patient started on Cardizem drip for rate control of aflutter.Dr. Jorgensen in the ED for admission and discuss treatment options. Cardiology services consult for congestive heart failure. IV Lasix given. Patient will be admitted to the ICU in guarded condition. ] Dragon Disclaimer Dragon Disclaimer This electronic medical record was generated, in whole or in part, using a voice recognition dictation system. Departure Departure Impression: Primary Impression: Atrial flutter Additional Impressions: Congestive heart failure Pulmonary fibrosis Disposition: ADMITTED INPATIENT Admitting Physician: Joseluis Jorgensen Condition: GUARDED Referrals: BOYD BRITO MD (PCP) Problem Qualifiers NIECYTJ CUADRA Feb 01, 2017 14:01
[2017-02-01 14:04] LABS: CALCIUM 9.7 mg/dL (8.5-10.1); GFR 66.3; POTASSIUM 5.9 mmol/L (3.5-5.1)
[2017-02-01 14:09] LABS: ALBUMIN 3.8 g/dL (3.4-5.0); ALBUMIN/GLOBULIN RATIO 1.2 (1.0-1.7); TOTAL BILIRUBIN 1.3 mg/dL (0.2-1.0); TOTAL PROTEIN 6.9 g/dL (6.4-8.2)
[2017-02-01 14:25] LABS: HCO3 ABG 23 mmol/L (21-28); PCO2 ABG 33 mmHg (35-46); PH ABG 7.46 (7.35-7.45); PO2 ABG 74 mmHg (65-108); SAT O2 ABG 94 % (92-99)
[2017-02-01 14:27] LABS: FIO2 ABG 50
[2017-02-01] MEDS ORDERED: FUROSEMIDE 40 MG/4 ML VIAL. IVP ONE (15:00)
--- NOTE | 2017-02-01 15:05 | EKG ---
[facility] [address] [place] [address] Test Date: 2017-01-27 Test Time: 14:14:17 Pat Name: RYLEE PONCE Department: Room: Gender: F Hay Sorter: : 1945 Requested By: TJ PEMBERTON Order Number: [id number] Reading MD: Janie Grayson Measurements Intervals [place] Rate: 96 P: 37 ME: 148 QRS: -137 QRSD: 106 T: -18 QT: 404 QTc: 518 Interpretive Statements SINUS RHYTHM ABNORMAL RIGHT SUPERIOR AXIS DEVIATION INCOMPLETE RIGHT BUNDLE BRANCH BLOCK RIGHT VENTRICULAR HYPERTROPHY PROLONGED QT ABNORMAL ECG Electronically Signed On 02-02-2017 10:21:26 CDT by Janie Grayson
--- NOTE | 2017-02-01 15:06 | RAD ---
Indication shortness of air. A single view of the chest was obtained. Comparison is made to an examination 5 days earlier. Note is made of a CT examination of the chest 01/24/2017. There are extensive fibrotic changes similar to the previous exam. Heart and pulmonary vessels are similar. A consolidated pneumonia is not seen. There has not, overall, been a significant change in the appearance of the chest relative to the previous exam. IMPRESSION: Chronic changes. No acute finding seen. No significant change
[2017-02-01] MEDS ORDERED: DOCUSATE SODIUM 100 MG CAPSULE. PO PRN (15:15)
[2017-02-01] MEDS ORDERED: ACETAMINOPHEN 325 MG TABLET. PO PRN (15:15)
[2017-02-01] MEDS ORDERED: traMADol 50 MG TABLET PO PRN (15:15)
--- NOTE | 2017-02-01 15:29 | PDOC ---
MAI TURNER AUTOMATED MANUFACTURING INSTRUCTOR 02/01/17 1529: CARDIO Progress Notes Date and Time Date of Service 02/01/2017 Time of Evaluation 1500 Subjective Subjective: No Chest Pain, Other (reports of palpitations, dizziness, and SOA at home) Vitals Vitals Vital Signs Date Time Temp Pulse Resp B/P (MAP) Pulse Ox O2 Delivery O2 Flow Rate FiO2 02/01/17 14:25 116 92/77 (82) 02/01/17 13:55 93 BiPAP/CPAP 02/01/17 13:24 98.0 30 98.0 Weight Weight [ ] Laboratory Labs Laboratory Tests Test 02/01/17 13:29 02/01/17 13:37 O2 Saturation 94 % (92-99) Arterial Blood pH 7.46 (7.35-7.45) Arterial Blood pCO2 at Patient Temp 33 mmHg (35-46) Arterial Blood pO2 at Patient Temp 74 mmHg (65-108) Arterial Blood HCO3 23 mmol/L (21-28) Arterial Blood Base Excess 0 mmol/L (-3-3) FiO2 50 White Blood Count 13.0 x10^3/uL (4.0-11.0) Red Blood Count 5.37 x10^6/uL (3.50-5.40) Hemoglobin 15.4 g/dL (12.0-15.5) Hematocrit 48.0 % (36.0-47.0) Mean Corpuscular Volume 89 fL (79-100) Mean Corpuscular Hemoglobin 29 pg (25-35) Mean Corpuscular Hemoglobin Concent 32 g/dL (31-37) Red Cell Distribution Width 16.6 % (11.5-14.5) Platelet Count 257 x10^3/uL (140-400) Neutrophils (%) (Auto) 75 % (31-73) Lymphocytes (%) (Auto) 20 % (24-48) Monocytes (%) (Auto) 6 % (0-9) Eosinophils (%) (Auto) 0 % (0-3) Basophils (%) (Auto) 0 % (0-3) Neutrophils # (Auto) 9.7 x10^3uL (1.8-7.7) Lymphocytes # (Auto) 2.6 x10^3/uL (1.0-4.8) Monocytes # (Auto) 0.7 x10^3/uL (0.0-1.1) Eosinophils # (Auto) 0.0 x10^3/uL (0.0-0.7) Basophils # (Auto) 0.0 x10^3/uL (0.0-0.2) Prothrombin Time 14.6 SEC (11.7-14.0) Prothromb Time International Ratio 1.2 (0.8-1.1) Sodium Level 140 mmol/L (136-145) Potassium Level 5.9 mmol/L (3.5-5.1) Chloride Level 101 mmol/L (98-107) Carbon Dioxide Level 28 mmol/L (21-32) Anion Gap 11 (6-14) Blood Urea Nitrogen 29 mg/dL (7-20) Creatinine 1.0 mg/dL (0.6-1.0) Estimated GFR (Cockcroft-Gault) 66.3 BUN/Creatinine Ratio 29 (6-20) Glucose Level 117 mg/dL (70-99) Calcium Level 9.7 mg/dL (8.5-10.1) Total Bilirubin 1.3 mg/dL (0.2-1.0) Aspartate Amino Transf (AST/SGOT) 48 U/L (15-37) Alanine Aminotransferase (ALT/SGPT) 59 U/L (14-59) Alkaline Phosphatase 115 U/L (46-116) Troponin I Quantitative 0.096 ng/mL (0.000-0.055) ZN-Vvl-R-Type Natriuretic Peptide > 66384 pg/mL (0-124) Total Protein 6.9 g/dL (6.4-8.2) Albumin 3.8 g/dL (3.4-5.0) Albumin/Globulin Ratio 1.2 (1.0-1.7) Physical Exam HEENT: Neck Supple W Full Motion Chest: Symmetric LUNGS: Other (basialr crackles) Heart: irregularly irregular (Atrial flutter with variable conduction RVR) Abdomen: Soft N/T Extremities: No Calf Tenderness, Other (3+ bilateral LE pitting edema) Neurology: alert, oriented, follow commands Assessment Assessment This is a pleasant 71 yo female admitted for complains of SOA, lightheadedness and palpitations. Multiple admission recently with noted tachyarrhythmias and CHF and respiratory failure. Was not able to confirm afib/flutter till this time and with recent event monitor. Presently on Bipap and a little better with her SOA. Denies any CP, no passing out. She has been taking her medications regularly after she was discharge on 01/29/2017. 1. Acute on chronic diastolic CHF: combination of pulmonary issues and arrhythmia 2. Paroxysmal Atrial flutter with RVR: Brief record from event monitor noted with this rhythm and upon admission in ED. 3. Acute on chronic respiratory failure with underlying pulmonary fibrosis/ severe pulmonary HTN with chronic O2 use 4. Hypothyroidism 5. HTN: controlled 6. HLP 7. SHELBY/hyperkalemia: prerenal. Recommendations 1. Continue with cardizem drip. Titrate for rate control. Dig IV x1. Start on eliquis. Kayexelate x1 2. Continue on bipap. Lasix therapy. 3. Continue with secondary prevention. 4. Consult pulmonary ONEL MIDDLETON MD 02/01/17 1643: CARDIO Progress Notes Assessment Assessment Patient seen and examined. Agree with RESIDENTIAL FIELD MANAGER's assessment and plan. Continue Lasix for acute on chronic diastolic heart failure. Continue Cardizem and add digoxin for better rate control of atrial fib/flutter Pulm team consulted for pulm fibrosis/pulm htn Thank you for your consultation. MAI TURNER APRN Feb 01, 2017 15:29 ONEL MIDDLETON MD Feb 01, 2017 16:43
[2017-02-01] MEDS ORDERED: ONDANSETRON PF 4 MG/2 ML VIAL. IV PRN (15:30)
[2017-02-01] MEDS ORDERED: SODIUM POLYSTYRENE SULFONATE 15 GM/60 ML ORAL.SUSP. PO ONE (15:30)
[2017-02-01] MEDS ORDERED: DIGOXIN IV 500 MCG/2 ML AMPUL. IV ONE (15:30)
--- NOTE | 2017-02-01 15:37 | HP ---
ADMIT DATE: 02/01/2017 CHIEF COMPLAINT: Shortness of breath. HISTORY OF PRESENT ILLNESS: The patient is a pleasant 71-year-old female who has end-stage pulmonary disease. She quit smoking 25 years ago, but seems to have an element of COPD and pulmonary fibrosis and CHF. Today, she presents with acute respiratory failure. She is on BiPAP. I have discussed the case with the ER physician and the family. We are going admit the patient and consult pulmonary medicine. PAST MEDICAL HISTORY: Chronic respiratory failure, CHF, hypertension, pulmonary fibrosis, O2 dependent. ALLERGIES: PENICILLIN AND CODEINE. FAMILY HISTORY: Diabetes. SOCIAL HISTORY: She quit smoking 25 years ago. No drinking or drugs. MEDICATIONS: Reviewed. REVIEW OF SYSTEMS: Unobtainable, the patient is too weak. PHYSICAL EXAMINATION: VITAL SIGNS: Temperature afebrile, pulse 150, respirations 30, blood pressure is 126/81, O2 sat 100% on BiPAP. GENERAL: She is alert, cooperative. Her and son are present. HEART: Tachycardic, S1, S2. LUNGS: Diminished. ABDOMEN: Soft. EXTREMITIES: No edema. SKIN: No rashes. PSYCHIATRIC: She is depressed. VASCULAR: Good capillary refill. ENDOCRINE: No thyromegaly. LYMPHATICS: No cervical nodes. HEMATOPOIETIC: No bruising. LABORATORY DATA: White count 13, hemoglobin 15, platelets 257. Electrolytes: Sodium 140, potassium 5.9, chloride 101, bicarbonate 20, BUN 29, creatinine 1, glucose 117. BNP 35,000. Troponin 0.096. ASSESSMENT AND PLAN: Acute on chronic respiratory failure with hyperkalemia, elevated transaminases with an AST of 48, severe acute on chronic systolic and diastolic heart failure with a BNP of 35,000 and mild dehydration. The patient is being admitted. We will try to give her gentle IV fluids. We have to be careful because of her heart failure, might have to diurese her, DuoNebs, IV antibiotics, breathing treatments, oxygen, consult Pulmonary, consult Cardiology. Frequent labs, ICU monitoring. I discussed whether the patient should be intubated with the family. They are considering their options, they are considering making her comfort care, but we will await their decision. AGUEDA MALHOTRA DO DR: CATHERINE/bird JOB#: [id number] / [id number]
[2017-02-01] MEDS: PANTOPRAZOLE 40 MG TABLET.DR. PO SCH (16:30)
--- NOTE | 2017-02-01 17:28 | PDOC ---
PULMONARY PROGRESS NOTES Vitals Vital Signs Date Time Temp Pulse Resp B/P (MAP) Pulse Ox O2 Delivery O2 Flow Rate FiO2 02/01/17 16:16 106 111/66 (81) 02/01/17 15:14 95 BiPAP/CPAP 02/01/17 13:24 98.0 30 98.0 General: Alert Lungs: Crackles Cardiovascular: S1, S2 Abdomen: Soft, Non-tender Extremities: Other Labs Laboratory Tests Test 02/01/17 13:29 02/01/17 13:32 02/01/17 13:37 O2 Saturation 94 % (92-99) Arterial Blood pH 7.46 (7.35-7.45) Arterial Blood pCO2 at Patient Temp 33 mmHg (35-46) Arterial Blood pO2 at Patient Temp 74 mmHg (65-108) Arterial Blood HCO3 23 mmol/L (21-28) Arterial Blood Base Excess 0 mmol/L (-3-3) FiO2 50 Lactic Acid Level 2.8 mmol/L (0.4-2.0) White Blood Count 13.0 x10^3/uL (4.0-11.0) Red Blood Count 5.37 x10^6/uL (3.50-5.40) Hemoglobin 15.4 g/dL (12.0-15.5) Hematocrit 48.0 % (36.0-47.0) Mean Corpuscular Volume 89 fL (79-100) Mean Corpuscular Hemoglobin 29 pg (25-35) Mean Corpuscular Hemoglobin Concent 32 g/dL (31-37) Red Cell Distribution Width 16.6 % (11.5-14.5) Platelet Count 257 x10^3/uL (140-400) Neutrophils (%) (Auto) 75 % (31-73) Lymphocytes (%) (Auto) 20 % (24-48) Monocytes (%) (Auto) 6 % (0-9) Eosinophils (%) (Auto) 0 % (0-3) Basophils (%) (Auto) 0 % (0-3) Neutrophils # (Auto) 9.7 x10^3uL (1.8-7.7) Lymphocytes # (Auto) 2.6 x10^3/uL (1.0-4.8) Monocytes # (Auto) 0.7 x10^3/uL (0.0-1.1) Eosinophils # (Auto) 0.0 x10^3/uL (0.0-0.7) Basophils # (Auto) 0.0 x10^3/uL (0.0-0.2) Prothrombin Time 14.6 SEC (11.7-14.0) Prothromb Time International Ratio 1.2 (0.8-1.1) Sodium Level 140 mmol/L (136-145) Potassium Level 5.9 mmol/L (3.5-5.1) Chloride Level 101 mmol/L (98-107) Carbon Dioxide Level 28 mmol/L (21-32) Anion Gap 11 (6-14) Blood Urea Nitrogen 29 mg/dL (7-20) Creatinine 1.0 mg/dL (0.6-1.0) Estimated GFR (Cockcroft-Gault) 66.3 BUN/Creatinine Ratio 29 (6-20) Glucose Level 117 mg/dL (70-99) Calcium Level 9.7 mg/dL (8.5-10.1) Magnesium Level 2.1 mg/dL (1.8-2.4) Total Bilirubin 1.3 mg/dL (0.2-1.0) Aspartate Amino Transf (AST/SGOT) 48 U/L (15-37) Alanine Aminotransferase (ALT/SGPT) 59 U/L (14-59) Alkaline Phosphatase 115 U/L (46-116) Troponin I Quantitative 0.096 ng/mL (0.000-0.055) ET-Evw-F-Type Natriuretic Peptide > 77971 pg/mL (0-124) Total Protein 6.9 g/dL (6.4-8.2) Albumin 3.8 g/dL (3.4-5.0) Albumin/Globulin Ratio 1.2 (1.0-1.7) Laboratory Tests Test 02/01/17 13:29 02/01/17 13:32 02/01/17 13:37 O2 Saturation 94 % (92-99) Arterial Blood pH 7.46 (7.35-7.45) Arterial Blood pCO2 at Patient Temp 33 mmHg (35-46) Arterial Blood pO2 at Patient Temp 74 mmHg (65-108) Arterial Blood HCO3 23 mmol/L (21-28) Arterial Blood Base Excess 0 mmol/L (-3-3) FiO2 50 Lactic Acid Level 2.8 mmol/L (0.4-2.0) White Blood Count 13.0 x10^3/uL (4.0-11.0) Red Blood Count 5.37 x10^6/uL (3.50-5.40) Hemoglobin 15.4 g/dL (12.0-15.5) Hematocrit 48.0 % (36.0-47.0) Mean Corpuscular Volume 89 fL (79-100) Mean Corpuscular Hemoglobin 29 pg (25-35) Mean Corpuscular Hemoglobin Concent 32 g/dL (31-37) Red Cell Distribution Width 16.6 % (11.5-14.5) Platelet Count 257 x10^3/uL (140-400) Neutrophils (%) (Auto) 75 % (31-73) Lymphocytes (%) (Auto) 20 % (24-48) Monocytes (%) (Auto) 6 % (0-9) Eosinophils (%) (Auto) 0 % (0-3) Basophils (%) (Auto) 0 % (0-3) Neutrophils # (Auto) 9.7 x10^3uL (1.8-7.7) Lymphocytes # (Auto) 2.6 x10^3/uL (1.0-4.8) Monocytes # (Auto) 0.7 x10^3/uL (0.0-1.1) Eosinophils # (Auto) 0.0 x10^3/uL (0.0-0.7) Basophils # (Auto) 0.0 x10^3/uL (0.0-0.2) Prothrombin Time 14.6 SEC (11.7-14.0) Prothromb Time International Ratio 1.2 (0.8-1.1) Sodium Level 140 mmol/L (136-145) Potassium Level 5.9 mmol/L (3.5-5.1) Chloride Level 101 mmol/L (98-107) Carbon Dioxide Level 28 mmol/L (21-32) Anion Gap 11 (6-14) Blood Urea Nitrogen 29 mg/dL (7-20) Creatinine 1.0 mg/dL (0.6-1.0) Estimated GFR (Cockcroft-Gault) 66.3 BUN/Creatinine Ratio 29 (6-20) Glucose Level 117 mg/dL (70-99) Calcium Level 9.7 mg/dL (8.5-10.1) Magnesium Level 2.1 mg/dL (1.8-2.4) Total Bilirubin 1.3 mg/dL (0.2-1.0) Aspartate Amino Transf (AST/SGOT) 48 U/L (15-37) Alanine Aminotransferase (ALT/SGPT) 59 U/L (14-59) Alkaline Phosphatase 115 U/L (46-116) Troponin I Quantitative 0.096 ng/mL (0.000-0.055) WM-Mxj-I-Type Natriuretic Peptide > 72722 pg/mL (0-124) Total Protein 6.9 g/dL (6.4-8.2) Albumin 3.8 g/dL (3.4-5.0) Albumin/Globulin Ratio 1.2 (1.0-1.7) Medications Active Scripts Medications Dose Route/Sig Max Daily Dose Days Date Category Dose Instructions Prednisone 10 Mg Tablet 10 Mg PO UD 01/29/17 Rx Take 3 tablets by mouth twice a day for 3 days, then take 2 tablets by mouth twice a day for 3 days, then take 1 tablet by mouth twice a day for 3 days, then take 1 tablet by mouth daily x 3 days, then stop. Duoneb 0.5-3(2.5) Mg/3 Ml (Albuterol/Ipratropium) 3 Ml Ampul.neb 3 Ml NEB BID 01/29/17 Rx Alprazolam 0.5 Mg Tablet 0.5 Mg PO PRN Q8HRS PRN 01/29/17 Rx Tramadol Hcl 50 Mg Tablet 1 Tab PO PRN Q6HRS 01/26/17 Reported Protonix (Pantoprazole Sodium) 40 Mg Tablet.dr 1 Tab PO DAILY 01/26/17 Reported Tylenol (Acetaminophen) 325 Mg Tablet 2 Tab PO PRN Q6HRS PRN 01/26/17 Reported Docusate Sodium 100 Mg Capsule 1 Cap PO DAILY PRN 01/26/17 Reported Synthroid (Levothyroxine Sodium) 100 Mcg Tablet 1 Tab PO DAILY 01/25/17 Rx Cardizem Cd (Diltiazem Hcl) 180 Mg Cap.er.24h 1 Cap PO DAILY 01/25/17 Rx Doxazosin Mesylate 2 Mg Tablet 1 Tab PO DAILY 01/23/17 Reported Lasix (Furosemide) 40 Mg Tablet 1 Tab PO DAILY 01/23/17 Reported Potassium Chloride 20 Meq Tablet.er 20 Meq PO DAILY 01/23/17 Reported Aspirin Ec (Aspirin) 81 Mg Tablet.dr 81 Mg PO DAILYWBKFT 30 11/08/16 Rx Esbriet (Pirfenidone) 801 Mg Tablet 801 Mg PO 11/06/16 Reported Zetia (Ezetimibe) 10 Mg Tablet 10 Mg PO HS 02/19/14 Reported Impression . a/c resp failure/IPF/ILD a/c corpulmonale Rapid afib with RVR see orders thanks JEAN HINTON MD Feb 01, 2017 17:28
[2017-02-01] MEDS: NON FORMULARY ITEM PO SCH (18:18)
[2017-02-01] MEDS: IPRATRPIUM/ALBUTEROL 0.5/2.5MG 3 ML NEBU. NEB SCH (19:35)
[2017-02-01] MEDS: EZETIMIBE 10 MG TABLET. PO SCH (20:58)
[2017-02-01] MEDS: APIXABAN 5 MG TABLET. PO SCH (20:59)
[2017-02-01] MEDS: IV NORMAL SALINE 1000ML BAG 1,000 ML IV SCH (21:35)
[2017-02-02] VITALS (22 sets, daily range): BP systolic 92–138; BP diastolic 61–85
--- NOTE | 2017-02-02 00:15 | CONS ---
DATE OF CONSULTATION: 02/01/2017 ATTENDING PHYSICIAN: Dr. Jorgensen. CONSULTING PHYSICIAN: Dr. Hinton. REASON FOR CONSULTATION: The patient is seen in pulmonary consultation at the request of Dr. Jorgensen for [id number]-[id number] respiratory failure. HISTORY OF PRESENT ILLNESS: The patient has a history of pulmonary fibrosis/interstitial lung disease, on chronic oxygen supplementation. She presented with increasing shortness of breath, unable to obtain an O2 sat at home. EMS arrived at the patient's house and found to have respiratory distress. Heart rate in 150s. O2 saturation was in low 80s on 7 liters of oxygen. The patient was transferred to the Emergency Department on CPAP. She is currently in the intensive care unit. She is requiring high flow oxygen. Her heart rate is elevated. She does have a history of rapid a-fib with rapid ventricular response. The patient denies any current chest pain. She is more short of breath than usual, cough, mostly nonproductive. PAST MEDICAL HISTORY: 1. Otherwise remarkable for chronic respiratory failure secondary to IPF/interstitial lung disease. 2. Hypertension, secondary pulmonary hypertension with previous pulmonary artery pressures documented 59 mmHg chronic cor pulmonale. 3. Hyperlipidemia. 4. Systemic hypertension. 5. Gastroesophageal reflux. 6. Chronic AFib. 7. Hypothyroidism. 8. Anxiety/depression. PAST SURGICAL HISTORY: No recent major surgeries. ALLERGIES: PENICILLIN, CODEINE. MEDICATIONS: List was reviewed. Please see the MRAD. CURRENT MEDICATION: List was likewise reviewed. Please see the MRAD. REVIEW OF SYSTEMS: As indicated above, otherwise, a 10-point system was reviewed and negative. SOCIAL HISTORY: She denies smoking, no alcoholism. PHYSICAL EXAMINATION: GENERAL: The patient was in the intensive care unit, currently on 8 liters per nasal cannula. VITAL SIGNS: Saturations ranging anywhere between 93-95%. HEENT: Eyes, the sclerae were nonicteric. NECK: Jugular venous distention was not elevated. No lymphadenopathy. CHEST: Full expansion. LUNGS: Crackles as usual with no wheezes. CARDIOVASCULAR: Irregularly irregular rate and rhythm with S1, S2, no S3. ABDOMEN: Soft, nontender, nondistended. EXTREMITIES: No clubbing, cyanosis. Marked edema. LABORATORY DATA: White count was elevated. Hemoglobin and hematocrit were noted. Arterial blood gas was noted, pH of 7.46, PaCO2 of 33, pO2 of 74. INR was 1.2. Electrolytes were noted. BUN was elevated. Creatinine was normal. BNP was elevated. Troponin was elevated. Lactic acid initially was elevated at 2.8. IMPRESSION: 1. Xxqlv-xf-yroxvfa respiratory failure. 2. Atrial fibrillation with rapid ventricular response. 3. Acute exacerbation of interstitial lung disease. 4. Pbogm-jw-sfgmzrq cor pulmonale. 5. Hypothyroidism. 6. Hypertension. 7. Anxiety/depression. PLAN: 1. Recommend continue Cardizem drip. 2. Initiate BiPAP. 3. IV Lasix. 4. No need for antibiotics. 5. Continue anxiolytic. 6. DVT prophylaxis. 7. Nebulized treatments. 8. Home Esbriet. I do appreciate the privilege in sharing in the patient's care. JEAN HINTON MD DR: PHILLY/bird JOB#: [id number] / [id number]
[2017-02-02] MEDS: LEVOTHYROXINE 100 MCG TABLET PO SCH (06:16)
[2017-02-02] MEDS ORDERED: ASPIRIN ENTERIC COATED 81 MG TABLET.DR. PO SCH (08:00)
[2017-02-02] MEDS: IPRATRPIUM/ALBUTEROL 0.5/2.5MG 3 ML NEBU. NEB SCH (08:16)
[2017-02-02] MEDS: ANTI-COAG MONITOR BY PHARMACY. MC PRN (08:59)
[2017-02-02] MEDS ORDERED: FUROSEMIDE 40 MG/4 ML VIAL. IVP SCH (09:00)
[2017-02-02] MEDS: FUROSEMIDE 40 MG TABLET. PO SCH ×2 (09:00→09:03)
[2017-02-02] MEDS ORDERED: predniSONE 10 MG TABLET PO SCH (09:00)
[2017-02-02] MEDS: PANTOPRAZOLE 40 MG TABLET.DR. PO SCH (09:02)
[2017-02-02] MEDS: NON FORMULARY ITEM PO SCH ×3 (09:02→17:58)
[2017-02-02] MEDS: APIXABAN 5 MG TABLET. PO SCH ×2 (09:03→21:35)
--- NOTE | 2017-02-02 10:58 | PDOC2 ---
CONSULT Date of Consult Date of Consult DATE: 02/02/17 TIME: 10:53 Reason for Consult Reason for Consult: HIGH K AND AZOTEMIA Referring Physician Referring Physician: MARYA Identification/Chief Complaint Chief Complaint SOB Problems: Source Source: Chart review, Patient History of Present Illness Reason for Visit: THIS IS A 72 YR OLD ADMITTED WITH SOB. SHE HAS END STAGE LUNG DZ DUE TO COPD, ILD AND PULM FIBROSIS. BUN AND CR ARE 29 AND 1.0. HER K IS 5.9. SHE IS ON IV LASIX. LUNG ARE WITHOUT PULMONARY VASCULAR CONGESTION ON CXRAY Past Medical History Cardiovascular: AFIB, Hyperlipidemia Pulmonary: Other CENTRAL NERVOUS SYSTEM: Other GI: GERD Heme/Onc: No pertinent hx Hepatobiliary: No pertinent hx Psych: No pertinent hx Musculoskeletal: Osteoarthritis Rheumatologic: No pertinent hx Infectious disease: No pertinent hx Renal/: No pertinent hx Endocrine: No pertinent hx Past Surgical History Past Surgical History: No pertinent history Family History Family History: Heart Disease Social History ALCOHOL: none Drugs: None Lives: with Family Current Problem List Problem List Problems Medical Problems: (1) Atrial flutter Status: Acute (2) Congestive heart failure Status: Acute Current Medications Current Medications Current Medications Albuterol Sulfate (Ventolin Neb Soln) 10 mg 1X ONCE CONT NEB Last administered on 02/01/17 14:01; Start 02/01/17 at 13:30; Stop 02/01/17 at 13 :35; Status DC Ipratropium [place] (Atrovent) 0.5 mg 1X ONCE NEB Last administered on 13:30; Start 02/01/17 at 13:30; Stop 02/01/17 at 13:35; Status DC Diltiazem HCl 125 mg/Dextrose 125 ml @ 0 mls/hr CONT PRN IV SEE I/O RECORD Last administered on 02/01/17 14:04; Start 02/01/17 at 13:45 Diltiazem HCl (Cardizem) 10 mg 1X ONCE IVP Last administered on 02/01/17 14: 00; Start 02/01/17 at 13:45; Stop 02/01/17 at 13:46; Status DC Furosemide (Lasix) 40 mg 1X ONCE IVP Last administered on 02/01/17 15:05; Start 02/01/17 at 15:00; Stop 02/01/17 at 15:01; Status DC Acetaminophen (Tylenol) 650 mg PRN Q6HRS PRN PO FEVER; Start 02/01/17 at 15:15 Alprazolam (Xanax) 0.5 mg PRN Q8HRS PRN PO ANXIETY / AGITATION; Start at 15:15 Aspirin (Ecotrin) 81 mg DAILYWBKFT PO Last administered on 02/02/17 09:00; Start 02/02/17 at 08:00 Diltiazem HCl (Cardizem 24hr Cd) 180 mg DAILY PO Last administered on 09:03; Start 02/01/17 at 16:00 Docusate Sodium (Colace) 100 mg PRN DAILY PRN PO CONSTIPATION; Start 02/01/17 at 15:15 EZETIMIBE (Zetia) 10 mg HS PO Last administered on 02/01/17 20:58; Start 04/08 at 21:00 Furosemide (Lasix) 40 mg DAILY PO ; Start 02/02/17 at 09:00 Albuterol/ Ipratropium (Duoneb) 3 ml BID NEB Last administered on 02/02/17 08 :16; Start 02/01/17 at 21:00 Levothyroxine Sodium (Synthroid) 100 mcg DAILY07 PO Last administered on 06:16; Start 02/02/17 at 07:00 Pantoprazole Sodium (Protonix) 40 mg DAILY PO Last administered on 02/02/17 09:02; Start 02/01/17 at 16:30 Prednisone (Prednisone) 10 mg DAILY PO Last administered on 02/02/17 09:02; Start 02/02/17 at 09:00 Tramadol HCl (Ultram) 50 mg PRN Q6HRS PRN PO MILD TO MODERATE PAIN; Start 04/08 at 15:15 Apixaban (Eliquis) 5 mg BID PO Last administered on 02/02/17 09:03; Start at 21:00 Digoxin (Lanoxin) 500 mcg 1X ONCE IV Last administered on 02/01/17 15:55; Start 02/01/17 at 15:30; Stop 02/01/17 at 15:31; Status DC Ondansetron HCl (Zofran) 4 mg PRN Q8HRS PRN IV NAUSEA/VOMITING; Start at 15:30; Stop 02/02/17 at 15:29 Furosemide (Lasix) 40 mg DAILY IVP ; Start 02/02/17 at 09:00 Sodium Polystyrene Sulfonate (Kayexalate) 15 gm 1X ONCE PO Last administered on 02/01/17 16:15; Start 02/01/17 at 15:30; Stop 02/01/17 at 15:31; Status DC Non-Formulary Medication 3 ea TIDWMEALS PO Last administered on 02/02/17 09: 02; Start 02/01/17 at 18:00 Levofloxacin/ Dextrose 100 ml @ 100 mls/hr Q24H IV Last administered on 21:36; Start 02/01/17 at 22:00 Sodium Chloride 1,000 ml @ 50 mls/hr Q20H IV Last administered on 02/01/17 21:35; Start 02/01/17 at 21:15 Info (Anti-Coagulation Monitoring By Pharmacy) 1 each PRN DAILY PRN MC SEE COMMENTS Last administered on 02/02/17 08:59; Start 02/02/17 at 09:00 Active Scripts Active Prednisone 10 Mg Tablet 10 Mg PO UD Take 3 tablets by mouth twice a day for 3 days, then take 2 tablets by mouth twice a day for 3 days, then take 1 tablet by mouth twice a day for 3 days, then take 1 tablet by mouth daily x 3 days, then stop. Duoneb 0.5-3(2.5) Mg/3 Ml (Albuterol/Ipratropium) 3 Ml Ampul.neb 3 Ml NEB BID Alprazolam 0.5 Mg Tablet 0.5 Mg PO PRN Q8HRS PRN Synthroid (Levothyroxine Sodium) 100 Mcg Tablet 1 Tab PO DAILY Cardizem Cd (Diltiazem Hcl) 180 Mg Cap.er.24h 1 Cap PO DAILY Aspirin Ec (Aspirin) 81 Mg Tablet. 81 Mg PO DAILYWBKFT 30 Days Reported Tramadol Hcl 50 Mg Tablet 1 Tab PO PRN Q6HRS Protonix (Pantoprazole Sodium) 40 Mg Tablet. 1 Tab PO DAILY Tylenol (Acetaminophen) 325 Mg Tablet 2 Tab PO PRN Q6HRS PRN Docusate Sodium 100 Mg Capsule 1 Cap PO DAILY PRN Doxazosin Mesylate 2 Mg Tablet 1 Tab PO DAILY Lasix (Furosemide) 40 Mg Tablet 1 Tab PO DAILY Potassium Chloride 20 Meq Tablet.er 20 Meq PO DAILY Esbriet (Pirfenidone) 801 Mg Tablet 801 Mg PO Zetia (Ezetimibe) 10 Mg Tablet 10 Mg PO HS Allergies Allergies: Coded Allergies: Penicillins (Verified Allergy, Intermediate, Rash, 11/07/16) swelling codeine (Verified Adverse Reaction, Mild, 11/07/16) "too sleepy" ROS General: YES: Fatigue, Malaise PSYCHOLOGICAL ROS: YES: Anxiety Eyes: Yes Decreased vision HEENT: YES: Heacaches Respiratory: YES: Cough, Shortness of breath Gastrointestinal: Yes Constipation Genitourinary: YES Other (NOCTURIA) Neurological: Yes Dizziness, Yes Weakness Skin: Yes Dry Skin Physical Exam General: Alert, Oriented X3, Cooperative, No acute distress HEENT: Atraumatic, PERRLA Lungs: Other (FEW EXP WHEEZES) Heart: Regular rate Abdomen: Normal bowel sounds, Soft, No tenderness Extremities: No clubbing, No cyanosis Skin: No breakdown Neuro: Normal speech, Cranial nerves 3-12 NL Psych/Mental Status: Mental status NL, Mood NL MUSCULOSKELETAL: Other (DIFFUSE MUSCLE ATROPHY) Vitals VITALS Vital Signs Date Time Temp Pulse Resp B/P (MAP) Pulse Ox O2 Delivery O2 Flow Rate FiO2 02/02/17 09:44 30 94 Nasal Cannula 10.0 02/02/17 09:04 124 101/64 (76) 02/02/17 07:04 97.4 97.4 Labs Labs Laboratory Tests Test 02/01/17 13:29 02/01/17 13:32 02/01/17 13:37 02/01/17 16:35 O2 Saturation 94 % (92-99) Arterial Blood pH 7.46 (7.35-7.45) Arterial Blood pCO2 at Patient Temp 33 mmHg (35-46) Arterial Blood pO2 at Patient Temp 74 mmHg (65-108) Arterial Blood HCO3 23 mmol/L (21-28) Arterial Blood Base Excess 0 mmol/L (-3-3) FiO2 50 Lactic Acid Level 2.8 mmol/L (0.4-2.0) White Blood Count 13.0 x10^3/uL (4.0-11.0) Red Blood Count 5.37 x10^6/uL (3.50-5.40) Hemoglobin 15.4 g/dL (12.0-15.5) Hematocrit 48.0 % (36.0-47.0) Mean Corpuscular Volume 89 fL (79-100) Mean Corpuscular Hemoglobin 29 pg (25-35) Mean Corpuscular Hemoglobin Concent 32 g/dL (31-37) Red Cell Distribution Width 16.6 % (11.5-14.5) Platelet Count 257 x10^3/uL (140-400) Neutrophils (%) (Auto) 75 % (31-73) Lymphocytes (%) (Auto) 20 % (24-48) Monocytes (%) (Auto) 6 % (0-9) Eosinophils (%) (Auto) 0 % (0-3) Basophils (%) (Auto) 0 % (0-3) Neutrophils # (Auto) 9.7 x10^3uL (1.8-7.7) Lymphocytes # (Auto) 2.6 x10^3/uL (1.0-4.8) Monocytes # (Auto) 0.7 x10^3/uL (0.0-1.1) Eosinophils # (Auto) 0.0 x10^3/uL (0.0-0.7) Basophils # (Auto) 0.0 x10^3/uL (0.0-0.2) Prothrombin Time 14.6 SEC (11.7-14.0) Prothromb Time International Ratio 1.2 (0.8-1.1) Sodium Level 140 mmol/L (136-145) Potassium Level 5.9 mmol/L (3.5-5.1) Chloride Level 101 mmol/L (98-107) Carbon Dioxide Level 28 mmol/L (21-32) Anion Gap 11 (6-14) Blood Urea Nitrogen 29 mg/dL (7-20) Creatinine 1.0 mg/dL (0.6-1.0) Estimated GFR (Cockcroft-Gault) 66.3 BUN/Creatinine Ratio 29 (6-20) Glucose Level 117 mg/dL (70-99) Calcium Level 9.7 mg/dL (8.5-10.1) Magnesium Level 2.1 mg/dL (1.8-2.4) Total Bilirubin 1.3 mg/dL (0.2-1.0) Aspartate Amino Transf (AST/SGOT) 48 U/L (15-37) Alanine Aminotransferase (ALT/SGPT) 59 U/L (14-59) Alkaline Phosphatase 115 U/L (46-116) Troponin I Quantitative 0.096 ng/mL (0.000-0.055) CA-Zrm-C-Type Natriuretic Peptide > 70846 pg/mL (0-124) Total Protein 6.9 g/dL (6.4-8.2) Albumin 3.8 g/dL (3.4-5.0) Albumin/Globulin Ratio 1.2 (1.0-1.7) Nasal Screen MRSA (PCR) Negative (Negative) Test 02/01/17 20:00 02/01/17 21:00 02/02/17 01:44 02/02/17 03:03 Lactic Acid Level 3.8 mmol/L (0.4-2.0) 2.2 mmol/L (0.4-2.0) Troponin I Quantitative 0.080 ng/mL (0.000-0.055) 0.123 ng/mL (0.000-0.055) Laboratory Tests Test 02/01/17 13:29 02/01/17 13:32 02/01/17 13:37 02/01/17 16:35 O2 Saturation 94 % (92-99) Arterial Blood pH 7.46 (7.35-7.45) Arterial Blood pCO2 at Patient Temp 33 mmHg (35-46) Arterial Blood pO2 at Patient Temp 74 mmHg (65-108) Arterial Blood HCO3 23 mmol/L (21-28) Arterial Blood Base Excess 0 mmol/L (-3-3) FiO2 50 Lactic Acid Level 2.8 mmol/L (0.4-2.0) White Blood Count 13.0 x10^3/uL (4.0-11.0) Red Blood Count 5.37 x10^6/uL (3.50-5.40) Hemoglobin 15.4 g/dL (12.0-15.5) Hematocrit 48.0 % (36.0-47.0) Mean Corpuscular Volume 89 fL (79-100) Mean Corpuscular Hemoglobin 29 pg (25-35) Mean Corpuscular Hemoglobin Concent 32 g/dL (31-37) Red Cell Distribution Width 16.6 % (11.5-14.5) Platelet Count 257 x10^3/uL (140-400) Neutrophils (%) (Auto) 75 % (31-73) Lymphocytes (%) (Auto) 20 % (24-48) Monocytes (%) (Auto) 6 % (0-9) Eosinophils (%) (Auto) 0 % (0-3) Basophils (%) (Auto) 0 % (0-3) Neutrophils # (Auto) 9.7 x10^3uL (1.8-7.7) Lymphocytes # (Auto) 2.6 x10^3/uL (1.0-4.8) Monocytes # (Auto) 0.7 x10^3/uL (0.0-1.1) Eosinophils # (Auto) 0.0 x10^3/uL (0.0-0.7) Basophils # (Auto) 0.0 x10^3/uL (0.0-0.2) Prothrombin Time 14.6 SEC (11.7-14.0) Prothromb Time International Ratio 1.2 (0.8-1.1) Sodium Level 140 mmol/L (136-145) Potassium Level 5.9 mmol/L (3.5-5.1) Chloride Level 101 mmol/L (98-107) Carbon Dioxide Level 28 mmol/L (21-32) Anion Gap 11 (6-14) Blood Urea Nitrogen 29 mg/dL (7-20) Creatinine 1.0 mg/dL (0.6-1.0) Estimated GFR (Cockcroft-Gault) 66.3 BUN/Creatinine Ratio 29 (6-20) Glucose Level 117 mg/dL (70-99) Calcium Level 9.7 mg/dL (8.5-10.1) Magnesium Level 2.1 mg/dL (1.8-2.4) Total Bilirubin 1.3 mg/dL (0.2-1.0) Aspartate Amino Transf (AST/SGOT) 48 U/L (15-37) Alanine Aminotransferase (ALT/SGPT) 59 U/L (14-59) Alkaline Phosphatase 115 U/L (46-116) Troponin I Quantitative 0.096 ng/mL (0.000-0.055) IG-Tml-N-Type Natriuretic Peptide > 04074 pg/mL (0-124) Total Protein 6.9 g/dL (6.4-8.2) Albumin 3.8 g/dL (3.4-5.0) Albumin/Globulin Ratio 1.2 (1.0-1.7) Nasal Screen MRSA (PCR) Negative (Negative) Test 02/01/17 20:00 02/01/17 21:00 02/02/17 01:44 02/02/17 03:03 Lactic Acid Level 3.8 mmol/L (0.4-2.0) 2.2 mmol/L (0.4-2.0) Troponin I Quantitative 0.080 ng/mL (0.000-0.055) 0.123 ng/mL (0.000-0.055) Assessment/Plan Assessment/Plan IMP PRERENAL AZOTEMIA HYPERKALEMIA ACUTE ON CHRONIC RESP FAILURE COPD,ILD AND PULM FIBROSIS PLAN HOLD IV LASIX PO KAYEXALATE PULM TX HOLD HOME KCL EVE ECHEVARRIA MD Feb 02, 2017 10:58
[2017-02-02] MEDS ORDERED: SODIUM POLYSTYRENE SULFONATE 15 GM/60 ML ORAL.SUSP. PO ONE (11:00)
--- NOTE | 2017-02-02 11:07 | PDOC ---
PROGRESS NOTES Chief Complaint Chief Complaint SOB Aflutter CHF PMHx: Chronic respiratory failure, CHF, hypertension, pulmonary fibrosis, O2 dependent. History of Present Illness History of Present Illness Pt seen at bedside in the ICU. She is accompanied by 2 family members. She appears well and is in no acute distress. She appears to improving. Off BiPAP currently. Cardio, pulm, and nephrology following. Cardizem and abx hanging. No acute complaints at this time. Will continue to monitor in the ICU. Vitals Vitals Vital Signs Date Time Temp Pulse Resp B/P (MAP) Pulse Ox O2 Delivery O2 Flow Rate FiO2 02/02/17 09:44 30 94 Nasal Cannula 10.0 02/02/17 09:04 124 101/64 (76) 02/02/17 07:04 97.4 97.4 Physical Exam General: Alert, Oriented X3, Cooperative, No acute distress Heart: Regular rate, Normal S1, Normal S2 Lungs: Crackles, Other (She is moving air well, and breathing on her own. NC in place) Abdomen: Normal bowel sounds, Soft, No tenderness Extremities: No clubbing, No cyanosis, No edema, Normal pulses Skin: No breakdown Labs LABS Laboratory Tests Test 02/01/17 13:29 02/01/17 13:32 02/01/17 13:37 02/01/17 16:35 O2 Saturation 94 % (92-99) Arterial Blood pH 7.46 (7.35-7.45) Arterial Blood pCO2 at Patient Temp 33 mmHg (35-46) Arterial Blood pO2 at Patient Temp 74 mmHg (65-108) Arterial Blood HCO3 23 mmol/L (21-28) Arterial Blood Base Excess 0 mmol/L (-3-3) FiO2 50 Lactic Acid Level 2.8 mmol/L (0.4-2.0) White Blood Count 13.0 x10^3/uL (4.0-11.0) Red Blood Count 5.37 x10^6/uL (3.50-5.40) Hemoglobin 15.4 g/dL (12.0-15.5) Hematocrit 48.0 % (36.0-47.0) Mean Corpuscular Volume 89 fL (79-100) Mean Corpuscular Hemoglobin 29 pg (25-35) Mean Corpuscular Hemoglobin Concent 32 g/dL (31-37) Red Cell Distribution Width 16.6 % (11.5-14.5) Platelet Count 257 x10^3/uL (140-400) Neutrophils (%) (Auto) 75 % (31-73) Lymphocytes (%) (Auto) 20 % (24-48) Monocytes (%) (Auto) 6 % (0-9) Eosinophils (%) (Auto) 0 % (0-3) Basophils (%) (Auto) 0 % (0-3) Neutrophils # (Auto) 9.7 x10^3uL (1.8-7.7) Lymphocytes # (Auto) 2.6 x10^3/uL (1.0-4.8) Monocytes # (Auto) 0.7 x10^3/uL (0.0-1.1) Eosinophils # (Auto) 0.0 x10^3/uL (0.0-0.7) Basophils # (Auto) 0.0 x10^3/uL (0.0-0.2) Prothrombin Time 14.6 SEC (11.7-14.0) Prothromb Time International Ratio 1.2 (0.8-1.1) Sodium Level 140 mmol/L (136-145) Potassium Level 5.9 mmol/L (3.5-5.1) Chloride Level 101 mmol/L (98-107) Carbon Dioxide Level 28 mmol/L (21-32) Anion Gap 11 (6-14) Blood Urea Nitrogen 29 mg/dL (7-20) Creatinine 1.0 mg/dL (0.6-1.0) Estimated GFR (Cockcroft-Gault) 66.3 BUN/Creatinine Ratio 29 (6-20) Glucose Level 117 mg/dL (70-99) Calcium Level 9.7 mg/dL (8.5-10.1) Magnesium Level 2.1 mg/dL (1.8-2.4) Total Bilirubin 1.3 mg/dL (0.2-1.0) Aspartate Amino Transf (AST/SGOT) 48 U/L (15-37) Alanine Aminotransferase (ALT/SGPT) 59 U/L (14-59) Alkaline Phosphatase 115 U/L (46-116) Troponin I Quantitative 0.096 ng/mL (0.000-0.055) BL-Sfv-U-Type Natriuretic Peptide > 86743 pg/mL (0-124) Total Protein 6.9 g/dL (6.4-8.2) Albumin 3.8 g/dL (3.4-5.0) Albumin/Globulin Ratio 1.2 (1.0-1.7) Nasal Screen MRSA (PCR) Negative (Negative) Test 02/01/17 20:00 02/01/17 21:00 02/02/17 01:44 02/02/17 03:03 Lactic Acid Level 3.8 mmol/L (0.4-2.0) 2.2 mmol/L (0.4-2.0) Troponin I Quantitative 0.080 ng/mL (0.000-0.055) 0.123 ng/mL (0.000-0.055) Review of Systems Review of Systems Gen: + fatigue, No fevers or chills CV: No CP or palp Resp: + mild SOB-improving, no wheezing Assessment and Plan Assessmemt and Plan Problems Medical Problems: (1) Atrial flutter Status: Acute (2) Congestive heart failure Status: Acute Assessment: Atrial flutter Acute on chronic respiratory failure SOB CHF hypertension pulmonary fibrosis O2 dependent. Plan: Discussed with family and RN at bedside in the ICU Recheck labs PT/OT Cont Cardizem Cont Abx cont breathing treatments home meds Appreciate subspecialty input Will continue to monitor in the ICU Problems: Comment Review of Relevant I have reviewed the following items neha (where applicable) has been applied. Labs Laboratory Tests Test 02/01/17 13:29 02/01/17 13:32 02/01/17 13:37 02/01/17 16:35 O2 Saturation 94 % (92-99) Arterial Blood pH 7.46 (7.35-7.45) Arterial Blood pCO2 at Patient Temp 33 mmHg (35-46) Arterial Blood pO2 at Patient Temp 74 mmHg (65-108) Arterial Blood HCO3 23 mmol/L (21-28) Arterial Blood Base Excess 0 mmol/L (-3-3) FiO2 50 Lactic Acid Level 2.8 mmol/L (0.4-2.0) White Blood Count 13.0 x10^3/uL (4.0-11.0) Red Blood Count 5.37 x10^6/uL (3.50-5.40) Hemoglobin 15.4 g/dL (12.0-15.5) Hematocrit 48.0 % (36.0-47.0) Mean Corpuscular Volume 89 fL (79-100) Mean Corpuscular Hemoglobin 29 pg (25-35) Mean Corpuscular Hemoglobin Concent 32 g/dL (31-37) Red Cell Distribution Width 16.6 % (11.5-14.5) Platelet Count 257 x10^3/uL (140-400) Neutrophils (%) (Auto) 75 % (31-73) Lymphocytes (%) (Auto) 20 % (24-48) Monocytes (%) (Auto) 6 % (0-9) Eosinophils (%) (Auto) 0 % (0-3) Basophils (%) (Auto) 0 % (0-3) Neutrophils # (Auto) 9.7 x10^3uL (1.8-7.7) Lymphocytes # (Auto) 2.6 x10^3/uL (1.0-4.8) Monocytes # (Auto) 0.7 x10^3/uL (0.0-1.1) Eosinophils # (Auto) 0.0 x10^3/uL (0.0-0.7) Basophils # (Auto) 0.0 x10^3/uL (0.0-0.2) Prothrombin Time 14.6 SEC (11.7-14.0) Prothromb Time International Ratio 1.2 (0.8-1.1) Sodium Level 140 mmol/L (136-145) Potassium Level 5.9 mmol/L (3.5-5.1) Chloride Level 101 mmol/L (98-107) Carbon Dioxide Level 28 mmol/L (21-32) Anion Gap 11 (6-14) Blood Urea Nitrogen 29 mg/dL (7-20) Creatinine 1.0 mg/dL (0.6-1.0) Estimated GFR (Cockcroft-Gault) 66.3 BUN/Creatinine Ratio 29 (6-20) Glucose Level 117 mg/dL (70-99) Calcium Level 9.7 mg/dL (8.5-10.1) Magnesium Level 2.1 mg/dL (1.8-2.4) Total Bilirubin 1.3 mg/dL (0.2-1.0) Aspartate Amino Transf (AST/SGOT) 48 U/L (15-37) Alanine Aminotransferase (ALT/SGPT) 59 U/L (14-59) Alkaline Phosphatase 115 U/L (46-116) Troponin I Quantitative 0.096 ng/mL (0.000-0.055) NP-Dgs-U-Type Natriuretic Peptide > 54277 pg/mL (0-124) Total Protein 6.9 g/dL (6.4-8.2) Albumin 3.8 g/dL (3.4-5.0) Albumin/Globulin Ratio 1.2 (1.0-1.7) Nasal Screen MRSA (PCR) Negative (Negative) Test 02/01/17 20:00 02/01/17 21:00 02/02/17 01:44 02/02/17 03:03 Lactic Acid Level 3.8 mmol/L (0.4-2.0) 2.2 mmol/L (0.4-2.0) Troponin I Quantitative 0.080 ng/mL (0.000-0.055) 0.123 ng/mL (0.000-0.055) Laboratory Tests Test 02/01/17 13:29 02/01/17 13:32 02/01/17 13:37 02/01/17 16:35 O2 Saturation 94 % (92-99) Arterial Blood pH 7.46 (7.35-7.45) Arterial Blood pCO2 at Patient Temp 33 mmHg (35-46) Arterial Blood pO2 at Patient Temp 74 mmHg (65-108) Arterial Blood HCO3 23 mmol/L (21-28) Arterial Blood Base Excess 0 mmol/L (-3-3) FiO2 50 Lactic Acid Level 2.8 mmol/L (0.4-2.0) White Blood Count 13.0 x10^3/uL (4.0-11.0) Red Blood Count 5.37 x10^6/uL (3.50-5.40) Hemoglobin 15.4 g/dL (12.0-15.5) Hematocrit 48.0 % (36.0-47.0) Mean Corpuscular Volume 89 fL (79-100) Mean Corpuscular Hemoglobin 29 pg (25-35) Mean Corpuscular Hemoglobin Concent 32 g/dL (31-37) Red Cell Distribution Width 16.6 % (11.5-14.5) Platelet Count 257 x10^3/uL (140-400) Neutrophils (%) (Auto) 75 % (31-73) Lymphocytes (%) (Auto) 20 % (24-48) Monocytes (%) (Auto) 6 % (0-9) Eosinophils (%) (Auto) 0 % (0-3) Basophils (%) (Auto) 0 % (0-3) Neutrophils # (Auto) 9.7 x10^3uL (1.8-7.7) Lymphocytes # (Auto) 2.6 x10^3/uL (1.0-4.8) Monocytes # (Auto) 0.7 x10^3/uL (0.0-1.1) Eosinophils # (Auto) 0.0 x10^3/uL (0.0-0.7) Basophils # (Auto) 0.0 x10^3/uL (0.0-0.2) Prothrombin Time 14.6 SEC (11.7-14.0) Prothromb Time International Ratio 1.2 (0.8-1.1) Sodium Level 140 mmol/L (136-145) Potassium Level 5.9 mmol/L (3.5-5.1) Chloride Level 101 mmol/L (98-107) Carbon Dioxide Level 28 mmol/L (21-32) Anion Gap 11 (6-14) Blood Urea Nitrogen 29 mg/dL (7-20) Creatinine 1.0 mg/dL (0.6-1.0) Estimated GFR (Cockcroft-Gault) 66.3 BUN/Creatinine Ratio 29 (6-20) Glucose Level 117 mg/dL (70-99) Calcium Level 9.7 mg/dL (8.5-10.1) Magnesium Level 2.1 mg/dL (1.8-2.4) Total Bilirubin 1.3 mg/dL (0.2-1.0) Aspartate Amino Transf (AST/SGOT) 48 U/L (15-37) Alanine Aminotransferase (ALT/SGPT) 59 U/L (14-59) Alkaline Phosphatase 115 U/L (46-116) Troponin I Quantitative 0.096 ng/mL (0.000-0.055) SX-Ram-P-Type Natriuretic Peptide > 77510 pg/mL (0-124) Total Protein 6.9 g/dL (6.4-8.2) Albumin 3.8 g/dL (3.4-5.0) Albumin/Globulin Ratio 1.2 (1.0-1.7) Nasal Screen MRSA (PCR) Negative (Negative) Test 02/01/17 20:00 02/01/17 21:00 02/02/17 01:44 02/02/17 03:03 Lactic Acid Level 3.8 mmol/L (0.4-2.0) 2.2 mmol/L (0.4-2.0) Troponin I Quantitative 0.080 ng/mL (0.000-0.055) 0.123 ng/mL (0.000-0.055) Medications Current Medications Albuterol Sulfate (Ventolin Neb Soln) 10 mg 1X ONCE CONT NEB Last administered on 02/01/17 14:01; Start 02/01/17 at 13:30; Stop 02/01/17 at 13 :35; Status DC Ipratropium Garber (Atrovent) 0.5 mg 1X ONCE NEB Last administered on 13:30; Start 02/01/17 at 13:30; Stop 02/01/17 at 13:35; Status DC Diltiazem HCl 125 mg/Dextrose 125 ml @ 0 mls/hr CONT PRN IV SEE I/O RECORD Last administered on 02/01/17 14:04; Start 02/01/17 at 13:45 Diltiazem HCl (Cardizem) 10 mg 1X ONCE IVP Last administered on 02/01/17 14: 00; Start 02/01/17 at 13:45; Stop 02/01/17 at 13:46; Status DC Furosemide (Lasix) 40 mg 1X ONCE IVP Last administered on 02/01/17 15:05; Start 02/01/17 at 15:00; Stop 02/01/17 at 15:01; Status DC Acetaminophen (Tylenol) 650 mg PRN Q6HRS PRN PO FEVER; Start 02/01/17 at 15:15 Alprazolam (Xanax) 0.5 mg PRN Q8HRS PRN PO ANXIETY / AGITATION; Start at 15:15 Aspirin (Ecotrin) 81 mg DAILYWBKFT PO Last administered on 02/02/17 09:00; Start 02/02/17 at 08:00 Diltiazem HCl (Cardizem 24hr Cd) 180 mg DAILY PO Last administered on 09:03; Start 02/01/17 at 16:00 Docusate Sodium (Colace) 100 mg PRN DAILY PRN PO CONSTIPATION; Start 02/01/17 at 15:15 EZETIMIBE (Zetia) 10 mg HS PO Last administered on 02/01/17 20:58; Start 04/08 at 21:00 Furosemide (Lasix) 40 mg DAILY PO ; Start 02/02/17 at 09:00 Albuterol/ Ipratropium (Duoneb) 3 ml BID NEB Last administered on 02/02/17 08 :16; Start 02/01/17 at 21:00 Levothyroxine Sodium (Synthroid) 100 mcg DAILY07 PO Last administered on 06:16; Start 02/02/17 at 07:00 Pantoprazole Sodium (Protonix) 40 mg DAILY PO Last administered on 02/02/17 09:02; Start 02/01/17 at 16:30 Prednisone (Prednisone) 10 mg DAILY PO Last administered on 02/02/17 09:02; Start 02/02/17 at 09:00 Tramadol HCl (Ultram) 50 mg PRN Q6HRS PRN PO MILD TO MODERATE PAIN; Start 04/08 at 15:15 Apixaban (Eliquis) 5 mg BID PO Last administered on 02/02/17 09:03; Start at 21:00 Digoxin (Lanoxin) 500 mcg 1X ONCE IV Last administered on 02/01/17 15:55; Start 02/01/17 at 15:30; Stop 02/01/17 at 15:31; Status DC Ondansetron HCl (Zofran) 4 mg PRN Q8HRS PRN IV NAUSEA/VOMITING; Start at 15:30; Stop 02/02/17 at 15:29 Furosemide (Lasix) 40 mg DAILY IVP ; Start 02/02/17 at 09:00 Sodium Polystyrene Sulfonate (Kayexalate) 15 gm 1X ONCE PO Last administered on 02/01/17 16:15; Start 02/01/17 at 15:30; Stop 02/01/17 at 15:31; Status DC Non-Formulary Medication 3 ea TIDWMEALS PO Last administered on 02/02/17 09: 02; Start 02/01/17 at 18:00 Levofloxacin/ Dextrose 100 ml @ 100 mls/hr Q24H IV Last administered on 21:36; Start 02/01/17 at 22:00 Sodium Chloride 1,000 ml @ 50 mls/hr Q20H IV Last administered on 02/01/17 21:35; Start 02/01/17 at 21:15 Info (Anti-Coagulation Monitoring By Pharmacy) 1 each PRN DAILY PRN MC SEE COMMENTS Last administered on 02/02/17 08:59; Start 02/02/17 at 09:00 Active Scripts Active Prednisone 10 Mg Tablet 10 Mg PO UD Take 3 tablets by mouth twice a day for 3 days, then take 2 tablets by mouth twice a day for 3 days, then take 1 tablet by mouth twice a day for 3 days, then take 1 tablet by mouth daily x 3 days, then stop. Duoneb 0.5-3(2.5) Mg/3 Ml (Albuterol/Ipratropium) 3 Ml Ampul.neb 3 Ml NEB BID Alprazolam 0.5 Mg Tablet 0.5 Mg PO PRN Q8HRS PRN Synthroid (Levothyroxine Sodium) 100 Mcg Tablet 1 Tab PO DAILY Cardizem Cd (Diltiazem Hcl) 180 Mg Cap.er.24h 1 Cap PO DAILY Aspirin Ec (Aspirin) 81 Mg Tablet.dr 81 Mg PO DAILYWBKFT 30 Days Reported Tramadol Hcl 50 Mg Tablet 1 Tab PO PRN Q6HRS Protonix (Pantoprazole Sodium) 40 Mg Tablet.dr 1 Tab PO DAILY Tylenol (Acetaminophen) 325 Mg Tablet 2 Tab PO PRN Q6HRS PRN Docusate Sodium 100 Mg Capsule 1 Cap PO DAILY PRN Doxazosin Mesylate 2 Mg Tablet 1 Tab PO DAILY Lasix (Furosemide) 40 Mg Tablet 1 Tab PO DAILY Potassium Chloride 20 Meq Tablet.er 20 Meq PO DAILY Esbriet (Pirfenidone) 801 Mg Tablet 801 Mg PO Zetia (Ezetimibe) 10 Mg Tablet 10 Mg PO HS Vitals/I & O Vital Sign - Last 24 Hours 02/01/17 02/01/17 02/01/17 02/01/17 13:24 13:40 13:55 14:00 Temp 98.0 98.0 Pulse 146 137 144 Resp 30 B/P (MAP) 126/81 (96) 116/67 (83) 116/67 Pulse Ox 100 100 93 O2 Delivery BiPAP/CPAP BiPAP/CPAP BiPAP/CPAP 02/01/17 02/01/17 02/01/17 02/01/17 14:10 14:25 14:40 14:55 Pulse 128 116 110 112 B/P (MAP) 93/75 (81) 92/77 (82) 112/82 (92) 113/75 (88) 02/01/17 02/01/17 02/01/17 02/01/17 15:10 15:14 15:25 15:52 Pulse 106 108 118 B/P (MAP) 115/73 (87) 116/63 (80) 123/83 (96) Pulse Ox 95 O2 Delivery BiPAP/CPAP 02/01/17 02/01/17 02/01/17 02/01/17 15:55 16:16 16:25 16:25 Temp 97.5 97.5 Pulse 124 106 132 Resp 22 B/P (MAP) 123/83 111/66 (81) 106/72 (83) Pulse Ox 91 O2 Delivery Nasal Cannula Nasal Cannula O2 Flow Rate 7.0 7.0 02/01/17 02/01/17 02/01/17 02/01/17 17:00 17:21 18:00 19:07 Temp 97.5 97.5 Pulse 132 132 129 129 Resp 26 22 B/P (MAP) 106/72 (83) 106/72 101/67 (78) 101/67 (78) Pulse Ox 90 91 O2 Delivery Nasal Cannula Nasal Cannula Nasal Cannula O2 Flow Rate 7.0 7.0 7.0 02/01/17 02/01/17 02/01/17 02/01/17 19:14 19:20 19:31 20:04 Pulse 128 Resp 40 B/P (MAP) 94/66 (75) Pulse Ox 94 83 O2 Delivery Nasal Cannula Nasal Cannula BiPAP/CPAP Nasal Cannula O2 Flow Rate 7.0 7.0 8.0 9.0 02/01/17 02/01/17 02/01/17 02/01/17 20:10 21:14 22:12 23:29 Temp 97.6 97.6 Pulse 137 136 137 Resp 40 38 B/P (MAP) 98/66 (77) 83/62 (69) 90/69 (76) Pulse Ox 94 97 96 O2 Delivery Bag Valve Mask Bag Valve Mask Bag Valve Mask O2 Flow Rate 12.0 12.0 12.0 02/01/17 02/02/17 02/02/17 02/02/17 23:36 00:33 01:30 01:52 Pulse 136 101 B/P (MAP) 99/69 (79) 97/68 (78) Pulse Ox 94 O2 Delivery Mask Bag Valve Mask O2 Flow Rate 12.0 12.0 02/02/17 02/02/17 02/02/17 02/02/17 02:00 03:30 03:41 04:04 Temp 97.8 97.8 Pulse 139 101 102 Resp 36 B/P (MAP) 97/65 (76) 104/69 (81) 95/63 (74) Pulse Ox 96 93 O2 Delivery Bag Valve Mask Mask Bag Valve Mask O2 Flow Rate 12.0 12.0 12.0 02/02/17 02/02/17 02/02/17 02/02/17 05:04 06:04 07:04 08:04 Temp 97.4 97.4 Pulse 93 89 90 96 Resp 36 28 24 B/P (MAP) 109/61 (77) 114/61 (78) 106/65 (79) 92/64 (73) Pulse Ox 95 94 98 96 O2 Delivery Bag Valve Mask Bag Valve Mask Bag Valve Mask Bag Valve Mask O2 Flow Rate 12.0 12.0 12.0 12.0 02/02/17 02/02/17 02/02/17 02/02/17 08:16 09:03 09:04 09:44 Pulse 115 124 Resp 32 30 B/P (MAP) 92/64 101/64 (76) Pulse Ox 94 96 94 O2 Delivery BiPAP/CPAP Nasal Cannula Nasal Cannula O2 Flow Rate 9.0 10.0 10.0 Intake and Output 02/02/17 02/02/17 02/03/17 15:00 23:00 07:00 Intake Total 330 ml Output Total 110 ml Balance 220 ml AGUEDA MALHOTRA K III DO Feb 02, 2017 11:07
[2017-02-02] MEDS ORDERED: DIGOXIN IV 500 MCG/2 ML AMPUL. IV ONE (11:30)
[2017-02-02] MEDS ORDERED: METOPROLOL TARTRATE 5 MG/5 ML VIAL. IVP ONE (11:30)
--- NOTE | 2017-02-02 11:36 | PDOC ---
MAI TURNER HOME SERVICE DEMONSTRATOR 02/02/17 1136: CARDIO Progress Notes Date and Time Date of Service 02/02/2017 Time of Evaluation 1120 Subjective Subjective: No Chest Pain, No Palpitations, Other (SOA better) Vitals Vitals Vital Signs Date Time Temp Pulse Resp B/P (MAP) Pulse Ox O2 Delivery O2 Flow Rate FiO2 02/02/17 09:44 30 94 Nasal Cannula 10.0 02/02/17 09:04 124 101/64 (76) 02/02/17 07:04 97.4 97.4 Weight Weight [ ] Input and Output Intake and Output Intake and Output 02/03/17 07:00 Intake Total 390 ml Output Total 110 ml Balance 280 ml Intake Oral 390 ml Output Urine Total 110 ml Laboratory Labs Laboratory Tests Test 02/01/17 13:29 02/01/17 13:32 02/01/17 13:37 02/01/17 16:35 O2 Saturation 94 % (92-99) Arterial Blood pH 7.46 (7.35-7.45) Arterial Blood pCO2 at Patient Temp 33 mmHg (35-46) Arterial Blood pO2 at Patient Temp 74 mmHg (65-108) Arterial Blood HCO3 23 mmol/L (21-28) Arterial Blood Base Excess 0 mmol/L (-3-3) FiO2 50 Lactic Acid Level 2.8 mmol/L (0.4-2.0) White Blood Count 13.0 x10^3/uL (4.0-11.0) Red Blood Count 5.37 x10^6/uL (3.50-5.40) Hemoglobin 15.4 g/dL (12.0-15.5) Hematocrit 48.0 % (36.0-47.0) Mean Corpuscular Volume 89 fL (79-100) Mean Corpuscular Hemoglobin 29 pg (25-35) Mean Corpuscular Hemoglobin Concent 32 g/dL (31-37) Red Cell Distribution Width 16.6 % (11.5-14.5) Platelet Count 257 x10^3/uL (140-400) Neutrophils (%) (Auto) 75 % (31-73) Lymphocytes (%) (Auto) 20 % (24-48) Monocytes (%) (Auto) 6 % (0-9) Eosinophils (%) (Auto) 0 % (0-3) Basophils (%) (Auto) 0 % (0-3) Neutrophils # (Auto) 9.7 x10^3uL (1.8-7.7) Lymphocytes # (Auto) 2.6 x10^3/uL (1.0-4.8) Monocytes # (Auto) 0.7 x10^3/uL (0.0-1.1) Eosinophils # (Auto) 0.0 x10^3/uL (0.0-0.7) Basophils # (Auto) 0.0 x10^3/uL (0.0-0.2) Prothrombin Time 14.6 SEC (11.7-14.0) Prothromb Time International Ratio 1.2 (0.8-1.1) Sodium Level 140 mmol/L (136-145) Potassium Level 5.9 mmol/L (3.5-5.1) Chloride Level 101 mmol/L (98-107) Carbon Dioxide Level 28 mmol/L (21-32) Anion Gap 11 (6-14) Blood Urea Nitrogen 29 mg/dL (7-20) Creatinine 1.0 mg/dL (0.6-1.0) Estimated GFR (Cockcroft-Gault) 66.3 BUN/Creatinine Ratio 29 (6-20) Glucose Level 117 mg/dL (70-99) Calcium Level 9.7 mg/dL (8.5-10.1) Magnesium Level 2.1 mg/dL (1.8-2.4) Total Bilirubin 1.3 mg/dL (0.2-1.0) Aspartate Amino Transf (AST/SGOT) 48 U/L (15-37) Alanine Aminotransferase (ALT/SGPT) 59 U/L (14-59) Alkaline Phosphatase 115 U/L (46-116) Troponin I Quantitative 0.096 ng/mL (0.000-0.055) ZJ-Fty-X-Type Natriuretic Peptide > 29271 pg/mL (0-124) Total Protein 6.9 g/dL (6.4-8.2) Albumin 3.8 g/dL (3.4-5.0) Albumin/Globulin Ratio 1.2 (1.0-1.7) Nasal Screen MRSA (PCR) Negative (Negative) Test 02/01/17 20:00 02/01/17 21:00 02/02/17 01:44 02/02/17 03:03 Lactic Acid Level 3.8 mmol/L (0.4-2.0) 2.2 mmol/L (0.4-2.0) Troponin I Quantitative 0.080 ng/mL (0.000-0.055) 0.123 ng/mL (0.000-0.055) Physical Exam HEENT: Neck Supple W Full Motion Chest: Symmetric LUNGS: Other (basilar crackles; off bipap) Heart: S1S2, irregularly irregular (Aflutter 2:1 RVR) Abdomen: Soft N/T Extremities: No Calf Tenderness, Other (2+ bilateral LE pitting edema) Neurology: alert, oriented, follow commands Assessment Assessment 1. Acute on chronic diastolic CHF: improving. Mainly right sided with culprit #1 &2. 2. Paroxysmal Atrial flutter: presently 2:1 atrial flutter RVR 3. Acute on chronic respiratory failure with underlying pulmonary fibrosis/ severe pulmonary HTN with chronic O2 use: Per pulmonary 4. Hypothyroidism: recent TSH 11. 5. HTN: Low end 6. HLP 7. SHELBY/hyperkalemia: prerenal. Recommendations 1. Cardizem CD was given. BP at low end. Will DC cardizem drip. Dig IV x1. Will provide metoprolol IV increments of 2.5. 2. Lasix therapy. Stop ASA. Continue with eliquis. 3. Continue with secondary prevention. 4. BMP and Mg. ONEL MIDDLETON MD 02/02/17 1432: CARDIO Progress Notes Assessment Assessment Patient seen and examined. Agree with PROFILE SHAPER OPERATOR's assessment and plan. Agree with digoxin and metoprolol for better rate control. Continue diuresis for acute on chronic diastolic heart failure. MAI TURNER APRN Feb 02, 2017 11:36 ONEL MIDDLETON MD Feb 02, 2017 14:32
[2017-02-02 12:08] LABS: CALCIUM 8.5 mg/dL (8.5-10.1); GFR 66.1
--- NOTE | 2017-02-02 14:02 | PDOC ---
PULMONARY PROGRESS NOTES Subjective on 02 10 lpm, has sob, slightly better. no cp, has cough, on 7 lpm o2 at home Vitals Vital Signs Date Time Temp Pulse Resp B/P (MAP) Pulse Ox O2 Delivery O2 Flow Rate FiO2 02/02/17 13:04 130 28 96/65 (75) 95 Nasal Cannula 10.0 02/02/17 12:04 97.5 97.5 Comments ros as mentioned above other sys otherwise neg ROS: No Nausea, No Chest Pain General: Alert HEENT: Other (nc at perrl, throat nose clear. neck, no lap, no thyromegaly) Lungs: Crackles, Other (She is moving air well, and breathing on her own. NC in place) Cardiovascular: S1, S2 Abdomen: Soft, Non-tender Neuro Exam: Alert Extremities: Other Skin: Warm Labs Laboratory Tests Test 02/01/17 13:29 02/01/17 13:32 02/01/17 13:37 02/01/17 16:35 O2 Saturation 94 % (92-99) Arterial Blood pH 7.46 (7.35-7.45) Arterial Blood pCO2 at Patient Temp 33 mmHg (35-46) Arterial Blood pO2 at Patient Temp 74 mmHg (65-108) Arterial Blood HCO3 23 mmol/L (21-28) Arterial Blood Base Excess 0 mmol/L (-3-3) FiO2 50 Lactic Acid Level 2.8 mmol/L (0.4-2.0) White Blood Count 13.0 x10^3/uL (4.0-11.0) Red Blood Count 5.37 x10^6/uL (3.50-5.40) Hemoglobin 15.4 g/dL (12.0-15.5) Hematocrit 48.0 % (36.0-47.0) Mean Corpuscular Volume 89 fL (79-100) Mean Corpuscular Hemoglobin 29 pg (25-35) Mean Corpuscular Hemoglobin Concent 32 g/dL (31-37) Red Cell Distribution Width 16.6 % (11.5-14.5) Platelet Count 257 x10^3/uL (140-400) Neutrophils (%) (Auto) 75 % (31-73) Lymphocytes (%) (Auto) 20 % (24-48) Monocytes (%) (Auto) 6 % (0-9) Eosinophils (%) (Auto) 0 % (0-3) Basophils (%) (Auto) 0 % (0-3) Neutrophils # (Auto) 9.7 x10^3uL (1.8-7.7) Lymphocytes # (Auto) 2.6 x10^3/uL (1.0-4.8) Monocytes # (Auto) 0.7 x10^3/uL (0.0-1.1) Eosinophils # (Auto) 0.0 x10^3/uL (0.0-0.7) Basophils # (Auto) 0.0 x10^3/uL (0.0-0.2) Prothrombin Time 14.6 SEC (11.7-14.0) Prothromb Time International Ratio 1.2 (0.8-1.1) Sodium Level 140 mmol/L (136-145) Potassium Level 5.9 mmol/L (3.5-5.1) Chloride Level 101 mmol/L (98-107) Carbon Dioxide Level 28 mmol/L (21-32) Anion Gap 11 (6-14) Blood Urea Nitrogen 29 mg/dL (7-20) Creatinine 1.0 mg/dL (0.6-1.0) Estimated GFR (Cockcroft-Gault) 66.3 BUN/Creatinine Ratio 29 (6-20) Glucose Level 117 mg/dL (70-99) Calcium Level 9.7 mg/dL (8.5-10.1) Magnesium Level 2.1 mg/dL (1.8-2.4) Total Bilirubin 1.3 mg/dL (0.2-1.0) Aspartate Amino Transf (AST/SGOT) 48 U/L (15-37) Alanine Aminotransferase (ALT/SGPT) 59 U/L (14-59) Alkaline Phosphatase 115 U/L (46-116) Troponin I Quantitative 0.096 ng/mL (0.000-0.055) NT-Ocx-H-Type Natriuretic Peptide > 80951 pg/mL (0-124) Total Protein 6.9 g/dL (6.4-8.2) Albumin 3.8 g/dL (3.4-5.0) Albumin/Globulin Ratio 1.2 (1.0-1.7) Nasal Screen MRSA (PCR) Negative (Negative) Test 02/01/17 20:00 02/01/17 21:00 02/02/17 01:44 02/02/17 03:03 Lactic Acid Level 3.8 mmol/L (0.4-2.0) 2.2 mmol/L (0.4-2.0) Troponin I Quantitative 0.080 ng/mL (0.000-0.055) 0.123 ng/mL (0.000-0.055) Test 02/02/17 11:45 Sodium Level 141 mmol/L (136-145) Potassium Level 4.0 mmol/L (3.5-5.1) Chloride Level 103 mmol/L (98-107) Carbon Dioxide Level 30 mmol/L (21-32) Anion Gap 8 (6-14) Blood Urea Nitrogen 30 mg/dL (7-20) Creatinine 1.0 mg/dL (0.6-1.0) Estimated GFR (Cockcroft-Gault) 66.1 Glucose Level 128 mg/dL (70-99) Calcium Level 8.5 mg/dL (8.5-10.1) Magnesium Level 2.0 mg/dL (1.8-2.4) Laboratory Tests Test 02/01/17 16:35 02/01/17 20:00 02/01/17 21:00 02/02/17 01:44 Nasal Screen MRSA (PCR) Negative (Negative) Lactic Acid Level 3.8 mmol/L (0.4-2.0) 2.2 mmol/L (0.4-2.0) Troponin I Quantitative 0.080 ng/mL (0.000-0.055) Test 02/02/17 03:03 02/02/17 11:45 Troponin I Quantitative 0.123 ng/mL (0.000-0.055) Sodium Level 141 mmol/L (136-145) Potassium Level 4.0 mmol/L (3.5-5.1) Chloride Level 103 mmol/L (98-107) Carbon Dioxide Level 30 mmol/L (21-32) Anion Gap 8 (6-14) Blood Urea Nitrogen 30 mg/dL (7-20) Creatinine 1.0 mg/dL (0.6-1.0) Estimated GFR (Cockcroft-Gault) 66.1 Glucose Level 128 mg/dL (70-99) Calcium Level 8.5 mg/dL (8.5-10.1) Magnesium Level 2.0 mg/dL (1.8-2.4) Medications Active Scripts Medications Dose Route/Sig Max Daily Dose Days Date Category Dose Instructions Prednisone 10 Mg Tablet 10 Mg PO UD 01/29/17 Rx Take 3 tablets by mouth twice a day for 3 days, then take 2 tablets by mouth twice a day for 3 days, then take 1 tablet by mouth twice a day for 3 days, then take 1 tablet by mouth daily x 3 days, then stop. Duoneb 0.5-3(2.5) Mg/3 Ml (Albuterol/Ipratropium) 3 Ml Ampul.neb 3 Ml NEB BID 01/29/17 Rx Alprazolam 0.5 Mg Tablet 0.5 Mg PO PRN Q8HRS PRN 01/29/17 Rx Tramadol Hcl 50 Mg Tablet 1 Tab PO PRN Q6HRS 01/26/17 Reported Protonix (Pantoprazole Sodium) 40 Mg Tablet. 1 Tab PO DAILY 01/26/17 Reported Tylenol (Acetaminophen) 325 Mg Tablet 2 Tab PO PRN Q6HRS PRN 01/26/17 Reported Docusate Sodium 100 Mg Capsule 1 Cap PO DAILY PRN 01/26/17 Reported Synthroid (Levothyroxine Sodium) 100 Mcg Tablet 1 Tab PO DAILY 01/25/17 Rx Cardizem Cd (Diltiazem Hcl) 180 Mg Cap.er.24h 1 Cap PO DAILY 01/25/17 Rx Doxazosin Mesylate 2 Mg Tablet 1 Tab PO DAILY 01/23/17 Reported Lasix (Furosemide) 40 Mg Tablet 1 Tab PO DAILY 01/23/17 Reported Potassium Chloride 20 Meq Tablet.er 20 Meq PO DAILY 01/23/17 Reported Aspirin Ec (Aspirin) 81 Mg Tablet. 81 Mg PO DAILYWBKFT 30 11/08/16 Rx Esbriet (Pirfenidone) 801 Mg Tablet 801 Mg PO 11/06/16 Reported Zetia (Ezetimibe) 10 Mg Tablet 10 Mg PO HS 02/19/14 Reported Comments cxr reviewed, Chronic changes. No acute finding seen. No significant change Impression . IMPRESSION: 1. Whwlk-rp-mrrsxgx respiratory failure. 2. Atrial fibrillation with rapid ventricular response. 3. Acute exacerbation of interstitial lung disease. 4. Wwckt-fg-gqhiwso cor pulmonale. 5. Hypothyroidism. 6. Hypertension. 7. Anxiety/depression. Plan . PLAN: 1. on cardizem, dig 2. refused BiPAP, advised to use 3. IV Lasix. monitor k, cr 4. No need for antibiotics. 5. Continue anxiolytic. 6. DVT prophylaxis. 7. Nebulized treatments, change to Atrovent only, has afib w rvt. 8. Home Esbriet. 9. change prednisone to Solumedrol monitor closely in icu discussed w rn, pt and her family MAGDA GUZMAN MD Feb 02, 2017 14:02
[2017-02-02] MEDS: methylPREDNISolone SOD SUCC PF 40 MG/ML VIAL. IV SCH ×2 (15:19→21:35)
[2017-02-02] MEDS: METOPROLOL SUCC 24HR ER 25 MG TAB.ER.24H. PO SCH (15:24)
[2017-02-02] MEDS: IPRATROPIUM BROMIDE 0.5 MG/2.5 ML NEBU. NEB SCH ×2 (15:57→19:38)
[2017-02-02] MEDS: IV NORMAL SALINE 1000ML BAG 1,000 ML IV SCH (17:15)
[2017-02-02] MEDS: EZETIMIBE 10 MG TABLET. PO SCH (21:35)
[2017-02-03] VITALS (24 sets, daily range): BP systolic 105–137; BP diastolic 59–88
[2017-02-03 05:41] LABS: BASO % 0 % (0-3); EOS % 0 % (0-3); HEMOGLOBIN 14.2 g/dL (12.0-15.5); LYMPH # 1.3 x10^3/uL (1.0-4.8); LYMPH % 23 % (24-48); MEAN CORPUSCULAR HEMOGLOBIN 28 pg (25-35); MEAN CORPUSCULAR HGB CONC 32 g/dL (31-37); MEAN CORPUSCULAR VOLUME 87 fL (79-100); MONO % 3 % (0-9); NEUT % 74 % (31-73); PLATELET COUNT 214 x10^3/uL (140-400); RED BLOOD COUNT 5.05 x10^6/uL (3.50-5.40); WHITE BLOOD COUNT 5.6 x10^3/uL (4.0-11.0)
[2017-02-03] MEDS: methylPREDNISolone SOD SUCC PF 40 MG/ML VIAL. IV SCH ×3 (06:00→21:37)
[2017-02-03] MEDS: LEVOTHYROXINE 100 MCG TABLET PO SCH (06:00)
[2017-02-03 06:28] LABS: CALCIUM 8.7 mg/dL (8.5-10.1); CREATININE 0.9 mg/dL (0.6-1.0); GFR 74.7; POTASSIUM 4.3 mmol/L (3.5-5.1)
[2017-02-03] MEDS: ANTI-COAG MONITOR BY PHARMACY. MC PRN (07:31)
[2017-02-03] MEDS: IPRATROPIUM BROMIDE 0.5 MG/2.5 ML NEBU. NEB SCH ×4 (08:12→19:28)
[2017-02-03] MEDS: NON FORMULARY ITEM PO SCH ×3 (09:12→17:57)
[2017-02-03] MEDS: METOPROLOL SUCC 24HR ER 25 MG TAB.ER.24H. PO SCH (09:12)
[2017-02-03] MEDS: FUROSEMIDE 40 MG TABLET. PO SCH (09:12)
[2017-02-03] MEDS: PANTOPRAZOLE 40 MG TABLET.DR. PO SCH (09:12)
[2017-02-03] MEDS: APIXABAN 5 MG TABLET. PO SCH ×2 (09:13→21:37)
--- NOTE | 2017-02-03 10:33 | PDOC ---
PULMONARY PROGRESS NOTES Subjective increased 02 need, on 02 15 lpm, has sob, slightly better. no cp, has cough, on 7 lpm o2 at home Vitals Vital Signs Date Time Temp Pulse Resp B/P (MAP) Pulse Ox O2 Delivery O2 Flow Rate FiO2 02/03/17 10:00 81 118/64 (82) 95 NonRebreather Mask 15.0 02/03/17 08:00 97.6 22 97.6 Comments ros as mentioned above other sys otherwise neg ROS: No Nausea, No Chest Pain General: Alert HEENT: Other (nc at perrl, throat nose clear. neck, no lap, no thyromegaly) Lungs: Crackles, Other (She is moving air well, and breathing on her own. NC in place) Cardiovascular: Other (irregular ) Abdomen: Soft, Non-tender Neuro Exam: Alert Extremities: Other Skin: Warm Labs Laboratory Tests Test 02/01/17 13:29 02/01/17 13:32 02/01/17 13:37 02/01/17 16:35 O2 Saturation 94 % (92-99) Arterial Blood pH 7.46 (7.35-7.45) Arterial Blood pCO2 at Patient Temp 33 mmHg (35-46) Arterial Blood pO2 at Patient Temp 74 mmHg (65-108) Arterial Blood HCO3 23 mmol/L (21-28) Arterial Blood Base Excess 0 mmol/L (-3-3) FiO2 50 Lactic Acid Level 2.8 mmol/L (0.4-2.0) White Blood Count 13.0 x10^3/uL (4.0-11.0) Red Blood Count 5.37 x10^6/uL (3.50-5.40) Hemoglobin 15.4 g/dL (12.0-15.5) Hematocrit 48.0 % (36.0-47.0) Mean Corpuscular Volume 89 fL (79-100) Mean Corpuscular Hemoglobin 29 pg (25-35) Mean Corpuscular Hemoglobin Concent 32 g/dL (31-37) Red Cell Distribution Width 16.6 % (11.5-14.5) Platelet Count 257 x10^3/uL (140-400) Neutrophils (%) (Auto) 75 % (31-73) Lymphocytes (%) (Auto) 20 % (24-48) Monocytes (%) (Auto) 6 % (0-9) Eosinophils (%) (Auto) 0 % (0-3) Basophils (%) (Auto) 0 % (0-3) Neutrophils # (Auto) 9.7 x10^3uL (1.8-7.7) Lymphocytes # (Auto) 2.6 x10^3/uL (1.0-4.8) Monocytes # (Auto) 0.7 x10^3/uL (0.0-1.1) Eosinophils # (Auto) 0.0 x10^3/uL (0.0-0.7) Basophils # (Auto) 0.0 x10^3/uL (0.0-0.2) Prothrombin Time 14.6 SEC (11.7-14.0) Prothromb Time International Ratio 1.2 (0.8-1.1) Sodium Level 140 mmol/L (136-145) Potassium Level 5.9 mmol/L (3.5-5.1) Chloride Level 101 mmol/L (98-107) Carbon Dioxide Level 28 mmol/L (21-32) Anion Gap 11 (6-14) Blood Urea Nitrogen 29 mg/dL (7-20) Creatinine 1.0 mg/dL (0.6-1.0) Estimated GFR (Cockcroft-Gault) 66.3 BUN/Creatinine Ratio 29 (6-20) Glucose Level 117 mg/dL (70-99) Calcium Level 9.7 mg/dL (8.5-10.1) Magnesium Level 2.1 mg/dL (1.8-2.4) Total Bilirubin 1.3 mg/dL (0.2-1.0) Aspartate Amino Transf (AST/SGOT) 48 U/L (15-37) Alanine Aminotransferase (ALT/SGPT) 59 U/L (14-59) Alkaline Phosphatase 115 U/L (46-116) Troponin I Quantitative 0.096 ng/mL (0.000-0.055) RB-Hev-Y-Type Natriuretic Peptide > 89483 pg/mL (0-124) Total Protein 6.9 g/dL (6.4-8.2) Albumin 3.8 g/dL (3.4-5.0) Albumin/Globulin Ratio 1.2 (1.0-1.7) Nasal Screen MRSA (PCR) Negative (Negative) Test 02/01/17:00 02/01/17 21:00 02/02/17 01:44 02/02/17 03:03 Lactic Acid Level 3.8 mmol/L (0.4-2.0) 2.2 mmol/L (0.4-2.0) Troponin I Quantitative 0.080 ng/mL (0.000-0.055) 0.123 ng/mL (0.000-0.055) Test 02/02/17 11:45 02/03/17 03:30 Sodium Level 141 mmol/L (136-145) 138 mmol/L (136-145) Potassium Level 4.0 mmol/L (3.5-5.1) 4.3 mmol/L (3.5-5.1) Chloride Level 103 mmol/L (98-107) 102 mmol/L (98-107) Carbon Dioxide Level 30 mmol/L (21-32) 26 mmol/L (21-32) Anion Gap 8 (6-14) 10 (6-14) Blood Urea Nitrogen 30 mg/dL (7-20) 32 mg/dL (7-20) Creatinine 1.0 mg/dL (0.6-1.0) 0.9 mg/dL (0.6-1.0) Estimated GFR (Cockcroft-Gault) 66.1 74.7 Glucose Level 128 mg/dL (70-99) 127 mg/dL (70-99) Calcium Level 8.5 mg/dL (8.5-10.1) 8.7 mg/dL (8.5-10.1) Magnesium Level 2.0 mg/dL (1.8-2.4) White Blood Count 5.6 x10^3/uL (4.0-11.0) Red Blood Count 5.05 x10^6/uL (3.50-5.40) Hemoglobin 14.2 g/dL (12.0-15.5) Hematocrit 44.0 % (36.0-47.0) Mean Corpuscular Volume 87 fL (79-100) Mean Corpuscular Hemoglobin 28 pg (25-35) Mean Corpuscular Hemoglobin Concent 32 g/dL (31-37) Red Cell Distribution Width 16.0 % (11.5-14.5) Platelet Count 214 x10^3/uL (140-400) Neutrophils (%) (Auto) 74 % (31-73) Lymphocytes (%) (Auto) 23 % (24-48) Monocytes (%) (Auto) 3 % (0-9) Eosinophils (%) (Auto) 0 % (0-3) Basophils (%) (Auto) 0 % (0-3) Neutrophils # (Auto) 4.1 x10^3uL (1.8-7.7) Lymphocytes # (Auto) 1.3 x10^3/uL (1.0-4.8) Monocytes # (Auto) 0.2 x10^3/uL (0.0-1.1) Eosinophils # (Auto) 0.0 x10^3/uL (0.0-0.7) Basophils # (Auto) 0.0 x10^3/uL (0.0-0.2) Laboratory Tests Test 02/02/17 11:45 02/03/17 03:30 Sodium Level 141 mmol/L (136-145) 138 mmol/L (136-145) Potassium Level 4.0 mmol/L (3.5-5.1) 4.3 mmol/L (3.5-5.1) Chloride Level 103 mmol/L (98-107) 102 mmol/L (98-107) Carbon Dioxide Level 30 mmol/L (21-32) 26 mmol/L (21-32) Anion Gap 8 (6-14) 10 (6-14) Blood Urea Nitrogen 30 mg/dL (7-20) 32 mg/dL (7-20) Creatinine 1.0 mg/dL (0.6-1.0) 0.9 mg/dL (0.6-1.0) Estimated GFR (Cockcroft-Gault) 66.1 74.7 Glucose Level 128 mg/dL (70-99) 127 mg/dL (70-99) Calcium Level 8.5 mg/dL (8.5-10.1) 8.7 mg/dL (8.5-10.1) Magnesium Level 2.0 mg/dL (1.8-2.4) White Blood Count 5.6 x10^3/uL (4.0-11.0) Red Blood Count 5.05 x10^6/uL (3.50-5.40) Hemoglobin 14.2 g/dL (12.0-15.5) Hematocrit 44.0 % (36.0-47.0) Mean Corpuscular Volume 87 fL (79-100) Mean Corpuscular Hemoglobin 28 pg (25-35) Mean Corpuscular Hemoglobin Concent 32 g/dL (31-37) Red Cell Distribution Width 16.0 % (11.5-14.5) Platelet Count 214 x10^3/uL (140-400) Neutrophils (%) (Auto) 74 % (31-73) Lymphocytes (%) (Auto) 23 % (24-48) Monocytes (%) (Auto) 3 % (0-9) Eosinophils (%) (Auto) 0 % (0-3) Basophils (%) (Auto) 0 % (0-3) Neutrophils # (Auto) 4.1 x10^3uL (1.8-7.7) Lymphocytes # (Auto) 1.3 x10^3/uL (1.0-4.8) Monocytes # (Auto) 0.2 x10^3/uL (0.0-1.1) Eosinophils # (Auto) 0.0 x10^3/uL (0.0-0.7) Basophils # (Auto) 0.0 x10^3/uL (0.0-0.2) Medications Active Scripts Medications Dose Route/Sig Max Daily Dose Days Date Category Dose Instructions Prednisone 10 Mg Tablet 10 Mg PO UD 01/29/17 Rx Take 3 tablets by mouth twice a day for 3 days, then take 2 tablets by mouth twice a day for 3 days, then take 1 tablet by mouth twice a day for 3 days, then take 1 tablet by mouth daily x 3 days, then stop. Duoneb 0.5-3(2.5) Mg/3 Ml (Albuterol/Ipratropium) 3 Ml Ampul.neb 3 Ml NEB BID 01/29/17 Rx Alprazolam 0.5 Mg Tablet 0.5 Mg PO PRN Q8HRS PRN 01/29/17 Rx Tramadol Hcl 50 Mg Tablet 1 Tab PO PRN Q6HRS 01/26/17 Reported Protonix (Pantoprazole Sodium) 40 Mg Tablet.dr 1 Tab PO DAILY 01/26/17 Reported Tylenol (Acetaminophen) 325 Mg Tablet 2 Tab PO PRN Q6HRS PRN 01/26/17 Reported Docusate Sodium 100 Mg Capsule 1 Cap PO DAILY PRN 01/26/17 Reported Synthroid (Levothyroxine Sodium) 100 Mcg Tablet 1 Tab PO DAILY 01/25/17 Rx Cardizem Cd (Diltiazem Hcl) 180 Mg Cap.er.24h 1 Cap PO DAILY 01/25/17 Rx Doxazosin Mesylate 2 Mg Tablet 1 Tab PO DAILY 01/23/17 Reported Lasix (Furosemide) 40 Mg Tablet 1 Tab PO DAILY 01/23/17 Reported Potassium Chloride 20 Meq Tablet.er 20 Meq PO DAILY 01/23/17 Reported Aspirin Ec (Aspirin) 81 Mg Tablet.dr 81 Mg PO DAILYWBKFT 30 11/08/16 Rx Esbriet (Pirfenidone) 801 Mg Tablet 801 Mg PO 11/06/16 Reported Zetia (Ezetimibe) 10 Mg Tablet 10 Mg PO HS 02/19/14 Reported Comments cxr reviewed, Chronic changes. No acute finding seen. No significant change Impression . IMPRESSION: 1. Nixzq-cb-tfiwqko respiratory failure. 2. Atrial fibrillation with rapid ventricular response. 3. Acute exacerbation of interstitial lung disease. 4. Roqcc-gg-xlxlycv cor pulmonale. 5. Hypothyroidism. 6. Hypertension. 7. Anxiety/depression. Plan . PLAN: 1. 02 titration, o2 need increased, will do cxr 2. i started BiPAP, personally changed her pressure to 8/4 rate 6, feeling better on bipap, try to find her a nasal mask, advised to use until resp status improved 3. keep I<O, Lasix. monitor k, cr 4. No need for antibiotics. 5. Continue anxiolytic. 6. DVT prophylaxis. 7. Nebulized treatments, change to Atrovent only, has afib w rvt. 8. Home Esbriet. 9. Solumedrol, no dose change 10. on cardizem, dig monitor closely in icu discussed w rn, pt and her family MAGDA GUZMAN MD Feb 03, 2017 10:33
--- NOTE | 2017-02-03 11:14 | PDOC ---
PROGRESS NOTES Chief Complaint Chief Complaint SOB Aflutter CHF PMHx: Chronic respiratory failure, CHF, hypertension, pulmonary fibrosis, O2 dependent. History of Present Illness History of Present Illness Pt seen at bedside in the ICU. She is accompanied by her . She appears well and is in no acute distress. High flow NC in place. SOB is improving. Denies any CP. She continues to improve and is off BiPAP currently. Cardio, pulm , and nephrology following. Discussed with RN at bedside. No acute complaints at this time. Will continue to monitor in the ICU. Vitals Vitals Vital Signs Date Time Temp Pulse Resp B/P (MAP) Pulse Ox O2 Delivery O2 Flow Rate FiO2 02/03/17 10:00 81 118/64 (82) 95 NonRebreather Mask 15.0 02/03/17 08:00 97.6 22 97.6 Physical Exam General: Alert, Oriented X3, Cooperative, No acute distress Heart: Regular rate, Normal S1, Normal S2 Lungs: Crackles, Other (She is moving air well, and breathing on her own. NC in place) Abdomen: Normal bowel sounds, Soft, No tenderness Extremities: No clubbing, No cyanosis, No edema, Normal pulses Skin: No breakdown Labs LABS Laboratory Tests Test 02/02/17 11:45 02/03/17 03:30 Sodium Level 141 mmol/L (136-145) 138 mmol/L (136-145) Potassium Level 4.0 mmol/L (3.5-5.1) 4.3 mmol/L (3.5-5.1) Chloride Level 103 mmol/L (98-107) 102 mmol/L (98-107) Carbon Dioxide Level 30 mmol/L (21-32) 26 mmol/L (21-32) Anion Gap 8 (6-14) 10 (6-14) Blood Urea Nitrogen 30 mg/dL (7-20) 32 mg/dL (7-20) Creatinine 1.0 mg/dL (0.6-1.0) 0.9 mg/dL (0.6-1.0) Estimated GFR (Cockcroft-Gault) 66.1 74.7 Glucose Level 128 mg/dL (70-99) 127 mg/dL (70-99) Calcium Level 8.5 mg/dL (8.5-10.1) 8.7 mg/dL (8.5-10.1) Magnesium Level 2.0 mg/dL (1.8-2.4) White Blood Count 5.6 x10^3/uL (4.0-11.0) Red Blood Count 5.05 x10^6/uL (3.50-5.40) Hemoglobin 14.2 g/dL (12.0-15.5) Hematocrit 44.0 % (36.0-47.0) Mean Corpuscular Volume 87 fL (79-100) Mean Corpuscular Hemoglobin 28 pg (25-35) Mean Corpuscular Hemoglobin Concent 32 g/dL (31-37) Red Cell Distribution Width 16.0 % (11.5-14.5) Platelet Count 214 x10^3/uL (140-400) Neutrophils (%) (Auto) 74 % (31-73) Lymphocytes (%) (Auto) 23 % (24-48) Monocytes (%) (Auto) 3 % (0-9) Eosinophils (%) (Auto) 0 % (0-3) Basophils (%) (Auto) 0 % (0-3) Neutrophils # (Auto) 4.1 x10^3uL (1.8-7.7) Lymphocytes # (Auto) 1.3 x10^3/uL (1.0-4.8) Monocytes # (Auto) 0.2 x10^3/uL (0.0-1.1) Eosinophils # (Auto) 0.0 x10^3/uL (0.0-0.7) Basophils # (Auto) 0.0 x10^3/uL (0.0-0.2) Review of Systems Review of Systems Gen: + fatigue, No fevers or chills CV: No CP or palp Resp: + mild SOB-continues to improve, No wheezing Assessment and Plan Assessmemt and Plan Problems Medical Problems: (1) Atrial flutter Status: Acute (2) Congestive heart failure Status: Acute Assessment: Respiratory distress in ICU Aflutter CHF SOB Chronic respiratory failure, hypertension, pulmonary fibrosis, O2 dependent at home Plan: Pt seen at bedside in the ICU accompanied by High flow NC cont abx cont breathing Tx recheck labs CXR reviewed pt/ot home meds Cardio and Pulm following Appreciate subspec input-Will move forward with their plan of care Continue monitoring in the ICU Problems: Comment Review of Relevant I have reviewed the following items neha (where applicable) has been applied. Labs Laboratory Tests Test 02/01/17 13:29 02/01/17 13:32 02/01/17 13:37 02/01/17 16:35 O2 Saturation 94 % (92-99) Arterial Blood pH 7.46 (7.35-7.45) Arterial Blood pCO2 at Patient Temp 33 mmHg (35-46) Arterial Blood pO2 at Patient Temp 74 mmHg (65-108) Arterial Blood HCO3 23 mmol/L (21-28) Arterial Blood Base Excess 0 mmol/L (-3-3) FiO2 50 Lactic Acid Level 2.8 mmol/L (0.4-2.0) White Blood Count 13.0 x10^3/uL (4.0-11.0) Red Blood Count 5.37 x10^6/uL (3.50-5.40) Hemoglobin 15.4 g/dL (12.0-15.5) Hematocrit 48.0 % (36.0-47.0) Mean Corpuscular Volume 89 fL (79-100) Mean Corpuscular Hemoglobin 29 pg (25-35) Mean Corpuscular Hemoglobin Concent 32 g/dL (31-37) Red Cell Distribution Width 16.6 % (11.5-14.5) Platelet Count 257 x10^3/uL (140-400) Neutrophils (%) (Auto) 75 % (31-73) Lymphocytes (%) (Auto) 20 % (24-48) Monocytes (%) (Auto) 6 % (0-9) Eosinophils (%) (Auto) 0 % (0-3) Basophils (%) (Auto) 0 % (0-3) Neutrophils # (Auto) 9.7 x10^3uL (1.8-7.7) Lymphocytes # (Auto) 2.6 x10^3/uL (1.0-4.8) Monocytes # (Auto) 0.7 x10^3/uL (0.0-1.1) Eosinophils # (Auto) 0.0 x10^3/uL (0.0-0.7) Basophils # (Auto) 0.0 x10^3/uL (0.0-0.2) Prothrombin Time 14.6 SEC (11.7-14.0) Prothromb Time International Ratio 1.2 (0.8-1.1) Sodium Level 140 mmol/L (136-145) Potassium Level 5.9 mmol/L (3.5-5.1) Chloride Level 101 mmol/L (98-107) Carbon Dioxide Level 28 mmol/L (21-32) Anion Gap 11 (6-14) Blood Urea Nitrogen 29 mg/dL (7-20) Creatinine 1.0 mg/dL (0.6-1.0) Estimated GFR (Cockcroft-Gault) 66.3 BUN/Creatinine Ratio 29 (6-20) Glucose Level 117 mg/dL (70-99) Calcium Level 9.7 mg/dL (8.5-10.1) Magnesium Level 2.1 mg/dL (1.8-2.4) Total Bilirubin 1.3 mg/dL (0.2-1.0) Aspartate Amino Transf (AST/SGOT) 48 U/L (15-37) Alanine Aminotransferase (ALT/SGPT) 59 U/L (14-59) Alkaline Phosphatase 115 U/L (46-116) Troponin I Quantitative 0.096 ng/mL (0.000-0.055) OA-Yfj-[id number]-Type Natriuretic Peptide > 72325 pg/mL (0-124) Total Protein 6.9 g/dL (6.4-8.2) Albumin 3.8 g/dL (3.4-5.0) Albumin/Globulin Ratio 1.2 (1.0-1.7) Nasal Screen MRSA (PCR) Negative (Negative) Test 02/01/17 20:00 02/01/17 21:00 02/02/17 01:44 02/02/17 03:03 Lactic Acid Level 3.8 mmol/L (0.4-2.0) 2.2 mmol/L (0.4-2.0) Troponin I Quantitative 0.080 ng/mL (0.000-0.055) 0.123 ng/mL (0.000-0.055) Test 02/02/17 11:45 02/03/17 03:30 Sodium Level 141 mmol/L (136-145) 138 mmol/L (136-145) Potassium Level 4.0 mmol/L (3.5-5.1) 4.3 mmol/L (3.5-5.1) Chloride Level 103 mmol/L (98-107) 102 mmol/L (98-107) Carbon Dioxide Level 30 mmol/L (21-32) 26 mmol/L (21-32) Anion Gap 8 (6-14) 10 (6-14) Blood Urea Nitrogen 30 mg/dL (7-20) 32 mg/dL (7-20) Creatinine 1.0 mg/dL (0.6-1.0) 0.9 mg/dL (0.6-1.0) Estimated GFR (Cockcroft-Gault) 66.1 74.7 Glucose Level 128 mg/dL (70-99) 127 mg/dL (70-99) Calcium Level 8.5 mg/dL (8.5-10.1) 8.7 mg/dL (8.5-10.1) Magnesium Level 2.0 mg/dL (1.8-2.4) White Blood Count 5.6 x10^3/uL (4.0-11.0) Red Blood Count 5.05 x10^6/uL (3.50-5.40) Hemoglobin 14.2 g/dL (12.0-15.5) Hematocrit 44.0 % (36.0-47.0) Mean Corpuscular Volume 87 fL (79-100) Mean Corpuscular Hemoglobin 28 pg (25-35) Mean Corpuscular Hemoglobin Concent 32 g/dL (31-37) Red Cell Distribution Width 16.0 % (11.5-14.5) Platelet Count 214 x10^3/uL (140-400) Neutrophils (%) (Auto) 74 % (31-73) Lymphocytes (%) (Auto) 23 % (24-48) Monocytes (%) (Auto) 3 % (0-9) Eosinophils (%) (Auto) 0 % (0-3) Basophils (%) (Auto) 0 % (0-3) Neutrophils # (Auto) 4.1 x10^3uL (1.8-7.7) Lymphocytes # (Auto) 1.3 x10^3/uL (1.0-4.8) Monocytes # (Auto) 0.2 x10^3/uL (0.0-1.1) Eosinophils # (Auto) 0.0 x10^3/uL (0.0-0.7) Basophils # (Auto) 0.0 x10^3/uL (0.0-0.2) Laboratory Tests Test 02/02/17 11:45 02/03/17 03:30 Sodium Level 141 mmol/L (136-145) 138 mmol/L (136-145) Potassium Level 4.0 mmol/L (3.5-5.1) 4.3 mmol/L (3.5-5.1) Chloride Level 103 mmol/L (98-107) 102 mmol/L (98-107) Carbon Dioxide Level 30 mmol/L (21-32) 26 mmol/L (21-32) Anion Gap 8 (6-14) 10 (6-14) Blood Urea Nitrogen 30 mg/dL (7-20) 32 mg/dL (7-20) Creatinine 1.0 mg/dL (0.6-1.0) 0.9 mg/dL (0.6-1.0) Estimated GFR (Cockcroft-Gault) 66.1 74.7 Glucose Level 128 mg/dL (70-99) 127 mg/dL (70-99) Calcium Level 8.5 mg/dL (8.5-10.1) 8.7 mg/dL (8.5-10.1) Magnesium Level 2.0 mg/dL (1.8-2.4) White Blood Count 5.6 x10^3/uL (4.0-11.0) Red Blood Count 5.05 x10^6/uL (3.50-5.40) Hemoglobin 14.2 g/dL (12.0-15.5) Hematocrit 44.0 % (36.0-47.0) Mean Corpuscular Volume 87 fL (79-100) Mean Corpuscular Hemoglobin 28 pg (25-35) Mean Corpuscular Hemoglobin Concent 32 g/dL (31-37) Red Cell Distribution Width 16.0 % (11.5-14.5) Platelet Count 214 x10^3/uL (140-400) Neutrophils (%) (Auto) 74 % (31-73) Lymphocytes (%) (Auto) 23 % (24-48) Monocytes (%) (Auto) 3 % (0-9) Eosinophils (%) (Auto) 0 % (0-3) Basophils (%) (Auto) 0 % (0-3) Neutrophils # (Auto) 4.1 x10^3uL (1.8-7.7) Lymphocytes # (Auto) 1.3 x10^3/uL (1.0-4.8) Monocytes # (Auto) 0.2 x10^3/uL (0.0-1.1) Eosinophils # (Auto) 0.0 x10^3/uL (0.0-0.7) Basophils # (Auto) 0.0 x10^3/uL (0.0-0.2) Microbiology 02/01/17 Blood Culture - Preliminary, Resulted NO GROWTH AFTER 1 DAY Medications Current Medications Albuterol Sulfate (Ventolin Neb Soln) 10 mg 1X ONCE CONT NEB Last administered on 02/01/17 14:01; Start 02/01/17 at 13:30; Stop 02/01/17 at 13 :35; Status DC Ipratropium [place] (Atrovent) 0.5 mg 1X ONCE NEB Last administered on 13:30; Start 02/01/17 at 13:30; Stop 02/01/17 at 13:35; Status DC Diltiazem HCl 125 mg/Dextrose 125 ml @ 0 mls/hr CONT PRN IV SEE I/O RECORD Last administered on 02/01/17 14:04; Start 02/01/17 at 13:45 Diltiazem HCl (Cardizem) 10 mg 1X ONCE IVP Last administered on 02/01/17 14: 00; Start 02/01/17 at 13:45; Stop 02/01/17 at 13:46; Status DC Furosemide (Lasix) 40 mg 1X ONCE IVP Last administered on 02/01/17 15:05; Start 02/01/17 at 15:00; Stop 02/01/17 at 15:01; Status DC Acetaminophen (Tylenol) 650 mg PRN Q6HRS PRN PO FEVER; Start 02/01/17 at 15:15 Alprazolam (Xanax) 0.5 mg PRN Q8HRS PRN PO ANXIETY / AGITATION; Start at 15:15 Aspirin (Ecotrin) 81 mg DAILYWBKFT PO Last administered on 02/02/17 09:00; Start 02/02/17 at 08:00; Stop 02/02/17 at 11:37; Status DC Diltiazem HCl (Cardizem 24hr Cd) 180 mg DAILY PO Last administered on 09:12; Start 02/01/17 at 16:00 Docusate Sodium (Colace) 100 mg PRN DAILY PRN PO CONSTIPATION; Start 02/01/17 at 15:15 EZETIMIBE (Zetia) 10 mg HS PO Last administered on 02/02/17 21:35; Start 04/08 at 21:00 Furosemide (Lasix) 40 mg DAILY PO Last administered on 02/03/17 09:12; Start 02/02/17 at 09:00 Albuterol/ Ipratropium (Duoneb) 3 ml BID NEB Last administered on 02/02/17 08 :16; Start 02/01/17 at 21:00; Stop 02/02/17 at 14:01; Status DC Levothyroxine Sodium (Synthroid) 100 mcg DAILY07 PO Last administered on 06:00; Start 02/02/17 at 07:00 Pantoprazole Sodium (Protonix) 40 mg DAILY PO Last administered on 02/03/17 09:12; Start 02/01/17 at 16:30 Prednisone (Prednisone) 10 mg DAILY PO Last administered on 02/02/17 09:02; Start 02/02/17 at 09:00; Stop 02/02/17 at 14:01; Status DC Tramadol HCl (Ultram) 50 mg PRN Q6HRS PRN PO MILD TO MODERATE PAIN; Start 04/08 at 15:15 Apixaban (Eliquis) 5 mg BID PO Last administered on 02/03/17 09:13; Start at 21:00 Digoxin (Lanoxin) 500 mcg 1X ONCE IV Last administered on 02/01/17 15:55; Start 02/01/17 at 15:30; Stop 02/01/17 at 15:31; Status DC Ondansetron HCl (Zofran) 4 mg PRN Q8HRS PRN IV NAUSEA/VOMITING; Start at 15:30; Stop 02/02/17 at 15:29; Status DC Furosemide (Lasix) 40 mg DAILY IVP ; Start 02/02/17 at 09:00; Stop 02/02/17 at 10:59; Status DC Sodium Polystyrene Sulfonate (Kayexalate) 15 gm 1X ONCE PO Last administered on 02/01/17 16:15; Start 02/01/17 at 15:30; Stop 02/01/17 at 15:31; Status DC Non-Formulary Medication 3 ea TIDWMEALS PO Last administered on 02/03/17 09: 12; Start 02/01/17 at 18:00 Levofloxacin/ Dextrose 100 ml @ 100 mls/hr Q24H IV Last administered on 21:36; Start 02/01/17 at 22:00 Sodium Chloride 1,000 ml @ 50 mls/hr Q20H IV Last administered on 02/01/17 21:35; Start 02/01/17 at 21:15; Stop 02/02/17 at 19:21; Status DC Info (Anti-Coagulation Monitoring By Pharmacy) 1 each PRN DAILY PRN MC SEE COMMENTS Last administered on 02/03/17 07:31; Start 02/02/17 at 09:00 Sodium Polystyrene Sulfonate (Kayexalate) 15 gm 1X ONCE PO ; Start 02/02/17 at 11:00; Stop 02/02/17 at 11:01; Status DC Digoxin (Lanoxin) 250 mcg 1X ONCE IV Last administered on 02/02/17 11:42; Start 02/02/17 at 11:30; Stop 02/02/17 at 11:31; Status DC Metoprolol Tartrate (Lopressor) 5 mg 1X ONCE IVP Last administered on 14:04; Start 02/02/17 at 11:30; Stop 02/02/17 at 11:31; Status DC Ipratropium [place] (Atrovent) 0.5 mg RTQID NEB Last administered on 08:12; Start 02/02/17 at 16:00 Methylprednisolone Sodium Succinate (SOLU-Medrol 40MG VIAL) 40 mg Q8HRS IV Last administered on 02/03/17 06:00; Start 02/02/17 at 14:15 Metoprolol Succinate (Toprol Xl) 25 mg DAILY PO Last administered on 09:12; Start 02/02/17 at 15:00 Active Scripts Active Prednisone 10 Mg Tablet 10 Mg PO UD Take 3 tablets by mouth twice a day for 3 days, then take 2 tablets by mouth twice a day for 3 days, then take 1 tablet by mouth twice a day for 3 days, then take 1 tablet by mouth daily x 3 days, then stop. Duoneb 0.5-3(2.5) Mg/3 Ml (Albuterol/Ipratropium) 3 Ml Ampul.neb 3 Ml NEB BID Alprazolam 0.5 Mg Tablet 0.5 Mg PO PRN Q8HRS PRN Synthroid (Levothyroxine Sodium) 100 Mcg Tablet 1 Tab PO DAILY Cardizem Cd (Diltiazem Hcl) 180 Mg Cap.er.24h 1 Cap PO DAILY Aspirin Ec (Aspirin) 81 Mg Tablet. 81 Mg PO DAILYWBKFT 30 Days Reported Tramadol Hcl 50 Mg Tablet 1 Tab PO PRN Q6HRS Protonix (Pantoprazole Sodium) 40 Mg Tablet. 1 Tab PO DAILY Tylenol (Acetaminophen) 325 Mg Tablet 2 Tab PO PRN Q6HRS PRN Docusate Sodium 100 Mg Capsule 1 Cap PO DAILY PRN Doxazosin Mesylate 2 Mg Tablet 1 Tab PO DAILY Lasix (Furosemide) 40 Mg Tablet 1 Tab PO DAILY Potassium Chloride 20 Meq Tablet.er 20 Meq PO DAILY Esbriet (Pirfenidone) 801 Mg Tablet 801 Mg PO Zetia (Ezetimibe) 10 Mg Tablet 10 Mg PO HS Vitals/I & O Vital Sign - Last 24 Hours 02/02/17 02/02/17 02/02/17 02/02/17 11:42 12:00 12:04 13:04 Temp 97.5 97.5 Pulse 144 135 130 Resp 28 B/P (MAP) 98/67 107/74 (85) 96/65 (75) Pulse Ox 95 95 O2 Delivery Nasal Cannula Nasal Cannula Nasal Cannula O2 Flow Rate 10.0 10.0 10.0 02/02/17 02/02/17 02/02/17 02/02/17 14:00 14:04 15:00 15:24 Temp 98.5 98.5 Pulse 68 94 76 86 Resp 26 25 B/P (MAP) 106/70 (82) 105/70 105/66 (79) 105/66 Pulse Ox 93 88 O2 Delivery Nasal Cannula Nasal Cannula O2 Flow Rate 8.0 8.0 02/02/17 02/02/17 02/02/17 02/02/17 15:58 16:00 16:00 17:00 Temp 98.6 98.6 Pulse 82 84 Resp 25 24 B/P (MAP) 117/62 (80) 110/70 (83) Pulse Ox 95 90 93 O2 Delivery Nasal Cannula Nasal Cannula Nasal Cannula Nasal Cannula O2 Flow Rate 9.0 10.0 10.0 10.0 02/02/17 02/02/17 02/02/17 02/02/17 18:00 19:00 19:39 20:00 Pulse 90 86 Resp 26 B/P (MAP) 115/68 (84) Pulse Ox 90 90 89 O2 Delivery Nasal Cannula Nasal Cannula Nasal Cannula Nasal Cannula O2 Flow Rate 10.0 10.0 9.0 10.0 02/02/17 02/02/17 02/02/17 02/02/17 20:00 21:00 22:00 23:00 Temp 97.4 97.4 Pulse 84 84 84 88 Resp 22 B/P (MAP) 103/71 (82) 102/73 (83) 119/72 (88) 138/85 (102) Pulse Ox 90 91 90 92 O2 Delivery Nasal Cannula Nasal Cannula Nasal Cannula Nasal Cannula O2 Flow Rate 10.0 10.0 10.0 10.0 02/03/17 02/03/17 02/03/17 02/03/17 00:05 00:12 01:09 02:04 Temp 97.4 97.4 Pulse 86 88 86 Resp 20 B/P (MAP) 117/77 (90) 114/78 (90) 114/78 (90) Pulse Ox 94 95 96 O2 Delivery Nasal Cannula Nasal Cannula Nasal Cannula Nasal Cannula O2 Flow Rate 10.0 10.0 10.0 10.0 02/03/17 02/03/17 02/03/17 02/03/17 03:07 04:07 04:08 05:07 Temp 98.1 98.1 Pulse 85 85 83 Resp 20 22 B/P (MAP) 123/88 (100) 116/76 (89) 111/74 (86) Pulse Ox 95 96 90 O2 Delivery Nasal Cannula Nasal Cannula Nasal Cannula Nasal Cannula O2 Flow Rate 10.0 10.0 10.0 10.0 02/03/17 02/03/17 02/03/1714/17 06:15 07:00 08:00 08:00 Temp 97.6 97.6 Pulse 82 82 80 Resp 20 22 B/P (MAP) 109/68 (82) 116/72 (87) 118/75 (89) Pulse Ox 90 92 90 O2 Delivery Nasal Cannula Nasal Cannula Nasal Cannula Nasal Cannula O2 Flow Rate 10.0 10.0 10.0 10.0 02/03/17 02/03/17 02/03/17 02/03/17 08:14 09:00 09:12 09:12 Pulse 80 81 81 B/P (MAP) 118/76 (90) 118/76 118/76 Pulse Ox 92 91 O2 Delivery High Flow Nasal Cannula Nasal Cannula O2 Flow Rate 9.0 10.0 02/03/17 10:00 Pulse 81 B/P (MAP) 118/64 (82) Pulse Ox 95 O2 Delivery NonRebreather Mask O2 Flow Rate 15.0 Intake and Output 02/03/17 02/03/17 02/04/17 15:00 23:00 07:00 Output Total 70 ml Balance -70 ml AGUEDA MALHOTRA K III DO Feb 03, 2017 11:14
--- NOTE | 2017-02-03 11:56 | PDOC ---
PROGRESS NOTES Subjective Subjective The patient reports feeling better today. Objective Objective Vital Signs Date Time Temp Pulse Resp B/P (MAP) Pulse Ox O2 Delivery O2 Flow Rate FiO2 02/03/17 11:32 93 BiPAP/CPAP 02/03/17 11:00 80 127/75 (92) 02/03/17 10:00 15.0 02/03/17 08:00 97.6 22 97.6 Intake and Output 02/04/17 07:00 Output Total 70 ml Balance -70 ml Output Urine Total 70 ml Physical Exam Abdomen: Normal bowel sounds Heart: Other (irregularly irregular) General: No acute distress Lungs: Other (minimally decreased breath sounds) Assessment Assessment Problems Medical Problems: (1) Atrial flutter Status: Acute (2) Congestive heart failure Status: Acute Assessment 1. Acute on chronic diastolic CHF: improving. Mainly right sided with culprit #1 &2. 2. Paroxysmal Atrial flutter: presently 2:1 rate and blood pressure improved today. 3. Acute on chronic respiratory failure with underlying pulmonary fibrosis/ severe pulmonary HTN with chronic O2 use: Per pulmonary 4. Hypothyroidism: recent TSH 11. 5. HTN: Improved. 6. HLP 7. SHELBY/hyperkalemia: prerenal. Comment Review of Relevant I have reviewed the following items neha (where applicable) has been applied. Labs Laboratory Tests Test 02/01/17 13:29 02/01/17 13:32 02/01/17 13:37 02/01/17 16:35 O2 Saturation 94 % (92-99) Arterial Blood pH 7.46 (7.35-7.45) Arterial Blood pCO2 at Patient Temp 33 mmHg (35-46) Arterial Blood pO2 at Patient Temp 74 mmHg (65-108) Arterial Blood HCO3 23 mmol/L (21-28) Arterial Blood Base Excess 0 mmol/L (-3-3) FiO2 50 Lactic Acid Level 2.8 mmol/L (0.4-2.0) White Blood Count 13.0 x10^3/uL (4.0-11.0) Red Blood Count 5.37 x10^6/uL (3.50-5.40) Hemoglobin 15.4 g/dL (12.0-15.5) Hematocrit 48.0 % (36.0-47.0) Mean Corpuscular Volume 89 fL (79-100) Mean Corpuscular Hemoglobin 29 pg (25-35) Mean Corpuscular Hemoglobin Concent 32 g/dL (31-37) Red Cell Distribution Width 16.6 % (11.5-14.5) Platelet Count 257 x10^3/uL (140-400) Neutrophils (%) (Auto) 75 % (31-73) Lymphocytes (%) (Auto) 20 % (24-48) Monocytes (%) (Auto) 6 % (0-9) Eosinophils (%) (Auto) 0 % (0-3) Basophils (%) (Auto) 0 % (0-3) Neutrophils # (Auto) 9.7 x10^3uL (1.8-7.7) Lymphocytes # (Auto) 2.6 x10^3/uL (1.0-4.8) Monocytes # (Auto) 0.7 x10^3/uL (0.0-1.1) Eosinophils # (Auto) 0.0 x10^3/uL (0.0-0.7) Basophils # (Auto) 0.0 x10^3/uL (0.0-0.2) Prothrombin Time 14.6 SEC (11.7-14.0) Prothromb Time International Ratio 1.2 (0.8-1.1) Sodium Level 140 mmol/L (136-145) Potassium Level 5.9 mmol/L (3.5-5.1) Chloride Level 101 mmol/L (98-107) Carbon Dioxide Level 28 mmol/L (21-32) Anion Gap 11 (6-14) Blood Urea Nitrogen 29 mg/dL (7-20) Creatinine 1.0 mg/dL (0.6-1.0) Estimated GFR (Cockcroft-Gault) 66.3 BUN/Creatinine Ratio 29 (6-20) Glucose Level 117 mg/dL (70-99) Calcium Level 9.7 mg/dL (8.5-10.1) Magnesium Level 2.1 mg/dL (1.8-2.4) Total Bilirubin 1.3 mg/dL (0.2-1.0) Aspartate Amino Transf (AST/SGOT) 48 U/L (15-37) Alanine Aminotransferase (ALT/SGPT) 59 U/L (14-59) Alkaline Phosphatase 115 U/L (46-116) Troponin I Quantitative 0.096 ng/mL (0.000-0.055) QW-Ili-G-Type Natriuretic Peptide > 53371 pg/mL (0-124) Total Protein 6.9 g/dL (6.4-8.2) Albumin 3.8 g/dL (3.4-5.0) Albumin/Globulin Ratio 1.2 (1.0-1.7) Nasal Screen MRSA (PCR) Negative (Negative) Test 02/01/17 20:00 02/01/17 21:00 02/02/17 01:44 02/02/17 03:03 Lactic Acid Level 3.8 mmol/L (0.4-2.0) 2.2 mmol/L (0.4-2.0) Troponin I Quantitative 0.080 ng/mL (0.000-0.055) 0.123 ng/mL (0.000-0.055) Test 02/02/17 11:45 02/03/17 03:30 Sodium Level 141 mmol/L (136-145) 138 mmol/L (136-145) Potassium Level 4.0 mmol/L (3.5-5.1) 4.3 mmol/L (3.5-5.1) Chloride Level 103 mmol/L (98-107) 102 mmol/L (98-107) Carbon Dioxide Level 30 mmol/L (21-32) 26 mmol/L (21-32) Anion Gap 8 (6-14) 10 (6-14) Blood Urea Nitrogen 30 mg/dL (7-20) 32 mg/dL (7-20) Creatinine 1.0 mg/dL (0.6-1.0) 0.9 mg/dL (0.6-1.0) Estimated GFR (Cockcroft-Gault) 66.1 74.7 Glucose Level 128 mg/dL (70-99) 127 mg/dL (70-99) Calcium Level 8.5 mg/dL (8.5-10.1) 8.7 mg/dL (8.5-10.1) Magnesium Level 2.0 mg/dL (1.8-2.4) White Blood Count 5.6 x10^3/uL (4.0-11.0) Red Blood Count 5.05 x10^6/uL (3.50-5.40) Hemoglobin 14.2 g/dL (12.0-15.5) Hematocrit 44.0 % (36.0-47.0) Mean Corpuscular Volume 87 fL (79-100) Mean Corpuscular Hemoglobin 28 pg (25-35) Mean Corpuscular Hemoglobin Concent 32 g/dL (31-37) Red Cell Distribution Width 16.0 % (11.5-14.5) Platelet Count 214 x10^3/uL (140-400) Neutrophils (%) (Auto) 74 % (31-73) Lymphocytes (%) (Auto) 23 % (24-48) Monocytes (%) (Auto) 3 % (0-9) Eosinophils (%) (Auto) 0 % (0-3) Basophils (%) (Auto) 0 % (0-3) Neutrophils # (Auto) 4.1 x10^3uL (1.8-7.7) Lymphocytes # (Auto) 1.3 x10^3/uL (1.0-4.8) Monocytes # (Auto) 0.2 x10^3/uL (0.0-1.1) Eosinophils # (Auto) 0.0 x10^3/uL (0.0-0.7) Basophils # (Auto) 0.0 x10^3/uL (0.0-0.2) Laboratory Tests Test 02/03/17 03:30 White Blood Count 5.6 x10^3/uL (4.0-11.0) Red Blood Count 5.05 x10^6/uL (3.50-5.40) Hemoglobin 14.2 g/dL (12.0-15.5) Hematocrit 44.0 % (36.0-47.0) Mean Corpuscular Volume 87 fL (79-100) Mean Corpuscular Hemoglobin 28 pg (25-35) Mean Corpuscular Hemoglobin Concent 32 g/dL (31-37) Red Cell Distribution Width 16.0 % (11.5-14.5) Platelet Count 214 x10^3/uL (140-400) Neutrophils (%) (Auto) 74 % (31-73) Lymphocytes (%) (Auto) 23 % (24-48) Monocytes (%) (Auto) 3 % (0-9) Eosinophils (%) (Auto) 0 % (0-3) Basophils (%) (Auto) 0 % (0-3) Neutrophils # (Auto) 4.1 x10^3uL (1.8-7.7) Lymphocytes # (Auto) 1.3 x10^3/uL (1.0-4.8) Monocytes # (Auto) 0.2 x10^3/uL (0.0-1.1) Eosinophils # (Auto) 0.0 x10^3/uL (0.0-0.7) Basophils # (Auto) 0.0 x10^3/uL (0.0-0.2) Sodium Level 138 mmol/L (136-145) Potassium Level 4.3 mmol/L (3.5-5.1) Chloride Level 102 mmol/L (98-107) Carbon Dioxide Level 26 mmol/L (21-32) Anion Gap 10 (6-14) Blood Urea Nitrogen 32 mg/dL (7-20) Creatinine 0.9 mg/dL (0.6-1.0) Estimated GFR (Cockcroft-Gault) 74.7 Glucose Level 127 mg/dL (70-99) Calcium Level 8.7 mg/dL (8.5-10.1) Microbiology 02/01/17 Blood Culture - Preliminary, Resulted NO GROWTH AFTER 1 DAY Medications Current Medications Albuterol Sulfate (Ventolin Neb Soln) 10 mg 1X ONCE CONT NEB Last administered on 02/01/17 14:01; Start 02/01/17 at 13:30; Stop 02/01/17 at 13 :35; Status DC Ipratropium [place] (Atrovent) 0.5 mg 1X ONCE NEB Last administered on 13:30; Start 02/01/17 at 13:30; Stop 02/01/17 at 13:35; Status DC Diltiazem HCl 125 mg/Dextrose 125 ml @ 0 mls/hr CONT PRN IV SEE I/O RECORD Last administered on 02/01/17 14:04; Start 02/01/17 at 13:45 Diltiazem HCl (Cardizem) 10 mg 1X ONCE IVP Last administered on 02/01/17 14: 00; Start 02/01/17 at 13:45; Stop 02/01/17 at 13:46; Status DC Furosemide (Lasix) 40 mg 1X ONCE IVP Last administered on 02/01/17 15:05; Start 02/01/17 at 15:00; Stop 02/01/17 at 15:01; Status DC Acetaminophen (Tylenol) 650 mg PRN Q6HRS PRN PO FEVER; Start 02/01/17 at 15:15 Alprazolam (Xanax) 0.5 mg PRN Q8HRS PRN PO ANXIETY / AGITATION; Start at 15:15 Aspirin (Ecotrin) 81 mg DAILYWBKFT PO Last administered on 02/02/17 09:00; Start 02/02/17 at 08:00; Stop 02/02/17 at 11:37; Status DC Diltiazem HCl (Cardizem 24hr Cd) 180 mg DAILY PO Last administered on 09:12; Start 02/01/17 at 16:00 Docusate Sodium (Colace) 100 mg PRN DAILY PRN PO CONSTIPATION; Start 02/01/17 at 15:15 EZETIMIBE (Zetia) 10 mg HS PO Last administered on 02/02/17 21:35; Start 04/08 at 21:00 Furosemide (Lasix) 40 mg DAILY PO Last administered on 02/03/17 09:12; Start 02/02/17 at 09:00 Albuterol/ Ipratropium (Duoneb) 3 ml BID NEB Last administered on 02/02/17 08 :16; Start 02/01/17 at 21:00; Stop 02/02/17 at 14:01; Status DC Levothyroxine Sodium (Synthroid) 100 mcg DAILY07 PO Last administered on 06:00; Start 02/02/17 at 07:00 Pantoprazole Sodium (Protonix) 40 mg DAILY PO Last administered on 02/03/17 09:12; Start 02/01/17 at 16:30 Prednisone (Prednisone) 10 mg DAILY PO Last administered on 02/02/17 09:02; Start 02/02/17 at 09:00; Stop 02/02/17 at 14:01; Status DC Tramadol HCl (Ultram) 50 mg PRN Q6HRS PRN PO MILD TO MODERATE PAIN; Start 04/08 at 15:15 Apixaban (Eliquis) 5 mg BID PO Last administered on 02/03/17 09:13; Start at 21:00 Digoxin (Lanoxin) 500 mcg 1X ONCE IV Last administered on 02/01/17 15:55; Start 02/01/17 at 15:30; Stop 02/01/17 at 15:31; Status DC Ondansetron HCl (Zofran) 4 mg PRN Q8HRS PRN IV NAUSEA/VOMITING; Start at 15:30; Stop 02/02/17 at 15:29; Status DC Furosemide (Lasix) 40 mg DAILY IVP ; Start 02/02/17 at 09:00; Stop 02/02/17 at 10:59; Status DC Sodium Polystyrene Sulfonate (Kayexalate) 15 gm 1X ONCE PO Last administered on 02/01/17 16:15; Start 02/01/17 at 15:30; Stop 02/01/17 at 15:31; Status DC Non-Formulary Medication 3 ea TIDWMEALS PO Last administered on 02/03/17 09: 12; Start 02/01/17 at 18:00 Levofloxacin/ Dextrose 100 ml @ 100 mls/hr Q24H IV Last administered on 21:36; Start 02/01/17 at 22:00 Sodium Chloride 1,000 ml @ 50 mls/hr Q20H IV Last administered on 02/01/17 21:35; Start 02/01/17 at 21:15; Stop 02/02/17 at 19:21; Status DC Info (Anti-Coagulation Monitoring By Pharmacy) 1 each PRN DAILY PRN MC SEE COMMENTS Last administered on 02/03/17 07:31; Start 02/02/17 at 09:00 Sodium Polystyrene Sulfonate (Kayexalate) 15 gm 1X ONCE PO ; Start 02/02/17 at 11:00; Stop 02/02/17 at 11:01; Status DC Digoxin (Lanoxin) 250 mcg 1X ONCE IV Last administered on 02/02/17 11:42; Start 02/02/17 at 11:30; Stop 02/02/17 at 11:31; Status DC Metoprolol Tartrate (Lopressor) 5 mg 1X ONCE IVP Last administered on 14:04; Start 02/02/17 at 11:30; Stop 02/02/17 at 11:31; Status DC Ipratropium [place] (Atrovent) 0.5 mg RTQID NEB Last administered on 08:12; Start 02/02/17 at 16:00 Methylprednisolone Sodium Succinate (SOLU-Medrol 40MG VIAL) 40 mg Q8HRS IV Last administered on 02/03/17 06:00; Start 02/02/17 at 14:15 Metoprolol Succinate (Toprol Xl) 25 mg DAILY PO Last administered on 09:12; Start 02/02/17 at 15:00 Active Scripts Active Prednisone 10 Mg Tablet 10 Mg PO UD Take 3 tablets by mouth twice a day for 3 days, then take 2 tablets by mouth twice a day for 3 days, then take 1 tablet by mouth twice a day for 3 days, then take 1 tablet by mouth daily x 3 days, then stop. Duoneb 0.5-3(2.5) Mg/3 Ml (Albuterol/Ipratropium) 3 Ml Ampul.neb 3 Ml NEB BID Alprazolam 0.5 Mg Tablet 0.5 Mg PO PRN Q8HRS PRN Synthroid (Levothyroxine Sodium) 100 Mcg Tablet 1 Tab PO DAILY Cardizem Cd (Diltiazem Hcl) 180 Mg Cap.er.24h 1 Cap PO DAILY Aspirin Ec (Aspirin) 81 Mg Tablet.dr 81 Mg PO DAILYWBKFT 30 Days Reported Tramadol Hcl 50 Mg Tablet 1 Tab PO PRN Q6HRS Protonix (Pantoprazole Sodium) 40 Mg Tablet.dr 1 Tab PO DAILY Tylenol (Acetaminophen) 325 Mg Tablet 2 Tab PO PRN Q6HRS PRN Docusate Sodium 100 Mg Capsule 1 Cap PO DAILY PRN Doxazosin Mesylate 2 Mg Tablet 1 Tab PO DAILY Lasix (Furosemide) 40 Mg Tablet 1 Tab PO DAILY Potassium Chloride 20 Meq Tablet.er 20 Meq PO DAILY Esbriet (Pirfenidone) 801 Mg Tablet 801 Mg PO Zetia (Ezetimibe) 10 Mg Tablet 10 Mg PO HS Vitals/I & O Vital Sign - Last 24 Hours 02/02/17 02/02/17 02/02/17 02/02/17 12:00 12:04 13:04 14:00 Temp 97.5 98.5 97.5 98.5 Pulse 135 130 68 Resp 26 B/P (MAP) 107/74 (85) 96/65 (75) 106/70 (82) Pulse Ox 95 95 93 O2 Delivery Nasal Cannula Nasal Cannula Nasal Cannula Nasal Cannula O2 Flow Rate 10.0 10.0 10.0 8.0 02/02/17 02/02/17 02/02/17 02/02/17 14:04 15:00 15:24 15:58 Pulse 94 76 86 Resp 25 B/P (MAP) 105/70 105/66 (79) 105/66 Pulse Ox 88 95 O2 Delivery Nasal Cannula Nasal Cannula O2 Flow Rate 8.0 9.0 02/02/17 02/02/17 02/02/17 02/02/17 16:00 16:00 17:00 18:00 Temp 98.6 98.6 Pulse 82 84 90 Resp B/P (MAP) 117/62 (80) 110/70 (83) 115/68 (84) Pulse Ox 90 93 90 O2 Delivery Nasal Cannula Nasal Cannula Nasal Cannula Nasal Cannula O2 Flow Rate 10.0 10.0 10.0 10.0 02/02/17 02/02/17 02/02/17 02/02/17 19:00 19:39 20:00 20:00 Temp 97.4 97.4 Pulse 86 84 Resp 22 B/P (MAP) 103/71 (82) Pulse Ox 90 89 90 O2 Delivery Nasal Cannula Nasal Cannula Nasal Cannula Nasal Cannula O2 Flow Rate 10.0 9.0 10.0 10.0 02/02/17 02/02/17 02/02/17 02/03/17 21:00 22:00 23:00 00:05 Pulse 84 84 88 Resp 22 22 B/P (MAP) 102/73 (83) 119/72 (88) 138/85 (102) Pulse Ox 91 90 92 O2 Delivery Nasal Cannula Nasal Cannula Nasal Cannula Nasal Cannula O2 Flow Rate 10.0 10.0 10.0 10.0 02/03/17 02/03/17 02/03/17 02/03/17 00:12 01:09 02:04 03:07 Temp 97.4 97.4 Pulse 86 88 86 85 Resp 20 20 20 B/P (MAP) 117/77 (90) 114/78 (90) 114/78 (90) 123/88 (100) Pulse Ox 94 95 96 95 O2 Delivery Nasal Cannula Nasal Cannula Nasal Cannula Nasal Cannula O2 Flow Rate 10.0 10.0 10.0 10.0 02/03/17 02/03/17 02/03/17 02/03/17 04:07 04:08 05:07 06:15 Temp 98.1 98.1 Pulse 85 83 82 Resp 20 22 20 B/P (MAP) 116/76 (89) 111/74 (86) 109/68 (82) Pulse Ox 96 90 90 O2 Delivery Nasal Cannula Nasal Cannula Nasal Cannula Nasal Cannula O2 Flow Rate 10.0 10.0 10.0 10.0 02/03/17 02/03/17 02/03/17 02/03/17 07:00 08:00 08:00 08:14 Temp 97.6 97.6 Pulse 82 80 Resp 22 B/P (MAP) 116/72 (87) 118/75 (89) Pulse Ox 92 90 92 O2 Delivery Nasal Cannula Nasal Cannula Nasal Cannula High Flow Nasal Cannula O2 Flow Rate 10.0 10.0 10.0 9.0 02/03/17 02/03/17 02/03/17 02/03/17 09:00 09:12 09:12 10:00 Pulse 80 81 81 81 B/P (MAP) 118/76 (90) 118/76 118/76 118/64 (82) Pulse Ox 91 95 O2 Delivery Nasal Cannula NonRebreather Mask O2 Flow Rate 10.0 15.0 02/03/17 02/03/17 11:00 11:32 Pulse 80 B/P (MAP) 127/75 (92) Pulse Ox 94 93 O2 Delivery BiPAP/CPAP BiPAP/CPAP Intake and Output 02/03/17 02/03/17 02/04/17 15:00 23:00 07:00 Output Total 70 ml Balance -70 ml AUGIE MILTON MD Feb 03, 2017 11:56
--- NOTE | 2017-02-03 13:02 | RAD ---
Portable AP upright chest x-ray performed at 1217 History: Respiratory failure. Comparison: February 01, 2017. Findings: Chronic interstitial lung disease is seen bilaterally. There is a new finding of a lateral right lung base radiodensity which may represent an increase in pleural effusion on the right side. There is mild blunting of the left lateral costophrenic angle consistent with a small effusion here. Old granulomatous disease is seen. The heart size and mediastinum and pulmonary vasculature and both andres are stable. IMPRESSION: Chronic interstitial lung disease. Bilateral pleural effusions.
--- NOTE | 2017-02-03 14:49 | PDOC ---
PROGRESS NOTES Subjective Subjective SEEN IN FOLLOW UP OF HYPERK+ AND PRERENAL STATE Objective Objective Vital Signs Date Time Temp Pulse Resp B/P (MAP) Pulse Ox O2 Delivery O2 Flow Rate FiO2 02/03/17 14:00 85 33 114/64 (81) 94 BiPAP/CPAP 02/03/17 13:00 10.0 02/03/17 12:00 97.5 97.5 Intake and Output 02/04/17 07:00 Output Total 120 ml Balance -120 ml Output Urine Total 120 ml Physical Exam Abdomen: Normal bowel sounds, Soft, No tenderness, No hepatosplenomegaly, No masses Heart: Regular rate, Normal S1, Normal S2, No murmurs, Gallops Extremities: No clubbing, No cyanosis, No edema, Normal pulses, No tenderness/ swelling General: Alert, Oriented X3, Cooperative, No acute distress Lungs: Other (FINE RALES) Psych/Mental Status: Mental status NL, Mood NL Diagnosis RENAL FAILURE: Acute, Other (DEHYDRATION AND HYPERK+ RESOLVED) Assessment Assessment Problems Medical Problems: (1) Atrial flutter Status: Acute (2) Congestive heart failure Status: Acute Plan Plan of Care SHE WILL NEED TO BE PRERENAL FROM PULMONARY STANDPOINT. HER K+ IS NOW NORMAL. WILL BE AVAILABLE IF NEEDED. RENAL SIGN OFF Comment Review of Relevant I have reviewed the following items neha (where applicable) has been applied. Labs Laboratory Tests Test 02/01/17 16:35 02/01/17 20:00 02/01/17 21:00 02/02/17 01:44 Nasal Screen MRSA (PCR) Negative (Negative) Lactic Acid Level 3.8 mmol/L (0.4-2.0) 2.2 mmol/L (0.4-2.0) Troponin I Quantitative 0.080 ng/mL (0.000-0.055) Test 02/02/17 03:03 02/02/17 11:45 02/03/17 03:30 Troponin I Quantitative 0.123 ng/mL (0.000-0.055) Sodium Level 141 mmol/L (136-145) 138 mmol/L (136-145) Potassium Level 4.0 mmol/L (3.5-5.1) 4.3 mmol/L (3.5-5.1) Chloride Level 103 mmol/L (98-107) 102 mmol/L (98-107) Carbon Dioxide Level 30 mmol/L (21-32) 26 mmol/L (21-32) Anion Gap 8 (6-14) 10 (6-14) Blood Urea Nitrogen 30 mg/dL (7-20) 32 mg/dL (7-20) Creatinine 1.0 mg/dL (0.6-1.0) 0.9 mg/dL (0.6-1.0) Estimated GFR (Cockcroft-Gault) 66.1 74.7 Glucose Level 128 mg/dL (70-99) 127 mg/dL (70-99) Calcium Level 8.5 mg/dL (8.5-10.1) 8.7 mg/dL (8.5-10.1) Magnesium Level 2.0 mg/dL (1.8-2.4) White Blood Count 5.6 x10^3/uL (4.0-11.0) Red Blood Count 5.05 x10^6/uL (3.50-5.40) Hemoglobin 14.2 g/dL (12.0-15.5) Hematocrit 44.0 % (36.0-47.0) Mean Corpuscular Volume 87 fL (79-100) Mean Corpuscular Hemoglobin 28 pg (25-35) Mean Corpuscular Hemoglobin Concent 32 g/dL (31-37) Red Cell Distribution Width 16.0 % (11.5-14.5) Platelet Count 214 x10^3/uL (140-400) Neutrophils (%) (Auto) 74 % (31-73) Lymphocytes (%) (Auto) 23 % (24-48) Monocytes (%) (Auto) 3 % (0-9) Eosinophils (%) (Auto) 0 % (0-3) Basophils (%) (Auto) 0 % (0-3) Neutrophils # (Auto) 4.1 x10^3uL (1.8-7.7) Lymphocytes # (Auto) 1.3 x10^3/uL (1.0-4.8) Monocytes # (Auto) 0.2 x10^3/uL (0.0-1.1) Eosinophils # (Auto) 0.0 x10^3/uL (0.0-0.7) Basophils # (Auto) 0.0 x10^3/uL (0.0-0.2) Laboratory Tests Test 02/03/17 03:30 White Blood Count 5.6 x10^3/uL (4.0-11.0) Red Blood Count 5.05 x10^6/uL (3.50-5.40) Hemoglobin 14.2 g/dL (12.0-15.5) Hematocrit 44.0 % (36.0-47.0) Mean Corpuscular Volume 87 fL (79-100) Mean Corpuscular Hemoglobin 28 pg (25-35) Mean Corpuscular Hemoglobin Concent 32 g/dL (31-37) Red Cell Distribution Width 16.0 % (11.5-14.5) Platelet Count 214 x10^3/uL (140-400) Neutrophils (%) (Auto) 74 % (31-73) Lymphocytes (%) (Auto) 23 % (24-48) Monocytes (%) (Auto) 3 % (0-9) Eosinophils (%) (Auto) 0 % (0-3) Basophils (%) (Auto) 0 % (0-3) Neutrophils # (Auto) 4.1 x10^3uL (1.8-7.7) Lymphocytes # (Auto) 1.3 x10^3/uL (1.0-4.8) Monocytes # (Auto) 0.2 x10^3/uL (0.0-1.1) Eosinophils # (Auto) 0.0 x10^3/uL (0.0-0.7) Basophils # (Auto) 0.0 x10^3/uL (0.0-0.2) Sodium Level 138 mmol/L (136-145) Potassium Level 4.3 mmol/L (3.5-5.1) Chloride Level 102 mmol/L (98-107) Carbon Dioxide Level 26 mmol/L (21-32) Anion Gap 10 (6-14) Blood Urea Nitrogen 32 mg/dL (7-20) Creatinine 0.9 mg/dL (0.6-1.0) Estimated GFR (Cockcroft-Gault) 74.7 Glucose Level 127 mg/dL (70-99) Calcium Level 8.7 mg/dL (8.5-10.1) Microbiology 02/01/17 Blood Culture - Preliminary, Resulted NO GROWTH AFTER 2 DAYS Medications Current Medications Albuterol Sulfate (Ventolin Neb Soln) 10 mg 1X ONCE CONT NEB Last administered on 02/01/17 14:01; Start 02/01/17 at 13:30; Stop 02/01/17 at 13 :35; Status DC Ipratropium Braymer (Atrovent) 0.5 mg 1X ONCE NEB Last administered on 13:30; Start 02/01/17 at 13:30; Stop 02/01/17 at 13:35; Status DC Diltiazem HCl 125 mg/Dextrose 125 ml @ 0 mls/hr CONT PRN IV SEE I/O RECORD Last administered on 02/01/17 14:04; Start 02/01/17 at 13:45 Diltiazem HCl (Cardizem) 10 mg 1X ONCE IVP Last administered on 02/01/17 14: 00; Start 02/01/17 at 13:45; Stop 02/01/17 at 13:46; Status DC Furosemide (Lasix) 40 mg 1X ONCE IVP Last administered on 02/01/17 15:05; Start 02/01/17 at 15:00; Stop 02/01/17 at 15:01; Status DC Acetaminophen (Tylenol) 650 mg PRN Q6HRS PRN PO FEVER; Start 02/01/17 at 15:15 Alprazolam (Xanax) 0.5 mg PRN Q8HRS PRN PO ANXIETY / AGITATION; Start at 15:15 Aspirin (Ecotrin) 81 mg DAILYWBKFT PO Last administered on 02/02/17 09:00; Start 02/02/17 at 08:00; Stop 02/02/17 at 11:37; Status DC Diltiazem HCl (Cardizem 24hr Cd) 180 mg DAILY PO Last administered on 09:12; Start 02/01/17 at 16:00 Docusate Sodium (Colace) 100 mg PRN DAILY PRN PO CONSTIPATION; Start 02/01/17 at 15:15 EZETIMIBE (Zetia) 10 mg HS PO Last administered on 02/02/17 21:35; Start 04/08 at 21:00 Furosemide (Lasix) 40 mg DAILY PO Last administered on 02/03/17 09:12; Start 02/02/17 at 09:00 Albuterol/ Ipratropium (Duoneb) 3 ml BID NEB Last administered on 02/02/17 08 :16; Start 02/01/17 at 21:00; Stop 02/02/17 at 14:01; Status DC Levothyroxine Sodium (Synthroid) 100 mcg DAILY07 PO Last administered on 06:00; Start 02/02/17 at 07:00 Pantoprazole Sodium (Protonix) 40 mg DAILY PO Last administered on 02/03/17 09:12; Start 02/01/17 at 16:30 Prednisone (Prednisone) 10 mg DAILY PO Last administered on 02/02/17 09:02; Start 02/02/17 at 09:00; Stop 02/02/17 at 14:01; Status DC Tramadol HCl (Ultram) 50 mg PRN Q6HRS PRN PO MILD TO MODERATE PAIN; Start 04/08 at 15:15 Apixaban (Eliquis) 5 mg BID PO Last administered on 02/03/17 09:13; Start at 21:00 Digoxin (Lanoxin) 500 mcg 1X ONCE IV Last administered on 02/01/17 15:55; Start 02/01/17 at 15:30; Stop 02/01/17 at 15:31; Status DC Ondansetron HCl (Zofran) 4 mg PRN Q8HRS PRN IV NAUSEA/VOMITING; Start at 15:30; Stop 02/02/17 at 15:29; Status DC Furosemide (Lasix) 40 mg DAILY IVP ; Start 02/02/17 at 09:00; Stop 02/02/17 at 10:59; Status DC Sodium Polystyrene Sulfonate (Kayexalate) 15 gm 1X ONCE PO Last administered on 02/01/17 16:15; Start 02/01/17 at 15:30; Stop 02/01/17 at 15:31; Status DC Non-Formulary Medication 3 ea TIDWMEALS PO Last administered on 02/03/17 12: 40; Start 02/01/17 at 18:00 Levofloxacin/ Dextrose 100 ml @ 100 mls/hr Q24H IV Last administered on 21:36; Start 02/01/17 at 22:00 Sodium Chloride 1,000 ml @ 50 mls/hr Q20H IV Last administered on 02/01/17 21:35; Start 02/01/17 at 21:15; Stop 02/02/17 at 19:21; Status DC Info (Anti-Coagulation Monitoring By Pharmacy) 1 each PRN DAILY PRN MC SEE COMMENTS Last administered on 02/03/17 07:31; Start 02/02/17 at 09:00 Sodium Polystyrene Sulfonate (Kayexalate) 15 gm 1X ONCE PO ; Start 02/02/17 at 11:00; Stop 02/02/17 at 11:01; Status DC Digoxin (Lanoxin) 250 mcg 1X ONCE IV Last administered on 02/02/17 11:42; Start 02/02/17 at 11:30; Stop 02/02/17 at 11:31; Status DC Metoprolol Tartrate (Lopressor) 5 mg 1X ONCE IVP Last administered on 14:04; Start 02/02/17 at 11:30; Stop 02/02/17 at 11:31; Status DC Ipratropium Braymer (Atrovent) 0.5 mg RTQID NEB Last administered on 08:12; Start 02/02/17 at 16:00 Methylprednisolone Sodium Succinate (SOLU-Medrol 40MG VIAL) 40 mg Q8HRS IV Last administered on 02/03/17 14:19; Start 02/02/17 at 14:15 Metoprolol Succinate (Toprol Xl) 25 mg DAILY PO Last administered on 09:12; Start 02/02/17 at 15:00 Active Scripts Active Prednisone 10 Mg Tablet 10 Mg PO UD Take 3 tablets by mouth twice a day for 3 days, then take 2 tablets by mouth twice a day for 3 days, then take 1 tablet by mouth twice a day for 3 days, then take 1 tablet by mouth daily x 3 days, then stop. Duoneb 0.5-3(2.5) Mg/3 Ml (Albuterol/Ipratropium) 3 Ml Ampul.neb 3 Ml NEB BID Alprazolam 0.5 Mg Tablet 0.5 Mg PO PRN Q8HRS PRN Synthroid (Levothyroxine Sodium) 100 Mcg Tablet 1 Tab PO DAILY Cardizem Cd (Diltiazem Hcl) 180 Mg Cap.er.24h 1 Cap PO DAILY Aspirin Ec (Aspirin) 81 Mg Tablet.dr 81 Mg PO DAILYWBKFT 30 Days Reported Tramadol Hcl 50 Mg Tablet 1 Tab PO PRN Q6HRS Protonix (Pantoprazole Sodium) 40 Mg Tablet.dr 1 Tab PO DAILY Tylenol (Acetaminophen) 325 Mg Tablet 2 Tab PO PRN Q6HRS PRN Docusate Sodium 100 Mg Capsule 1 Cap PO DAILY PRN Doxazosin Mesylate 2 Mg Tablet 1 Tab PO DAILY Lasix (Furosemide) 40 Mg Tablet 1 Tab PO DAILY Potassium Chloride 20 Meq Tablet.er 20 Meq PO DAILY Esbriet (Pirfenidone) 801 Mg Tablet 801 Mg PO Zetia (Ezetimibe) 10 Mg Tablet 10 Mg PO HS Vitals/I & O Vital Sign - Last 24 Hours 02/02/17 02/02/17 02/02/17 02/02/17 15:00 15:24 15:58 16:00 Temp 98.6 98.6 Pulse 76 86 82 Resp 25 25 B/P (MAP) 105/66 (79) 105/66 117/62 (80) Pulse Ox 88 95 90 O2 Delivery Nasal Cannula Nasal Cannula Nasal Cannula O2 Flow Rate 8.0 9.0 10.0 02/02/17 02/02/17 02/02/17 02/02/17 16:00 17:00 18:00 19:00 Pulse 84 90 86 Resp 24 26 B/P (MAP) 110/70 (83) 115/68 (84) Pulse Ox 93 90 90 O2 Delivery Nasal Cannula Nasal Cannula Nasal Cannula Nasal Cannula O2 Flow Rate 10.0 10.0 10.0 10.0 02/02/17 02/02/17 02/02/17 02/02/17 19:39 20:00 20:00 21:00 Temp 97.4 97.4 Pulse 84 84 Resp 22 22 B/P (MAP) 103/71 (82) 102/73 (83) Pulse Ox 89 90 91 O2 Delivery Nasal Cannula Nasal Cannula Nasal Cannula Nasal Cannula O2 Flow Rate 9.0 10.0 10.0 10.0 02/02/17 02/02/17 02/03/17 02/03/17 22:00 23:00 00:05 00:12 Temp 97.4 97.4 Pulse 84 88 86 Resp 22 20 B/P (MAP) 119/72 (88) 138/85 (102) 117/77 (90) Pulse Ox 90 92 94 O2 Delivery Nasal Cannula Nasal Cannula Nasal Cannula Nasal Cannula O2 Flow Rate 10.0 10.0 10.0 10.0 02/03/17 02/03/17 02/03/17 02/03/17 01:09 02:04 03:07 04:07 Pulse 88 86 85 Resp 20 20 B/P (MAP) 114/78 (90) 114/78 (90) 123/88 (100) Pulse Ox 95 96 95 O2 Delivery Nasal Cannula Nasal Cannula Nasal Cannula Nasal Cannula O2 Flow Rate 10.0 10.0 10.0 10.0 02/03/17 02/03/17 02/03/17 02/03/17 04:08 05:07 06:15 07:00 Temp 98.1 98.1 Pulse 85 83 82 82 Resp 20 22 20 B/P (MAP) 116/76 (89) 111/74 (86) 109/68 (82) 116/72 (87) Pulse Ox 96 90 90 92 O2 Delivery Nasal Cannula Nasal Cannula Nasal Cannula Nasal Cannula O2 Flow Rate 10.0 10.0 10.0 10.0 02/03/17 02/03/17 02/03/17 02/03/17 08:00 08:00 08:14 09:00 Temp 97.6 97.6 Pulse 80 80 Resp 22 B/P (MAP) 118/75 (89) 118/76 (90) Pulse Ox 90 92 91 O2 Delivery Nasal Cannula Nasal Cannula High Flow Nasal Cannula Nasal Cannula O2 Flow Rate 10.0 10.0 9.0 10.0 02/03/17 02/03/17 02/03/17 02/03/17 09:12 09:12 10:00 11:00 Pulse 81 81 81 80 B/P (MAP) 118/76 118/76 118/64 (82) 127/75 (92) Pulse Ox 95 94 O2 Delivery NonRebreather Mask BiPAP/CPAP O2 Flow Rate 15.0 02/03/17 02/03/17 02/03/17 02/03/17 11:32 12:00 12:00 13:00 Temp 97.5 97.5 Pulse 84 82 Resp 26 22 B/P (MAP) 125/80 (95) 105/65 (78) Pulse Ox 93 91 87 O2 Delivery BiPAP/CPAP Bi-pap BiPAP/CPAP Nasal Cannula O2 Flow Rate 10.0 02/03/17 14:00 Pulse 85 Resp 33 B/P (MAP) 114/64 (81) Pulse Ox 94 O2 Delivery BiPAP/CPAP Intake and Output 02/03/17 02/03/17 02/04/17 15:00 23:00 07:00 Output Total 120 ml Balance -120 ml SKYLAR JAMISON MD Feb 03, 2017 14:49
[2017-02-03] MEDS: EZETIMIBE 10 MG TABLET. PO SCH (21:37)
[2017-02-03] MEDS: ALPRAZolam 0.5 MG TABLET PO PRN (23:50)
[2017-02-04] VITALS (24 sets, daily range): BP systolic 92–128; BP diastolic 55–80
[2017-02-04 05:29] LABS: BASO % 0 % (0-3); EOS % 0 % (0-3); HEMATOCRIT 46.6 % (36.0-47.0); HEMOGLOBIN 15.1 g/dL (12.0-15.5); LYMPH # 1.6 x10^3/uL (1.0-4.8); LYMPH % 19 % (24-48); MEAN CORPUSCULAR HEMOGLOBIN 29 pg (25-35); MEAN CORPUSCULAR HGB CONC 32 g/dL (31-37); MEAN CORPUSCULAR VOLUME 89 fL (79-100); MONO % 6 % (0-9); NEUT % 74 % (31-73); PLATELET COUNT 238 x10^3/uL (140-400); RED BLOOD COUNT 5.26 x10^6/uL (3.50-5.40); RED CELL DISTRIBUTION WIDTH 16.3 % (11.5-14.5)
[2017-02-04 05:48] LABS: CALCIUM 8.8 mg/dL (8.5-10.1); CREATININE 1.1 mg/dL (0.6-1.0); GFR 59.2; POTASSIUM 4.5 mmol/L (3.5-5.1)
[2017-02-04] MEDS: methylPREDNISolone SOD SUCC PF 40 MG/ML VIAL. IV SCH ×2 (06:31→14:13)
[2017-02-04] MEDS: LEVOTHYROXINE 100 MCG TABLET PO SCH (06:31)
[2017-02-04] MEDS: ANTI-COAG MONITOR BY PHARMACY. MC PRN (07:51)
[2017-02-04] MEDS: IPRATROPIUM BROMIDE 0.5 MG/2.5 ML NEBU. NEB SCH ×5 (08:02→20:22)
[2017-02-04] MEDS: NON FORMULARY ITEM PO SCH ×3 (09:00→17:38)
[2017-02-04] MEDS: PANTOPRAZOLE 40 MG TABLET.DR. PO SCH (09:00)
[2017-02-04] MEDS: FUROSEMIDE 40 MG TABLET. PO SCH (09:01)
[2017-02-04] MEDS: APIXABAN 5 MG TABLET. PO SCH ×2 (09:01→20:10)
[2017-02-04] MEDS: METOPROLOL SUCC 24HR ER 25 MG TAB.ER.24H. PO SCH (09:01)
[2017-02-04] MEDS: IV NORMAL SALINE 1000ML BAG 1,000 ML IV SCH ×2 (09:15→20:20)
[2017-02-04] MEDS ORDERED: CALCIUM CARBONATE 500 MG TAB.CHEW PO PRN (11:30)
--- NOTE | 2017-02-04 11:43 | PDOC ---
PROGRESS NOTES Subjective Subjective The patient is feeling better today. Objective Objective Vital Signs Date Time Temp Pulse Resp B/P (MAP) Pulse Ox O2 Delivery O2 Flow Rate FiO2 02/04/17 10:00 80 29 128/70 (89) 89 BiPAP/CPAP 02/04/17 09:00 10.0 02/04/17 03:00 97.8 97.8 Intake and Output 02/05/17 07:00 Output Total 155 ml Balance -155 ml Output Urine Total 155 ml Physical Exam Abdomen: Normal bowel sounds Heart: Regular rate General: No acute distress Lungs: Clear to auscultation Assessment Assessment Problems Medical Problems: (1) Atrial flutter Status: Acute (2) Congestive heart failure Status: Acute 1. Acute on chronic diastolic CHF: improving. Mainly right sided 2. Paroxysmal Atrial flutter: presently 2:1 rate and blood pressure improved. 3. Acute on chronic respiratory failure with underlying pulmonary fibrosis/ severe pulmonary HTN with chronic O2 use: Per pulmonary 4. Hypothyroidism: recent TSH 11. 5. HTN: Improved. 6. HLP 7. SHELBY/hyperkalemia: prerenal. Comment Review of Relevant I have reviewed the following items neha (where applicable) has been applied. Labs Laboratory Tests Test 02/02/17 11:45 02/03/17 03:30 02/04/17 03:33 Sodium Level 141 mmol/L (136-145) 138 mmol/L (136-145) 137 mmol/L (136-145) Potassium Level 4.0 mmol/L (3.5-5.1) 4.3 mmol/L (3.5-5.1) 4.5 mmol/L (3.5-5.1) Chloride Level 103 mmol/L (98-107) 102 mmol/L (98-107) 100 mmol/L (98-107) Carbon Dioxide Level 30 mmol/L (21-32) 26 mmol/L (21-32) 28 mmol/L (21-32) Anion Gap 8 (6-14) 10 (6-14) 9 (6-14) Blood Urea Nitrogen 30 mg/dL (7-20) 32 mg/dL (7-20) 41 mg/dL (7-20) Creatinine 1.0 mg/dL (0.6-1.0) 0.9 mg/dL (0.6-1.0) 1.1 mg/dL (0.6-1.0) Estimated GFR (Cockcroft-Gault) 66.1 74.7 59.2 Glucose Level 128 mg/dL (70-99) 127 mg/dL (70-99) 131 mg/dL (70-99) Calcium Level 8.5 mg/dL (8.5-10.1) 8.7 mg/dL (8.5-10.1) 8.8 mg/dL (8.5-10.1) Magnesium Level 2.0 mg/dL (1.8-2.4) White Blood Count 5.6 x10^3/uL (4.0-11.0) 8.0 x10^3/uL (4.0-11.0) Red Blood Count 5.05 x10^6/uL (3.50-5.40) 5.26 x10^6/uL (3.50-5.40) Hemoglobin 14.2 g/dL (12.0-15.5) 15.1 g/dL (12.0-15.5) Hematocrit 44.0 % (36.0-47.0) 46.6 % (36.0-47.0) Mean Corpuscular Volume 87 fL (79-100) 89 fL (79-100) Mean Corpuscular Hemoglobin 28 pg (25-35) 29 pg (25-35) Mean Corpuscular Hemoglobin Concent 32 g/dL (31-37) 32 g/dL (31-37) Red Cell Distribution Width 16.0 % (11.5-14.5) 16.3 % (11.5-14.5) Platelet Count 214 x10^3/uL (140-400) 238 x10^3/uL (140-400) Neutrophils (%) (Auto) 74 % (31-73) 74 % (31-73) Lymphocytes (%) (Auto) 23 % (24-48) 19 % (24-48) Monocytes (%) (Auto) 3 % (0-9) 6 % (0-9) Eosinophils (%) (Auto) 0 % (0-3) 0 % (0-3) Basophils (%) (Auto) 0 % (0-3) 0 % (0-3) Neutrophils # (Auto) 4.1 x10^3uL (1.8-7.7) 5.9 x10^3uL (1.8-7.7) Lymphocytes # (Auto) 1.3 x10^3/uL (1.0-4.8) 1.6 x10^3/uL (1.0-4.8) Monocytes # (Auto) 0.2 x10^3/uL (0.0-1.1) 0.5 x10^3/uL (0.0-1.1) Eosinophils # (Auto) 0.0 x10^3/uL (0.0-0.7) 0.0 x10^3/uL (0.0-0.7) Basophils # (Auto) 0.0 x10^3/uL (0.0-0.2) 0.0 x10^3/uL (0.0-0.2) Laboratory Tests Test 02/04/17 03:33 White Blood Count 8.0 x10^3/uL (4.0-11.0) Red Blood Count 5.26 x10^6/uL (3.50-5.40) Hemoglobin 15.1 g/dL (12.0-15.5) Hematocrit 46.6 % (36.0-47.0) Mean Corpuscular Volume 89 fL (79-100) Mean Corpuscular Hemoglobin 29 pg (25-35) Mean Corpuscular Hemoglobin Concent 32 g/dL (31-37) Red Cell Distribution Width 16.3 % (11.5-14.5) Platelet Count 238 x10^3/uL (140-400) Neutrophils (%) (Auto) 74 % (31-73) Lymphocytes (%) (Auto) 19 % (24-48) Monocytes (%) (Auto) 6 % (0-9) Eosinophils (%) (Auto) 0 % (0-3) Basophils (%) (Auto) 0 % (0-3) Neutrophils # (Auto) 5.9 x10^3uL (1.8-7.7) Lymphocytes # (Auto) 1.6 x10^3/uL (1.0-4.8) Monocytes # (Auto) 0.5 x10^3/uL (0.0-1.1) Eosinophils # (Auto) 0.0 x10^3/uL (0.0-0.7) Basophils # (Auto) 0.0 x10^3/uL (0.0-0.2) Sodium Level 137 mmol/L (136-145) Potassium Level 4.5 mmol/L (3.5-5.1) Chloride Level 100 mmol/L (98-107) Carbon Dioxide Level 28 mmol/L (21-32) Anion Gap 9 (6-14) Blood Urea Nitrogen 41 mg/dL (7-20) Creatinine 1.1 mg/dL (0.6-1.0) Estimated GFR (Cockcroft-Gault) 59.2 Glucose Level 131 mg/dL (70-99) Calcium Level 8.8 mg/dL (8.5-10.1) Microbiology 02/01/17 Blood Culture - Preliminary, Resulted NO GROWTH AFTER 2 DAYS Medications Current Medications Albuterol Sulfate (Ventolin Neb Soln) 10 mg 1X ONCE CONT NEB Last administered on 02/01/17 14:01; Start 02/01/17 at 13:30; Stop 02/01/17 at 13 :35; Status DC Ipratropium Coden (Atrovent) 0.5 mg 1X ONCE NEB Last administered on 13:30; Start 02/01/17 at 13:30; Stop 02/01/17 at 13:35; Status DC Diltiazem HCl 125 mg/Dextrose 125 ml @ 0 mls/hr CONT PRN IV SEE I/O RECORD Last administered on 02/01/17 14:04; Start 02/01/17 at 13:45 Diltiazem HCl (Cardizem) 10 mg 1X ONCE IVP Last administered on 02/01/17 14: 00; Start 02/01/17 at 13:45; Stop 02/01/17 at 13:46; Status DC Furosemide (Lasix) 40 mg 1X ONCE IVP Last administered on 02/01/17 15:05; Start 02/01/17 at 15:00; Stop 02/01/17 at 15:01; Status DC Acetaminophen (Tylenol) 650 mg PRN Q6HRS PRN PO FEVER; Start 02/01/17 at 15:15 Alprazolam (Xanax) 0.5 mg PRN Q8HRS PRN PO ANXIETY / AGITATION Last administered on 02/03/17 23:50; Start 02/01/17 at 15:15 Aspirin (Ecotrin) 81 mg DAILYWBKFT PO Last administered on 02/02/17 09:00; Start 02/02/17 at 08:00; Stop 02/02/17 at 11:37; Status DC Diltiazem HCl (Cardizem 24hr Cd) 180 mg DAILY PO Last administered on 09:00; Start 02/01/17 at 16:00 Docusate Sodium (Colace) 100 mg PRN DAILY PRN PO CONSTIPATION; Start 02/01/17 at 15:15 EZETIMIBE (Zetia) 10 mg HS PO Last administered on 02/03/17 21:37; Start 04/08 at 21:00 Furosemide (Lasix) 40 mg DAILY PO Last administered on 02/04/17 09:01; Start 02/02/17 at 09:00 Albuterol/ Ipratropium (Duoneb) 3 ml BID NEB Last administered on 02/02/17 08 :16; Start 02/01/17 at 21:00; Stop 02/02/17 at 14:01; Status DC Levothyroxine Sodium (Synthroid) 100 mcg DAILY07 PO Last administered on 06:31; Start 02/02/17 at 07:00 Pantoprazole Sodium (Protonix) 40 mg DAILY PO Last administered on 02/04/17 09:00; Start 02/01/17 at 16:30 Prednisone (Prednisone) 10 mg DAILY PO Last administered on 02/02/17 09:02; Start 02/02/17 at 09:00; Stop 02/02/17 at 14:01; Status DC Tramadol HCl (Ultram) 50 mg PRN Q6HRS PRN PO MILD TO MODERATE PAIN; Start 04/08 at 15:15 Apixaban (Eliquis) 5 mg BID PO Last administered on 02/04/17 09:01; Start at 21:00 Digoxin (Lanoxin) 500 mcg 1X ONCE IV Last administered on 02/01/17 15:55; Start 02/01/17 at 15:30; Stop 02/01/17 at 15:31; Status DC Ondansetron HCl (Zofran) 4 mg PRN Q8HRS PRN IV NAUSEA/VOMITING; Start at 15:30; Stop 02/02/17 at 15:29; Status DC Furosemide (Lasix) 40 mg DAILY IVP ; Start 02/02/17 at 09:00; Stop 02/02/17 at 10:59; Status DC Sodium Polystyrene Sulfonate (Kayexalate) 15 gm 1X ONCE PO Last administered on 02/01/17 16:15; Start 02/01/17 at 15:30; Stop 02/01/17 at 15:31; Status DC Non-Formulary Medication 3 ea TIDWMEALS PO Last administered on 02/04/17 09: 00; Start 02/01/17 at 18:00 Levofloxacin/ Dextrose 100 ml @ 100 mls/hr Q24H IV Last administered on 21:36; Start 02/01/17 at 22:00 Sodium Chloride 1,000 ml @ 50 mls/hr Q20H IV Last administered on 02/01/17 21:35; Start 02/01/17 at 21:15; Stop 02/02/17 at 19:21; Status DC Info (Anti-Coagulation Monitoring By Pharmacy) 1 each PRN DAILY PRN MC SEE COMMENTS Last administered on 02/04/17 07:51; Start 02/02/17 at 09:00 Sodium Polystyrene Sulfonate (Kayexalate) 15 gm 1X ONCE PO ; Start 02/02/17 at 11:00; Stop 02/02/17 at 11:01; Status DC Digoxin (Lanoxin) 250 mcg 1X ONCE IV Last administered on 02/02/17 11:42; Start 02/02/17 at 11:30; Stop 02/02/17 at 11:31; Status DC Metoprolol Tartrate (Lopressor) 5 mg 1X ONCE IVP Last administered on 14:04; Start 02/02/17 at 11:30; Stop 02/02/17 at 11:31; Status DC Ipratropium Coden (Atrovent) 0.5 mg RTQID NEB Last administered on 08:02; Start 02/02/17 at 16:00 Methylprednisolone Sodium Succinate (SOLU-Medrol 40MG VIAL) 40 mg Q8HRS IV Last administered on 02/04/17 06:31; Start 02/02/17 at 14:15 Metoprolol Succinate (Toprol Xl) 25 mg DAILY PO Last administered on 09:01; Start 02/02/17 at 15:00 Sodium Chloride 1,000 ml @ 50 mls/hr Q20H IV Last administered on 02/04/17 09:15; Start 02/04/17 at 09:15 Calcium Carbonate/ Glycine (Tums) 500 mg PRN AFTMEALHC PRN PO INDIGESTION; Start 02/04/17 at 11:30 Active Scripts Active Prednisone 10 Mg Tablet 10 Mg PO UD Take 3 tablets by mouth twice a day for 3 days, then take 2 tablets by mouth twice a day for 3 days, then take 1 tablet by mouth twice a day for 3 days, then take 1 tablet by mouth daily x 3 days, then stop. Duoneb 0.5-3(2.5) Mg/3 Ml (Albuterol/Ipratropium) 3 Ml Ampul.neb 3 Ml NEB BID Alprazolam 0.5 Mg Tablet 0.5 Mg PO PRN Q8HRS PRN Synthroid (Levothyroxine Sodium) 100 Mcg Tablet 1 Tab PO DAILY Cardizem Cd (Diltiazem Hcl) 180 Mg Cap.er.24h 1 Cap PO DAILY Aspirin Ec (Aspirin) 81 Mg Tablet. 81 Mg PO DAILYWBKFT 30 Days Reported Tramadol Hcl 50 Mg Tablet 1 Tab PO PRN Q6HRS Protonix (Pantoprazole Sodium) 40 Mg Tablet. 1 Tab PO DAILY Tylenol (Acetaminophen) 325 Mg Tablet 2 Tab PO PRN Q6HRS PRN Docusate Sodium 100 Mg Capsule 1 Cap PO DAILY PRN Doxazosin Mesylate 2 Mg Tablet 1 Tab PO DAILY Lasix (Furosemide) 40 Mg Tablet 1 Tab PO DAILY Potassium Chloride 20 Meq Tablet.er 20 Meq PO DAILY Esbriet (Pirfenidone) 801 Mg Tablet 801 Mg PO Zetia (Ezetimibe) 10 Mg Tablet 10 Mg PO HS Vitals/I & O Vital Sign - Last 24 Hours 02/03/17 02/03/17 02/03/17 02/03/17 12:00 12:00 13:00 14:00 Temp 97.5 97.5 Pulse 84 82 85 Resp 26 22 33 B/P (MAP) 125/80 (95) 105/65 (78) 114/64 (81) Pulse Ox 91 87 94 O2 Delivery Bi-pap BiPAP/CPAP Nasal Cannula BiPAP/CPAP O2 Flow Rate 10.0 02/03/17 02/03/17 02/03/17 02/03/17 15:00 15:48 16:00 16:00 Temp 96.6 96.6 Pulse 82 83 Resp 37 33 B/P (MAP) 127/75 (92) 110/67 (81) Pulse Ox 92 94 93 O2 Delivery BiPAP/CPAP BiPAP/CPAP Bi-pap BiPAP/CPAP 02/03/17 02/03/17 02/03/17 02/03/17 17:00 18:00 19:00 19:29 Temp 97.5 97.5 Pulse 79 79 79 Resp 32 33 20 B/P (MAP) 114/65 (81) 115/74 (88) 108/59 (75) Pulse Ox 90 91 100 94 O2 Delivery BiPAP/CPAP BiPAP/CPAP BiPAP/CPAP BiPAP/CPAP 02/03/17 02/03/17 02/03/17 02/03/17 20:00 20:00 21:00 22:00 Pulse 78 84 78 Resp 20 20 20 B/P (MAP) 117/72 (87) 137/71 (93) 125/78 (94) Pulse Ox 97 95 92 O2 Delivery BiPAP/CPAP Bi-pap NonRebreather Mask NonRebreather Mask 02/03/17 02/04/17 02/04/17 02/04/17 23:00 00:00 00:00 01:00 Temp 97.9 97.9 Pulse 78 83 80 Resp 20 24 29 B/P (MAP) 110/70 (83) 113/77 (89) 115/77 (90) Pulse Ox 95 93 93 O2 Delivery NonRebreather Mask Non-Rebreather NonRebreather Mask NonRebreather Mask 02/04/17 02/04/17 02/04/17 02/04/17 02:00 03:00 04:00 04:00 Temp 97.8 97.8 Pulse 78 80 78 Resp 28 27 30 B/P (MAP) 109/76 (87) 112/75 (87) 114/70 (85) Pulse Ox 93 95 94 O2 Delivery NonRebreather Mask NonRebreather Mask Non-Rebreather NonRebreather Mask 02/04/17 02/04/17 02/04/17 02/04/17 05:00 06:00 07:00 08:00 Pulse 75 73 76 Resp 30 28 36 B/P (MAP) 108/71 (83) 119/76 (90) 116/76 (89) Pulse Ox 95 96 92 O2 Delivery NonRebreather Mask NonRebreather Mask NonRebreather Mask Non- Rebreather O2 Flow Rate 10.0 10.0 15.0 02/04/17 02/04/17 02/04/17 02/04/17 08:00 08:08 09:00 09:00 Pulse 78 78 80 Resp 26 38 B/P (MAP) 107/68 (81) 107/68 126/80 (95) Pulse Ox 92 92 92 O2 Delivery NonRebreather Mask BiPAP/CPAP NonRebreather Mask O2 Flow Rate 15.0 10.0 02/04/17 02/04/17 09:01 10:00 Pulse 78 80 Resp 29 B/P (MAP) 107/68 128/70 (89) Pulse Ox 89 O2 Delivery BiPAP/CPAP Intake and Output 02/04/17 02/04/17 02/05/17 15:00 23:00 07:00 Output Total 155 ml Balance -155 ml AUGIE MILTON MD Feb 04, 2017 11:42
--- NOTE | 2017-02-04 12:54 | PDOC ---
PROGRESS NOTES Chief Complaint Chief Complaint Resp distress SOB Aflutter CHF PMHx: Chronic respiratory failure, ILD, CHF, hypertension, pulmonary fibrosis, O2 dependent. History of Present Illness History of Present Illness Pt seen at bedside in the ICU. She is accompanied by multiple family members who I spoke with. She is in no acute distress and continues to improve. Off BiPAP, currently on NRB mask. She continues to require high flow O2. Denies any CP, fevers or chills. SOB seems to be improving. C/o some mild indigestion- treated with Tums per RN. Also reports hunger at this time. Cardio, pulm, and nephrology following. Discussed plan of care with RN at bedside. Will continue to monitor in the ICU. Vitals Vitals Vital Signs Date Time Temp Pulse Resp B/P (MAP) Pulse Ox O2 Delivery O2 Flow Rate FiO2 02/04/17 12:00 Non-Rebreather 15.0 02/04/17 11:00 83 33 127/78 (94) 95 02/04/17 03:00 97.8 97.8 Physical Exam General: Alert, Oriented X3, Cooperative, No acute distress Heart: Regular rate Lungs: Crackles, Other (NRB mask in place) Abdomen: Normal bowel sounds Extremities: No clubbing, No cyanosis, No edema, Normal pulses, No tenderness/ swelling Skin: No breakdown Labs LABS Laboratory Tests Test 02/04/17 03:33 White Blood Count 8.0 x10^3/uL (4.0-11.0) Red Blood Count 5.26 x10^6/uL (3.50-5.40) Hemoglobin 15.1 g/dL (12.0-15.5) Hematocrit 46.6 % (36.0-47.0) Mean Corpuscular Volume 89 fL (79-100) Mean Corpuscular Hemoglobin 29 pg (25-35) Mean Corpuscular Hemoglobin Concent 32 g/dL (31-37) Red Cell Distribution Width 16.3 % (11.5-14.5) Platelet Count 238 x10^3/uL (140-400) Neutrophils (%) (Auto) 74 % (31-73) Lymphocytes (%) (Auto) 19 % (24-48) Monocytes (%) (Auto) 6 % (0-9) Eosinophils (%) (Auto) 0 % (0-3) Basophils (%) (Auto) 0 % (0-3) Neutrophils # (Auto) 5.9 x10^3uL (1.8-7.7) Lymphocytes # (Auto) 1.6 x10^3/uL (1.0-4.8) Monocytes # (Auto) 0.5 x10^3/uL (0.0-1.1) Eosinophils # (Auto) 0.0 x10^3/uL (0.0-0.7) Basophils # (Auto) 0.0 x10^3/uL (0.0-0.2) Sodium Level 137 mmol/L (136-145) Potassium Level 4.5 mmol/L (3.5-5.1) Chloride Level 100 mmol/L (98-107) Carbon Dioxide Level 28 mmol/L (21-32) Anion Gap 9 (6-14) Blood Urea Nitrogen 41 mg/dL (7-20) Creatinine 1.1 mg/dL (0.6-1.0) Estimated GFR (Cockcroft-Gault) 59.2 Glucose Level 131 mg/dL (70-99) Calcium Level 8.8 mg/dL (8.5-10.1) Review of Systems Review of Systems Gen: + fatigue, + hunger, no fevers or chills CV: No CP or palp Resp: + SOB, + wheezing Assessment and Plan Assessmemt and Plan Problems Medical Problems: (1) Atrial flutter Status: Acute (2) Congestive heart failure Status: Acute Assessment: Respiratory distress in ICU Aflutter CHF SOB Chronic respiratory failure, hypertension, pulmonary fibrosis, O2 dependent at home Plan: Pt seen at bedside in the ICU accompanied by multiple family members NRB mask in place tums-for indigestion cardizem cont lasix cont abx cont breathing Tx recheck labs CXR reviewed pt/ot home meds Cardio, nephro and Pulm following d/w RN at bedside Appreciate subspec input-Will move forward with their plan of care Continue monitoring in the ICU Problems: Comment Review of Relevant I have reviewed the following items neha (where applicable) has been applied. Labs Laboratory Tests Test 02/03/17 03:30 02/04/17 03:33 White Blood Count 5.6 x10^3/uL (4.0-11.0) 8.0 x10^3/uL (4.0-11.0) Red Blood Count 5.05 x10^6/uL (3.50-5.40) 5.26 x10^6/uL (3.50-5.40) Hemoglobin 14.2 g/dL (12.0-15.5) 15.1 g/dL (12.0-15.5) Hematocrit 44.0 % (36.0-47.0) 46.6 % (36.0-47.0) Mean Corpuscular Volume 87 fL (79-100) 89 fL (79-100) Mean Corpuscular Hemoglobin 28 pg (25-35) 29 pg (25-35) Mean Corpuscular Hemoglobin Concent 32 g/dL (31-37) 32 g/dL (31-37) Red Cell Distribution Width 16.0 % (11.5-14.5) 16.3 % (11.5-14.5) Platelet Count 214 x10^3/uL (140-400) 238 x10^3/uL (140-400) Neutrophils (%) (Auto) 74 % (31-73) 74 % (31-73) Lymphocytes (%) (Auto) 23 % (24-48) 19 % (24-48) Monocytes (%) (Auto) 3 % (0-9) 6 % (0-9) Eosinophils (%) (Auto) 0 % (0-3) 0 % (0-3) Basophils (%) (Auto) 0 % (0-3) 0 % (0-3) Neutrophils # (Auto) 4.1 x10^3uL (1.8-7.7) 5.9 x10^3uL (1.8-7.7) Lymphocytes # (Auto) 1.3 x10^3/uL (1.0-4.8) 1.6 x10^3/uL (1.0-4.8) Monocytes # (Auto) 0.2 x10^3/uL (0.0-1.1) 0.5 x10^3/uL (0.0-1.1) Eosinophils # (Auto) 0.0 x10^3/uL (0.0-0.7) 0.0 x10^3/uL (0.0-0.7) Basophils # (Auto) 0.0 x10^3/uL (0.0-0.2) 0.0 x10^3/uL (0.0-0.2) Sodium Level 138 mmol/L (136-145) 137 mmol/L (136-145) Potassium Level 4.3 mmol/L (3.5-5.1) 4.5 mmol/L (3.5-5.1) Chloride Level 102 mmol/L (98-107) 100 mmol/L (98-107) Carbon Dioxide Level 26 mmol/L (21-32) 28 mmol/L (21-32) Anion Gap 10 (6-14) 9 (6-14) Blood Urea Nitrogen 32 mg/dL (7-20) 41 mg/dL (7-20) Creatinine 0.9 mg/dL (0.6-1.0) 1.1 mg/dL (0.6-1.0) Estimated GFR (Cockcroft-Gault) 74.7 59.2 Glucose Level 127 mg/dL (70-99) 131 mg/dL (70-99) Calcium Level 8.7 mg/dL (8.5-10.1) 8.8 mg/dL (8.5-10.1) Laboratory Tests Test 02/04/17 03:33 White Blood Count 8.0 x10^3/uL (4.0-11.0) Red Blood Count 5.26 x10^6/uL (3.50-5.40) Hemoglobin 15.1 g/dL (12.0-15.5) Hematocrit 46.6 % (36.0-47.0) Mean Corpuscular Volume 89 fL (79-100) Mean Corpuscular Hemoglobin 29 pg (25-35) Mean Corpuscular Hemoglobin Concent 32 g/dL (31-37) Red Cell Distribution Width 16.3 % (11.5-14.5) Platelet Count 238 x10^3/uL (140-400) Neutrophils (%) (Auto) 74 % (31-73) Lymphocytes (%) (Auto) 19 % (24-48) Monocytes (%) (Auto) 6 % (0-9) Eosinophils (%) (Auto) 0 % (0-3) Basophils (%) (Auto) 0 % (0-3) Neutrophils # (Auto) 5.9 x10^3uL (1.8-7.7) Lymphocytes # (Auto) 1.6 x10^3/uL (1.0-4.8) Monocytes # (Auto) 0.5 x10^3/uL (0.0-1.1) Eosinophils # (Auto) 0.0 x10^3/uL (0.0-0.7) Basophils # (Auto) 0.0 x10^3/uL (0.0-0.2) Sodium Level 137 mmol/L (136-145) Potassium Level 4.5 mmol/L (3.5-5.1) Chloride Level 100 mmol/L (98-107) Carbon Dioxide Level 28 mmol/L (21-32) Anion Gap 9 (6-14) Blood Urea Nitrogen 41 mg/dL (7-20) Creatinine 1.1 mg/dL (0.6-1.0) Estimated GFR (Cockcroft-Gault) 59.2 Glucose Level 131 mg/dL (70-99) Calcium Level 8.8 mg/dL (8.5-10.1) Microbiology 02/01/17 Blood Culture - Preliminary, Resulted NO GROWTH AFTER 2 DAYS Medications Current Medications Albuterol Sulfate (Ventolin Neb Soln) 10 mg 1X ONCE CONT NEB Last administered on 02/01/17 14:01; Start 02/01/17 at 13:30; Stop 02/01/17 at 13 :35; Status DC Ipratropium [place] (Atrovent) 0.5 mg 1X ONCE NEB Last administered on 13:30; Start 02/01/17 at 13:30; Stop 02/01/17 at 13:35; Status DC Diltiazem HCl 125 mg/Dextrose 125 ml @ 0 mls/hr CONT PRN IV SEE I/O RECORD Last administered on 02/01/17 14:04; Start 02/01/17 at 13:45 Diltiazem HCl (Cardizem) 10 mg 1X ONCE IVP Last administered on 02/01/17 14: 00; Start 02/01/17 at 13:45; Stop 02/01/17 at 13:46; Status DC Furosemide (Lasix) 40 mg 1X ONCE IVP Last administered on 02/01/17 15:05; Start 02/01/17 at 15:00; Stop 02/01/17 at 15:01; Status DC Acetaminophen (Tylenol) 650 mg PRN Q6HRS PRN PO FEVER; Start 02/01/17 at 15:15 Alprazolam (Xanax) 0.5 mg PRN Q8HRS PRN PO ANXIETY / AGITATION Last administered on 02/03/17 23:50; Start 02/01/17 at 15:15 Aspirin (Ecotrin) 81 mg DAILYWBKFT PO Last administered on 02/02/17 09:00; Start 02/02/17 at 08:00; Stop 02/02/17 at 11:37; Status DC Diltiazem HCl (Cardizem 24hr Cd) 180 mg DAILY PO Last administered on 09:00; Start 02/01/17 at 16:00 Docusate Sodium (Colace) 100 mg PRN DAILY PRN PO CONSTIPATION; Start 02/01/17 at 15:15 EZETIMIBE (Zetia) 10 mg HS PO Last administered on 02/03/17 21:37; Start 04/08 at 21:00 Furosemide (Lasix) 40 mg DAILY PO Last administered on 02/04/17 09:01; Start 02/02/17 at 09:00 Albuterol/ Ipratropium (Duoneb) 3 ml BID NEB Last administered on 02/02/17 08 :16; Start 02/01/17 at 21:00; Stop 02/02/17 at 14:01; Status DC Levothyroxine Sodium (Synthroid) 100 mcg DAILY07 PO Last administered on 06:31; Start 02/02/17 at 07:00 Pantoprazole Sodium (Protonix) 40 mg DAILY PO Last administered on 02/04/17 09:00; Start 02/01/17 at 16:30 Prednisone (Prednisone) 10 mg DAILY PO Last administered on 02/02/17 09:02; Start 02/02/17 at 09:00; Stop 02/02/17 at 14:01; Status DC Tramadol HCl (Ultram) 50 mg PRN Q6HRS PRN PO MILD TO MODERATE PAIN; Start 04/08 at 15:15 Apixaban (Eliquis) 5 mg BID PO Last administered on 02/04/17 09:01; Start at 21:00 Digoxin (Lanoxin) 500 mcg 1X ONCE IV Last administered on 02/01/17 15:55; Start 02/01/17 at 15:30; Stop 02/01/17 at 15:31; Status DC Ondansetron HCl (Zofran) 4 mg PRN Q8HRS PRN IV NAUSEA/VOMITING; Start at 15:30; Stop 02/02/17 at 15:29; Status DC Furosemide (Lasix) 40 mg DAILY IVP ; Start 02/02/17 at 09:00; Stop 02/02/17 at 10:59; Status DC Sodium Polystyrene Sulfonate (Kayexalate) 15 gm 1X ONCE PO Last administered on 02/01/17 16:15; Start 02/01/17 at 15:30; Stop 02/01/17 at 15:31; Status DC Non-Formulary Medication 3 ea TIDWMEALS PO Last administered on 02/04/17 09: 00; Start 02/01/17 at 18:00 Levofloxacin/ Dextrose 100 ml @ 100 mls/hr Q24H IV Last administered on 21:36; Start 02/01/17 at 22:00 Sodium Chloride 1,000 ml @ 50 mls/hr Q20H IV Last administered on 02/01/17 21:35; Start 02/01/17 at 21:15; Stop 02/02/17 at 19:21; Status DC Info (Anti-Coagulation Monitoring By Pharmacy) 1 each PRN DAILY PRN MC SEE COMMENTS Last administered on 02/04/17 07:51; Start 02/02/17 at 09:00 Sodium Polystyrene Sulfonate (Kayexalate) 15 gm 1X ONCE PO ; Start 02/02/17 at 11:00; Stop 02/02/17 at 11:01; Status DC Digoxin (Lanoxin) 250 mcg 1X ONCE IV Last administered on 02/02/17 11:42; Start 02/02/17 at 11:30; Stop 02/02/17 at 11:31; Status DC Metoprolol Tartrate (Lopressor) 5 mg 1X ONCE IVP Last administered on 14:04; Start 02/02/17 at 11:30; Stop 02/02/17 at 11:31; Status DC Ipratropium [place] (Atrovent) 0.5 mg RTQID NEB Last administered on 08:02; Start 02/02/17 at 16:00 Methylprednisolone Sodium Succinate (SOLU-Medrol 40MG VIAL) 40 mg Q8HRS IV Last administered on 02/04/17 06:31; Start 02/02/17 at 14:15 Metoprolol Succinate (Toprol Xl) 25 mg DAILY PO Last administered on 09:01; Start 02/02/17 at 15:00 Sodium Chloride 1,000 ml @ 50 mls/hr Q20H IV Last administered on 02/04/17 09:15; Start 02/04/17 at 09:15 Calcium Carbonate/ Glycine (Tums) 500 mg PRN AFTMEALHC PRN PO INDIGESTION; Start 02/04/17 at 11:30 Active Scripts Active Prednisone 10 Mg Tablet 10 Mg PO UD Take 3 tablets by mouth twice a day for 3 days, then take 2 tablets by mouth twice a day for 3 days, then take 1 tablet by mouth twice a day for 3 days, then take 1 tablet by mouth daily x 3 days, then stop. Duoneb 0.5-3(2.5) Mg/3 Ml (Albuterol/Ipratropium) 3 Ml Ampul.neb 3 Ml NEB BID Alprazolam 0.5 Mg Tablet 0.5 Mg PO PRN Q8HRS PRN Synthroid (Levothyroxine Sodium) 100 Mcg Tablet 1 Tab PO DAILY Cardizem Cd (Diltiazem Hcl) 180 Mg Cap.er.24h 1 Cap PO DAILY Aspirin Ec (Aspirin) 81 Mg Tablet.dr 81 Mg PO DAILYWBKFT 30 Days Reported Tramadol Hcl 50 Mg Tablet 1 Tab PO PRN Q6HRS Protonix (Pantoprazole Sodium) 40 Mg Tablet.dr 1 Tab PO DAILY Tylenol (Acetaminophen) 325 Mg Tablet 2 Tab PO PRN Q6HRS PRN Docusate Sodium 100 Mg Capsule 1 Cap PO DAILY PRN Doxazosin Mesylate 2 Mg Tablet 1 Tab PO DAILY Lasix (Furosemide) 40 Mg Tablet 1 Tab PO DAILY Potassium Chloride 20 Meq Tablet.er 20 Meq PO DAILY Esbriet (Pirfenidone) 801 Mg Tablet 801 Mg PO Zetia (Ezetimibe) 10 Mg Tablet 10 Mg PO HS Vitals/I & O Vital Sign - Last 24 Hours 02/03/17 02/03/17 02/03/17 02/03/17 13:00 14:00 15:00 15:48 Pulse 82 85 82 Resp 22 33 37 B/P (MAP) 105/65 (78) 114/64 (81) 127/75 (92) Pulse Ox 87 94 92 94 O2 Delivery Nasal Cannula BiPAP/CPAP BiPAP/CPAP BiPAP/CPAP O2 Flow Rate 10.0 02/03/17 02/03/17 02/03/17 02/03/17 16:00 16:00 17:00 18:00 Temp 96.6 96.6 Pulse 83 79 79 Resp 33 32 33 B/P (MAP) 110/67 (81) 114/65 (81) 115/74 (88) Pulse Ox 93 90 91 O2 Delivery Bi-pap BiPAP/CPAP BiPAP/CPAP BiPAP/CPAP 02/03/17 02/03/17 02/03/17 02/03/17 19:00 19:29 20:00 20:00 Temp 97.5 97.5 Pulse 79 78 Resp 20 20 B/P (MAP) 108/59 (75) 117/72 (87) Pulse Ox 100 94 97 O2 Delivery BiPAP/CPAP BiPAP/CPAP BiPAP/CPAP Bi-pap 02/03/17 02/03/17 02/03/17 02/04/17 21:00 22:00 23:00 00:00 Temp 97.9 97.9 Pulse 84 78 78 Resp 20 20 20 B/P (MAP) 137/71 (93) 125/78 (94) 110/70 (83) Pulse Ox 95 92 95 O2 Delivery NonRebreather Mask NonRebreather Mask NonRebreather Mask Non- Rebreather 02/04/17 02/04/17 02/04/17 02/04/17 00:00 01:00 02:00 03:00 Temp 97.8 97.8 Pulse 83 80 78 80 Resp 24 29 28 27 B/P (MAP) 113/77 (89) 115/77 (90) 109/76 (87) 112/75 (87) Pulse Ox 93 93 93 95 O2 Delivery NonRebreather Mask NonRebreather Mask NonRebreather Mask NonRebreather Mask 02/04/17 02/04/17 02/04/17/15/17 04:00 04:00 05:00 06:00 Pulse 78 75 73 Resp 30 30 28 B/P (MAP) 114/70 (85) 108/71 (83) 119/76 (90) Pulse Ox 94 95 96 O2 Delivery Non-Rebreather NonRebreather Mask NonRebreather Mask NonRebreather Mask O2 Flow Rate 10.0 02/04/17 02/04/17 02/04/17 02/04/17 07:00 08:00 08:00 08:08 Pulse 76 78 Resp 36 26 B/P (MAP) 116/76 (89) 107/68 (81) Pulse Ox 92 92 92 O2 Delivery NonRebreather Mask Non-Rebreather NonRebreather Mask BiPAP/CPAP O2 Flow Rate 10.0 15.0 15.0 02/04/17 02/04/17 02/04/17 02/04/17 09:00 09:00 09:01 10:00 Pulse 78 80 78 80 Resp 38 29 B/P (MAP) 107/68 126/80 (95) 107/68 128/70 (89) Pulse Ox 92 89 O2 Delivery NonRebreather Mask BiPAP/CPAP O2 Flow Rate 10.0 02/04/17 02/04/17 11:00 12:00 Pulse 83 Resp 33 B/P (MAP) 127/78 (94) Pulse Ox 95 O2 Delivery NonRebreather Mask Non-Rebreather O2 Flow Rate 15.0 15.0 Intake and Output 02/04/17 02/04/17 02/05/17 15:00 23:00 07:00 Output Total 155 ml Balance -155 ml AGUEDA MALHOTRA III DO Feb 04, 2017 12:54
--- NOTE | 2017-02-04 15:54 | PDOC ---
PULMONARY PROGRESS NOTES Subjective PT FEELS BETTER TODAY NOT MORE SOA Vitals Vital Signs Date Time Temp Pulse Resp B/P (MAP) Pulse Ox O2 Delivery O2 Flow Rate FiO2 02/04/17 15:00 76 36 106/71 (83) 90 NonRebreather Mask 15.0 02/04/17 12:00 97.1 97.1 ROS: No Nausea, No Chest Pain, No Abdominal Pain, No Increase Cough General: Alert HEENT: Other (nc at perrl, throat nose clear. neck, no lap, no thyromegaly) Lungs: Crackles, Other (NRB mask in place) Cardiovascular: Other (irregular ) Abdomen: Soft, Non-tender Neuro Exam: Alert Extremities: Other Skin: Warm Labs Laboratory Tests Test 02/03/17 03:30 02/04/17 03:33 White Blood Count 5.6 x10^3/uL (4.0-11.0) 8.0 x10^3/uL (4.0-11.0) Red Blood Count 5.05 x10^6/uL (3.50-5.40) 5.26 x10^6/uL (3.50-5.40) Hemoglobin 14.2 g/dL (12.0-15.5) 15.1 g/dL (12.0-15.5) Hematocrit 44.0 % (36.0-47.0) 46.6 % (36.0-47.0) Mean Corpuscular Volume 87 fL (79-100) 89 fL (79-100) Mean Corpuscular Hemoglobin 28 pg (25-35) 29 pg (25-35) Mean Corpuscular Hemoglobin Concent 32 g/dL (31-37) 32 g/dL (31-37) Red Cell Distribution Width 16.0 % (11.5-14.5) 16.3 % (11.5-14.5) Platelet Count 214 x10^3/uL (140-400) 238 x10^3/uL (140-400) Neutrophils (%) (Auto) 74 % (31-73) 74 % (31-73) Lymphocytes (%) (Auto) 23 % (24-48) 19 % (24-48) Monocytes (%) (Auto) 3 % (0-9) 6 % (0-9) Eosinophils (%) (Auto) 0 % (0-3) 0 % (0-3) Basophils (%) (Auto) 0 % (0-3) 0 % (0-3) Neutrophils # (Auto) 4.1 x10^3uL (1.8-7.7) 5.9 x10^3uL (1.8-7.7) Lymphocytes # (Auto) 1.3 x10^3/uL (1.0-4.8) 1.6 x10^3/uL (1.0-4.8) Monocytes # (Auto) 0.2 x10^3/uL (0.0-1.1) 0.5 x10^3/uL (0.0-1.1) Eosinophils # (Auto) 0.0 x10^3/uL (0.0-0.7) 0.0 x10^3/uL (0.0-0.7) Basophils # (Auto) 0.0 x10^3/uL (0.0-0.2) 0.0 x10^3/uL (0.0-0.2) Sodium Level 138 mmol/L (136-145) 137 mmol/L (136-145) Potassium Level 4.3 mmol/L (3.5-5.1) 4.5 mmol/L (3.5-5.1) Chloride Level 102 mmol/L (98-107) 100 mmol/L (98-107) Carbon Dioxide Level 26 mmol/L (21-32) 28 mmol/L (21-32) Anion Gap 10 (6-14) 9 (6-14) Blood Urea Nitrogen 32 mg/dL (7-20) 41 mg/dL (7-20) Creatinine 0.9 mg/dL (0.6-1.0) 1.1 mg/dL (0.6-1.0) Estimated GFR (Cockcroft-Gault) 74.7 59.2 Glucose Level 127 mg/dL (70-99) 131 mg/dL (70-99) Calcium Level 8.7 mg/dL (8.5-10.1) 8.8 mg/dL (8.5-10.1) Laboratory Tests Test 02/04/17 03:33 White Blood Count 8.0 x10^3/uL (4.0-11.0) Red Blood Count 5.26 x10^6/uL (3.50-5.40) Hemoglobin 15.1 g/dL (12.0-15.5) Hematocrit 46.6 % (36.0-47.0) Mean Corpuscular Volume 89 fL (79-100) Mean Corpuscular Hemoglobin 29 pg (25-35) Mean Corpuscular Hemoglobin Concent 32 g/dL (31-37) Red Cell Distribution Width 16.3 % (11.5-14.5) Platelet Count 238 x10^3/uL (140-400) Neutrophils (%) (Auto) 74 % (31-73) Lymphocytes (%) (Auto) 19 % (24-48) Monocytes (%) (Auto) 6 % (0-9) Eosinophils (%) (Auto) 0 % (0-3) Basophils (%) (Auto) 0 % (0-3) Neutrophils # (Auto) 5.9 x10^3uL (1.8-7.7) Lymphocytes # (Auto) 1.6 x10^3/uL (1.0-4.8) Monocytes # (Auto) 0.5 x10^3/uL (0.0-1.1) Eosinophils # (Auto) 0.0 x10^3/uL (0.0-0.7) Basophils # (Auto) 0.0 x10^3/uL (0.0-0.2) Sodium Level 137 mmol/L (136-145) Potassium Level 4.5 mmol/L (3.5-5.1) Chloride Level 100 mmol/L (98-107) Carbon Dioxide Level 28 mmol/L (21-32) Anion Gap 9 (6-14) Blood Urea Nitrogen 41 mg/dL (7-20) Creatinine 1.1 mg/dL (0.6-1.0) Estimated GFR (Cockcroft-Gault) 59.2 Glucose Level 131 mg/dL (70-99) Calcium Level 8.8 mg/dL (8.5-10.1) Medications Active Scripts Medications Dose Route/Sig Max Daily Dose Days Date Category Dose Instructions Prednisone 10 Mg Tablet 10 Mg PO UD 01/29/17 Rx Take 3 tablets by mouth twice a day for 3 days, then take 2 tablets by mouth twice a day for 3 days, then take 1 tablet by mouth twice a day for 3 days, then take 1 tablet by mouth daily x 3 days, then stop. Duoneb 0.5-3(2.5) Mg/3 Ml (Albuterol/Ipratropium) 3 Ml Ampul.neb 3 Ml NEB BID 01/29/17 Rx Alprazolam 0.5 Mg Tablet 0.5 Mg PO PRN Q8HRS PRN 01/29/17 Rx Tramadol Hcl 50 Mg Tablet 1 Tab PO PRN Q6HRS 01/26/17 Reported Protonix (Pantoprazole Sodium) 40 Mg Tablet.dr 1 Tab PO DAILY 01/26/17 Reported Tylenol (Acetaminophen) 325 Mg Tablet 2 Tab PO PRN Q6HRS PRN 01/26/17 Reported Docusate Sodium 100 Mg Capsule 1 Cap PO DAILY PRN 01/26/17 Reported Synthroid (Levothyroxine Sodium) 100 Mcg Tablet 1 Tab PO DAILY 01/25/17 Rx Cardizem Cd (Diltiazem Hcl) 180 Mg Cap.er.24h 1 Cap PO DAILY 01/25/17 Rx Doxazosin Mesylate 2 Mg Tablet 1 Tab PO DAILY 01/23/17 Reported Lasix (Furosemide) 40 Mg Tablet 1 Tab PO DAILY 01/23/17 Reported Potassium Chloride 20 Meq Tablet.er 20 Meq PO DAILY 01/23/17 Reported Aspirin Ec (Aspirin) 81 Mg Tablet. 81 Mg PO DAILYWBKFT 30 11/08/16 Rx Esbriet (Pirfenidone) 801 Mg Tablet 801 Mg PO 11/06/16 Reported Zetia (Ezetimibe) 10 Mg Tablet 10 Mg PO HS 02/19/14 Reported Comments cxr reviewed, Chronic changes. No acute finding seen. No significant change Impression . 1. [id number] respiratory failure. 2. Atrial fibrillation with rapid ventricular response. 3. Acute exacerbation of interstitial lung disease. 4. [id number] cor pulmonale. 5. Hypothyroidism. 6. Hypertension. 7. Anxiety/depression. Plan . RATE IS CONTROLLED WILL CONTINUE THE SAME 1. 02 titration, o2 need increased, will do cxr 2. i started BiPAP, personally changed her pressure to 8/4 rate 6, feeling better on bipap, try to find her a nasal mask, advised to use until resp status improved 3. keep I<O, Lasix. monitor k, cr 4. No need for antibiotics. 5. Continue anxiolytic. 6. DVT prophylaxis. 7. Nebulized treatments, change to Atrovent only, has afib w rvt. 8. Home Esbriet. 9. CHANGE TO PO STEROIDS 10.ORAL JAEN MAY MD Feb 04, 2017 15:53
[2017-02-04] MEDS: EZETIMIBE 10 MG TABLET. PO SCH (20:10)
[2017-02-04] MEDS: ALPRAZolam 0.5 MG TABLET PO PRN (21:02)
[2017-02-05] VITALS (24 sets, daily range): BP systolic 81–123; BP diastolic 50–85
[2017-02-05 04:58] LABS: BASO % 0 % (0-3); EOS % 0 % (0-3); HEMATOCRIT 48.9 % (36.0-47.0); HEMOGLOBIN 15.8 g/dL (12.0-15.5); LYMPH # 1.6 x10^3/uL (1.0-4.8); LYMPH % 15 % (24-48); MEAN CORPUSCULAR HEMOGLOBIN 29 pg (25-35); MEAN CORPUSCULAR HGB CONC 32 g/dL (31-37); MEAN CORPUSCULAR VOLUME 89 fL (79-100); MONO % 10 % (0-9); NEUT % 75 % (31-73); PLATELET COUNT 292 x10^3/uL (140-400); RED BLOOD COUNT 5.47 x10^6/uL (3.50-5.40); RED CELL DISTRIBUTION WIDTH 16.3 % (11.5-14.5); WHITE BLOOD COUNT 10.6 x10^3/uL (4.0-11.0)
[2017-02-05 05:00] LABS: CREATININE 1.2 mg/dL (0.6-1.0); GFR 53.6; POTASSIUM 4.8 mmol/L (3.5-5.1)
[2017-02-05] MEDS: LEVOTHYROXINE 100 MCG TABLET PO SCH (06:15)
[2017-02-05] MEDS: IPRATROPIUM BROMIDE 0.5 MG/2.5 ML NEBU. NEB SCH ×4 (08:05→19:56)
[2017-02-05] MEDS ORDERED: MAGNESIUM SULFATE 2GM 50 ML IV PRN (08:15)
--- NOTE | 2017-02-05 08:22 | PDOC ---
SUBJECTIVE ROS ? SHELBY vs CKD Feeling Better after she was placed on BiPAP overnite CVS: ? Orthopnea, no CP RESP: + SOB, ? IBARRA GI: no Nausea, no Vomiting : no Dysuria, no Urgency OBJECTIVE Vital Signs Vital Signs Date Time Temp Pulse Resp B/P (MAP) Pulse Ox O2 Delivery O2 Flow Rate FiO2 02/05/17 07:00 88 39 113/74 (87) 95 BiPAP/CPAP 02/05/17 01:00 15.0 02/04/17 23:00 97.5 97.5 PHYSICAL EXAM Physical Exam GEN: Awake, Oriented x 3, In min resp distress EYES: Vision Unchanged, Conjunctiva Normal EN: No EN Drainage, Mucous Membranes dryish on BiPAP NECK: + JVD, + JVP, Supple, no palp Thyromegaly CVS: S1S2, + Murmur, No Gallop, No Rub,+2-3 Edema RESP: sophia basal Rales, no Rhonchi,no Acc. Muscle Use GI: BS + ve, NO Bruit, Non Tender, Non Distended : no CVA tenderness, no Suprapubic Tenderness DIAGNOSIS/ASSESSMENT Assessment & Plan Shelby/ VMN - asso with attempts at diuresis. Current fluid and E-lyte status does not necessitate emergent need for dialysis. Will re-evaluate for dialysis in the am. US and Urine testing as ordered Edema / Anasarca - Presumed due to ^ed Rt Heart Pressures (presumably from Pulm Fibrosis/ Cor Pulmonale) - Diuresis as needed resp Distress - ? All fluid related, Diuresis as needed ? Underlying CKD cannot be ruled out Proteinuria - Quantitate with 24-hr Urine Discussed Plan of Care with family () at bedside Problems: COMMENT/RELEVANT DATA Meds Current Medications Medications (Trade) Dose Ordered Sig/Traci Start Time Stop Time Status Last Admin Dose Admin Acetaminophen (Tylenol) 650 mg PRN Q6HRS PRN 02/01/17 15:15 Albuterol Sulfate (Ventolin Neb Soln) 10 mg 1X ONCE 02/01/17 13:30 02/01/17 13:35 DC 02/01/17 14:01 5 MG Albuterol/ Ipratropium (Duoneb) 3 ml BID 02/01/17 21:00 02/02/17 14:01 DC 02/02/17 08:16 3 ML Alprazolam (Xanax) 0.5 mg PRN Q8HRS PRN 02/01/17 15:15 02/04/17 21:02 0.5 MG Apixaban (Eliquis) 5 mg BID 02/01/17 21:00 02/04/17 20:10 5 MG Aspirin (Ecotrin) 81 mg DAILYWBKFT 02/02/17 08:00 02/02/17 11:37 DC 02/02/17 09:00 81 MG Calcium Carbonate/ Glycine (Tums) 500 mg PRN AFTMEALHC PRN 02/04/17 11:30 02/04/17 13:19 500 MG Digoxin (Lanoxin) 250 mcg 1X ONCE 02/02/17 11:30 02/02/17 11:31 DC 02/02/17 11:42 250 MCG Diltiazem HCl (Cardizem 24hr Cd) 180 mg DAILY 02/01/17 16:00 02/04/17 09:00 180 MG Diltiazem HCl (Cardizem) 10 mg 1X ONCE 02/01/17 13:45 02/01/17 13:46 DC 02/01/17 14:00 10 MG Diltiazem HCl 125 mg/Dextrose 125 ml @ 0 mls/hr CONT PRN 02/01/17 13:45 02/01/17 14:04 5 MLS/HR Docusate Sodium (Colace) 100 mg PRN DAILY PRN 02/01/17 15:15 02/04/17 21:02 100 MG EZETIMIBE (Zetia) 10 mg HS 02/01/17 21:00 02/04/17 20:10 10 MG Furosemide (Lasix) 40 mg DAILY 02/02/17 09:00 02/02/17 10:59 DC Info (Anti-Coagulation Monitoring By Pharmacy) 1 each PRN DAILY PRN 02/02/17 09:00 02/04/17 07:51 1 EACH Ipratropium [place] (Atrovent) 0.5 mg RTQID 02/02/17 16:00 02/05/17 08:05 0.5 MG Levofloxacin/ Dextrose 100 ml @ 100 mls/hr Q24H 02/01/17 22:00 02/04/17 20:09 100 MLS/HR Levothyroxine Sodium (Synthroid) 100 mcg DAILY07 02/02/17 07:00 02/05/17 06:15 100 MCG Methylprednisolone Sodium Succinate (SOLU-Medrol 40MG VIAL) 40 mg Q8HRS 02/02/17 14:15 02/04/17 15:55 DC 02/04/17 14:13 40 MG Metoprolol Succinate (Toprol Xl) 25 mg DAILY 02/02/17 15:00 02/04/17 09:01 25 MG Metoprolol Tartrate (Lopressor) 5 mg 1X ONCE 02/02/17 11:30 02/02/17 11:31 DC 02/02/17 14:04 2.5 MG Non-Formulary Medication 3 ea TIDWMEALS 02/01/17 18:00 02/04/17 17:38 3 EA Ondansetron HCl (Zofran) 4 mg PRN Q8HRS PRN 02/01/17 15:30 02/02/17 15:29 DC Pantoprazole Sodium (Protonix) 40 mg DAILY 02/01/17 16:30 02/04/17 09:00 40 MG Prednisone (Prednisone) 30 mg DAILY 02/05/17 09:00 Sodium Polystyrene Sulfonate (Kayexalate) 15 gm 1X ONCE 02/02/17 11:00 02/02/17 11:01 DC Sodium Chloride 1,000 ml @ 50 mls/hr Q20H 02/04/17 09:15 02/04/17 20:20 50 MLS/HR Tramadol HCl (Ultram) 50 mg PRN Q6HRS PRN 02/01/17 15:15 Lab Laboratory Tests Test 02/05/17 04:10 White Blood Count 10.6 x10^3/uL (4.0-11.0) Red Blood Count 5.47 x10^6/uL (3.50-5.40) Hemoglobin 15.8 g/dL (12.0-15.5) Hematocrit 48.9 % (36.0-47.0) Mean Corpuscular Volume 89 fL (79-100) Mean Corpuscular Hemoglobin 29 pg (25-35) Mean Corpuscular Hemoglobin Concent 32 g/dL (31-37) Red Cell Distribution Width 16.3 % (11.5-14.5) Platelet Count 292 x10^3/uL (140-400) Neutrophils (%) (Auto) 75 % (31-73) Lymphocytes (%) (Auto) 15 % (24-48) Monocytes (%) (Auto) 10 % (0-9) Eosinophils (%) (Auto) 0 % (0-3) Basophils (%) (Auto) 0 % (0-3) Neutrophils # (Auto) 8.0 x10^3uL (1.8-7.7) Lymphocytes # (Auto) 1.6 x10^3/uL (1.0-4.8) Monocytes # (Auto) 1.0 x10^3/uL (0.0-1.1) Eosinophils # (Auto) 0.0 x10^3/uL (0.0-0.7) Basophils # (Auto) 0.0 x10^3/uL (0.0-0.2) Sodium Level 137 mmol/L (136-145) Potassium Level 4.8 mmol/L (3.5-5.1) Chloride Level 99 mmol/L (98-107) Carbon Dioxide Level 27 mmol/L (21-32) Anion Gap 11 (6-14) Blood Urea Nitrogen 46 mg/dL (7-20) Creatinine 1.2 mg/dL (0.6-1.0) Estimated GFR (Cockcroft-Gault) 53.6 Glucose Level 125 mg/dL (70-99) Calcium Level 9.0 mg/dL (8.5-10.1) GERRY STRONG MD Feb 05, 2017 08:22
[2017-02-05] MEDS: APIXABAN 5 MG TABLET. PO SCH ×2 (08:27→21:46)
[2017-02-05] MEDS: FUROSEMIDE 40 MG TABLET. PO SCH (08:27)
[2017-02-05] MEDS: predniSONE 10 MG TABLET PO SCH (08:27)
[2017-02-05] MEDS: PANTOPRAZOLE 40 MG TABLET.DR. PO SCH (08:27)
[2017-02-05] MEDS: NON FORMULARY ITEM PO SCH ×3 (08:28→17:00)
[2017-02-05] MEDS: METOPROLOL SUCC 24HR ER 25 MG TAB.ER.24H. PO SCH (08:28)
[2017-02-05] MEDS: ALPRAZolam 0.5 MG TABLET PO PRN (08:38)
--- NOTE | 2017-02-05 09:27 | RAD ---
Indication acute renal insufficiency. Grayscale imaging targeted to the kidneys was performed. No similar imaging is available. The right kidney measures 12 x 4.7 x 4.5 cm. No hydronephrosis or mass is seen. The left kidney measures 11 x 4.5 x 4.4 cm and also appears normal showing no evidence of hydronephrosis or mass. The patient has a Hernandez catheter. The urinary bladder, as a result, is collapsed and poorly evaluated with ultrasound. Moderate abdominal ascites was noted during the exam. IMPRESSION: No mass or hydronephrosis seen associated with either kidney. Modest abdominal ascites
[2017-02-05 10:30] LABS: BILIRUBIN,URINE SMALL (NEG); GLUCOSE,URINE NEGATIVE (NEG); NITRITE,URINE NEGATIVE (NEG); PROTEIN,URINE 100 mg/dL (NEG-TRACE)
[2017-02-05 10:44] LABS: BACTERIA,URINE MODERATE /HPF (0-FEW); WBC,URINE OCC /HPF (0-4)
--- NOTE | 2017-02-05 11:41 | PDOC ---
PULMONARY PROGRESS NOTES Subjective PT NOT BETTER TODAY MORE SOA WEAK Vitals Vital Signs Date Time Temp Pulse Resp B/P (MAP) Pulse Ox O2 Delivery O2 Flow Rate FiO2 02/05/17 11:00 80 35 114/74 (87) 95 NonRebreather Mask 15.0 02/05/17 08:00 94.7 94.7 ROS: No Nausea, No Chest Pain, No Abdominal Pain, No Increase Cough General: Alert Lungs: Crackles, Other Cardiovascular: S1, S2, Other (irregular ) Abdomen: Soft, Non-tender Neuro Exam: Alert Extremities: Other Skin: Warm Labs Laboratory Tests Test 02/04/17 03:33 02/05/17 04:10 02/05/17 08:21 White Blood Count 8.0 x10^3/uL (4.0-11.0) 10.6 x10^3/uL (4.0-11.0) Red Blood Count 5.26 x10^6/uL (3.50-5.40) 5.47 x10^6/uL (3.50-5.40) Hemoglobin 15.1 g/dL (12.0-15.5) 15.8 g/dL (12.0-15.5) Hematocrit 46.6 % (36.0-47.0) 48.9 % (36.0-47.0) Mean Corpuscular Volume 89 fL (79-100) 89 fL (79-100) Mean Corpuscular Hemoglobin 29 pg (25-35) 29 pg (25-35) Mean Corpuscular Hemoglobin Concent 32 g/dL (31-37) 32 g/dL (31-37) Red Cell Distribution Width 16.3 % (11.5-14.5) 16.3 % (11.5-14.5) Platelet Count 238 x10^3/uL (140-400) 292 x10^3/uL (140-400) Neutrophils (%) (Auto) 74 % (31-73) 75 % (31-73) Lymphocytes (%) (Auto) 19 % (24-48) 15 % (24-48) Monocytes (%) (Auto) 6 % (0-9) 10 % (0-9) Eosinophils (%) (Auto) 0 % (0-3) 0 % (0-3) Basophils (%) (Auto) 0 % (0-3) 0 % (0-3) Neutrophils # (Auto) 5.9 x10^3uL (1.8-7.7) 8.0 x10^3uL (1.8-7.7) Lymphocytes # (Auto) 1.6 x10^3/uL (1.0-4.8) 1.6 x10^3/uL (1.0-4.8) Monocytes # (Auto) 0.5 x10^3/uL (0.0-1.1) 1.0 x10^3/uL (0.0-1.1) Eosinophils # (Auto) 0.0 x10^3/uL (0.0-0.7) 0.0 x10^3/uL (0.0-0.7) Basophils # (Auto) 0.0 x10^3/uL (0.0-0.2) 0.0 x10^3/uL (0.0-0.2) Sodium Level 137 mmol/L (136-145) 137 mmol/L (136-145) Potassium Level 4.5 mmol/L (3.5-5.1) 4.8 mmol/L (3.5-5.1) Chloride Level 100 mmol/L (98-107) 99 mmol/L (98-107) Carbon Dioxide Level 28 mmol/L (21-32) 27 mmol/L (21-32) Anion Gap 9 (6-14) 11 (6-14) Blood Urea Nitrogen 41 mg/dL (7-20) 46 mg/dL (7-20) Creatinine 1.1 mg/dL (0.6-1.0) 1.2 mg/dL (0.6-1.0) Estimated GFR (Cockcroft-Gault) 59.2 53.6 Glucose Level 131 mg/dL (70-99) 125 mg/dL (70-99) Calcium Level 8.8 mg/dL (8.5-10.1) 9.0 mg/dL (8.5-10.1) Uric Acid 8.6 mg/dL (2.6-6.0) Urine Collection Type Unknown Urine Color Peace Urine Clarity Cloudy Urine pH 6.0 Urine Specific Gary 1.025 Urine Protein 100 mg/dL (NEG-TRACE) Urine Glucose (UA) Negative mg/dL (NEG) Urine Ketones (Stick) Negative mg/dL (NEG) Urine Blood Large (NEG) Urine Nitrite Negative (NEG) Urine Bilirubin Small (NEG) Urine Urobilinogen Dipstick 1.0 mg/dL (0.2 mg/dL) Urine Leukocyte Esterase Trace (NEG) Urine RBC 3-5 /HPF (0-2) Urine WBC Occ /HPF (0-4) Urine Bacteria Moderate /HPF (0-FEW) Urine Hyaline Casts Moderate /HPF Urine Mucus Mod /LPF Laboratory Tests Test 02/05/17 04:10 02/05/17 08:21 White Blood Count 10.6 x10^3/uL (4.0-11.0) Red Blood Count 5.47 x10^6/uL (3.50-5.40) Hemoglobin 15.8 g/dL (12.0-15.5) Hematocrit 48.9 % (36.0-47.0) Mean Corpuscular Volume 89 fL (79-100) Mean Corpuscular Hemoglobin 29 pg (25-35) Mean Corpuscular Hemoglobin Concent 32 g/dL (31-37) Red Cell Distribution Width 16.3 % (11.5-14.5) Platelet Count 292 x10^3/uL (140-400) Neutrophils (%) (Auto) 75 % (31-73) Lymphocytes (%) (Auto) 15 % (24-48) Monocytes (%) (Auto) 10 % (0-9) Eosinophils (%) (Auto) 0 % (0-3) Basophils (%) (Auto) 0 % (0-3) Neutrophils # (Auto) 8.0 x10^3uL (1.8-7.7) Lymphocytes # (Auto) 1.6 x10^3/uL (1.0-4.8) Monocytes # (Auto) 1.0 x10^3/uL (0.0-1.1) Eosinophils # (Auto) 0.0 x10^3/uL (0.0-0.7) Basophils # (Auto) 0.0 x10^3/uL (0.0-0.2) Sodium Level 137 mmol/L (136-145) Potassium Level 4.8 mmol/L (3.5-5.1) Chloride Level 99 mmol/L (98-107) Carbon Dioxide Level 27 mmol/L (21-32) Anion Gap 11 (6-14) Blood Urea Nitrogen 46 mg/dL (7-20) Creatinine 1.2 mg/dL (0.6-1.0) Estimated GFR (Cockcroft-Gault) 53.6 Glucose Level 125 mg/dL (70-99) Uric Acid 8.6 mg/dL (2.6-6.0) Calcium Level 9.0 mg/dL (8.5-10.1) Urine Collection Type Unknown Urine Color Peace Urine Clarity Cloudy Urine pH 6.0 Urine Specific Gary 1.025 Urine Protein 100 mg/dL (NEG-TRACE) Urine Glucose (UA) Negative mg/dL (NEG) Urine Ketones (Stick) Negative mg/dL (NEG) Urine Blood Large (NEG) Urine Nitrite Negative (NEG) Urine Bilirubin Small (NEG) Urine Urobilinogen Dipstick 1.0 mg/dL (0.2 mg/dL) Urine Leukocyte Esterase Trace (NEG) Urine RBC 3-5 /HPF (0-2) Urine WBC Occ /HPF (0-4) Urine Bacteria Moderate /HPF (0-FEW) Urine Hyaline Casts Moderate /HPF Urine Mucus Mod /LPF Medications Active Scripts Medications Dose Route/Sig Max Daily Dose Days Date Category Dose Instructions Prednisone 10 Mg Tablet 10 Mg PO UD 01/29/17 Rx Take 3 tablets by mouth twice a day for 3 days, then take 2 tablets by mouth twice a day for 3 days, then take 1 tablet by mouth twice a day for 3 days, then take 1 tablet by mouth daily x 3 days, then stop. Duoneb 0.5-3(2.5) Mg/3 Ml (Albuterol/Ipratropium) 3 Ml Ampul.neb 3 Ml NEB BID 01/29/17 Rx Alprazolam 0.5 Mg Tablet 0.5 Mg PO PRN Q8HRS PRN 01/29/17 Rx Tramadol Hcl 50 Mg Tablet 1 Tab PO PRN Q6HRS 01/26/17 Reported Protonix (Pantoprazole Sodium) 40 Mg Tablet.dr 1 Tab PO DAILY 01/26/17 Reported Tylenol (Acetaminophen) 325 Mg Tablet 2 Tab PO PRN Q6HRS PRN 01/26/17 Reported Docusate Sodium 100 Mg Capsule 1 Cap PO DAILY PRN 01/26/17 Reported Synthroid (Levothyroxine Sodium) 100 Mcg Tablet 1 Tab PO DAILY 01/25/17 Rx Cardizem Cd (Diltiazem Hcl) 180 Mg Cap.er.24h 1 Cap PO DAILY 01/25/17 Rx Doxazosin Mesylate 2 Mg Tablet 1 Tab PO DAILY 01/23/17 Reported Lasix (Furosemide) 40 Mg Tablet 1 Tab PO DAILY 01/23/17 Reported Potassium Chloride 20 Meq Tablet.er 20 Meq PO DAILY 01/23/17 Reported Aspirin Ec (Aspirin) 81 Mg Tablet.dr 81 Mg PO DAILYWBKFT 30 11/08/16 Rx Esbriet (Pirfenidone) 801 Mg Tablet 801 Mg PO 11/06/16 Reported Zetia (Ezetimibe) 10 Mg Tablet 10 Mg PO HS 02/19/14 Reported Comments cxr reviewed, Chronic changes. No acute finding seen. No significant change Impression . 1. [id number] respiratory failure. 2. Atrial flutter 2:1 3. Acute exacerbation of interstitial lung disease. 4. [id number] cor pulmonale. 5. Hypothyroidism. 6. Hypertension. 7. Anxiety/depression. 8. Acute kidney injury Plan . OVERALL DISEASE IS PROGRESSING MULTIORGAN INVOLVEMENT D/W FAMILY AT BEDSIDE I WOULD FAVOR HOSPICE CARE WITH HOME TRILOGY I DO NOT THINK PATIENT IS READY TO GIVE UP AND SOME FAMILY MEMBERS ARE IN DENIAL SPOKE WITH PASTOR [employer] PERSON TO LOOK INTO HOME TRILOGY IF PT DECIDE NOT TO GO THRU HOSPICE 1. 02 titration, o2 need increased, will do cxr 2. BIPAP 3. keep I<O, Lasix. monitor k, cr 4. No need for antibiotics. 5. Continue anxiolytic. 6. DVT prophylaxis. 7. Nebulized treatments, change to Atrovent only, has afib w rvt. 8. Home Esbriet. 9. CHANGE TO PO STEROIDS 10.ORAL JEAN MAY MD Feb 05, 2017 11:41
--- NOTE | 2017-02-05 11:45 | PDOC ---
PROGRESS NOTES Chief Complaint Chief Complaint Resp distress SOB Aflutter CHF PMHx: Chronic respiratory failure ILD CHF Hypertension Pulmonary fibrosis O2 dependent. History of Present Illness History of Present Illness Pt seen at bedside in the ICU. She is accompanied by her two sisters. Pt is on NRB mask. Denies any CP, fevers or chills. Cardio, pulm, and nephrology consultation. Discussed plan of care with sisters at bedside. Will continue to monitor in the ICU. Vitals Vitals Vital Signs Date Time Temp Pulse Resp B/P (MAP) Pulse Ox O2 Delivery O2 Flow Rate FiO2 02/05/17 11:00 80 35 114/74 (87) 95 NonRebreather Mask 15.0 02/05/17 08:00 94.7 94.7 Physical Exam General: Alert, Oriented X3, Cooperative, No acute distress Heart: Regular rate, No murmurs Lungs: Crackles, Other (NRB mask in place) Abdomen: Normal bowel sounds, No tenderness Extremities: No clubbing, No cyanosis, No edema, Normal pulses, No tenderness/ swelling Skin: No rashes, No breakdown Labs LABS Laboratory Tests Test 02/05/17 04:10 02/05/17 08:21 White Blood Count 10.6 x10^3/uL (4.0-11.0) Red Blood Count 5.47 x10^6/uL (3.50-5.40) Hemoglobin 15.8 g/dL (12.0-15.5) Hematocrit 48.9 % (36.0-47.0) Mean Corpuscular Volume 89 fL (79-100) Mean Corpuscular Hemoglobin 29 pg (25-35) Mean Corpuscular Hemoglobin Concent 32 g/dL (31-37) Red Cell Distribution Width 16.3 % (11.5-14.5) Platelet Count 292 x10^3/uL (140-400) Neutrophils (%) (Auto) 75 % (31-73) Lymphocytes (%) (Auto) 15 % (24-48) Monocytes (%) (Auto) 10 % (0-9) Eosinophils (%) (Auto) 0 % (0-3) Basophils (%) (Auto) 0 % (0-3) Neutrophils # (Auto) 8.0 x10^3uL (1.8-7.7) Lymphocytes # (Auto) 1.6 x10^3/uL (1.0-4.8) Monocytes # (Auto) 1.0 x10^3/uL (0.0-1.1) Eosinophils # (Auto) 0.0 x10^3/uL (0.0-0.7) Basophils # (Auto) 0.0 x10^3/uL (0.0-0.2) Sodium Level 137 mmol/L (136-145) Potassium Level 4.8 mmol/L (3.5-5.1) Chloride Level 99 mmol/L (98-107) Carbon Dioxide Level 27 mmol/L (21-32) Anion Gap 11 (6-14) Blood Urea Nitrogen 46 mg/dL (7-20) Creatinine 1.2 mg/dL (0.6-1.0) Estimated GFR (Cockcroft-Gault) 53.6 Glucose Level 125 mg/dL (70-99) Uric Acid 8.6 mg/dL (2.6-6.0) Calcium Level 9.0 mg/dL (8.5-10.1) Urine Collection Type Unknown Urine Color [place] Urine Clarity Cloudy Urine pH 6.0 Urine Specific [place] 1.025 Urine Protein 100 mg/dL (NEG-TRACE) Urine Glucose (UA) Negative mg/dL (NEG) Urine Ketones (Stick) Negative mg/dL (NEG) Urine Blood Large (NEG) Urine Nitrite Negative (NEG) Urine Bilirubin Small (NEG) Urine Urobilinogen Dipstick 1.0 mg/dL (0.2 mg/dL) Urine Leukocyte Esterase Trace (NEG) Urine RBC 3-5 /HPF (0-2) Urine WBC Occ /HPF (0-4) Urine Bacteria Moderate /HPF (0-FEW) Urine Hyaline Casts Moderate /HPF Urine Mucus Mod /LPF Review of Systems Review of Systems Pt complains of fatigue and shortness of breath Assessment and Plan Assessmemt and Plan Problems Medical Problems: (1) Atrial flutter Status: Acute (2) Congestive heart failure Status: Acute Assessment: Resp distress SOB Aflutter CHF Chronic respiratory failure ILD CHF Hypertension Pulmonary fibrosis O2 dependence Plan: Continue NRB Continue nebulizers Continue prednisone PT/OT ICU monitoring Obtain labs tomorrow Possible Hospice DW Dr Carter Appreciate subspecialty input Problems: Comment Review of Relevant I have reviewed the following items neha (where applicable) has been applied. Labs Laboratory Tests Test 02/04/17 03:33 02/05/17 04:10 02/05/17 08:21 White Blood Count 8.0 x10^3/uL (4.0-11.0) 10.6 x10^3/uL (4.0-11.0) Red Blood Count 5.26 x10^6/uL (3.50-5.40) 5.47 x10^6/uL (3.50-5.40) Hemoglobin 15.1 g/dL (12.0-15.5) 15.8 g/dL (12.0-15.5) Hematocrit 46.6 % (36.0-47.0) 48.9 % (36.0-47.0) Mean Corpuscular Volume 89 fL (79-100) 89 fL (79-100) Mean Corpuscular Hemoglobin 29 pg (25-35) 29 pg (25-35) Mean Corpuscular Hemoglobin Concent 32 g/dL (31-37) 32 g/dL (31-37) Red Cell Distribution Width 16.3 % (11.5-14.5) 16.3 % (11.5-14.5) Platelet Count 238 x10^3/uL (140-400) 292 x10^3/uL (140-400) Neutrophils (%) (Auto) 74 % (31-73) 75 % (31-73) Lymphocytes (%) (Auto) 19 % (24-48) 15 % (24-48) Monocytes (%) (Auto) 6 % (0-9) 10 % (0-9) Eosinophils (%) (Auto) 0 % (0-3) 0 % (0-3) Basophils (%) (Auto) 0 % (0-3) 0 % (0-3) Neutrophils # (Auto) 5.9 x10^3uL (1.8-7.7) 8.0 x10^3uL (1.8-7.7) Lymphocytes # (Auto) 1.6 x10^3/uL (1.0-4.8) 1.6 x10^3/uL (1.0-4.8) Monocytes # (Auto) 0.5 x10^3/uL (0.0-1.1) 1.0 x10^3/uL (0.0-1.1) Eosinophils # (Auto) 0.0 x10^3/uL (0.0-0.7) 0.0 x10^3/uL (0.0-0.7) Basophils # (Auto) 0.0 x10^3/uL (0.0-0.2) 0.0 x10^3/uL (0.0-0.2) Sodium Level 137 mmol/L (136-145) 137 mmol/L (136-145) Potassium Level 4.5 mmol/L (3.5-5.1) 4.8 mmol/L (3.5-5.1) Chloride Level 100 mmol/L (98-107) 99 mmol/L (98-107) Carbon Dioxide Level 28 mmol/L (21-32) 27 mmol/L (21-32) Anion Gap 9 (6-14) 11 (6-14) Blood Urea Nitrogen 41 mg/dL (7-20) 46 mg/dL (7-20) Creatinine 1.1 mg/dL (0.6-1.0) 1.2 mg/dL (0.6-1.0) Estimated GFR (Cockcroft-Gault) 59.2 53.6 Glucose Level 131 mg/dL (70-99) 125 mg/dL (70-99) Calcium Level 8.8 mg/dL (8.5-10.1) 9.0 mg/dL (8.5-10.1) Uric Acid 8.6 mg/dL (2.6-6.0) Urine Collection Type Unknown Urine Color [place] Urine Clarity Cloudy Urine pH 6.0 Urine Specific [place] 1.025 Urine Protein 100 mg/dL (NEG-TRACE) Urine Glucose (UA) Negative mg/dL (NEG) Urine Ketones (Stick) Negative mg/dL (NEG) Urine Blood Large (NEG) Urine Nitrite Negative (NEG) Urine Bilirubin Small (NEG) Urine Urobilinogen Dipstick 1.0 mg/dL (0.2 mg/dL) Urine Leukocyte Esterase Trace (NEG) Urine RBC 3-5 /HPF (0-2) Urine WBC Occ /HPF (0-4) Urine Bacteria Moderate /HPF (0-FEW) Urine Hyaline Casts Moderate /HPF Urine Mucus Mod /LPF Laboratory Tests Test 02/05/17 04:10 02/05/17 08:21 White Blood Count 10.6 x10^3/uL (4.0-11.0) Red Blood Count 5.47 x10^6/uL (3.50-5.40) Hemoglobin 15.8 g/dL (12.0-15.5) Hematocrit 48.9 % (36.0-47.0) Mean Corpuscular Volume 89 fL (79-100) Mean Corpuscular Hemoglobin 29 pg (25-35) Mean Corpuscular Hemoglobin Concent 32 g/dL (31-37) Red Cell Distribution Width 16.3 % (11.5-14.5) Platelet Count 292 x10^3/uL (140-400) Neutrophils (%) (Auto) 75 % (31-73) Lymphocytes (%) (Auto) 15 % (24-48) Monocytes (%) (Auto) 10 % (0-9) Eosinophils (%) (Auto) 0 % (0-3) Basophils (%) (Auto) 0 % (0-3) Neutrophils # (Auto) 8.0 x10^3uL (1.8-7.7) Lymphocytes # (Auto) 1.6 x10^3/uL (1.0-4.8) Monocytes # (Auto) 1.0 x10^3/uL (0.0-1.1) Eosinophils # (Auto) 0.0 x10^3/uL (0.0-0.7) Basophils # (Auto) 0.0 x10^3/uL (0.0-0.2) Sodium Level 137 mmol/L (136-145) Potassium Level 4.8 mmol/L (3.5-5.1) Chloride Level 99 mmol/L (98-107) Carbon Dioxide Level 27 mmol/L (21-32) Anion Gap 11 (6-14) Blood Urea Nitrogen 46 mg/dL (7-20) Creatinine 1.2 mg/dL (0.6-1.0) Estimated GFR (Cockcroft-Gault) 53.6 Glucose Level 125 mg/dL (70-99) Uric Acid 8.6 mg/dL (2.6-6.0) Calcium Level 9.0 mg/dL (8.5-10.1) Urine Collection Type Unknown Urine Color [place] Urine Clarity Cloudy Urine pH 6.0 Urine Specific [place] 1.025 Urine Protein 100 mg/dL (NEG-TRACE) Urine Glucose (UA) Negative mg/dL (NEG) Urine Ketones (Stick) Negative mg/dL (NEG) Urine Blood Large (NEG) Urine Nitrite Negative (NEG) Urine Bilirubin Small (NEG) Urine Urobilinogen Dipstick 1.0 mg/dL (0.2 mg/dL) Urine Leukocyte Esterase Trace (NEG) Urine RBC 3-5 /HPF (0-2) Urine WBC Occ /HPF (0-4) Urine Bacteria Moderate /HPF (0-FEW) Urine Hyaline Casts Moderate /HPF Urine Mucus Mod /LPF Microbiology 02/01/17 Blood Culture - Preliminary, Resulted NO GROWTH AFTER 3 DAYS Medications Current Medications Albuterol Sulfate (Ventolin Neb Soln) 10 mg 1X ONCE CONT NEB Last administered on 02/01/17 14:01; Start 02/01/17 at 13:30; Stop 02/01/17 at 13 :35; Status DC Ipratropium [place] (Atrovent) 0.5 mg 1X ONCE NEB Last administered on 13:30; Start 02/01/17 at 13:30; Stop 02/01/17 at 13:35; Status DC Diltiazem HCl 125 mg/Dextrose 125 ml @ 0 mls/hr CONT PRN IV SEE I/O RECORD Last administered on 02/01/17 14:04; Start 02/01/17 at 13:45 Diltiazem HCl (Cardizem) 10 mg 1X ONCE IVP Last administered on 02/01/17 14: 00; Start 02/01/17 at 13:45; Stop 02/01/17 at 13:46; Status DC Furosemide (Lasix) 40 mg 1X ONCE IVP Last administered on 02/01/17 15:05; Start 02/01/17 at 15:00; Stop 02/01/17 at 15:01; Status DC Acetaminophen (Tylenol) 650 mg PRN Q6HRS PRN PO FEVER; Start 02/01/17 at 15:15 Alprazolam (Xanax) 0.5 mg PRN Q8HRS PRN PO ANXIETY / AGITATION Last administered on 02/05/17 08:38; Start 02/01/17 at 15:15 Aspirin (Ecotrin) 81 mg DAILYWBKFT PO Last administered on 02/02/17 09:00; Start 02/02/17 at 08:00; Stop 02/02/17 at 11:37; Status DC Diltiazem HCl (Cardizem 24hr Cd) 180 mg DAILY PO Last administered on 08:38; Start 02/01/17 at 16:00 Docusate Sodium (Colace) 100 mg PRN DAILY PRN PO CONSTIPATION Last administered on 02/04/17 21:02; Start 02/01/17 at 15:15 EZETIMIBE (Zetia) 10 mg HS PO Last administered on 02/04/17 20:10; Start 04/08 at 21:00 Furosemide (Lasix) 40 mg DAILY PO Last administered on 02/05/17 08:27; Start 02/02/17 at 09:00 Albuterol/ Ipratropium (Duoneb) 3 ml BID NEB Last administered on 02/02/17 08 :16; Start 02/01/17 at 21:00; Stop 02/02/17 at 14:01; Status DC Levothyroxine Sodium (Synthroid) 100 mcg DAILY07 PO Last administered on 06:15; Start 02/02/17 at 07:00 Pantoprazole Sodium (Protonix) 40 mg DAILY PO Last administered on 02/05/17 08:27; Start 02/01/17 at 16:30 Prednisone (Prednisone) 10 mg DAILY PO Last administered on 02/02/17 09:02; Start 02/02/17 at 09:00; Stop 02/02/17 at 14:01; Status DC Tramadol HCl (Ultram) 50 mg PRN Q6HRS PRN PO MILD TO MODERATE PAIN; Start 04/08 at 15:15 Apixaban (Eliquis) 5 mg BID PO Last administered on 02/05/17 08:27; Start at 21:00 Digoxin (Lanoxin) 500 mcg 1X ONCE IV Last administered on 02/01/17 15:55; Start 02/01/17 at 15:30; Stop 02/01/17 at 15:31; Status DC Ondansetron HCl (Zofran) 4 mg PRN Q8HRS PRN IV NAUSEA/VOMITING; Start at 15:30; Stop 02/02/17 at 15:29; Status DC Furosemide (Lasix) 40 mg DAILY IVP ; Start 02/02/17 at 09:00; Stop 02/02/17 at 10:59; Status DC Sodium Polystyrene Sulfonate (Kayexalate) 15 gm 1X ONCE PO Last administered on 02/01/17 16:15; Start 02/01/17 at 15:30; Stop 02/01/17 at 15:31; Status DC Non-Formulary Medication 3 ea TIDWMEALS PO Last administered on 02/05/17 08: 28; Start 02/01/17 at 18:00 Levofloxacin/ Dextrose 100 ml @ 100 mls/hr Q24H IV Last administered on 20:09; Start 02/01/17 at 22:00 Sodium Chloride 1,000 ml @ 50 mls/hr Q20H IV Last administered on 02/01/17 21:35; Start 02/01/17 at 21:15; Stop 02/02/17 at 19:21; Status DC Info (Anti-Coagulation Monitoring By Pharmacy) 1 each PRN DAILY PRN MC SEE COMMENTS Last administered on 02/04/17 07:51; Start 02/02/17 at 09:00 Sodium Polystyrene Sulfonate (Kayexalate) 15 gm 1X ONCE PO ; Start 02/02/17 at 11:00; Stop 02/02/17 at 11:01; Status DC Digoxin (Lanoxin) 250 mcg 1X ONCE IV Last administered on 02/02/17 11:42; Start 02/02/17 at 11:30; Stop 02/02/17 at 11:31; Status DC Metoprolol Tartrate (Lopressor) 5 mg 1X ONCE IVP Last administered on 14:04; Start 02/02/17 at 11:30; Stop 02/02/17 at 11:31; Status DC Ipratropium [place] (Atrovent) 0.5 mg RTQID NEB Last administered on 08:05; Start 02/02/17 at 16:00 Methylprednisolone Sodium Succinate (SOLU-Medrol 40MG VIAL) 40 mg Q8HRS IV Last administered on 02/04/17 14:13; Start 02/02/17 at 14:15; Stop 02/04/17 at 15:55; Status DC Metoprolol Succinate (Toprol Xl) 25 mg DAILY PO Last administered on 08:28; Start 02/02/17 at 15:00 Sodium Chloride 1,000 ml @ 50 mls/hr Q20H IV Last administered on 02/04/17 20:20; Start 02/04/17 at 09:15; Stop 02/05/17 at 08:20; Status DC Calcium Carbonate/ Glycine (Tums) 500 mg PRN AFTMEALHC PRN PO INDIGESTION Last administered on 02/04/17 13:19; Start 02/04/17 at 11:30 Prednisone (Prednisone) 30 mg DAILY PO Last administered on 02/05/17 08:27; Start 02/05/17 at 09:00 Magnesium Sulfate/ Dextrose 50 ml @ 25 mls/hr PRN DAILY PRN IV for Mag < 1.7 on am labs; Start 02/05/17 at 08:15 Active Scripts Active Prednisone 10 Mg Tablet 10 Mg PO UD Take 3 tablets by mouth twice a day for 3 days, then take 2 tablets by mouth twice a day for 3 days, then take 1 tablet by mouth twice a day for 3 days, then take 1 tablet by mouth daily x 3 days, then stop. Duoneb 0.5-3(2.5) Mg/3 Ml (Albuterol/Ipratropium) 3 Ml Ampul.neb 3 Ml NEB BID Alprazolam 0.5 Mg Tablet 0.5 Mg PO PRN Q8HRS PRN Synthroid (Levothyroxine Sodium) 100 Mcg Tablet 1 Tab PO DAILY Cardizem Cd (Diltiazem Hcl) 180 Mg Cap.er.24h 1 Cap PO DAILY Aspirin Ec (Aspirin) 81 Mg Tablet. 81 Mg PO DAILYWBKFT 30 Days Reported Tramadol Hcl 50 Mg Tablet 1 Tab PO PRN Q6HRS Protonix (Pantoprazole Sodium) 40 Mg Tablet. 1 Tab PO DAILY Tylenol (Acetaminophen) 325 Mg Tablet 2 Tab PO PRN Q6HRS PRN Docusate Sodium 100 Mg Capsule 1 Cap PO DAILY PRN Doxazosin Mesylate 2 Mg Tablet 1 Tab PO DAILY Lasix (Furosemide) 40 Mg Tablet 1 Tab PO DAILY Potassium Chloride 20 Meq Tablet.er 20 Meq PO DAILY Esbriet (Pirfenidone) 801 Mg Tablet 801 Mg PO Zetia (Ezetimibe) 10 Mg Tablet 10 Mg PO HS Vitals/I & O Vital Sign - Last 24 Hours 02/04/17 02/04/17 02/04/17 02/04/17 12:00 12:00 13:00 13:48 Temp 97.1 97.1 Pulse 80 80 Resp 27 34 B/P (MAP) 109/74 (86) 109/56 (73) Pulse Ox 89 92 92 O2 Delivery NonRebreather Mask Non-Rebreather NonRebreather Mask BiPAP/CPAP O2 Flow Rate 15.0 15.0 15.0 02/04/17 02/04/17 02/04/17 02/04/17 14:00 15:00 16:00 16:00 Temp 97.9 97.9 Pulse 76 76 77 Resp 36 36 33 B/P (MAP) 101/77 (85) 106/71 (83) 115/75 (88) Pulse Ox 98 90 90 O2 Delivery NonRebreather Mask NonRebreather Mask Non-Rebreather NonRebreather Mask O2 Flow Rate 15.0 15.0 15.0 15.0 02/04/17 02/04/17 02/04/17 02/04/17 16:54 17:00 18:00 19:00 Temp 97.5 97.5 Pulse 79 79 78 Resp 26 26 24 B/P (MAP) 92/67 (75) 98/70 (79) 102/71 (81) Pulse Ox 90 96 96 95 O2 Delivery BiPAP/CPAP NonRebreather Mask NonRebreather Mask Nasal Cannula O2 Flow Rate 15.0 15.0 10.0 02/04/17 02/04/17 02/04/17 02/04/17 20:00 20:00 20:22 21:00 Pulse 80 78 Resp 35 34 B/P (MAP) 107/67 (80) 93/67 (76) Pulse Ox 91 91 92 O2 Delivery NonRebreather Mask Nasal Cannula BiPAP/CPAP NonRebreather Mask O2 Flow Rate 15.0 10.0 15.0 02/04/17 02/04/17 02/05/17 02/05/17 22:00 23:00 00:00 00:00 Temp 97.5 97.5 Pulse 82 78 78 Resp 26 26 26 B/P (MAP) 99/55 (70) 112/72 (85) 99/55 (70) Pulse Ox 92 95 92 O2 Delivery NonRebreather Mask NonRebreather Mask NonRebreather Mask Non- Rebreather O2 Flow Rate 15.0 15.0 15.0 15.0 02/05/17 02/05/17 02/05/17 02/05/17 01:00 02:00 03:00 04:00 Pulse 80 80 79 Resp 26 26 26 B/P (MAP) 109/70 (83) 116/76 (89) 111/73 (86) Pulse Ox 93 97 97 O2 Delivery NonRebreather Mask BiPAP/CPAP BiPAP/CPAP Bi-pap O2 Flow Rate 15.0 02/05/17 02/05/17 02/05/17 02/05/17 04:00 05:00 06:00 07:00 Pulse 82 83 87 88 Resp 35 33 36 39 B/P (MAP) 121/78 (92) 123/85 (98) 115/84 (94) 113/74 (87) Pulse Ox 97 95 95 95 O2 Delivery BiPAP/CPAP BiPAP/CPAP BiPAP/CPAP BiPAP/CPAP 02/05/17 02/05/17 02/05/17 02/05/17 08:00 08:00 08:06 08:28 Temp 94.7 94.7 Pulse 82 86 Resp 38 B/P (MAP) 104/79 (87) 104/79 Pulse Ox 95 91 O2 Delivery NonRebreather Mask Bi-pap BiPAP/CPAP O2 Flow Rate 15.0 02/05/17 02/05/17 02/05/17 02/05/17 08:38 09:00 10:00 11:00 Pulse 86 80 79 80 Resp 35 32 35 B/P (MAP) 104/79 93/70 (78) 104/71 (82) 114/74 (87) Pulse Ox 88 96 95 O2 Delivery NonRebreather Mask NonRebreather Mask NonRebreather Mask O2 Flow Rate 15.0 15.0 15.0 Intake and Output 02/05/17 02/05/17 02/06/17 15:00 23:00 07:00 Intake Total 553 ml Output Total 60 ml Balance 493 ml AGUEDA MALHOTRA III DO Feb 05, 2017 11:45
[2017-02-05] MEDS ORDERED: ONDANSETRON PF 4 MG/2 ML VIAL. IV PRN (12:00)
--- NOTE | 2017-02-05 15:17 | PDOC ---
MAI TURNER INTEGRATION AIDE 02/05/17 1517: CARDIO Progress Notes Date and Time Date of Service 02/05/2017 Time of Evaluation 1500 Subjective Subjective: No Chest Pain, No Palpitations, Other (SOA, presently on NRB; 3 bouts of vomiting today) Vitals Vitals Vital Signs Date Time Temp Pulse Resp B/P (MAP) Pulse Ox O2 Delivery O2 Flow Rate FiO2 02/05/17 14:00 78 32 85/62 (70) 89 NonRebreather Mask 15.0 02/05/17 12:00 93.9 93.9 Weight Weight [ ] Input and Output Intake and Output Intake and Output 02/06/17 07:00 Intake Total 553 ml Output Total 125 ml Balance 428 ml Intake Oral 445 ml IV Total 108 ml Output Urine Total 125 ml # Bowel Movements 1 Laboratory Labs Laboratory Tests Test 02/05/17 04:10 02/05/17 08:21 White Blood Count 10.6 x10^3/uL (4.0-11.0) Red Blood Count 5.47 x10^6/uL (3.50-5.40) Hemoglobin 15.8 g/dL (12.0-15.5) Hematocrit 48.9 % (36.0-47.0) Mean Corpuscular Volume 89 fL (79-100) Mean Corpuscular Hemoglobin 29 pg (25-35) Mean Corpuscular Hemoglobin Concent 32 g/dL (31-37) Red Cell Distribution Width 16.3 % (11.5-14.5) Platelet Count 292 x10^3/uL (140-400) Neutrophils (%) (Auto) 75 % (31-73) Lymphocytes (%) (Auto) 15 % (24-48) Monocytes (%) (Auto) 10 % (0-9) Eosinophils (%) (Auto) 0 % (0-3) Basophils (%) (Auto) 0 % (0-3) Neutrophils # (Auto) 8.0 x10^3uL (1.8-7.7) Lymphocytes # (Auto) 1.6 x10^3/uL (1.0-4.8) Monocytes # (Auto) 1.0 x10^3/uL (0.0-1.1) Eosinophils # (Auto) 0.0 x10^3/uL (0.0-0.7) Basophils # (Auto) 0.0 x10^3/uL (0.0-0.2) Sodium Level 137 mmol/L (136-145) Potassium Level 4.8 mmol/L (3.5-5.1) Chloride Level 99 mmol/L (98-107) Carbon Dioxide Level 27 mmol/L (21-32) Anion Gap 11 (6-14) Blood Urea Nitrogen 46 mg/dL (7-20) Creatinine 1.2 mg/dL (0.6-1.0) Estimated GFR (Cockcroft-Gault) 53.6 Glucose Level 125 mg/dL (70-99) Uric Acid 8.6 mg/dL (2.6-6.0) Calcium Level 9.0 mg/dL (8.5-10.1) Urine Collection Type Unknown Urine Color [place] Urine Clarity Cloudy Urine pH 6.0 Urine Specific [place] 1.025 Urine Protein 100 mg/dL (NEG-TRACE) Urine Glucose (UA) Negative mg/dL (NEG) Urine Ketones (Stick) Negative mg/dL (NEG) Urine Blood Large (NEG) Urine Nitrite Negative (NEG) Urine Bilirubin Small (NEG) Urine Urobilinogen Dipstick 1.0 mg/dL (0.2 mg/dL) Urine Leukocyte Esterase Trace (NEG) Urine RBC 3-5 /HPF (0-2) Urine WBC Occ /HPF (0-4) Urine Bacteria Moderate /HPF (0-FEW) Urine Hyaline Casts Moderate /HPF Urine Mucus Mod /LPF Microbiology Micro Microbiology 02/01/17 Blood Culture - Preliminary, Resulted NO GROWTH AFTER 4 DAYS Physical Exam HEENT: Neck Supple W Full Motion, Other (JVD) Chest: Symmetric LUNGS: Other (basilar crackles; off bipap) Heart: S1S2, RRR (SR) Abdomen: Soft N/T Extremities: No Calf Tenderness, Other (1-2+ bilateral LE pitting edema) Neurology: alert, oriented, follow commands Assessment Assessment 1. Acute on chronic diastolic CHF 2. Paroxysmal Atrial flutter: presently 2:1 atrial flutter RVR: Remains on SR 3. Acute on chronic respiratory failure with underlying pulmonary fibrosis/ severe pulmonary HTN with chronic O2 use: Per pulmonary 4. Hypothyroidism: recent TSH 11. 5. HTN: Low end 6. HLP 7. SHELBY/hyperkalemia: prerenal with inadequate po fluid intake and 3 bouts of vomiting today Recommendations 1. Continue Cardizem CD and toprol XL. Replace Bipap 2. Lasix therapy and eliquis 3. Start on low maintenance IVF fluids till po fluid intake is adequate. CXR 3. Continue with secondary prevention. ONEL MIDDLETON MD 02/05/17 2153: CARDIO Progress Notes Assessment Assessment Patient seen and examined. Agree with SOYFREEZE OPERATOR's assessment and plan. Acute on chronic diastolic HF better compensated. Paroxysmal atrial flutter maintaining sinus rhythm. Continue cardizem and eliquis MAI TURNER APRN Feb 05, 2017 15:17 ONEL MIDDLETON MD Feb 05, 2017 21:53
--- NOTE | 2017-02-05 16:48 | PDOC2 ---
PALLIATIVE CARE Palliative Care Note Palliative Care Consult requested by Dr. Jorgensen to address senior care management. Diagnosis: End Stage Pulmonary Disease; COPD; Pulmonary Fibrosis; CHF; cor pulmonale; CKD; Hypothyroidism; HTN, anxiety/depression Information obtained from medical record, and pt. and family Met with patient and family-- Fabricio; son Sebastien; daughters Timothy, Aziza , Trista; 2 sisters; son and daughter per phone. Reviewed medical condition. Family reports multiple admissions to the hospital for respiratory distress--further decline even with aggressive care. Patient and have decided they want to go home with hospice. Children and sisters are supportive of that decision. They have no preference of hospice agency. Discussed Code Status: Pt. requests DNR/DNI --understanding without this attempt likely she would . Outside the Hospital DNR/DNI form signed by Fabricio. DME; Hospital Bed, Bedside table, oxygen --high flow; BiPap; Spoke with Damon DELGADO who will assist with discharge plan and selection of hospice agency. Plan: DNR/DNI Home with Hospice when discharged. No preference of agency per family. RADHA SILVER Feb 05, 2017 16:48
[2017-02-05] MEDS: IV NORMAL SALINE 1000ML BAG 1,000 ML IV SCH (17:01)
[2017-02-05] MEDS: EZETIMIBE 10 MG TABLET. PO SCH (21:46)
[2017-02-06] VITALS (11 sets, daily range): BP systolic 63–97; BP diastolic 48–65
[2017-02-06] MEDS: ALPRAZolam 0.5 MG TABLET PO PRN (00:41)
[2017-02-06] MEDS ORDERED: IV NORMAL SALINE 1000ML BAG 1,000 ML IV ONE (02:00)
[2017-02-06] MEDS: IV NORMAL SALINE 1000ML BAG 1,000 ML IV SCH (04:02)
[2017-02-06] MEDS ORDERED: fentaNYL PF VIAL 100 MCG/2 ML VIAL IV PRN (05:00)
[2017-02-06 06:41] LABS: ALBUMIN 3.4 g/dL (3.4-5.0); CALCIUM 9.4 mg/dL (8.5-10.1); CREATININE 1.5 mg/dL (0.6-1.0); GFR 41.4; PHOSPHORUS 7.7 mg/dL (2.6-4.7); POTASSIUM 5.5 mmol/L (3.5-5.1)
[2017-02-06] MEDS: LEVOTHYROXINE 100 MCG TABLET PO SCH (07:00)
[2017-02-06] MEDS: DEXTROSE 50% 25 GM / 50ML DISP.SYRIN. IV PRN ×4 (07:01→08:56)
[2017-02-06 07:17] LABS: BASO % 0 % (0-3); EOS % 0 % (0-3); HEMATOCRIT 52.1 % (36.0-47.0); HEMOGLOBIN 15.9 g/dL (12.0-15.5); LYMPH # 0.5 x10^3/uL (1.0-4.8); LYMPH % 3 % (24-48); MEAN CORPUSCULAR HEMOGLOBIN 28 pg (25-35); MEAN CORPUSCULAR HGB CONC 30 g/dL (31-37); MEAN CORPUSCULAR VOLUME 93 fL (79-100); MONO % 9 % (0-9); NEUT % 89 % (31-73); PLATELET COUNT 211 x10^3/uL (140-400); RED BLOOD COUNT 5.58 x10^6/uL (3.50-5.40); RED CELL DISTRIBUTION WIDTH 17.6 % (11.5-14.5); WHITE BLOOD COUNT 18.5 x10^3/uL (4.0-11.0)
[2017-02-06] MEDS: IPRATROPIUM BROMIDE 0.5 MG/2.5 ML NEBU. NEB SCH (07:49)
[2017-02-06] MEDS: NON FORMULARY ITEM PO SCH (07:51)
[2017-02-06] MEDS: APIXABAN 5 MG TABLET. PO SCH (07:51)
[2017-02-06] MEDS: FUROSEMIDE 40 MG TABLET. PO SCH (07:51)
[2017-02-06] MEDS: PANTOPRAZOLE 40 MG TABLET.DR. PO SCH (07:52)
[2017-02-06] MEDS: predniSONE 10 MG TABLET PO SCH (07:52)
[2017-02-06] MEDS: METOPROLOL SUCC 24HR ER 25 MG TAB.ER.24H. PO SCH (07:52)
--- NOTE | 2017-02-06 08:13 | PDOC ---
SUBJECTIVE ROS SHELBY/ CKD OBJECTIVE Vital Signs Vital Signs Date Time Temp Pulse Resp B/P (MAP) Pulse Ox O2 Delivery O2 Flow Rate FiO2 02/06/17 07:49 99 NonRebreather Mask 02/06/17 07:00 85 31 85/57 (66) 15.0 02/06/17 04:00 97.6 97.6 PHYSICAL EXAM Physical Exam somewhat confused Neck: No JVD or JVP Chest: CTA Jovon - x few rales Heart: S1 S2 Abdomen - Soft NTND Extremities - + Edema DIAGNOSIS/ASSESSMENT Assessment & Plan Plans for Hospice noted Hypoglycemia being addressed with IVF Will be available prn Problems: COMMENT/RELEVANT DATA Meds Current Medications Medications (Trade) Dose Ordered Sig/Traci Start Time Stop Time Status Last Admin Dose Admin Acetaminophen (Tylenol) 650 mg PRN Q6HRS PRN 02/01/17 15:15 Albuterol Sulfate (Ventolin Neb Soln) 10 mg 1X ONCE 02/01/17 13:30 02/01/17 13:35 DC 02/01/17 14:01 5 MG Albuterol/ Ipratropium (Duoneb) 3 ml BID 02/01/17 21:00 02/02/17 14:01 DC 02/02/17 08:16 3 ML Alprazolam (Xanax) 0.5 mg PRN Q8HRS PRN 02/01/17 15:15 02/06/17 00:41 0.5 MG Apixaban (Eliquis) 5 mg BID 02/01/17 21:00 02/05/17 21:46 5 MG Aspirin (Ecotrin) 81 mg DAILYWBKFT 02/02/17 08:00 02/02/17 11:37 DC 02/02/17 09:00 81 MG Calcium Carbonate/ Glycine (Tums) 500 mg PRN AFTMEALHC PRN 02/04/17 11:30 02/04/17 13:19 500 MG Dextrose (Dextrose 50%-Water Syringe) 12.5 gm PRN Q15MIN PRN 02/06/17 06:48 02/06/17 07:57 25 GM Digoxin (Lanoxin) 250 mcg 1X ONCE 02/02/17 11:30 02/02/17 11:31 DC 02/02/17 11:42 250 MCG Diltiazem HCl (Cardizem 24hr Cd) 180 mg DAILY 02/01/17 16:00 02/05/17 08:38 180 MG Diltiazem HCl (Cardizem) 10 mg 1X ONCE 02/01/17 13:45 02/01/17 13:46 DC 02/01/17 14:00 10 MG Diltiazem HCl 125 mg/Dextrose 125 ml @ 0 mls/hr CONT PRN 02/01/17 13:45 02/01/17 14:04 5 MLS/HR Docusate Sodium (Colace) 100 mg PRN DAILY PRN 02/01/17 15:15 02/04/17 21:02 100 MG EZETIMIBE (Zetia) 10 mg HS 02/01/17 21:00 02/05/17 21:46 10 MG Fentanyl Citrate (Fentanyl 2ml Vial) 25 mcg PRN Q2HR PRN 02/06/17 05:00 02/06/17 05:04 25 MCG Furosemide (Lasix) 40 mg DAILY 02/02/17 09:00 02/02/17 10:59 DC Info (Anti-Coagulation Monitoring By Pharmacy) 1 each PRN DAILY PRN 02/02/17 09:00 02/04/17 07:51 1 EACH Ipratropium [place] (Atrovent) 0.5 mg RTQID 02/02/17 16:00 02/06/17 07:49 0.5 MG Levofloxacin/ Dextrose 100 ml @ 100 mls/hr Q24H 02/01/17 22:00 02/05/17 22:04 100 MLS/HR Levothyroxine Sodium (Synthroid) 100 mcg DAILY07 02/02/17 07:00 02/05/17 06:15 100 MCG Lorazepam (Ativan) 1 mg PRN Q4HRS PRN 02/05/17 15:30 02/06/17 02:46 1 MG Magnesium Sulfate/ Dextrose 50 ml @ 25 mls/hr PRN DAILY PRN 02/05/17 08:15 Methylprednisolone Sodium Succinate (SOLU-Medrol 40MG VIAL) 40 mg Q8HRS 02/02/17 14:15 02/04/17 15:55 DC 02/04/17 14:13 40 MG Metoprolol Succinate (Toprol Xl) 25 mg DAILY 02/02/17 15:00 02/05/17 08:28 25 MG Metoprolol Tartrate (Lopressor) 5 mg 1X ONCE 02/02/17 11:30 02/02/17 11:31 DC 02/02/17 14:04 2.5 MG Non-Formulary Medication 3 ea TIDWMEALS 02/01/17 18:00 02/05/17 08:28 3 EA Ondansetron HCl (Zofran) 4 mg PRN Q6HRS PRN 02/05/17 12:00 02/05/17 12:06 4 MG Pantoprazole Sodium (Protonix) 40 mg DAILY 02/01/17 16:30 02/05/17 08:27 40 MG Prednisone (Prednisone) 30 mg DAILY 02/05/17 09:00 02/05/17 08:27 30 MG Sodium Polystyrene Sulfonate (Kayexalate) 15 gm 1X ONCE 02/02/17 11:00 02/02/17 11:01 DC Sodium Chloride 1,000 ml @ 1,000 mls/hr 1X ONCE 02/06/17 02:00 02/06/17 02:59 DC 02/06/17 02:46 1,000 MLS/HR Tramadol HCl (Ultram) 50 mg PRN Q6HRS PRN 02/01/17 15:15 Lab Laboratory Tests Test 02/05/17 08:21 02/06/17 04:15 02/06/17 06:05 02/06/17 07:11 Urine Collection Type Unknown Urine Color [place] Urine Clarity Cloudy Urine pH 6.0 Urine Specific [place] 1.025 Urine Protein 100 mg/dL (NEG-TRACE) Urine Glucose (UA) Negative mg/dL (NEG) Urine Ketones (Stick) Negative mg/dL (NEG) Urine Blood Large (NEG) Urine Nitrite Negative (NEG) Urine Bilirubin Small (NEG) Urine Urobilinogen Dipstick 1.0 mg/dL (0.2 mg/dL) Urine Leukocyte Esterase Trace (NEG) Urine RBC 3-5 /HPF (0-2) Urine WBC Occ /HPF (0-4) Urine Bacteria Moderate /HPF (0-FEW) Urine Hyaline Casts Moderate /HPF Urine Mucus Mod /LPF Magnesium Level 3.3 mg/dL (1.8-2.4) White Blood Count 18.5 x10^3/uL (4.0-11.0) Red Blood Count 5.58 x10^6/uL (3.50-5.40) Hemoglobin 15.9 g/dL (12.0-15.5) Hematocrit 52.1 % (36.0-47.0) Mean Corpuscular Volume 93 fL (79-100) Mean Corpuscular Hemoglobin 28 pg (25-35) Mean Corpuscular Hemoglobin Concent 30 g/dL (31-37) Red Cell Distribution Width 17.6 % (11.5-14.5) Platelet Count 211 x10^3/uL (140-400) Neutrophils (%) (Auto) 89 % (31-73) Lymphocytes (%) (Auto) 3 % (24-48) Monocytes (%) (Auto) 9 % (0-9) Eosinophils (%) (Auto) 0 % (0-3) Basophils (%) (Auto) 0 % (0-3) Neutrophils # (Auto) 16.4 x10^3uL (1.8-7.7) Lymphocytes # (Auto) 0.5 x10^3/uL (1.0-4.8) Monocytes # (Auto) 1.6 x10^3/uL (0.0-1.1) Eosinophils # (Auto) 0.0 x10^3/uL (0.0-0.7) Basophils # (Auto) 0.0 x10^3/uL (0.0-0.2) Sodium Level 140 mmol/L (136-145) Potassium Level 5.5 mmol/L (3.5-5.1) Chloride Level 100 mmol/L (98-107) Carbon Dioxide Level 18 mmol/L (21-32) Anion Gap 22 (6-14) Blood Urea Nitrogen 61 mg/dL (7-20) Creatinine 1.5 mg/dL (0.6-1.0) Estimated GFR (Cockcroft-Gault) 41.4 Glucose Level 29 mg/dL (70-99) Calcium Level 9.4 mg/dL (8.5-10.1) Phosphorus Level 7.7 mg/dL (2.6-4.7) Albumin 3.4 g/dL (3.4-5.0) Glucose (Fingerstick) 32 mg/dL (70-99) Test 02/06/17 07:28 02/06/17 07:54 Glucose (Fingerstick) 15 mg/dL (70-99) 13 mg/dL (70-99) GERRY STRONG MD Feb 06, 2017 08:13
--- NOTE | 2017-02-06 08:32 | RAD ---
Indication difficulty breathing. A single view of the chest was obtained and is compared to a study 2 days previously. There are pulmonary infiltrates which appear stable to slightly worse than on the previous exam. Findings may reflect congestive heart failure. Interstitial inflammatory process is not excluded. Additionally there appears to be slightly increasing volume loss in the left lower lobe. There are bilateral pleural effusions similar to slightly larger than previously. Heart size is unchanged. IMPRESSION: Slight interval worsening in the appearance of the chest
[2017-02-06] MEDS ORDERED: MORPHINE SULFATE 4 MG/ML DISP.SYRIN. IM PRN (10:00)
[2017-02-06 10:11] LABS: ANISOCYTOSIS MOD; NUCLEATED RBC 1; PLT ESTIMATE ADEQUATE (ADEQUATE)
[2017-02-06 10:12] LABS: POLYCHROMASIA PRESENT
--- NOTE | 2017-02-06 10:12 | PDOC2 ---
PALLIATIVE CARE Palliative Care Note Palliative Care Patient unresponsive. Hypoglycemic even with multiple amps of Dextrose. RR 30 labored. Spoke with --Fabricio; 2 daughters and son. Patient has indicated to that she is "tired" Family does not want to prolong any suffering. Would like to focus on her comfort. Family is on there way from [place] and [place]. Will page Dr. Jorgensen for orders for comfort care. Will not transfer home with hospice as planned. RADHA SILVER Feb 06, 2017 10:12
--- NOTE | 2017-02-08 12:09 | DS ---
DATE OF DISCHARGE: SUMMARY She was admitted on 02/01/2017 and on 02/05/2017. ADMISSION DIAGNOSIS: Respiratory failure with chronic obstructive pulmonary disease. CAUSE OF : Progression of disease from her respiratory failure and COPD. HOSPITAL COURSE: The patient is a pleasant 72-year-old female who presented with fulminant respiratory failure in the ER. She was admitted to the ICU on a BiPAP. The next morning, she was a little better, we had her on nasal cannula, but then she declined. We ended up consulting palliative care. The patient was made comfort measures and on February 05. AGUEDA MALHOTRA DO DR: CATHERINE/bird JOB#: [id number] / [id number]
== END 2017-02-06 11:38 | disposition expired | DRG 196 ==
LOC: ER 13:24 → 1 WEST ICU 15:30
PROVIDERS: ADMIT Internal Medicine; ATTEND Internal Medicine
PROC: 5A09457 Assistance with Respiratory Ventilation, 24-96 Consecutive Hours, Continuous Positive Airway Pressure (ICD-10-PCS; principal; 2017-02-03)
DX: J84.10 Pulmonary fibrosis, unspecified (principal); I50.43 Acute on chronic combined systolic (congestive) and diastolic (congestive) heart failure; J96.20 Acute and chronic respiratory failure, unspecified whether with hypoxia or hypercapnia; I26.09 Other pulmonary embolism with acute cor pulmonale; N17.9 Acute kidney failure, unspecified; E87.5 Hyperkalemia; I48.2 Chronic atrial fibrillation; E86.0 Dehydration; I48.92 Unspecified atrial flutter; I13.0 Hypertensive heart and chronic kidney disease with heart failure and stage 1 through stage 4 chronic kidney disease, or unspecified chronic kidney disease; I27.29 Other secondary pulmonary hypertension; J44.9 Chronic obstructive pulmonary disease, unspecified; K21.9 Gastro-esophageal reflux disease without esophagitis; E78.00 Pure hypercholesterolemia, unspecified; E78.5 Hyperlipidemia, unspecified; F32.9 Major depressive disorder, single episode, unspecified; F41.9 Anxiety disorder, unspecified; Z66 Do not resuscitate; Z51.5 Encounter for palliative care; E16.2 Hypoglycemia, unspecified; E03.9 Hypothyroidism, unspecified; M19.90 Unspecified osteoarthritis, unspecified site; N18.9 Chronic kidney disease, unspecified; Z99.81 Dependence on supplemental oxygen; Z87.891 Personal history of nicotine dependence; Z83.3 Family history of diabetes mellitus; Z88.0 Allergy status to penicillin; Z88.5 Allergy status to narcotic agent
CPT/HCPCS: 36415; 36600; 51702; 71010; 76770; 80048; 80053; 80069; 81001; 82805; 82962; 83605; 83735; 83880; 84300; 84484; 84550; 85007; 85025; 85610; 87040; 87086; 87641; 93005; 94250; 94640; 94642; 94660; 94760; 96365; 96366; 96376; A4314; J1160; J1940; J1956; J2060; J2270; J2405; J2920; J3010; J3490; J7030; J7042; J7512; J7613; J7620; J7644; 97116; 99285-25